=== PATIENT | female | born 1945 | race Caucasian/White ===

== ENCOUNTER 2016-08-23 07:40 | Inpatient (IN) | payer MEDICARE ==
[~2016-08-23] VITALS: Ht 160 cm; Wt 114.2 kg
[2016-08-23] VITALS (26 sets, daily range): BP systolic 115–163; BP diastolic 58–87; PULSE 52–87; RESP 16–20; TEMP 97.9–98.5; O2SAT 86–100
[~2016-08-23 07:40] MED LIST: ADVA100A INH; ALBU0.08 NEB; ALBUAER3 INH; ASPI81TA81 PO; CIME200T PO; COZA50TA PO; GLIP5TAB8 PO; HYDR10TA23 PO; METF500T PO; METO10TA PO; METO5TAB3 PO; MONT10TA2 PO; OCUVTAB PO; POTA10TA8 PO; PRAV20TA PO; TIMO0.5S30 EACH EYE; ULTR50TA5 PO; VENTAER INH; WHEEMIS3; ZOLP10TA3 PO
[2016-08-23] MEDS ORDERED: VANCOMYCIN INJ 1,000 MG in SODIUM CHLOR 0.9% 250 ML INJ 250 ML IV STA (07:55)
[2016-08-23] MEDS ORDERED: PIPERACIL-TAZO 4.5 GM PREMIX 100 ML IV STA (07:55)
[2016-08-23 08:12] LABS: BLOOD GAS BASE EXCESS 4.6 mmol/L (-2-2); BLOOD GAS CARBOXYHEMOGLOBIN 4.8 % (0-4); BLOOD GAS HCO3 32 mmol/L (22-26); BLOOD GAS O2 HGB SATURATION 84 % (90-100); BLOOD GAS OXYGEN CONTENT 18.2 Vol % (12.0-20.0); BLOOD GAS PCO2 79 mmHg (38-42); BLOOD GAS PO2 68 mmHG (61-120); BLOOD GAS TOTAL HGB 15.5 G/DL (12.0-16.0); TEMP CORR TO 98.6
--- NOTE | 2016-08-23 08:12 | PD ---
HPI Chief Complaint: Fall Time Seen by Provider: 07:55 Travel History International Travel<30 days: No Contact w/Intl Traveler<30days: No Traveled to known affect area: No History of Present Illness HPI 71-year-old female who is morbidly obese and multiple comorbidities had gone to the bathroom this morning to do a "sink bath". However when she turned she lost her balance and fell on the floor on her bottom. She did not hit her head and she was quite sure about it. He did not lose consciousness. She was unable to get up from the floor and called 911. Patient has sores on both of her legs that she has been wrapping and taking care of them herself. She says that this has been there for past 2 years. Her primary care initially know about it but now she is taking care of them. She seems to be breathing heavily. She is a smoker and does not require oxygen at home as per her. Her oxygen saturation on 2 L of oxygen via nasal cannula was 93%. She is complaining of some neck and lower back pain which is also her chronic pain. [facility] Past Medical History Narrative Medical List of her past medical history as reviewed from the nursing note. Hx Anticoagulant Therapy: Yes Arthritis: Yes Asthma: Yes Autoimmune Disease: No Blood Disorders: No Anxiety: No Depression: No Heart Rhythm Problems: No Cancer: Yes (SKIN LOWER LEG) Cardiovascular Problems: Yes (stints) High Cholesterol: Yes Chemotherapy: No Chest Pain: No Congestive Heart Failure: No COPD: Yes Cerebrovascular Accident: No Diabetes: Yes Endocrine: Yes Gastrointestinal Disorders: Yes (spastic bowel) GERD: No Genitourinary: No Headaches: Yes Hiatal Hernia: No Hypertension: Yes Immune Disorder: No Kidney Stones: No Musculoskeletal: Yes (ankles knees back) Neurologic: No Psychiatric: No Reproductive: No Respiratory: Yes Migraines: No Radiation Therapy: No Renal Failure: No Seizures: No Sickle Cell Disease: No Sleep Apnea: No Thyroid Disease: No Ulcer: No ?: Not Menopausal: Yes Tubal Ligation: Yes Past Surgical History Abdominal Surgery: No AICD: No Arteriovenous Shunt: No Body Medical Devices: 2 CARDIAC STENTS Cardiac Surgery: Yes (CARDIAC STENTS X 2) Ear Surgery: No Endocrine Surgery: No Eye Surgery: Yes (IMPLANTS) Genitourinary Surgery: No Gynecologic Surgery: Yes (tubes tied) Insulin Pump: No Joint Replacement: No Oral Surgery: No Pacemaker: No Thoracic Surgery: No Other Surgery: Yes (VALVE SURGERY IN LEFT LEG,) Social History Alcohol Use: No Tobacco Use: Yes Substance Use: No Allergies-Medications (Allergen,Severity, Reaction): Coded Allergies: Mushroom (Verified Allergy, Severe, Throat swelling, rash , 07/23/16) Rash all over Zoloft (Verified Adverse Reaction, Intermediate, Dizziness, 07/23/16) Comments List of her allergies reviewed from the nursing note. Reported Meds & Prescriptions Reported Meds & Active Scripts Active Zolpidem (Zolpidem Tartrate) 10 Mg Tab 10 Mg PO HS PRN Aspir-81 (Aspirin) 81 Mg Tabdr 1 Tab PO DAILY Singulair (Montelukast Sodium) 10 Mg Tab 10 Mg PO HS Ultram (Tramadol HCl) 50 Mg Tab 50 Mg PO Q8H PRN Potassium Chloride CR (Potassium Chloride) 10 Meq Tab 20 Meq PO DAILY Metolazone 5 Mg Tab 5 Mg PO DAILY Metoclopramide (Metoclopramide HCl) 10 Mg Tab 10 Mg PO TIDAC Take 30 minutes prior to meals three times a day Metformin (Metformin HCl) 500 Mg Tab 500 Mg PO BIDPC With meals Advair Diskus Inh (Fluticasone-Salmeterol Inh) 100-50 Mcg/Blist Aer 1 Puff INH BID Rinse mouth after use. Proair Hfa 8.5 GM Inh (Albuterol Sulfate) 90 Mcg/Act Aer 2 Puff INH Q6H PRN 108 mcg/actuation Wheelchair (Device) 1 Mis Mis 1 Ea .ROUTE DIRECTED Albuterol Neb (Albuterol Sulfate) 2.5 Mg/3 Ml Neb 2.5 Mg NEB Q4HR NEB While awake Reported Ocuvite (Multiple Vitamins W/ Minerals) 1 Tab 1 Tab PO DAILY Timolol Opth Drops 0.5 % Soln 1 Drop EACH EYE BID Cimetidine 200 Mg Tab 200 Mg PO DAILY Cozaar (Losartan Potassium) 50 Mg Tab 50 Mg PO DAILY Glipizide 5 Mg Tab 5 Mg PO DAILY Take 30 minutes before a meal Hydralazine (Hydralazine HCl) 10 Mg Tab 10 Mg PO BID Take with a meal Pravachol (Pravastatin) 20 Mg Tab 20 Mg PO DAILY Ultram (Tramadol HCl) 50 Mg Tab 50 Mg PO Q4H PRN Ventolin Hfa 18 GM Inh (Albuterol Sulfate) 90 Mcg/Act Aer 1 Puff INH Q4H PRN Narrative Medication List of her home medications reviewed from the nursing note. Review of Systems Except as stated in HPI: all other systems reviewed are Neg Physical Exam Narrative GENERAL: Lethargic, somnolent but answers questions appropriately, morbidly obese, moderate distress, respiratory distress SKIN: Warm and dry. Multiple spider hemangioma. Bilateral lower extremity erythema and warmth. There is some blistering of both anterior aspect of the leg and some of the blisters or oozing HEAD: Atraumatic. Normocephalic. EYES: Pupils equal and round. No scleral icterus. No injection or drainage. ENT: No nasal bleeding or discharge. Mucous membranes pink and moist. NECK: Trachea midline. No JVD. CARDIOVASCULAR: Regular rate and rhythm. No murmur appreciated. RESPIRATORY: Accessory muscle use for respiration to do distress. Diminished air entry bilaterally GASTROINTESTINAL: Abdomen soft, non-tender, nondistended. Hepatic and splenic margins not palpable. MUSCULOSKELETAL: No obvious deformities. No clubbing. No cyanosis. 3+ pedal edema. NEUROLOGICAL: Somnolent, GCS of 14. No obvious cranial nerve deficits. Motor grossly within normal limits. Normal speech. PSYCHIATRIC: Appropriate mood and affect; insight and judgment normal. Data Data Last Documented VS Vital Signs Date Time Temp Pulse Resp B/P Pulse Ox O2 Delivery O2 Flow Rate FiO2 08/23/16 10:46 70 18 140/77 100 Ventilator 08/23/16 10:24 100 08/23/16 10:04 4 08/23/16 07:45 97.9 Orders Electrocardiogram (08/23/16 07:55) Complete Blood Count With Diff (08/23/16 07:55) Comprehensive Metabolic Panel (08/23/16 07:55) Prothrombin Time / Inr (Pt) (08/23/16 07:55) Lactic Acid Sepsis Protocol (08/23/16 07:55) Magnesium (Mg) (08/23/16 07:55) Troponin I (08/23/16 07:55) Urinalysis - C+S If Indicated (08/23/16 07:55) Blood Culture (08/23/16 07:55) Chest, Single Ap (08/23/16 07:55) Arterial Blood Gas (Abg) (08/23/16 07:55) Blood Glucose (08/23/16 07:55) Ecg Monitoring (08/23/16 07:55) Iv Access Insert/Monitor (08/23/16 07:55) Oximetry (08/23/16 07:55) Oxygen Administration (08/23/16 07:55) Piperacil-Tazo 4.5 Gm Premix (Zosyn 4.5 (08/23/16 07:55) Vancomycin Inj (Vancomycin Inj) (08/23/16 07:55) Resp Bipap / Cpap Non Invas Vt (08/23/16 ) Arterial Blood Gas (Abg) (08/23/16 ) Urine Culture (08/23/16 08:10) Furosemide Inj (Lasix Inj) (08/23/16 09:00) Urinary Catheter Insert/Apply (08/23/16 08:53) Albuterol-Ipratropium Neb (Duoneb Neb) (08/23/16 09:15) Propofol 1000 Mg/100 Ml Inj (Diprivan 10 (08/23/16 09:50) Lidocaine 2% Inj (Xylocaine 2% Inj) (08/23/16 09:51) Etomidate Inj (Amidate Inj) (08/23/16 09:51) Rocuronium Inj (Zemuron Inj) (08/23/16 09:51) Etomidate Inj (Amidate Inj) (08/23/16 10:00) Rocuronium Inj (Zemuron Inj) (08/23/16 10:00) Propofol 1000 Mg/100 Ml Inj (Diprivan 10 (08/23/16 10:00) ^ Infusion (08/23/16 09:52) RASS (08/23/16 09:52) Neurological Rass Scale DWAYNE.Q2H (08/23/16 09:52) Car-Gastric Tube Insert/Mon (08/23/16 09:52) Rocuronium Inj (Zemuron Inj) (08/23/16 09:53) Potassium, Serum (K) (08/23/16 12:54) Calcium Gluconate Inj (Calcium Gluconate (08/23/16 10:00) Insulin Human Regular Inj (Novolin R Inj (08/23/16 10:00) Dextrose 50% In [place] (Vial) Inj (D50w (Vi (08/23/16 10:00) Albuterol Concentrated Neb (Albuterol Co (08/23/16 10:00) Rocuronium Inj (Zemuron Inj) (08/23/16 10:00) Arterial Blood Gas (Abg) (08/23/16 10:40) Chest, Single Ap (08/23/16 ) Methylprednisolone So Succ Inj (Solumedr (08/23/16 10:15) Restraints Non-Violent DWAYNE.Q3H (08/23/16 10:16) Admit Order (Ed Use Only) (08/23/16 10:35) Troponin I (08/23/16 13:13) Labs Laboratory Tests Test 08/23/16 08/23/16 08/23/16 08/23/16 07:43 08:10 09:06 09:40 Prothrombin Time 11.5 SEC Prothromb Time International 1.0 RATIO Ratio White Blood Count 9.6 TH/MM3 Red Blood Count 5.32 MIL/MM3 Hemoglobin 15.2 GM/DL Hematocrit 46.6 % Mean Corpuscular Volume 87.6 FL Mean Corpuscular Hemoglobin 28.6 PG Mean Corpuscular Hemoglobin 32.7 % Concent Red Cell Distribution Width 15.6 % Platelet Count 293 TH/MM3 Mean Platelet Volume 6.8 FL Neutrophils (%) (Auto) 79.9 % Lymphocytes (%) (Auto) 8.3 % Monocytes (%) (Auto) 10.5 % Eosinophils (%) (Auto) 0.8 % Basophils (%) (Auto) 0.5 % Neutrophils # (Auto) 7.6 TH/MM3 Lymphocytes # (Auto) 0.8 TH/MM3 Monocytes # (Auto) 1.0 TH/MM3 Eosinophils # (Auto) 0.1 TH/MM3 Basophils # (Auto) 0.0 TH/MM3 CBC Comment DIFF FINAL Differential Comment Blood Gas Puncture Site LT RADIAL LT RADIAL Blood Gas Patient Temperature 98.6 98.6 Blood Gas HCO3 32 mmol/L 32 mmol/L Blood Gas Base Excess 4.6 mmol/L 4.0 mmol/L Blood Gas Oxygen Saturation 84 % 91 % Arterial Blood pH 7.23 7.20 Arterial Blood Partial 79 mmHg 83 mmHg Pressure CO2 Arterial Blood Partial 68 mmHG 104 mmHG Pressure O2 Arterial Blood Oxygen Content 18.2 Vol % 19.5 Vol % Arterial Blood 4.8 % 4.4 % Carboxyhemoglobin Arterial Blood Methemoglobin 2.0 % 1.9 % Blood Gas Hemoglobin 15.5 G/DL 15.3 G/DL Oxygen Delivery Device NASAL CANNULA BIPAP Blood Gas Liter Flow 3 L/M Urine Color DARK-YELLOW Urine Turbidity HAZY Urine pH 5.5 [address] [place] 1.024 Urine Protein 100 mg/dL Urine Glucose (UA) NEG mg/dL Urine Ketones NEG mg/dL Urine Occult Blood TRACE Urine Nitrite NEG Urine Bilirubin NEG Urine Urobilinogen 4.0 MG/DL Urine Leukocyte Esterase LARGE Urine RBC 12 /hpf Urine WBC 63 /hpf Urine WBC Clumps MANY Urine Squamous Epithelial 3 /hpf Cells Urine Renal Epithelial Cells <1 /hpf Urine Amorphous Sediment RARE Urine Bacteria OCC /hpf Urine Mucus FEW /lpf Microscopic Urinalysis Comment CATH-CULTURE IND Sodium Level 130 MEQ/L Potassium Level 5.6 MEQ/L Chloride Level 92 MEQ/L Carbon Dioxide Level 32.8 MEQ/L Anion Gap 5 MEQ/L Blood Urea Nitrogen 15 MG/DL Creatinine 1.16 MG/DL Estimat Glomerular Filtration 46 ML/MIN Rate Random Glucose 123 MG/DL Lactic Acid Level 0.9 mmol/L Calcium Level 8.6 MG/DL Magnesium Level 2.1 MG/DL Total Bilirubin 0.8 MG/DL Aspartate Amino Transf 28 U/L (AST/SGOT) Alanine Aminotransferase 17 U/L (ALT/SGPT) Alkaline Phosphatase 85 U/L Troponin I 0.03 NG/ML Total Protein 7.6 GM/DL Albumin 3.1 GM/DL Blood Gas Ventilator Setting 16IPAP/8EPAP Blood Gas Inspired Oxygen 40 % MDM Medical Decision Making Medical Screen Exam Complete: Yes Emergency Medical Condition: Yes Medical Record Reviewed: Yes Interpretation(s) Twelve-lead EKG was reviewed by me. Normal sinus rhythm, right axis deviation, right bundle branch block, peaked T waves. Heart rate of 82 bpm. Differential Diagnosis Sepsis, DKA, electrolyte abnormalities, cellulitis Narrative Course 8:10 AM awaiting for the blood test results and the x-ray result. Rectal temperature was 97.9. I however have started the patient on antibiotic mainly Zosyn and vancomycin given her diabetes and poor skin condition. 8:56 AM blood gas that was done earlier was suggestive of respiratory acidosis. I've asked the respiratory therapist to put a BiPAP and repeat the blood gas and 40-45 minutes. Meanwhile some of the test results are back. CBC is within normal limits. Chest x-rays shows cardiomegaly and some pulmonary congestion. Patient has significant UTI. The antibiotic she has received initially should be okay for now to cover the UTI. Awaiting for the chemistry and the repeat blood gas. Patient will require to be admitted to the ICU. 10:13 AM the repeat blood gas continued to show worsened respiratory acidosis. I decided to intubate the patient. I spoke with her who understood. Patient tolerated the intubation well. She is hooked up to the ventilator at this time and awaiting for the repeat blood gas. Patient also had the chemistry come back which showed hyperkalemia. I have ordered IV calcium gluconate, insulin and dextrose and albuterol nebulizers. Awaiting for the facetor to call back. Critical Care Narrative Aggregate critical care time was 75 minutes. Time to perform other separately billable procedures was not included in the critical care time. My time did not include minutes spent treating any other patients simultaneously or on activities that did not directly contribute to the patient's treatment. The services I provided to this patient were to treat and/or prevent clinically significant deterioration that could result in: Respiratory failure, hyperkalemia, UTI I provided critical care services requiring my management, as noted below: Chart data review, documentation time, medication orders and management, vital sign assessments/reviewing monitor data, ordering and reviewing lab tests, ordering and interpreting/reviewing x-rays and diagnostic studies, care of the patient and discussion of the patient with the admitting physicians. Procedures Procedure Narrative After the risks and benefits were discussed the following procedure was performed: INTUBATION: The patient was put in optimal position for the procedure. Rapid sequence intubation was initiated by me using 20 milligrams of etomidate IV and 100 milligrams of rocuronium IV. The patient was intubated with a 7.5 cuffed endotracheal tube. Tube placement was confirmed by visualization of the tube and balloon passing through the cords, capnometry and subsequent chest x-ray. Breath sounds were equal and well aerated bilaterally postintubation. No breath sounds over stomach. Patient tolerated procedure well. EKG Prior to Arrival: No Diagnosis Primary Impression: CHF (congestive heart failure) Qualified Code: I50.9 - Congestive heart failure, unspecified congestive heart failure chronicity, unspecified congestive heart failure type Additional Impressions: Respiratory acidosis UTI (urinary tract infection) Qualified Code: N39.0 - Urinary tract infection without hematuria, site unspecified Fall Qualified Code: W19.XXXA - Fall, initial encounter Cellulitis Qualified Code: L03.119 - Cellulitis of lower extremity, unspecified laterality Respiratory failure Qualified Code: J96.01 - Acute respiratory failure with hypoxia Hyperkalemia Renal insufficiency Admitting Information Admitting Physician Requests: Admit Bronwyn Adams MD Aug 23, 2016 08:12
[2016-08-23 08:13] LABS: CRITICAL VALUE YES; DRAW SITE LT RADIAL; LITER FLOW 3 L/M; NUMBER OF ARTERIAL PUNCTURES 2; OXYGEN DEVICE NASAL CANNULA; STAT YES; ULNAR PULSE Y
[2016-08-23 08:29] LABS: AUTOMATED NEUTROPHIL # 7.6 TH/MM3 (1.8-7.7); BASOPHIL % 0.5 % (0.0-2.0); EOSINOPHIL # 0.1 TH/MM3 (0-0.4); EOSINOPHIL % 0.8 % (0.0-4.0); HEMATOCRIT 46.6 % (35.0-46.0); HEMO FLAGS DIFF FINAL; LYMPH % 8.3 % (9.0-44.0); LYMPHOCYTE # 0.8 TH/MM3 (1.0-4.8); MEAN CELL VOLUME 87.6 FL (80.0-100.0); MEAN CORPUSCULAR HEMOGLOBIN 28.6 PG (27.0-34.0); MEAN CORPUSCULAR HGB CONC 32.7 % (32.0-36.0); MONO % 10.5 % (0.0-8.0); NEUT % 79.9 % (16.0-70.0); PLATELET COUNT 293 TH/MM3 (150-450); RED BLOOD COUNT 5.32 MIL/MM3 (4.00-5.30); RED CELL DISTRIBUTION WIDTH 15.6 % (11.6-17.2); WHITE BLOOD COUNT 9.6 TH/MM3 (4.0-11.0)
[2016-08-23 08:32] LABS: PROTHROMBIN TIME - PATIENT 11.5 SEC (9.8-11.6)
--- NOTE | 2016-08-23 08:43 | RADRPT ---
EXAM DATE/TIME: 08/23/2016 08:05 [facility] COMPARISON: CHEST SINGLE AP, October 17, 2014, 0:17. INDICATIONS : Short of breath MEDICAL HISTORY : None. SURGICAL HISTORY : None. ENCOUNTER: Initial ACUITY: 1 day PAIN SCORE: Non-responsive. LOCATION: Bilateral chest FINDINGS: A single view of the chest demonstrates the lungs to be symmetrically aerated without evidence of mas s, infiltrate or effusion. The heart size is diffusely enlarged but not significantly changed compar ed to the prior study. There is some prominence of the pulmonary vasculature suggestive of pulmonary venous congestion. The bony structures are stable and intact. No significant changes.. CONCLUSION: 1. Pulmonary venous congestion. 2. Prominence stable cardiomegaly. Antony Corona MD on August 23, 2016 at 8:41 Board Certified Radiologist. This report was verified electronically.
[2016-08-23 08:48] LABS: BACTERIA, URINE OCC /hpf; BLOOD, URINE TRACE (NEG); GLUCOSE,URINE NEG (NEG); KETONE, URINE NEG (NEG); MUCUS URINE FEW /lpf (OCC); NITRITE,URINE NEG (NEG); PH, URINE 5.5 (5.0-8.5); RENAL EPITHELIAL CELLS <1 /hpf; SQUAMOUS EPITHELIAL CELL URINE 3 /hpf (0-5); URINE COLOR DARK-YELLOW (YELLW/STRAW)
[2016-08-23 08:49] LABS: COMMENT (UR) CATH-CULTURE IND; CULTURE IF INDICATED CATH CULTURE IND
[2016-08-23] MEDS ORDERED: FUROSEMIDE 40 MG/4 ML VIAL IV PUSH ONE (09:00)
[2016-08-23] MEDS: RESP: ALBUTEROL 2.5 MG/IPRATROPIUM 0.5 MG NEB (SCH) INH ×6 (09:20→23:55)
[2016-08-23 09:43] LABS: BLOOD GAS CARBOXYHEMOGLOBIN 4.4 % (0-4); BLOOD GAS HCO3 32 mmol/L (22-26); BLOOD GAS METHEMOGLOBIN 1.9 % (0-2); BLOOD GAS O2 HGB SATURATION 91 % (90-100); BLOOD GAS OXYGEN CONTENT 19.5 Vol % (12.0-20.0); BLOOD GAS PCO2 83 mmHg (38-42); BLOOD GAS PO2 104 mmHG (61-120); BLOOD GAS TOTAL HGB 15.3 G/DL (12.0-16.0); TEMP CORR TO 98.6
[2016-08-23 09:44] LABS: CRITICAL VALUE YES; DRAW SITE LT RADIAL; FIO2 40 %; NUMBER OF ARTERIAL PUNCTURES 2; OXYGEN DEVICE BIPAP; STAT YES; ULNAR PULSE Y; VENT SETTINGS 16IPAP/8EPAP
[2016-08-23 09:45] LABS: ANION GAP 5 MEQ/L (5-15); AST (GOT) 28 U/L (15-37); BICARBONATE 32.8 MEQ/L (21.0-32.0); BLOOD UREA NITROGEN 15 MG/DL (7-18); CHLORIDE 92 MEQ/L (98-107); GLOMERULAR FILTRATION RATE 46 ML/MIN (>89); MAGNESIUM 2.1 MG/DL (1.5-2.5); POTASSIUM 5.6 MEQ/L (3.5-5.1); SODIUM (NA) 130 MEQ/L (136-145)
[2016-08-23 09:46] LABS: ALT (GPT) 17 U/L (10-53)
[2016-08-23 09:50] LABS: ALKALINE PHOSPHATASE 85 U/L (45-117); TOTAL BILIRUBIN ADULT 0.8 MG/DL (0.2-1.0)
[2016-08-23] MEDS ORDERED: PROPOFOL 1000 MG/100 ML INJ 100 ML ONE (09:50)
[2016-08-23] MEDS ORDERED: ETOMIDATE 20 MG/10 ML VIAL ONE (09:51)
[2016-08-23] MEDS ORDERED: LIDOCAINE HCL 2% 100 MG/5 ML SYRINGE ONE (09:51)
[2016-08-23] MEDS ORDERED: ROCURONIUM INJ 50 MG/5 ML VIAL ONE ×2 (09:51→09:53)
[2016-08-23] MEDS ORDERED: ROCURONIUM INJ 100 MG/10 ML VIAL IV ONE (10:00)
[2016-08-23] MEDS ORDERED: PROPOFOL 1000 MG/100 ML INJ 100 ML IV SCH (10:00)
[2016-08-23] MEDS ORDERED: ETOMIDATE 20 MG/10 ML VIAL IV PUSH ONE (10:00)
[2016-08-23] MEDS ORDERED: ROCURONIUM INJ 50 MG/5 ML VIAL IV ONE (10:00)
[2016-08-23] MEDS ORDERED: CALCIUM GLUCONATE 10% 1 GM/10 ML VIAL SLOW IVP ONE ×2 (10:00→18:30)
[2016-08-23] MEDS ORDERED: RESP: ALBUTEROL CONC 2.5 MG/0.5 ML NEB INH ONE (10:00)
[2016-08-23] MEDS ORDERED: INSULIN HUMAN REGULAR 1,000 UNITS/10 ML VIAL IV PUSH ONE ×2 (10:00→18:30)
[2016-08-23] MEDS ORDERED: DEXTROSE 50% IN WATER 50 ML VIAL(D50) IV PUSH ONE ×2 (10:00→18:30)
[2016-08-23] MEDS ORDERED: methylPREDNISolone SOD SUCC 125 MG/2 ML VIAL IV PUSH ONE (10:15)
--- NOTE | 2016-08-23 10:44 | RADRPT ---
EXAM DATE/TIME: 08/23/2016 10:27 [facility] COMPARISON: CHEST SINGLE AP, August 23, 2016, 8:05. INDICATIONS : Post ET and OG tube placement MEDICAL HISTORY : None. SURGICAL HISTORY : None. ENCOUNTER: Initial ACUITY: 1 day PAIN SCORE: Non-responsive. LOCATION: Bilateral chest FINDINGS: There is an ET tube in place as well as an NG tube. The ET tube appears to be in good position. No pn eumothorax. The heart size remains diffusely enlarged but stable. No new focal pulmonary infiltrates are demonstrated. There is some pulmonary venous congestion which appears to be stable. The bony stru ctures are stable. CONCLUSION: 1. The ET tube and NG tube are in place. 2. No pneumothorax. 3. No significant change compared to the prior exam. Antony Corona MD on August 23, 2016 at 10:42 Board Certified Radiologist. This report was verified electronically.
--- NOTE | 2016-08-23 10:58 | HHI.HP ---
[facility] Service Critical Care Medicine Primary Care Physician No Primary Care Physician Admission Diagnosis respiratory failure, UTI hyperkalemia, cellulitis Diagnosis: (1) Respiratory failure Diagnosis: Principal (2) Respiratory acidosis Diagnosis: Principal (3) UTI (urinary tract infection) Diagnosis: Principal (4) Chronic venous hypertension with ulcer and inflammation Diagnosis: Principal (5) COPD exacerbation Diagnosis: Principal (6) Stented coronary artery Diagnosis: Secondary (7) Mixed hyperlipidemia Diagnosis: Secondary (8) Seasonal allergic rhinitis Diagnosis: Secondary (9) Bilateral lower leg cellulitis Diagnosis: Principal (10) DVT prophylaxis Diagnosis: Secondary (11) Benign essential hypertension Diagnosis: Secondary (12) Morbid obesity with BMI of 40.0-44.9, adult Diagnosis: Principal (13) Coronary arteriosclerosis Diagnosis: Secondary (14) JOSEPHINE (acute kidney injury) Diagnosis: Principal (15) Ulcer of left lower extremity, limited to breakdown of skin Diagnosis: Principal (16) ADHD (attention deficit hyperactivity disorder) Diagnosis: Secondary (17) PVD (peripheral vascular disease) Diagnosis: Principal (18) Chronic stasis dermatitis Diagnosis: Principal (19) Diabetes mellitus Diagnosis: Principal (20) Hyperkalemia Diagnosis: Principal Chief Complaint: Short of breath/currently orotracheally intubated Travel History International Travel<30 Days: No Contact w/Intl Traveler <30 Da: No Traveled to Known Affected Are: No Sepsis Criteria SIRS Criteria (2 or more): RR > 20 or PaCO2 < 32 Sepsis Criteria (SIRS+source): Infect source susp/known Criteria Outcome: Meets sepsis criteria History of Present Illness 71-year-old female. Date of admission 08/23/2016. Past medical history includes morbid obesity, allergic rhinitis, glaucoma, depression, coronary disease status post stent 2 in 2006, COPD, hypertension, dyslipidemia , gastroesophageal reflux disease, diabetes mellitus,, chronic low back pain, urinary incontinence, peripheral vascular disease, osteoporosis and chronic kidney disease stage III. According to , this morning she presented to do a "sink bath". However when she turned she lost her balance and fell on the floor on her bottom. She did not hit her head and she was quite sure about it. He stated that she did not lose consciousness. She was unable to get up from the floor and called 911. Patient has sores on both of her legs that she has been wrapping and taking care of them herself. S Originally, she presented to [place] [facility] on 2 L nasal cannula. She had increasing oxygen requirement requiring BiPAP. 40 mg Lasix IV was provided. Blood gas revealed a worsening respiratory acidosis and the patient was intubated after receiving 20 mg etomidate 100 mg rocuronium using 7.5 ET tube. Patient is currently awake and alert. Review of Systems ROS Limitations: Intubated Past Family Social History Allergies: Coded Allergies: Mushroom (Verified Allergy, Severe, Throat swelling, rash , 07/23/16) Rash all over Zoloft (Verified Adverse Reaction, Intermediate, Dizziness, 07/23/16) Past Medical History Allergic rhinitis Glaucoma/cataracts Depression Atherosclerotic vascular disease Hypertension Dyslipidemia History of atrial fibrillation Gastroesophageal reflux disease Chronic low back pain Urinary incontinence Chronic kidney disease stage III Morbid obesity Chronic venous stasis Chronic lower extremity cellulitis Monet cruris Past Surgical History Squamous cell carcinoma removal left leg History of bilateral venous stripping Coronary artery stent 2 Right hand nerve surgery unknown type Bilateral tubal ligation Bilateral cataract removal Reported Medications Singular 10 mg by mouth daily Cozaar 50mg by mouth daily Albuterol nebulizers as needed Metformin 1000 mg by mouth twice a day Timolol 0.5% 1 drop each eye twice a day Hydralazine 10 mg by mouth twice a day Pravachol 20 mg by mouth daily Glipizide 5 mg by mouth daily Metolazone 5 mg by mouth daily Ultram as needed Aspirin 81 mg by mouth daily Multivitamin 1 tablet by mouth daily Cimetidine 200 mg by mouth daily? Active Ordered Medications Reviewed in EMR Family History Father from MVA. Mother , history of lung/gastric cancer age 75. Social History No alcohol or IV drug use. One half pack per day Tobacco 50 years. Physical Exam Vital Signs Vital Signs Date Time Temp Pulse Resp B/P Pulse Ox O2 Delivery O2 Flow Rate FiO2 08/23/16 10:55 76 18 127/71 100 Ventilator 08/23/16 10:46 70 18 140/77 100 Ventilator 08/23/16 10:24 98 100 08/23/16 10:21 69 147/87 08/23/16 10:06 100 08/23/16 10:04 74 20 119/68 89 Nasal Cannula 4 08/23/16 10:01 72 18 115/77 89 Nasal Cannula 2 08/23/16 09:24 71 18 128/74 99 BiPAP 08/23/16 08:30 96 40 08/23/16 08:00 97 Nasal Cannula 2 08/23/16 08:00 97 Nasal Cannula 2 08/23/16 07:45 97.9 87 20 159/82 86 Physical Exam GENERAL: 71-year-old male, critically ill currently orotracheally intubated SKIN: Noted erythema or cellulitic changes in the bilateral shins lower extremities. Positive monet cruris bilaterally HEAD: Atraumatic. Normocephalic. EYES: Pupils equal and round about 3 mm bilaterally and reactive. No scleral icterus. No injection or drainage. ENT: No nasal bleeding or discharge. Mucous membranes pink and moist. Oropharynx without any erythema/orotracheally intubated NECK: Trachea midline. No JVD. No thyromegaly or lymphadenopathy CARDIOVASCULAR: Regular rate and rhythm. S1, S2. No S4. Without murmur RESPIRATORY: Diminished breath sounds throughout. Possible few crackles appreciated in the lower lobes posteriorly. GASTROINTESTINAL: Abdomen soft, non-tender, obese. Hypoactive bowel sounds are appreciated. MUSCULOSKELETAL: Extremities with cellulitic changes bilateral lower extremities. +1 edema. Excoriation noted NEUROLOGICAL: Currently arousable on the ventilator after paralytic has worn off. Moves all 4 extremity spontaneously. Positive gag. Laboratory Laboratory Tests Test 08/23/16 08/23/16 08/23/16 08/23/16 07:43 08:10 09:06 09:40 White Blood Count 9.6 Red Blood Count 5.32 Hemoglobin 15.2 Hematocrit 46.6 Mean Corpuscular Volume 87.6 Mean Corpuscular Hemoglobin 28.6 Mean Corpuscular Hemoglobin 32.7 Concent Red Cell Distribution Width 15.6 Platelet Count 293 Mean Platelet Volume 6.8 Neutrophils (%) (Auto) 79.9 Lymphocytes (%) (Auto) 8.3 Monocytes (%) (Auto) 10.5 Eosinophils (%) (Auto) 0.8 Basophils (%) (Auto) 0.5 Neutrophils # (Auto) 7.6 Lymphocytes # (Auto) 0.8 Monocytes # (Auto) 1.0 Eosinophils # (Auto) 0.1 Basophils # (Auto) 0.0 CBC Comment DIFF FINAL Differential Comment Prothrombin Time 11.5 Prothromb Time International 1.0 Ratio Urine Color DARK-YELLOW Urine Turbidity HAZY Urine pH 5.5 Urine Specific [place] 1.024 Urine Protein 100 Urine Glucose (UA) NEG Urine Ketones NEG Urine Occult Blood TRACE Urine Nitrite NEG Urine Bilirubin NEG Urine Urobilinogen 4.0 Urine Leukocyte Esterase LARGE Urine RBC 12 Urine WBC 63 Urine WBC Clumps MANY Urine Squamous Epithelial 3 Cells Urine Renal Epithelial Cells <1 Urine Amorphous Sediment RARE Urine Bacteria OCC Urine Mucus FEW Microscopic Urinalysis Comment CATH-CULTURE IND Blood Gas Puncture Site LT RADIAL LT RADIAL Blood Gas Patient Temperature 98.6 98.6 Blood Gas HCO3 32 32 Blood Gas Base Excess 4.6 4.0 Blood Gas Oxygen Saturation 84 91 Arterial Blood pH 7.23 7.20 Arterial Blood Partial 79 83 Pressure CO2 Arterial Blood Partial 68 104 Pressure O2 Arterial Blood Oxygen Content 18.2 19.5 Arterial Blood 4.8 4.4 Carboxyhemoglobin Arterial Blood Methemoglobin 2.0 1.9 Blood Gas Hemoglobin 15.5 15.3 Oxygen Delivery Device NASAL CANNULA BIPAP Blood Gas Liter Flow 3 Sodium Level 130 Potassium Level 5.6 Chloride Level 92 Carbon Dioxide Level 32.8 Anion Gap 5 Blood Urea Nitrogen 15 Creatinine 1.16 Estimat Glomerular Filtration 46 Rate Random Glucose 123 Lactic Acid Level 0.9 Calcium Level 8.6 Magnesium Level 2.1 Total Bilirubin 0.8 Aspartate Amino Transf 28 (AST/SGOT) Alanine Aminotransferase 17 (ALT/SGPT) Alkaline Phosphatase 85 Troponin I 0.03 Total Protein 7.6 Albumin 3.1 Blood Gas Ventilator Setting 16IPAP/8EPAP Blood Gas Inspired Oxygen 40 Date/Time Procedure Status Source Growth 08/23/16 08:10 Urine Culture Received Urine Clean Catch Pending 08/23/16 08:04 Aerobic Blood Culture Received Blood Peripheral Pending 08/23/16 08:04 Anaerobic Blood Culture Received Blood Peripheral Pending Result Diagram: 08/23/16 0743 08/23/16 0906 Imaging Last Impressions Chest X-Ray 08/23/16 0755 Signed Impressions: Service Date/Time: Tuesday, August 23, 2016 08:05 - CONCLUSION: 1. Pulmonary venous congestion. 2. Prominence stable cardiomegaly. Antony Corona MD Assessment and Plan Assessment and Plan Neuro/Psych: Glaucoma/cataracts Allergic rhinitis Depression Status post fall did not strike head ADHD CBT CV: Hypertension Dyslipidemia Coronary artery disease status post stent 2 Incomplete right bundle branch block PVD/chronic venous stasis Echocardiogram revealed EF 55%. No regional wall motion abnormality. Left atrium somewhat dilated Repeat echocardiogram ordered. EKG revealed normal sinus rhythm. Incomplete right bundle branch block. Troponin 0.03. Home medication Cozaar 50 mg by mouth daily held in light of acute kidney injury. Patient is on hydralazine 10 mg by mouth twice a day for hypertension at home. As needed labetalol, hydralazine and Nitropaste Currently on normal saline at 84 cc an hour. She is on Pravachol 20 mg by mouth daily dyslipidemia. Resume likely indicated Kidney aspirin 81 mg by mouth daily. Resp: Acute hypoxemic respiratory failure COPD Tobaccoism ACV 18/600/5/100 Ventilator bundle Bronchodilator therapy every 4 hours and as needed Pulmicort 0.5/2 1 inhalation twice a day Solu-Medrol 40 mg every 8 hours Chest x-ray revealed possible pulmonary edema. We'll check CT thorax artery going up stairs Patient is on Advair 100/50 one ventilation twice a day and as needed albuterol nebs at home. Continue single attempt milligrams by mouth daily Tobacco cessation will be encouraged GI: Gastroesophageal reflux disease Her tube feeding with Glucerna 1.5 goal 55 cc an hour Patient is on cimetidine 200 mg by mouth daily at home ?. Currently Protonix 40 mg by mouth daily Colace/as needed Senokot for bowel regimen : Abreu has been placed for accurate I's and O's in a critically ill patient Endo: Diabetes mellitus At home on metformin 1000 mg by mouth twice a day and glipizide 5 mg by mouth 3 times a day with meals. We'll hold. Place of slight scale insulin Accu-Cheks every 6 hours to maintain euglycemia. Moderate regimen Renal: Acute on chronic kidney injury stage III Patient is on metolazone 5 mg daily at home. This is been held Received 40 mg Lasix in ED. We'll follow up on BMP this afternoon Heme: CBC within normal limits. Recheck CBC/coags in a.m. monitor trends ID: Urine tract infection Bilateral lower extremity cellulitis Monet cruris Day 1 vancomycin/Zosyn/Zithromax Blood cultures 2, sputum, urine and influenza all ordered. Doppler ultrasound bilateral lower extremities MSK: Obesity Osteo arthritis Chronic low back pain PT evaluate and treat. On tramadol at home as needed. FEN: Hyponatremia Hyperkalemia Patient is on diuretics and supplement potassium at home. Received calcium gluconate, D50/insulin, bicarbonate 1. Recheck in 3 hours. Access - Utilize peripheral IV. Central line if indicated Prophylaxis - GI - Protonix - DVT - SCDs on hold secondary to cellulitis/Lovenox subcutaneous Critical Care: The total critical care time was 65 minutes. Time to perform other separately billable procedures was not included in the critical care time. Code Status Full code Discussed Condition With Dr. Adams/ED physician. AUTOMATION OPERATOR. Patient.. Plan discussed all questions answered. Problem Qualifiers (1) Respiratory failure: Qualified Code: J96.01 - Acute respiratory failure with hypoxia (2) UTI (urinary tract infection): Qualified Code: N39.0 - Urinary tract infection without hematuria, site unspecified (3) Chronic venous hypertension with ulcer and inflammation: Qualified Code: I87.333 - Chronic venous hypertension with ulcer and inflammation, bilateral (4) ADHD (attention deficit hyperactivity disorder): Qualified Code: F90.9 - Attention deficit hyperactivity disorder (ADHD), unspecified ADHD type (5) Chronic stasis dermatitis: Qualified Code: I83.10 - Chronic stasis dermatitis, unspecified laterality (6) Diabetes mellitus: Qualified Code: E11.8 - Type 2 diabetes mellitus with complication, without long-term current use of insulin Rc Molina MD Aug 23, 2016 10:58
[2016-08-23] MEDS ORDERED: MISCELLANEOUS NURSING INFORMATION XX SCH (11:00)
[2016-08-23] MEDS ORDERED: ACETAMINOPHEN 325 MG TAB PO PRN (11:00)
[2016-08-23] MEDS ORDERED: fentaNYL DRIP 250 ML IV SCH (11:00)
[2016-08-23] MEDS ORDERED: SENNOSIDES 8.6 MG TAB PO PRN (11:00)
[2016-08-23] MEDS ORDERED: CHLORHEXIDINE GLUCONATE 2 % 1 PACK (2 CLOTHS) TOP PRN (11:00)
[2016-08-23] MEDS ORDERED: ONDANSETRON HCL 4 MG/2 ML VIAL IV PRN (11:00)
[2016-08-23 11:03] LABS: BLOOD GAS BASE EXCESS 4.1 mmol/L (-2-2); BLOOD GAS CARBOXYHEMOGLOBIN 3.9 % (0-4); BLOOD GAS HCO3 29 mmol/L (22-26); BLOOD GAS METHEMOGLOBIN 1.8 % (0-2); BLOOD GAS O2 HGB SATURATION 94 % (90-100); BLOOD GAS PCO2 54 mmHg (38-42); BLOOD GAS PO2 403 mmHG (61-120); BLOOD GAS TOTAL HGB 15.1 G/DL (12.0-16.0); CRITICAL VALUE YES; DRAW SITE LT RADIAL; FIO2 100 %; NUMBER OF ARTERIAL PUNCTURES 3; OXYGEN DEVICE AC18/600/6PEEP; STAT YES; TEMP CORR TO 98.6; ULNAR PULSE Y
[2016-08-23] MEDS ORDERED: LABETALOL HCL 100 MG/20 ML VIAL IV PUSH PRN (11:15)
[2016-08-23] MEDS ORDERED: GLUCAGON 1 MG/ML VIAL OTHER PRN (11:15)
[2016-08-23] MEDS ORDERED: Vancomycin Consult Pharmacy 1 EA OTHER SCH (11:15)
[2016-08-23] MEDS ORDERED: NITROGLYCERIN 2% OINT 1 GM PACKET TOPICAL PRN (11:15)
[2016-08-23] MEDS ORDERED: DEXTROSE 50% IN WATER 50 ML VIAL(D50) IV PUSH PRN (11:15)
[2016-08-23] MEDS ORDERED: RESP: ALBUTEROL 2.5 MG/3 ML NEB (SCH) NEB ONE (11:15)
[2016-08-23] MEDS: RESP: ALBUTEROL 2.5 MG/3 ML NEB (SCH) INH ×2 (11:25→11:30)
[2016-08-23] MEDS ORDERED: MIDAZOLAM 100 MG/ML INJ 100 ML ONE (11:26)
[2016-08-23] MEDS: VANCOMYCIN 1,000 MG/NS 250 ML IV ONE ×4 (11:50→12:05)
[2016-08-23] MEDS: SODIUM CHLOR 0.9% 1000 ML INJ 1,000 ML IV SCH ×2 (11:51→17:45)
[2016-08-23] MEDS: INSULIN NovoLIN REGULAR SUPPLEMENTAL SCALE SQ SCH ×2 (12:00→18:00)
[2016-08-23] MEDS ORDERED: ENOXAPARIN SODIUM 40 MG/0.4 ML SYRINGE SQ SCH (12:00)
[2016-08-23] MEDS: ARTIFICIAL TEARS OPTH SOLN 15 ML BTL EACH EYE SCH ×2 (13:00→18:00)
[2016-08-23] MEDS: AZITHROMYCIN INJ 500 MG in SODIUM CHLOR 0.9% 250 ML INJ 250 ML IV SCH (13:13)
[2016-08-23 13:37] LABS: POTASSIUM 5.3 MEQ/L (3.5-5.1)
[2016-08-23] MEDS: NYSTATIN 100,000 U/GM PWD 15 GM BTL TOPICAL SCH ×2 (14:00→22:03)
--- NOTE | 2016-08-23 14:33 | RADRPT ---
EXAM DATE/TIME: 08/23/2016 13:58 [facility] COMPARISON: CHEST SINGLE AP, August 23, 2016, 10:27. RIBS BILAT(W PA CXR [id number]), October 22, 2014, 10:02. CHEST SINGLE AP, August 23, 2016, 8:05. INDICATIONS : Pulmonary edema. RADIATION DOSE: 9.59 CTDIvol (mGy) MEDICAL HISTORY : Cardiovascular disease. Hypertension. SURGICAL HISTORY : Hysterectomy. Mastectomy, bilateral. ENCOUNTER: Initial ACUITY: 1 day PAIN SCALE: Non-responsive LOCATION: Bilateral chest TECHNIQUE: Volumetric scanning of the chest was performed. Using automated exposure control and adjustment of t he mA and/or kV according to patient size, radiation dose was kept as low as reasonably achievable to obtain optimal diagnostic quality images. The lack of IV contrast limits the diagnosis for certain o rgan pathology. FINDINGS: LUNGS: There is a single pulmonary nodule versus nodular infiltrate in the left apex measuring 1.4 cm. There is some mild bibasilar atelectasis, right greater than left. Otherwise, the lung carpio are grossly clear bilaterally. There is some mild interstitial changes present. However, no overt pulmonary edema is demonstrated. PLEURAE: There is no pleural thickening or pleural effusion. MEDIASTINUM: Heart size is enlarged. There is some atherosclerotic changes in the aorta. There is some calcificati ons of the coronary arteries. No adenopathy is demonstrated. There is prominence of the pulmonary art eries bilaterally. AXILLAE: Within normal limits. No lymphadenopathy. MUSCULOSKELETAL: Within normal limits for patient age. Primary degenerative changes. MISCELLANEOUS: The visualized upper abdominal organs demonstrate no acute abnormality. CONCLUSION: 1. No evidence of overt pulmonary edema. 2. Bibasilar atelectasis, right greater than left. No evidence of pleural effusions. 3. Nonspecific 1.4 cm pulmonary nodule versus nodular infiltrate high in the left apex. This is not v isualized on the recent chest x-rays. When patient is stable, a PET/CT could be performed on an emerg ent outpatient basis to evaluate for focal hypermetabolic activity. 4. Prominent bilateral pulmonary arteries. Antony Corona MD on August 23, 2016 at 14:23 Board Certified Radiologist. This report was verified electronically.
--- NOTE | 2016-08-23 14:39 | RADRPT ---
EXAM DATE/TIME: 08/23/2016 13:14 [facility] COMPARISON: No previous studies available for comparison. INDICATIONS : Cellulitis. MEDICAL HISTORY : Hypercholesterolemia. Chronic obstructive pulmonary disease. Arthritis. HTN. Asthma. Dyspnea. Spastic bowel. Skin cancer. Anticoagulant therapy. SURGICAL HISTORY : Coronary artery stent.Tubal ligation. Hysterectomy.Eye prostesis. Colectomy. Mastectomy. ENCOUNTER: Initial ACUITY: 1 day PAIN SCORE: Non-responsive LOCATION: Bilateral leg. TECHNIQUE: Venous ultrasound of the left and right leg was performed from the inguinal ligament to the proximal calf. Real-time, color Doppler and spectral tracing, compression and augmentation techniques were us ed. FINDINGS: RIGHT LEG: There is normal compressibility of the deep venous system from the inguinal region to the proximal ca lf. No echogenic clot is seen in the lumen of the common femoral, femoral, popliteal, and posterior tibial veins. There is a normal response of the venous system to proximal and distal augmentation an d respiration. LEFT LEG: The left leg was somewhat limited since patient was unable to bend left knee to obtained visualizatio n of the popliteal and peroneal arteries. Also there are bandages from the ankle down. However, the d eep venous structures above the knee are patent with good flow. There is good compressibility. CONCLUSION: 1. No evidence of DVT of the right lower extremity. 2. Limited study of the left lower extremity. No DVT visualized from the knee up to the groin. Antony Corona MD on August 23, 2016 at 14:34 Board Certified Radiologist. This report was verified electronically.
[2016-08-23] MEDS: PROPOFOL 1000 MG/100 ML INJ 100 ML IV SCH ×2 (16:12→23:02)
[2016-08-23] MEDS: PIPERACIL-TAZO 4.5 GM PREMIX 100 ML IV SCH (17:47)
--- NOTE | 2016-08-23 18:05 | EKG ---
Date Performed: 08/23/2016 Time Performed: 08:02:47 PTAGE: 71 years EKG: Sinus rhythm INDETERMINATE AXIS INCOMPLETE RIGHT BUNDLE BRANCH BLOCK LEFT AXIS DEVIATION NONSPECIFIC ST ABNORMALI TY ABNORMAL ECG PREVIOUS TRACING : 10/17/2014 00.06 Compared to previous tracing, heart rate has increased. DOCTOR: Leandro Moody Interpretating Date/Time 08/23/2016 18:04:55
[2016-08-23] MEDS ORDERED: SODIUM POLYSTYRENE SULFONATE SUSP 15 GM/60 ML CUP TUBE ONE (18:30)
[2016-08-23] MEDS ORDERED: SODIUM BICARBONATE 8.4% SOLN 50 MEQ/50 ML VIAL SLOW IVP ONE (18:30)
[2016-08-23] MEDS: RESP: BUDESONIDE 0.5 MG/2 ML NEB NEB SCH (20:29)
[2016-08-23] MEDS: DOCUSATE SODIUM 100 MG CAP PO SCH (21:03)
[2016-08-23] MEDS: MONTELUKAST SODIUM 10 MG TAB PO SCH (21:03)
[2016-08-23] MEDS: SODIUM CHLORIDE 0.9% FLUSH 5 ML FLUSH IV FLUSH SCH (21:04)
[2016-08-23] MEDS: methylPREDNISolone SOD SUCC 40 MG/1 ML VIAL IV PUSH SCH (21:04)
[2016-08-23] MEDS: TIMOLOL MALEATE 0.5% OPHT SOLN 5 ML BTL EACH EYE SCH (22:03)
[2016-08-23] MEDS: CHLORHEXIDINE 0.12% (ORAL KIT) 15 ML CUP MT SCH (22:06)
[2016-08-23] MEDS ORDERED: SODIUM BICARBONATE 8.4% SOLN 50 MEQ/50 ML VIAL IVS ONE (22:45)
[2016-08-23] MEDS ORDERED: SODIUM CHLOR 0.9% 1000 ML INJ 1,000 ML IV ONE (22:45)
[2016-08-24] VITALS (14 sets, daily range): BP systolic 109–148; BP diastolic 55–82; PULSE 52–64; RESP 16; TEMP 98–98.4; O2SAT 92–98
[2016-08-24] MEDS: PIPERACIL-TAZO 4.5 GM PREMIX 100 ML IV SCH ×3 (01:02→16:31)
[2016-08-24 03:12] LABS: INTERNATIONAL NORMALIZED RATIO 1.1 RATIO
[2016-08-24 03:29] LABS: ALKALINE PHOSPHATASE 59 U/L (45-117); ALT (GPT) 14 U/L (10-53); ANION GAP 5 MEQ/L (5-15); AST (GOT) 18 U/L (15-37); BICARBONATE 33.6 MEQ/L (21.0-32.0); CHLORIDE 95 MEQ/L (98-107); CREATINE KINASE 119 U/L (26-192); GLOMERULAR FILTRATION RATE 61 ML/MIN (>89); MAGNESIUM 1.7 MG/DL (1.5-2.5); POTASSIUM 4.7 MEQ/L (3.5-5.1); SODIUM (NA) 134 MEQ/L (136-145); TOTAL BILIRUBIN ADULT 0.9 MG/DL (0.2-1.0)
[2016-08-24 03:32] LABS: BLOOD UREA NITROGEN 16 MG/DL (7-18)
[2016-08-24] MEDS: CHLORHEXIDINE GLUCONATE 2 % 1 PACK (2 CLOTHS) TOP SCH (04:00)
[2016-08-24] MEDS: RESP: ALBUTEROL 2.5 MG/IPRATROPIUM 0.5 MG NEB (SCH) INH ×6 (04:00→23:40)
--- NOTE | 2016-08-24 04:54 | RADRPT ---
EXAM DATE/TIME: 08/24/2016 03:37 [facility] COMPARISON: CHEST SINGLE AP, August 23, 2016, 10:27. INDICATIONS : Shortness of breath, possible pulmonary disease. MEDICAL HISTORY : None. SURGICAL HISTORY : None. ENCOUNTER: Subsequent ACUITY: 2 days PAIN SCORE: Non-responsive. LOCATION: Bilateral chest FINDINGS: Patchy consolidation developing throughout both lungs with decreased lung volumes in the interim. Tin y right pleural effusion suspected. I don't see a pneumothorax. Prominent central pulmonary vasculari ty again noted. Endotracheal tube tip is about 4 cm above the sapphire. CONCLUSION: Decreased volumes and mild patchy bilateral consolidation in the interim. Gurvinder Booker MD on August 24, 2016 at 4:49 Board Certified Radiologist. This report was verified electronically.
[2016-08-24] MEDS: PROPOFOL 1000 MG/100 ML INJ 100 ML IV SCH ×3 (05:21→20:33)
[2016-08-24] MEDS: MIDAZOLAM 100 MG/ML INJ 100 ML IV SCH ×2 (05:21→20:33)
[2016-08-24] MEDS: NYSTATIN 100,000 U/GM PWD 15 GM BTL TOPICAL SCH ×3 (05:22→20:44)
[2016-08-24] MEDS: INSULIN NovoLIN REGULAR SUPPLEMENTAL SCALE SQ SCH ×5 (05:24→23:08)
[2016-08-24 05:45] LABS: AUTOMATED NEUTROPHIL # 8.2 TH/MM3 (1.8-7.7); BASOPHIL % 0.1 % (0.0-2.0); HEMATOCRIT 45.1 % (35.0-46.0); HEMO FLAGS DIFF FINAL; LYMPH % 5.1 % (9.0-44.0); LYMPHOCYTE # 0.5 TH/MM3 (1.0-4.8); MEAN CELL VOLUME 87.2 FL (80.0-100.0); MEAN CORPUSCULAR HEMOGLOBIN 29.1 PG (27.0-34.0); MEAN CORPUSCULAR HGB CONC 33.4 % (32.0-36.0); MONO % 4.7 % (0.0-8.0); NEUT % 90.1 % (16.0-70.0); PLATELET COUNT 259 TH/MM3 (150-450); RED BLOOD COUNT 5.17 MIL/MM3 (4.00-5.30); RED CELL DISTRIBUTION WIDTH 15.3 % (11.6-17.2); WHITE BLOOD COUNT 9.1 TH/MM3 (4.0-11.0)
--- NOTE | 2016-08-24 08:08 | HHI.CCPN ---
Subjective Remarks/Hospital Course 71-year-old female. Date of admission 08/23/2016. Past medical history includes morbid obesity, allergic rhinitis, glaucoma, depression, coronary disease status post stent 2 in 2006, COPD, hypertension, dyslipidemia , gastroesophageal reflux disease, diabetes mellitus,, chronic low back pain, urinary incontinence, peripheral vascular disease, osteoporosis and chronic kidney disease stage III. According to , this morning she presented to do a "sink bath". However when she turned she lost her balance and fell on the floor on her bottom. She did not hit her head and she was quite sure about it. He stated that she did not lose consciousness. She was unable to get up from the floor and called 911. Patient has sores on both of her legs that she has been wrapping and taking care of them herself. S Originally, she presented to [facility] on 2 L nasal cannula. She had increasing oxygen requirement requiring BiPAP. 40 mg Lasix IV was provided. Blood gas revealed a worsening respiratory acidosis and the patient was intubated after receiving 20 mg etomidate 100 mg rocuronium using 7.5 ET tube. Patient is currently awake and alert. Subjective 08/24: Currently afebrile. Resting in bed sedated on Versed and propofol drips. Tolerating tube feeding. No bowel movement. Yesterday in ED on sedation with Diprivan only the patient was moving all 4 extremity spontaneously and vigorously. Objective Vital Signs Date Time Temp Pulse Resp B/P Pulse Ox O2 Delivery O2 Flow Rate FiO2 08/24/16 06:00 64 08/24/16 04:34 94 50 08/24/16 04:00 98.2 16 109/55 08/23/16 13:30 Ventilator 08/23/16 10:04 4 Intake and Output 08/23/16 08/23/16 08/24/16 08:00 16:00 00:00 Intake Total 616 ml 1001 ml Output Total 1150 ml 400 ml Balance -534 ml 601 ml Result Diagram: 08/24/16 0421 08/24/16 0240 Other Results Microbiology Date/Time Procedure Status Source Growth 08/23/16 08:10 Urine Culture Received Urine Clean Catch Pending 08/23/16 08:04 Aerobic Blood Culture Received Blood Peripheral Pending 08/23/16 08:04 Anaerobic Blood Culture Received Blood Peripheral Pending Imaging Last Impressions Chest X-Ray 08/24/16 0600 Signed Impressions: Service Date/Time: Wednesday, August 24, 2016 03:37 - CONCLUSION: Decreased volumes and mild patchy bilateral consolidation in the interim. Gurvinder Booker MD Lower Extremity Ultrasound 08/23/16 0000 Signed Impressions: Service Date/Time: Tuesday, August 23, 2016 13:14 - CONCLUSION: 1. No evidence of DVT of the right lower extremity. 2. Limited study of the left lower extremity. No DVT visualized from the knee up to the groin. Antony Corona MD Chest CT 08/23/16 0000 Signed Impressions: Service Date/Time: Tuesday, August 23, 2016 13:58 - CONCLUSION: 1. No evidence of overt pulmonary edema. 2. Bibasilar atelectasis, right greater than left. No evidence of pleural effusions. 3. Nonspecific 1.4 cm pulmonary nodule versus nodular infiltrate high in the left apex. This is not visualized on the recent chest x-rays. When patient is stable, a PET/CT could be performed on an emergent outpatient basis to evaluate for focal hypermetabolic activity. 4. Prominent bilateral pulmonary arteries. Antony Corona MD Objective Remarks GENERAL: 71-year-old male, critically ill currently orotracheally intubated SKIN: Noted erythema or cellulitic changes in the bilateral shins lower extremities. Positive monet cruris bilaterally HEAD: Atraumatic. Normocephalic. EYES: Pupils equal and round about 3 mm bilaterally and reactive. No scleral icterus. No injection or drainage. ENT: No nasal bleeding or discharge. Mucous membranes pink and moist. Oropharynx without any erythema/orotracheally intubated NECK: Trachea midline. No JVD. No thyromegaly or lymphadenopathy CARDIOVASCULAR: Regular rate and rhythm. S1, S2. No S4. Without murmur RESPIRATORY: Diminished breath sounds throughout. Possible few crackles appreciated in the lower lobes posteriorly. GASTROINTESTINAL: Abdomen soft, non-tender, obese. Hypoactive bowel sounds are appreciated. MUSCULOSKELETAL: Extremities with cellulitic changes bilateral lower extremities. +1 edema. Excoriation in inguinal regions noted NEUROLOGICAL: Currently arousable on the ventilator. Moves all 4 extremity spontaneously. Positive gag. Urinary Catheter: Yes Assessment to: Continue Abreu insert reason: Prolonged Immobilization Vascular Central Line Catheter: No Assessment to: Continue A/P Assessment and Plan Neuro/Psych: Glaucoma/cataracts Allergic rhinitis Depression Status post fall did not strike head ADHD CBT Patient is currently on propofol at 17 mcg/kg per minute/Versed 5 mg an hour for sedation while intubated Goal of RASS -2 Daily sedation vacation Continue timolol 0.5% 1 drop each eye twice a day CV: Hypertension Dyslipidemia Coronary artery disease status post stent 2 Incomplete right bundle branch block PVD/chronic venous stasis Echocardiogram revealed EF 55%. No regional wall motion abnormality. Left atrium somewhat dilated Repeat echocardiogram ordered. EKG revealed normal sinus rhythm. Incomplete right bundle branch block. Troponin 0.03. Home medication Cozaar 50 mg by mouth daily held in light of acute kidney injury. Patient is on hydralazine 10 mg by mouth twice a day for hypertension at home. As needed labetalol, hydralazine and Nitropaste Currently on normal saline at 84 cc an hour. She is on Pravachol 20 mg by mouth daily dyslipidemia. Resume likely as clinically indicated Continue aspirin 81 mg by mouth daily. Resp: Acute hypoxemic respiratory failure COPD Tobaccoism ACV 18/600/5/50 Ventilator bundle Bronchodilator therapy every 4 hours and as needed Pulmicort 0.5/2 1 inhalation twice a day Solu-Medrol 40 mg every [address] thorax revealed no overt pulmonary edema. Is a left apex nodule they'll need to be followed with a PET scan not a bursa is an outpatient. Enlarged pulmonary arteries noted. Patient is on Advair 100/50 one ventilation twice a day and as needed albuterol nebs at home. Continue Singulair 10 milligrams by mouth daily Tobacco cessation will be encouraged GI: Gastroesophageal reflux disease Her tube feeding with Glucerna 1.5 goal 55 cc an hour Patient is on cimetidine 200 mg by mouth daily at home ?. Currently Protonix 40 mg iv daily Colace/Senokot twice daily for bowel regimen : Abreu has been placed for accurate I's and O's in a critically ill patient Endo: Diabetes mellitus At home on metformin 1000 mg by mouth twice a day and glipizide 5 mg by mouth 3 times a day with meals. We'll hold. Place of sliding scale insulin Accu-Cheks every 6 hours to maintain euglycemia. Moderate regimen Renal: Acute on chronic kidney injury stage III Patient is on metolazone 5 mg daily at home. This is been held Received 40 mg Lasix in ED. Monitor urine output/eyes nose Heme: CBC within normal limits. Recheck CBC/coags in a.m. monitor trends ID: Urine tract infection Bilateral lower extremity cellulitis Monet cruris Day 2 vancomycin/Zosyn/Zithromax 08/23 - Blood cultures 2, sputum, urine and influenza all ordered. Doppler ultrasound bilateral lower extremities negative for DVT MSK: Obesity Osteo arthritis Chronic low back pain PT evaluate and treat. On tramadol at home as needed. FEN: Hyponatremia Hyperkalemia - resolved Patient is on diuretics and supplement potassium at home. Access - Utilize peripheral IV. Central line if indicated Prophylaxis - GI - Protonix - DVT - SCDs on hold secondary to cellulitis/Lovenox subcutaneous Critical Care: The total critical care time was 35 minutes. Time to perform other separately billable procedures was not included in the critical care time. Rc Molina MD Aug 24, 2016 08:08
[2016-08-24] MEDS: DOCUSATE SODIUM 100 MG CAP PO SCH ×2 (09:01→20:34)
[2016-08-24] MEDS: ASPIRIN 81 MG CHEW TAB CHEW SCH (09:01)
[2016-08-24] MEDS: PANTOPRAZOLE SODIUM 40 MG VIAL IV SCH (09:01)
[2016-08-24] MEDS: SODIUM CHLORIDE 0.9% FLUSH 5 ML FLUSH IV FLUSH SCH ×2 (09:01→20:34)
[2016-08-24] MEDS: methylPREDNISolone SOD SUCC 40 MG/1 ML VIAL IV PUSH SCH ×2 (09:01→20:33)
[2016-08-24] MEDS: ARTIFICIAL TEARS OPTH SOLN 15 ML BTL EACH EYE SCH ×3 (09:02→16:30)
[2016-08-24] MEDS: ENOXAPARIN SODIUM 40 MG/0.4 ML SYRINGE SQ SCH ×2 (09:02→20:33)
[2016-08-24] MEDS: TIMOLOL MALEATE 0.5% OPHT SOLN 5 ML BTL EACH EYE SCH ×2 (09:02→20:45)
[2016-08-24] MEDS: CHLORHEXIDINE 0.12% (ORAL KIT) 15 ML CUP MT SCH ×2 (09:03→20:00)
[2016-08-24] MEDS: RESP: BUDESONIDE 0.5 MG/2 ML NEB NEB SCH ×2 (09:37→19:57)
[2016-08-24] MEDS: SENNOSIDES 8.6 MG TAB PO SCH ×2 (11:00→20:34)
[2016-08-24] MEDS: AZITHROMYCIN INJ 500 MG in SODIUM CHLOR 0.9% 250 ML INJ 250 ML IV SCH (11:53)
[2016-08-24] MEDS: SODIUM CHLOR 0.9% 1000 ML INJ 1,000 ML IV SCH ×2 (11:57→20:33)
--- NOTE | 2016-08-24 14:54 | EC ---
Study Study Date:08/24/2016 STUDY CONCLUSIONS SUMMARY - Procedure narrative: Transthoracic echocardiography. Image quality was poor. The study was technically limited due to poor acoustic window availability. Scanning was performed from the parasternal, apical, and subcostal acoustic windows. - Left ventricle: The cavity size was normal. Wall thickness was normal. Systolic function was probably normal. The estimated ejection fraction was in the range of 55% to 60%. Wall motion was normal; there were no regional wall motion abnormalities. - Right atrium: The atrium was moderately dilated. If LV function is below 40, please consider prescribing an ACEI or ARB or document rationale for non-use. PROCEDURE DATA STUDY STATUS: Elective. Procedure: Transthoracic echocardiography. Image quality was poor. The study was technically limited due to poor acoustic window availability. Scanning was performed from the parasternal, apical, and subcostal acoustic windows. Study completion: The patient tolerated the procedure well. Transthoracic echocardiography. M-mode, complete 2D, complete spectral Doppler, and color Doppler. Patient status: Inpatient. CARDIAC ANATOMY LEFT VENTRICLE: The cavity size was normal. Wall thickness was normal. Systolic function was probably normal. The estimated ejection fraction was in the range of 55% to 60%. Wall motion was normal; there were no regional wall motion abnormalities. AORTIC VALVE: Trileaflet; normal thickness leaflets. Doppler: Transvalvular velocity was within the normal range. There was no stenosis. No regurgitation. AORTA: Aortic root: The aortic root was normal in size. MITRAL VALVE: Structurally normal valve. Doppler: Transvalvular velocity was within the normal range. There was no evidence for stenosis. No regurgitation. LEFT ATRIUM: The atrium was normal in size. RIGHT VENTRICLE: The cavity size was normal. Wall thickness was normal. PULMONIC VALVE: Doppler: Transvalvular velocity was within the normal range. There was no evidence for stenosis. No regurgitation. TRICUSPID VALVE: Structurally normal valve. Doppler: Transvalvular velocity was within the normal range. Trace regurgitation. PULMONARY ARTERY: The main pulmonary artery was normal-sized. Systolic pressure was within the normal range. RIGHT ATRIUM: The atrium was moderately dilated. PERICARDIUM: There was no pericardial effusion. SYSTEMIC VEINS: Inferior vena cava: The vessel was normal in size. Prepared and signed by Abilio Ackerman [id number]
[2016-08-24] MEDS: VANCOMYCIN INJ 1,750 MG in SODIUM CHLORID 0.9% 500 ML INJ 500 ML IV SCH (16:29)
[2016-08-24] MEDS: MONTELUKAST SODIUM 10 MG TAB PO SCH (20:34)
[2016-08-25] VITALS (18 sets, daily range): BP systolic 90–140; BP diastolic 46–82; PULSE 49–126; RESP 16; TEMP 97.5–98.5; O2SAT 95–99
[2016-08-25] MEDS: CHLORHEXIDINE GLUCONATE 2 % 1 PACK (2 CLOTHS) TOP SCH (01:38)
[2016-08-25] MEDS: PIPERACIL-TAZO 4.5 GM PREMIX 100 ML IV SCH ×3 (01:38→18:37)
[2016-08-25] MEDS: PROPOFOL 1000 MG/100 ML INJ 100 ML IV SCH ×2 (03:47→04:01)
[2016-08-25] MEDS: NYSTATIN 100,000 U/GM PWD 15 GM BTL TOPICAL SCH ×3 (03:48→19:33)
[2016-08-25] MEDS: RESP: ALBUTEROL 2.5 MG/IPRATROPIUM 0.5 MG NEB (SCH) INH ×6 (03:59→23:16)
[2016-08-25] MEDS: INSULIN NovoLIN REGULAR SUPPLEMENTAL SCALE SQ SCH ×3 (05:06→18:00)
--- NOTE | 2016-08-25 06:39 | RADRPT ---
EXAM DATE/TIME: 08/25/2016 05:19 [facility] COMPARISON: CHEST SINGLE AP, August 24, 2016, 3:37. INDICATIONS : Short of breath. MEDICAL HISTORY : Chronic obstructive pulmonary disease. Hypercholesterolemia. Arthritis. HTN. SURGICAL HISTORY : Coronary artery stent.Tubal ligation. Hysterectomy. Mastectomy. ENCOUNTER: Subsequent ACUITY: 3 days PAIN SCORE: Non-responsive. LOCATION: Bilateral chest FINDINGS: Perihilar and basilar predominant bilateral pulmonary consolidation not significantly changed. I don' t see a large effusion. No pneumothorax. Endotracheal tube tip is about 5 cm above the sapphire. There is a nasogastric tube coursing into the s tomach. CONCLUSION: No significant change. Gurvinder Booker MD on August 25, 2016 at 6:37 Board Certified Radiologist. This report was verified electronically.
[2016-08-25] MEDS: PANTOPRAZOLE SODIUM 40 MG VIAL IV SCH (08:41)
[2016-08-25] MEDS: ENOXAPARIN SODIUM 40 MG/0.4 ML SYRINGE SQ SCH ×2 (08:41→19:32)
[2016-08-25] MEDS: methylPREDNISolone SOD SUCC 40 MG/1 ML VIAL IV PUSH SCH ×2 (08:41→19:31)
[2016-08-25] MEDS: TIMOLOL MALEATE 0.5% OPHT SOLN 5 ML BTL EACH EYE SCH ×2 (08:42→19:32)
[2016-08-25] MEDS: ASPIRIN 81 MG CHEW TAB CHEW SCH (08:42)
[2016-08-25] MEDS: DOCUSATE SODIUM 100 MG CAP PO SCH ×2 (08:42→19:31)
[2016-08-25] MEDS: SODIUM CHLORIDE 0.9% FLUSH 5 ML FLUSH IV FLUSH SCH ×2 (08:42→19:31)
[2016-08-25] MEDS: ARTIFICIAL TEARS OPTH SOLN 15 ML BTL EACH EYE SCH ×3 (08:42→18:00)
[2016-08-25] MEDS: SENNOSIDES 8.6 MG TAB PO SCH ×2 (08:42→19:31)
[2016-08-25] MEDS: CHLORHEXIDINE 0.12% (ORAL KIT) 15 ML CUP MT SCH ×2 (08:43→19:33)
[2016-08-25 09:05] LABS: ALKALINE PHOSPHATASE 51 U/L (45-117); ALT (GPT) 16 U/L (10-53); ANION GAP 7 MEQ/L (5-15); AST (GOT) 36 U/L (15-37); BICARBONATE 30.8 MEQ/L (21.0-32.0); CHLORIDE 100 MEQ/L (98-107); GLOMERULAR FILTRATION RATE 56 ML/MIN (>89); MAGNESIUM 2.1 MG/DL (1.5-2.5); POTASSIUM 5.2 MEQ/L (3.5-5.1); SODIUM (NA) 138 MEQ/L (136-145); TOTAL BILIRUBIN ADULT 0.7 MG/DL (0.2-1.0)
[2016-08-25 09:07] LABS: BLOOD UREA NITROGEN 19 MG/DL (7-18)
[2016-08-25 09:32] LABS: AUTOMATED NEUTROPHIL # 11.4 TH/MM3 (1.8-7.7); BASOPHIL % 0.4 % (0.0-2.0); EOSINOPHIL % 0.3 % (0.0-4.0); HEMATOCRIT 44.9 % (35.0-46.0); LYMPH % 6.7 % (9.0-44.0); LYMPHOCYTE # 0.9 TH/MM3 (1.0-4.8); MEAN CELL VOLUME 86.6 FL (80.0-100.0); MEAN CORPUSCULAR HEMOGLOBIN 28.6 PG (27.0-34.0); MEAN CORPUSCULAR HGB CONC 33.1 % (32.0-36.0); MONO % 8.5 % (0.0-8.0); NEUT % 84.1 % (16.0-70.0); PLATELET COUNT 165 TH/MM3 (150-450); RED BLOOD COUNT 5.18 MIL/MM3 (4.00-5.30); RED CELL DISTRIBUTION WIDTH 15.6 % (11.6-17.2); WHITE BLOOD COUNT 13.6 TH/MM3 (4.0-11.0)
[2016-08-25] MEDS: RESP: BUDESONIDE 0.5 MG/2 ML NEB NEB SCH ×2 (09:35→20:12)
[2016-08-25 09:54] LABS: HEMO FLAGS AUTO DIFF
[2016-08-25 09:56] LABS: SCAN/DIFF AUTO DIFF CONFIRMED
[2016-08-25] MEDS: AZITHROMYCIN INJ 500 MG in SODIUM CHLOR 0.9% 250 ML INJ 250 ML IV SCH (13:00)
[2016-08-25] MEDS: VANCOMYCIN INJ 1,750 MG in SODIUM CHLORID 0.9% 500 ML INJ 500 ML IV SCH (13:00)
[2016-08-25] MEDS ORDERED: SODIUM POLYSTYRENE SULFONATE SUSP 15 GM/60 ML CUP OG ONE (14:00)
--- NOTE | 2016-08-25 14:09 | HHI.CCPN ---
Subjective Remarks/Hospital Course 71-year-old female. Date of admission 08/23/2016. Past medical history includes morbid obesity, allergic rhinitis, glaucoma, depression, coronary disease status post stent 2 in 2006, COPD, hypertension, dyslipidemia , gastroesophageal reflux disease, diabetes mellitus,, chronic low back pain, urinary incontinence, peripheral vascular disease, osteoporosis and chronic kidney disease stage III. According to , this morning she presented to do a "sink bath". However when she turned she lost her balance and fell on the floor on her bottom. She did not hit her head and she was quite sure about it. He stated that she did not lose consciousness. She was unable to get up from the floor and called 911. Patient has sores on both of her legs that she has been wrapping and taking care of them herself. S Originally, she presented to [facility] on 2 L nasal cannula. She had increasing oxygen requirement requiring BiPAP. 40 mg Lasix IV was provided. Blood gas revealed a worsening respiratory acidosis and the patient was intubated after receiving 20 mg etomidate 100 mg rocuronium using 7.5 ET tube. Patient is currently awake and alert. 08/24: Currently afebrile. Resting in bed sedated on Versed and propofol drips. Tolerating tube feeding. No bowel movement. Yesterday in ED on sedation with Diprivan only the patient was moving all 4 extremity spontaneously and vigorously. Subjective 08/25: Afebrile. Resting in bed on propofol and Versed drips. Tolerating tube feeding. No bowel movement. Objective Vital Signs Date Time Temp Pulse Resp B/P Pulse Ox O2 Delivery O2 Flow Rate FiO2 08/25/16 12:00 50 08/25/16 11:56 97 40 08/25/16 08:00 97.5 16 110/53 08/23/16 13:30 Ventilator 08/23/16 10:04 4 Intake and Output 08/24/16 08/24/16 08/25/16 08:00 16:00 00:00 Intake Total 1701 ml 855 ml Output Total 350 ml 650 ml Balance 1351 ml 205 ml Result Diagram: 08/25/16 0810 08/25/16 0810 Other Results Microbiology Date/Time Procedure Status Source Growth 08/23/16 08:10 Urine Culture - Final Complete Urine Clean Catch Klebsiella Pneumoniae 08/23/16 08:04 Aerobic Blood Culture - Preliminary Resulted Blood Peripheral NO GROWTH IN 2 DAYS 08/23/16 08:04 Anaerobic Blood Culture - Preliminary Resulted Blood Peripheral NO GROWTH IN 2 DAYS Imaging Last Impressions Chest X-Ray 08/25/16 0600 Signed Impressions: Service Date/Time: Thursday, August 25, 2016 05:19 - CONCLUSION: No significant change. Gurvinder Booker MD Lower Extremity Ultrasound 08/23/16 0000 Signed Impressions: Service Date/Time: Tuesday, August 23, 2016 13:14 - CONCLUSION: 1. No evidence of DVT of the right lower extremity. 2. Limited study of the left lower extremity. No DVT visualized from the knee up to the groin. Antony Corona MD Chest CT 08/23/16 0000 Signed Impressions: Service Date/Time: Tuesday, August 23, 2016 13:58 - CONCLUSION: 1. No evidence of overt pulmonary edema. 2. Bibasilar atelectasis, right greater than left. No evidence of pleural effusions. 3. Nonspecific 1.4 cm pulmonary nodule versus nodular infiltrate high in the left apex. This is not visualized on the recent chest x-rays. When patient is stable, a PET/CT could be performed on an emergent outpatient basis to evaluate for focal hypermetabolic activity. 4. Prominent bilateral pulmonary arteries. Antony Corona MD Objective Remarks GENERAL: 71-year-old female, critically ill currently orotracheally intubated SKIN: Noted erythema/cellulitic changes in the bilateral shins lower extremities. Positive monet cruris bilaterally HEAD: Atraumatic. Normocephalic. EYES: Pupils equal and round about 3 mm bilaterally and reactive. No scleral icterus. No injection or drainage. ENT: No nasal bleeding or discharge. Mucous membranes pink and moist. Oropharynx without any erythema/orotracheally intubated NECK: Trachea midline. No JVD. No thyromegaly or lymphadenopathy CARDIOVASCULAR: Regular rate and rhythm. S1, S2. No S4. Without murmur RESPIRATORY: Diminished breath sounds throughout. Possible few crackles appreciated in the lower lobes posteriorly. GASTROINTESTINAL: Abdomen soft, non-tender, obese. Hypoactive bowel sounds are appreciated. MUSCULOSKELETAL: Extremities with cellulitic changes bilateral lower extremities. Trace edema. Excoriation in inguinal regions noted NEUROLOGICAL: Currently arousable on the ventilator. Moves all 4 extremity spontaneously. Positive gag. A/P Assessment and Plan Neuro/Psych: Glaucoma/cataracts Allergic rhinitis Depression Status post fall did not strike head ADHD CBT Patient is currently on propofol at 17 mcg/kg per minute/Versed 5 mg an hour for sedation while intubated DC propofol/switch to fentanyl drip for analgesia due to bradycardia Goal of RASS -2 Daily sedation vacation Continue timolol 0.5% 1 drop each eye twice a day CV: Hypertension Dyslipidemia Coronary artery disease status post stent 2 Incomplete right bundle branch block PVD/chronic venous stasis Echocardiogram revealed EF 55%. No regional wall motion abnormality. Left atrium somewhat dilated Repeat echocardiogram revealed EF 55-60%. Right atrial enlargement. No regional wall motion abnormality. EKG revealed normal sinus rhythm. Incomplete right bundle branch block. Troponin 0.03. Home medication Cozaar 50 mg by mouth daily held in light of acute kidney injury. Patient is on hydralazine 10 mg by mouth twice a day for hypertension at home. As needed labetalol, hydralazine and Nitropaste Discontinue normal saline She is on Pravachol 20 mg by mouth daily dyslipidemia. Resume likely as clinically indicated Continue aspirin 81 mg by mouth daily. Resp: Acute hypoxemic respiratory failure COPD Tobaccoism ACV 18/600/5/40 Ventilator bundle Bronchodilator therapy every 4 hours and as needed Pulmicort 0.5/2 1 inhalation twice a day Solu-Medrol 40 mg every [address] thorax revealed no overt pulmonary edema. Is a left apex nodule they'll need to be followed with a PET scan not a bursa is an outpatient. Enlarged pulmonary arteries noted. Patient is on Advair 100/50 one ventilation twice a day and as needed albuterol nebs at home. Continue Singulair 10 milligrams by mouth daily Tobacco cessation will be encouraged GI: Gastroesophageal reflux disease Adjust her tube feeding with Glucerna 1.5 goal 50 cc an hour Patient is on cimetidine 200 mg by mouth daily at home ?. Currently Protonix 40 mg iv daily Colace/Senokot twice daily for bowel regimen. Added MiraLAX and mineral oil 1 today. Glycerin suppositories when necessary constipation : Abreu has been placed for accurate I's and O's in a critically ill patient Endo: Diabetes mellitus At home on metformin 1000 mg by mouth twice a day and glipizide 5 mg by mouth 3 times a day with meals. We'll hold. Place of sliding scale insulin Accu-Cheks every 6 hours to maintain euglycemia. Moderate regimen Renal: Acute on chronic kidney injury stage III Patient is on metolazone 5 mg daily at home. This is been held Received 40 mg Lasix in ED. Monitor urine output/eyes nose Heme: CBC within normal limits. Recheck CBC/coags in a.m. monitor trends ID: Urine tract infection - Klebsiella Bilateral lower extremity cellulitis Monet cruris Day 3 vancomycin/Zosyn/Zithromax 08/23 - Blood cultures 2, no growth 08/23 - urine - Klebsiella Doppler ultrasound bilateral lower extremities negative for DVT MSK: Obesity Osteo arthritis Chronic low back pain PT evaluate and treat. On tramadol at home as needed. FEN: Hyperkalemia Patient is on diuretics and supplement potassium at home. Received Kayexalate 15 g 1 today. Recheck BMP in a.m. Access - Utilize peripheral IV. Central line if indicated Prophylaxis - GI - Protonix - DVT - SCDs on hold secondary to cellulitis/Lovenox subcutaneous Critical Care: The total critical care time was 35 minutes. Time to perform other separately billable procedures was not included in the critical care time. Rc Molina MD Aug 25, 2016 14:09
[2016-08-25] MEDS ORDERED: GLYCERIN ADULT 2 GM SUPP RECTAL PRN (14:15)
[2016-08-25] MEDS ORDERED: MINERAL OIL LIQUID 30 ML CUP PO ONE (14:15)
[2016-08-25] MEDS ORDERED: POLYETHYLENE GLYCOL 17 GM PKG PO ONE (14:15)
[2016-08-25] MEDS: MONTELUKAST SODIUM 10 MG TAB PO SCH (19:31)
[2016-08-25] MEDS: MIDAZOLAM 100 MG/ML INJ 100 ML IV SCH (19:47)
[2016-08-26] VITALS (18 sets, daily range): BP systolic 88–136; BP diastolic 50–64; PULSE 51–94; RESP 16–19; TEMP 98–99.2; O2SAT 90–98
[2016-08-26] MEDS: PIPERACIL-TAZO 4.5 GM PREMIX 100 ML IV SCH ×3 (01:23→17:43)
[2016-08-26] MEDS: RESP: ALBUTEROL 2.5 MG/IPRATROPIUM 0.5 MG NEB (SCH) INH ×5 (04:00→21:53)
[2016-08-26] MEDS: CHLORHEXIDINE GLUCONATE 2 % 1 PACK (2 CLOTHS) TOP SCH (04:00)
[2016-08-26 05:45] LABS: BASOPHIL % 0.3 % (0.0-2.0); EOSINOPHIL % 0.1 % (0.0-4.0); HEMATOCRIT 44.8 % (35.0-46.0); HEMO FLAGS DIFF FINAL; LYMPH % 5.8 % (9.0-44.0); LYMPHOCYTE # 0.6 TH/MM3 (1.0-4.8); MEAN CELL VOLUME 88.2 FL (80.0-100.0); MEAN CORPUSCULAR HEMOGLOBIN 28.2 PG (27.0-34.0); MEAN CORPUSCULAR HGB CONC 31.9 % (32.0-36.0); MONO % 8.4 % (0.0-8.0); NEUT % 85.4 % (16.0-70.0); PLATELET COUNT 233 TH/MM3 (150-450); RED BLOOD COUNT 5.08 MIL/MM3 (4.00-5.30); RED CELL DISTRIBUTION WIDTH 15.5 % (11.6-17.2); WHITE BLOOD COUNT 9.4 TH/MM3 (4.0-11.0)
[2016-08-26] MEDS: NYSTATIN 100,000 U/GM PWD 15 GM BTL TOPICAL SCH ×3 (06:00→23:30)
[2016-08-26] MEDS: INSULIN NovoLIN REGULAR SUPPLEMENTAL SCALE SQ SCH ×5 (06:00→23:30)
[2016-08-26 06:14] LABS: BICARBONATE 27.1 MEQ/L (21.0-32.0); MAGNESIUM 2.1 MG/DL (1.5-2.5)
[2016-08-26 06:19] LABS: POTASSIUM 5.1 MEQ/L (3.5-5.1)
[2016-08-26] MEDS ORDERED: SODIUM POLYSTYRENE SULFONATE SUSP 15 GM/60 ML CUP PO ONE (07:15)
--- NOTE | 2016-08-26 07:23 | HHI.CCPN ---
Subjective Remarks/Hospital Course 71-year-old female. Date of admission 08/23/2016. Past medical history includes morbid obesity, allergic rhinitis, glaucoma, depression, coronary disease status post stent 2 in 2006, COPD, hypertension, dyslipidemia , gastroesophageal reflux disease, diabetes mellitus,, chronic low back pain, urinary incontinence, peripheral vascular disease, osteoporosis and chronic kidney disease stage III. According to , this morning she presented to do a "sink bath". However when she turned she lost her balance and fell on the floor on her bottom. She did not hit her head and she was quite sure about it. He stated that she did not lose consciousness. She was unable to get up from the floor and called 911. Patient has sores on both of her legs that she has been wrapping and taking care of them herself. S Originally, she presented to [facility] on 2 L nasal cannula. She had increasing oxygen requirement requiring BiPAP. 40 mg Lasix IV was provided. Blood gas revealed a worsening respiratory acidosis and the patient was intubated after receiving 20 mg etomidate 100 mg rocuronium using 7.5 ET tube. Patient is currently awake and alert. 08/24: Currently afebrile. Resting in bed sedated on Versed and propofol drips. Tolerating tube feeding. No bowel movement. Yesterday in ED on sedation with Diprivan only the patient was moving all 4 extremity spontaneously and vigorously. 08/25: Afebrile. Resting in bed on propofol and Versed drips. Tolerating tube feeding. No bowel movement. Subjective 08/26: Afebrile. Off Versed and fentanyl drips. Tolerating tube feeds. Awake and following commands. Will attempt extubated today. 3 bowel moments yesterday. Objective Vital Signs Date Time Temp Pulse Resp B/P Pulse Ox O2 Delivery O2 Flow Rate FiO2 08/26/16 06:00 71 08/26/16 04:00 98.0 16 106/56 97 08/26/16 03:59 40 08/23/16 13:30 Ventilator 08/23/16 10:04 4 Intake and Output 08/25/16 08/25/16 08/26/16 08:00 16:00 00:00 Intake Total 1065 ml 1726 ml 1683 ml Output Total 600 ml 800 ml 250 ml Balance 465 ml 926 ml 1433 ml Result Diagram: 08/26/16 0524 08/26/16 0524 Other Results Microbiology Date/Time Procedure Status Source Growth 08/23/16 08:10 Urine Culture - Final Complete Urine Clean Catch Klebsiella Pneumoniae 08/23/16 08:04 Aerobic Blood Culture - Preliminary Resulted Blood Peripheral NO GROWTH IN 2 DAYS 08/23/16 08:04 Anaerobic Blood Culture - Preliminary Resulted Blood Peripheral NO GROWTH IN 2 DAYS Imaging Last Impressions Chest X-Ray 08/25/16 0600 Signed Impressions: Service Date/Time: Thursday, August 25, 2016 05:19 - CONCLUSION: No significant change. Gurvinder Booker MD Lower Extremity Ultrasound 08/23/16 0000 Signed Impressions: Service Date/Time: Tuesday, August 23, 2016 13:14 - CONCLUSION: 1. No evidence of DVT of the right lower extremity. 2. Limited study of the left lower extremity. No DVT visualized from the knee up to the groin. Antony Corona MD Chest CT 08/23/16 0000 Signed Impressions: Service Date/Time: Tuesday, August 23, 2016 13:58 - CONCLUSION: 1. No evidence of overt pulmonary edema. 2. Bibasilar atelectasis, right greater than left. No evidence of pleural effusions. 3. Nonspecific 1.4 cm pulmonary nodule versus nodular infiltrate high in the left apex. This is not visualized on the recent chest x-rays. When patient is stable, a PET/CT could be performed on an emergent outpatient basis to evaluate for focal hypermetabolic activity. 4. Prominent bilateral pulmonary arteries. Antony Corona MD Objective Remarks GENERAL: 71-year-old female, critically ill currently orotracheally intubated SKIN: Noted erythema/cellulitic changes in the bilateral shins lower extremities. Positive monet cruris bilaterally HEAD: Atraumatic. Normocephalic. EYES: Pupils equal and round about 3 mm bilaterally and reactive. No scleral icterus. No injection or drainage. ENT: No nasal bleeding or discharge. Mucous membranes pink and moist. Oropharynx without any erythema/orotracheally intubated NECK: Trachea midline. No JVD. No thyromegaly or lymphadenopathy CARDIOVASCULAR: Bradycardic, RR. S1, S2. No S4. Without murmur RESPIRATORY: Diminished breath sounds throughout. Possible few crackles appreciated in the lower lobes posteriorly. GASTROINTESTINAL: Abdomen soft, non-tender, obese. Hypoactive bowel sounds are appreciated. MUSCULOSKELETAL: Extremities with cellulitic changes bilateral lower extremities. Trace edema. Excoriation in inguinal regions noted NEUROLOGICAL: Currently arousable on the ventilator. Moves all 4 extremity spontaneously. Follows commands. Positive gag. Urinary Catheter: Yes Assessment to: Continue Abreu insert reason: Prolonged Immobilization Vascular Central Line Catheter: No Assessment to: Continue A/P Assessment and Plan Neuro/Psych: Glaucoma/cataracts Allergic rhinitis Depression Status post fall did not strike head ADHD CBT Patient is currently on fentanyl drip at 10 g per minute/Versed 5 mg an hour for sedation while intubated DC propofol/switch to fentanyl drip for analgesia due to bradycardia Currently off Versed and fentanyl drips on sedation vacation Goal of RASS -2 Daily sedation vacation Continue timolol 0.5% 1 drop each eye twice a day CV: Hypertension Dyslipidemia Coronary artery disease status post stent 2 Incomplete right bundle branch block PVD/chronic venous stasis Echocardiogram revealed EF 55%. No regional wall motion abnormality. Left atrium somewhat dilated Repeat echocardiogram revealed EF 55-60%. Right atrial enlargement. No regional wall motion abnormality. EKG revealed normal sinus rhythm. Incomplete right bundle branch block. Troponin 0.03. Home medication Cozaar 50 mg by mouth daily held in light of acute kidney injury. Patient is on hydralazine 10 mg by mouth twice a day for hypertension at home. As needed labetalol, hydralazine and Nitropaste Discontinued normal saline 08/25 She is on Pravachol 20 mg by mouth daily dyslipidemia. Resume likely as clinically indicated Continue aspirin 81 mg by mouth daily. Resp: Acute hypoxemic respiratory failure COPD Tobaccoism ACV 18/600/5/40 Ventilator bundle Bronchodilator therapy every 4 hours and as needed Pulmicort 0.5/2 1 inhalation twice a day Solu-Medrol 40 mg every [address] thorax revealed no overt pulmonary edema. There is a left apex nodule that will need to be followed with a PET scan not a bursa is an outpatient. Enlarged pulmonary arteries noted. Patient is on Advair 100/50 one ventilation twice a day and as needed albuterol nebs at home. Continue Singulair 10 milligrams by mouth daily Tobacco cessation will be encouraged GI: Gastroesophageal reflux disease Adjust her tube feeding with Glucerna 1.5 goal 50 cc an hour Patient is on cimetidine 200 mg by mouth daily at home ?. Currently Protonix 40 mg iv daily Colace/Senokot twice daily and MiraLAX daily for bowel regimen. Glycerin suppositories when necessary constipation : Abreu has been placed for accurate I's and O's in a critically ill patient Endo: Diabetes mellitus At home on metformin 1000 mg by mouth twice a day and glipizide 5 mg by mouth 3 times a day with meals. We'll hold. Place of sliding scale insulin Accu-Cheks every 6 hours to maintain euglycemia. Moderate regimen Renal: Acute on chronic kidney injury stage III Patient is on metolazone 5 mg daily at home. This is been held Received 40 mg Lasix in ED. Monitor urine output//I's and O's Heme: CBC within normal limits. Recheck CBC/coags in a.m. monitor trends ID: Urine tract infection - Klebsiella Bilateral lower extremity cellulitis Monet cruris Day 4 vancomycin/Zosyn Received 3 days of Zithromax 08/23 - Blood cultures 2, no growth 08/23 - urine - Klebsiella Doppler ultrasound bilateral lower extremities negative for DVT MSK: Obesity Osteo arthritis Chronic low back pain PT evaluate and treat. On tramadol at home as needed. FEN: Hyperkalemia Patient is on diuretics and supplement potassium at home. Received Kayexalate 15 g 1 today. Recheck BMP in a.m. Access - Utilize peripheral IV. Central line if indicated Prophylaxis - GI - Protonix - DVT - SCDs on hold secondary to cellulitis/Lovenox subcutaneous Critical Care: The total critical care time was 35 minutes. Time to perform other separately billable procedures was not included in the critical care time. Rc Molina MD Aug 26, 2016 07:23
[2016-08-26] MEDS: ENOXAPARIN SODIUM 40 MG/0.4 ML SYRINGE SQ SCH ×2 (08:01→20:36)
[2016-08-26] MEDS: ASPIRIN 81 MG CHEW TAB CHEW SCH (08:01)
[2016-08-26] MEDS: methylPREDNISolone SOD SUCC 40 MG/1 ML VIAL IV PUSH SCH ×2 (08:01→20:36)
[2016-08-26] MEDS: CHLORHEXIDINE 0.12% (ORAL KIT) 15 ML CUP MT SCH ×2 (08:02→20:37)
[2016-08-26] MEDS: TIMOLOL MALEATE 0.5% OPHT SOLN 5 ML BTL EACH EYE SCH ×2 (08:02→20:37)
[2016-08-26] MEDS: PANTOPRAZOLE SODIUM 40 MG VIAL IV SCH (08:02)
[2016-08-26] MEDS: DOCUSATE SODIUM 100 MG CAP PO SCH ×2 (08:02→20:37)
[2016-08-26] MEDS: ARTIFICIAL TEARS OPTH SOLN 15 ML BTL EACH EYE SCH ×3 (08:02→17:44)
[2016-08-26] MEDS: POLYETHYLENE GLYCOL 17 GM PKG PO SCH (08:02)
[2016-08-26] MEDS: SENNOSIDES 8.6 MG TAB PO SCH ×2 (08:03→20:36)
[2016-08-26] MEDS: SODIUM CHLORIDE 0.9% FLUSH 5 ML FLUSH IV FLUSH SCH ×2 (08:14→20:37)
[2016-08-26] MEDS: RESP: BUDESONIDE 0.5 MG/2 ML NEB NEB SCH ×2 (08:39→21:53)
[2016-08-26] MEDS ORDERED: PHARMACY ORDERED LAB XX ONE (11:45)
[2016-08-26] MEDS: VANCOMYCIN INJ 1,750 MG in SODIUM CHLORID 0.9% 500 ML INJ 500 ML IV SCH (14:39)
[2016-08-26] MEDS: MONTELUKAST SODIUM 10 MG TAB PO SCH (20:38)
[2016-08-27] VITALS (20 sets, daily range): BP systolic 96–130; BP diastolic 56–60; PULSE 52–66; RESP 12–24; TEMP 97.7–98.6; O2SAT 89–96
[2016-08-27] MEDS: PIPERACIL-TAZO 4.5 GM PREMIX 100 ML IV SCH ×3 (00:33→17:03)
[2016-08-27] MEDS: RESP: ALBUTEROL 2.5 MG/IPRATROPIUM 0.5 MG NEB (SCH) INH ×4 (01:00→11:11)
[2016-08-27] MEDS: CHLORHEXIDINE GLUCONATE 2 % 1 PACK (2 CLOTHS) TOP SCH (04:00)
[2016-08-27] MEDS: INSULIN NovoLIN REGULAR SUPPLEMENTAL SCALE SQ SCH ×4 (05:14→23:18)
[2016-08-27] MEDS: NYSTATIN 100,000 U/GM PWD 15 GM BTL TOPICAL SCH ×3 (05:15→22:26)
--- NOTE | 2016-08-27 05:40 | RADRPT ---
EXAM DATE/TIME: 08/27/2016 03:42 [facility] COMPARISON: CHEST SINGLE AP, August 25, 2016, 5:19. INDICATIONS : Shortness of breath, possible pulmonary disease. MEDICAL HISTORY : Chronic obstructive pulmonary disease. Hypercholesterolemia. Hypertension. SURGICAL HISTORY : Coronary artery stent. Tubal ligation. ENCOUNTER: Subsequent ACUITY: 4 - 6 days PAIN SCORE: Non-responsive. LOCATION: Bilateral chest FINDINGS: Right greater than left basilar consolidation and small effusions noted, worsening. No pneumothorax s een. Mild cardiomegaly stable. Endotracheal tube tip about 3 cm above the sapphire. There is a nasogastric tube coursing into the stom ach. CONCLUSION: Worsening right greater than left basilar consolidation and small effusions. Gurvinder Booker MD on August 27, 2016 at 5:38 Board Certified Radiologist. This report was verified electronically.
[2016-08-27 06:12] LABS: AUTOMATED NEUTROPHIL # 7.3 TH/MM3 (1.8-7.7); BASOPHIL % 0.1 % (0.0-2.0); EOSINOPHIL % 0.1 % (0.0-4.0); HEMATOCRIT 42.1 % (35.0-46.0); HEMO FLAGS DIFF FINAL; LYMPH % 7.3 % (9.0-44.0); LYMPHOCYTE # 0.7 TH/MM3 (1.0-4.8); MEAN CELL VOLUME 88.5 FL (80.0-100.0); MEAN CORPUSCULAR HEMOGLOBIN 28.8 PG (27.0-34.0); MEAN CORPUSCULAR HGB CONC 32.6 % (32.0-36.0); MONO % 11.1 % (0.0-8.0); NEUT % 81.4 % (16.0-70.0); PLATELET COUNT 221 TH/MM3 (150-450); RED BLOOD COUNT 4.75 MIL/MM3 (4.00-5.30); RED CELL DISTRIBUTION WIDTH 15.6 % (11.6-17.2)
[2016-08-27 06:43] LABS: ALKALINE PHOSPHATASE 53 U/L (45-117); ALT (GPT) 27 U/L (10-53); ANION GAP 7 MEQ/L (5-15); AST (GOT) 34 U/L (15-37); BICARBONATE 31.3 MEQ/L (21.0-32.0); BLOOD UREA NITROGEN 25 MG/DL (7-18); CHLORIDE 101 MEQ/L (98-107); CREATINE KINASE 299 U/L (26-192); GLOMERULAR FILTRATION RATE 65 ML/MIN (>89); MAGNESIUM 2.2 MG/DL (1.5-2.5); POTASSIUM 4.6 MEQ/L (3.5-5.1); SODIUM (NA) 139 MEQ/L (136-145); TOTAL BILIRUBIN ADULT 0.6 MG/DL (0.2-1.0)
[2016-08-27 07:00] LABS: CKMB 1.5 NG/ML (0.5-3.6)
[2016-08-27] MEDS: RESP: BUDESONIDE 0.5 MG/2 ML NEB NEB SCH ×2 (07:53→20:12)
[2016-08-27] MEDS: PANTOPRAZOLE SODIUM 40 MG VIAL IV SCH (09:14)
[2016-08-27] MEDS: methylPREDNISolone SOD SUCC 40 MG/1 ML VIAL IV PUSH SCH ×2 (09:14→20:00)
[2016-08-27] MEDS: SENNOSIDES 8.6 MG TAB PO SCH ×2 (09:15→20:01)
[2016-08-27] MEDS: POLYETHYLENE GLYCOL 17 GM PKG PO SCH (09:15)
[2016-08-27] MEDS: SODIUM CHLORIDE 0.9% FLUSH 5 ML FLUSH IV FLUSH SCH ×2 (09:15→20:00)
[2016-08-27] MEDS: DOCUSATE SODIUM 100 MG CAP PO SCH ×2 (09:15→20:01)
[2016-08-27] MEDS: ASPIRIN 81 MG CHEW TAB CHEW SCH (09:15)
[2016-08-27] MEDS: ENOXAPARIN SODIUM 40 MG/0.4 ML SYRINGE SQ SCH ×2 (09:15→20:01)
[2016-08-27] MEDS: TIMOLOL MALEATE 0.5% OPHT SOLN 5 ML BTL EACH EYE SCH ×2 (09:17→20:00)
[2016-08-27] MEDS: ARTIFICIAL TEARS OPTH SOLN 15 ML BTL EACH EYE SCH ×3 (09:17→17:03)
[2016-08-27] MEDS: CHLORHEXIDINE 0.12% (ORAL KIT) 15 ML CUP MT SCH ×2 (09:18→20:00)
--- NOTE | 2016-08-27 10:19 | HHI.CCPN ---
Subjective Remarks/Hospital Course 71-year-old female. Date of admission 08/23/2016. Past medical history includes morbid obesity, allergic rhinitis, glaucoma, depression, coronary disease status post stent 2 in 2006, COPD, hypertension, dyslipidemia , gastroesophageal reflux disease, diabetes mellitus,, chronic low back pain, urinary incontinence, peripheral vascular disease, osteoporosis and chronic kidney disease stage III. According to , this morning she presented to do a "sink bath". However when she turned she lost her balance and fell on the floor on her bottom. She did not hit her head and she was quite sure about it. He stated that she did not lose consciousness. She was unable to get up from the floor and called 911. Patient has sores on both of her legs that she has been wrapping and taking care of them herself. S Originally, she presented to [facility] on 2 L nasal cannula. She had increasing oxygen requirement requiring BiPAP. 40 mg Lasix IV was provided. Blood gas revealed a worsening respiratory acidosis and the patient was intubated after receiving 20 mg etomidate 100 mg rocuronium using 7.5 ET tube. Patient is currently awake and alert. 08/24: Currently afebrile. Resting in bed sedated on Versed and propofol drips. Tolerating tube feeding. No bowel movement. Yesterday in ED on sedation with Diprivan only the patient was moving all 4 extremity spontaneously and vigorously. 08/25: Afebrile. Resting in bed on propofol and Versed drips. Tolerating tube feeding. No bowel movement. 08/26: Afebrile. Off Versed and fentanyl drips. Tolerating tube feeds. Awake and following commands. Will attempt extubated today. 3 bowel moments yesterday. 08/27: Awake and alert, orally intubated on mechanical ventilation. Daily C Pap trials to decide extubation. Objective Vital Signs Date Time Temp Pulse Resp B/P Pulse Ox O2 Delivery O2 Flow Rate FiO2 08/27/16 08:00 61 08/27/16 08:00 98.3 12 130/58 91 08/27/16 08:00 40 08/23/16 13:30 Ventilator 08/23/16 10:04 4 Intake and Output 08/26/16 08/26/16 08/27/16 08:00 16:00 00:00 Intake Total 711 ml 735 ml 1024 ml Output Total 340.0 ml 475 ml 375 ml Balance 371.0 ml 260 ml 649 ml Result Diagram: 08/27/16 0541 08/27/16 0541 Imaging Last Impressions Chest X-Ray 08/25/16 0600 Signed Impressions: Service Date/Time: Thursday, August 25, 2016 05:19 - CONCLUSION: No significant change. Gurvinder Booker MD Lower Extremity Ultrasound 08/23/16 0000 Signed Impressions: Service Date/Time: Tuesday, August 23, 2016 13:14 - CONCLUSION: 1. No evidence of DVT of the right lower extremity. 2. Limited study of the left lower extremity. No DVT visualized from the knee up to the groin. Antony Corona MD Chest CT 08/23/16 0000 Signed Impressions: Service Date/Time: Tuesday, August 23, 2016 13:58 - CONCLUSION: 1. No evidence of overt pulmonary edema. 2. Bibasilar atelectasis, right greater than left. No evidence of pleural effusions. 3. Nonspecific 1.4 cm pulmonary nodule versus nodular infiltrate high in the left apex. This is not visualized on the recent chest x-rays. When patient is stable, a PET/CT could be performed on an emergent outpatient basis to evaluate for focal hypermetabolic activity. 4. Prominent bilateral pulmonary arteries. Antony Corona MD Objective Remarks GENERAL: 71-year-old female, orotracheally intubated SKIN: Noted erythema/cellulitic changes in the bilateral shins lower extremities. Positive monet cruris bilaterally HEAD: Atraumatic. Normocephalic. EYES: Pupils equal and round about 3 mm bilaterally and reactive. No scleral icterus. No injection or drainage. ENT: No nasal bleeding or discharge. Mucous membranes pink and moist. Oropharynx without any erythema/orotracheally intubated NECK: Trachea midline. No JVD. No thyromegaly or lymphadenopathy CARDIOVASCULAR: Bradycardic, RR. S1, S2. No S4. Without murmur RESPIRATORY: Diminished breath sounds throughout. Possible few crackles appreciated in the lower lobes posteriorly. GASTROINTESTINAL: Abdomen soft, non-tender, obese. Hypoactive bowel sounds are appreciated. MUSCULOSKELETAL: Extremities with cellulitic changes bilateral lower extremities. Trace edema. Excoriation in inguinal regions noted NEUROLOGICAL: Currently arousable on the ventilator. Moves all 4 extremity spontaneously. Follows commands. Positive gag. A/P Assessment and Plan Neuro/Psych: Glaucoma/cataracts Allergic rhinitis Depression Status post fall did not strike head ADHD CBT Currently off Versed and fentanyl drips on sedation vacation Goal of RASS -2 Daily sedation vacation Continue timolol 0.5% 1 drop each eye twice a day CV: Hypertension Dyslipidemia Coronary artery disease status post stent 2 Incomplete right bundle branch block PVD/chronic venous stasis Echocardiogram revealed EF 55%. No regional wall motion abnormality. Left atrium somewhat dilated Repeat echocardiogram revealed EF 55-60%. Right atrial enlargement. No regional wall motion abnormality. EKG revealed normal sinus rhythm. Incomplete right bundle branch block. Troponin 0.03. Home medication Cozaar 50 mg by mouth daily held in light of acute kidney injury. Patient is on hydralazine 10 mg by mouth twice a day for hypertension at home. As needed labetalol, hydralazine and Nitropaste Discontinued normal saline 08/25 She is on Pravachol 20 mg by mouth daily dyslipidemia. Resume likely as clinically indicated Continue aspirin 81 mg by mouth daily. Resp: Acute hypoxemic respiratory failure COPD Tobaccoism ACV 18/600/5/40 Ventilator bundle. If she tolerates CPAP trial today will extubate. Bronchodilator therapy every 4 hours and as needed Pulmicort 0.5/2 1 inhalation twice a day Solu-Medrol 40 mg every [address] thorax revealed no overt pulmonary edema. There is a left apex nodule that will need to be followed with a PET scan not a bursa is an outpatient. Enlarged pulmonary arteries noted. Patient is on Advair 100/50 one ventilation twice a day and as needed albuterol nebs at home. Continue Singulair 10 milligrams by mouth daily Tobacco cessation will be encouraged GI: Gastroesophageal reflux disease Adjust her tube feeding with Glucerna 1.5 goal 50 cc an hour Patient is on cimetidine 200 mg by mouth daily at home ?. Currently Protonix 40 mg iv daily Colace/Senokot twice daily and MiraLAX daily for bowel regimen. Glycerin suppositories when necessary constipation : Abreu has been placed for accurate I's and O's in a critically ill patient Endo: Diabetes mellitus At home on metformin 1000 mg by mouth twice a day and glipizide 5 mg by mouth 3 times a day with meals. We'll hold. Place of sliding scale insulin Accu-Cheks every 6 hours to maintain euglycemia. Moderate regimen Renal: Acute on chronic kidney injury stage III Patient is on metolazone 5 mg daily at home. This is been held Received 40 mg Lasix in ED. Monitor urine output//I's and O's Heme: CBC within normal limits. Recheck CBC/coags in a.m. monitor trends ID: Urine tract infection - Klebsiella Bilateral lower extremity cellulitis Monet cruris Day 4 vancomycin/Zosyn Received 3 days of Zithromax 08/23 - Blood cultures 2, no growth 08/23 - urine - Klebsiella Doppler ultrasound bilateral lower extremities negative for DVT MSK: Obesity Osteo arthritis Chronic low back pain PT evaluate and treat. On tramadol at home as needed. FEN: Hyperkalemia Patient is on diuretics and supplement potassium at home. Received Kayexalate 15 g 1 on 08/26. Access - Utilize peripheral IV. Central line if indicated Prophylaxis - GI - Protonix - DVT - SCDs on hold secondary to cellulitis/Lovenox subcutaneous Critical Care: The total critical care time was 35 minutes. Time to perform other separately billable procedures was not included in the critical care time. Theron Alvarez MD Aug 27, 2016 10:18
[2016-08-27] MEDS: VANCOMYCIN INJ 1,750 MG in SODIUM CHLORID 0.9% 500 ML INJ 500 ML IV SCH (12:44)
[2016-08-27] MEDS: MONTELUKAST SODIUM 10 MG TAB PO SCH (20:01)
[2016-08-27] MEDS: RESP: ALBUTEROL 2.5 MG/IPRATROPIUM 0.5 MG NEB (SCH) NEB ×2 (20:12→23:24)
[2016-08-28] VITALS (16 sets, daily range): BP systolic 99–133; BP diastolic 54–73; PULSE 57–67; RESP 17–25; TEMP 98–99.3; O2SAT 89–96
[2016-08-28] MEDS: PIPERACIL-TAZO 4.5 GM PREMIX 100 ML IV SCH ×3 (01:19→17:55)
[2016-08-28] MEDS: CHLORHEXIDINE GLUCONATE 2 % 1 PACK (2 CLOTHS) TOP SCH (03:13)
[2016-08-28] MEDS: RESP: ALBUTEROL 2.5 MG/IPRATROPIUM 0.5 MG NEB (SCH) NEB ×5 (03:40→20:56)
[2016-08-28] MEDS: INSULIN NovoLIN REGULAR SUPPLEMENTAL SCALE SQ SCH ×3 (05:08→17:55)
[2016-08-28] MEDS: NYSTATIN 100,000 U/GM PWD 15 GM BTL TOPICAL SCH ×3 (05:14→20:28)
[2016-08-28] MEDS: RESP: BUDESONIDE 0.5 MG/2 ML NEB NEB SCH ×2 (07:54→20:57)
[2016-08-28] MEDS: CHLORHEXIDINE 0.12% (ORAL KIT) 15 ML CUP MT SCH ×2 (08:00→20:00)
[2016-08-28] MEDS: SENNOSIDES 8.6 MG TAB PO SCH ×2 (08:05→20:27)
[2016-08-28] MEDS: PANTOPRAZOLE SODIUM 40 MG VIAL IV SCH (08:05)
[2016-08-28] MEDS: ASPIRIN 81 MG CHEW TAB CHEW SCH (08:05)
[2016-08-28] MEDS: POLYETHYLENE GLYCOL 17 GM PKG PO SCH (08:05)
[2016-08-28] MEDS: DOCUSATE SODIUM 100 MG CAP PO SCH ×2 (08:06→20:27)
[2016-08-28] MEDS: ENOXAPARIN SODIUM 40 MG/0.4 ML SYRINGE SQ SCH ×2 (08:06→20:28)
[2016-08-28] MEDS: ARTIFICIAL TEARS OPTH SOLN 15 ML BTL EACH EYE SCH ×3 (08:06→17:55)
[2016-08-28] MEDS: SODIUM CHLORIDE 0.9% FLUSH 5 ML FLUSH IV FLUSH SCH ×2 (08:06→20:27)
[2016-08-28] MEDS: methylPREDNISolone SOD SUCC 40 MG/1 ML VIAL IV PUSH SCH ×2 (08:06→20:28)
[2016-08-28] MEDS: TIMOLOL MALEATE 0.5% OPHT SOLN 5 ML BTL EACH EYE SCH ×2 (08:07→20:26)
--- NOTE | 2016-08-28 11:54 | HHI.CCPN ---
Subjective Remarks/Hospital Course 71-year-old female. Date of admission 08/23/2016. Past medical history includes morbid obesity, allergic rhinitis, glaucoma, depression, coronary disease status post stent 2 in 2006, COPD, hypertension, dyslipidemia , gastroesophageal reflux disease, diabetes mellitus,, chronic low back pain, urinary incontinence, peripheral vascular disease, osteoporosis and chronic kidney disease stage III. According to , this morning she presented to do a "sink bath". However when she turned she lost her balance and fell on the floor on her bottom. She did not hit her head and she was quite sure about it. He stated that she did not lose consciousness. She was unable to get up from the floor and called 911. Patient has sores on both of her legs that she has been wrapping and taking care of them herself. S Originally, she presented to [facility] on 2 L nasal cannula. She had increasing oxygen requirement requiring BiPAP. 40 mg Lasix IV was provided. Blood gas revealed a worsening respiratory acidosis and the patient was intubated after receiving 20 mg etomidate 100 mg rocuronium using 7.5 ET tube. Patient is currently awake and alert. 08/24: Currently afebrile. Resting in bed sedated on Versed and propofol drips. Tolerating tube feeding. No bowel movement. Yesterday in ED on sedation with Diprivan only the patient was moving all 4 extremity spontaneously and vigorously. 08/25: Afebrile. Resting in bed on propofol and Versed drips. Tolerating tube feeding. No bowel movement. 08/26: Afebrile. Off Versed and fentanyl drips. Tolerating tube feeds. Awake and following commands. Will attempt extubated today. 3 bowel moments yesterday. 2: Awake and alert, orally intubated on mechanical ventilation. Daily C Pap trials to decide extubation. 08/28: Awake alert and oriented 3. Extubated yesterday. On 6 L nasal cannula today. Refuses BiPAP at night after one hour of keeping it on. Resting in bed comfortably currently not in any acute distress Objective Vital Signs Date Time Temp Pulse Resp B/P Pulse Ox O2 Delivery O2 Flow Rate FiO2 08/28/16 08:00 98.8 60 17 133/62 91 08/28/16 07:55 Nasal Cannula 6.00 08/27/16 23:24 40 Intake and Output 08/27/16 08/27/16 08/28/16 08:00 16:00 00:00 Intake Total 583 ml 823 ml 240 ml Output Total 960.0 ml 875 ml 525 ml Balance -377.0 ml -52 ml -285 ml Result Diagram: 08/27/16 0541 08/27/16 0541 Imaging Last Impressions Chest X-Ray 08/25/16 0600 Signed Impressions: Service Date/Time: Thursday, August 25, 2016 05:19 - CONCLUSION: No significant change. Gurvinder Booker MD Lower Extremity Ultrasound 08/23/16 0000 Signed Impressions: Service Date/Time: Tuesday, August 23, 2016 13:14 - CONCLUSION: 1. No evidence of DVT of the right lower extremity. 2. Limited study of the left lower extremity. No DVT visualized from the knee up to the groin. Antony Corona MD Chest CT 08/23/16 0000 Signed Impressions: Service Date/Time: Tuesday, August 23, 2016 13:58 - CONCLUSION: 1. No evidence of overt pulmonary edema. 2. Bibasilar atelectasis, right greater than left. No evidence of pleural effusions. 3. Nonspecific 1.4 cm pulmonary nodule versus nodular infiltrate high in the left apex. This is not visualized on the recent chest x-rays. When patient is stable, a PET/CT could be performed on an emergent outpatient basis to evaluate for focal hypermetabolic activity. 4. Prominent bilateral pulmonary arteries. Antony Corona MD Objective Remarks GENERAL: 71-year-old female, laying in bed not in any acute distress SKIN: Noted erythema/cellulitic changes in the bilateral shins lower extremities. Positive monet cruris bilaterally HEAD: Atraumatic. Normocephalic. EYES: Pupils equal and round about 3 mm bilaterally and reactive. No scleral icterus. No injection or drainage. ENT: No nasal bleeding or discharge. Mucous membranes pink and moist. Oropharynx without any erythema NECK: Trachea midline. No JVD. No thyromegaly or lymphadenopathy CARDIOVASCULAR: S1, S2 regular. No S4. Without murmur RESPIRATORY: Diminished breath sounds throughout. Possible few crackles appreciated in the lower lobes posteriorly. GASTROINTESTINAL: Abdomen soft, non-tender, obese. Hypoactive bowel sounds are appreciated. MUSCULOSKELETAL: Extremities with cellulitic changes bilateral lower extremities. Trace edema. Excoriation in inguinal regions noted NEUROLOGICAL: Awake alert oriented 3, grossly nonfocal A/P Assessment and Plan Neuro/Psych: Glaucoma/cataracts Allergic rhinitis Depression Status post fall did not strike head ADHD CBT Off all sedation. Follow neuro status Continue timolol 0.5% 1 drop each eye twice a day CV: Hypertension Dyslipidemia Coronary artery disease status post stent 2 Incomplete right bundle branch block PVD/chronic venous stasis Echocardiogram revealed EF 55%. No regional wall motion abnormality. Left atrium somewhat dilated Repeat echocardiogram revealed EF 55-60%. Right atrial enlargement. No regional wall motion abnormality. EKG revealed normal sinus rhythm. Incomplete right bundle branch block. Troponin 0.03. Home medication Cozaar 50 mg by mouth daily held in light of acute kidney injury. Patient is on hydralazine 10 mg by mouth twice a day for hypertension at home. As needed labetalol, hydralazine and Nitropaste Discontinued normal saline 08/25 She is on Pravachol 20 mg by mouth daily dyslipidemia. Resume likely as clinically indicated Continue aspirin 81 mg by mouth daily. Resp: Acute hypoxemic respiratory failure COPD Tobaccoism Extubated on 08/27, on 6 L nasal cannula. Ordered BiPAP when necessary however patient took it off after wearing it for 1 hour last night Bronchodilator therapy every 4 hours and as needed Pulmicort 0.5/2 1 inhalation twice a day Solu-Medrol 40 mg every [address] thorax revealed no overt pulmonary edema. There is a left apex nodule that will need to be followed with a PET scan not a bursa is an outpatient. Enlarged pulmonary arteries noted. Patient is on Advair 100/50 one ventilation twice a day and as needed albuterol nebs at home. Continue Singulair 10 milligrams by mouth daily Tobacco cessation will be encouraged. Consult pulmonary for advanced COPD/COPD exacerbation with respiratory failure. GI: Gastroesophageal reflux disease Advance by mouth diet Patient is on cimetidine 200 mg by mouth daily at home ?. Currently Protonix 40 mg iv daily Colace/Senokot twice daily and MiraLAX daily for bowel regimen. Glycerin suppositories when necessary constipation : Abreu has been placed for accurate I's and O's in a critically ill patient Endo: Diabetes mellitus At home on metformin 1000 mg by mouth twice a day and glipizide 5 mg by mouth 3 times a day with meals. We'll hold. Place of sliding scale insulin Accu-Cheks every 6 hours to maintain euglycemia. Moderate regimen Renal: Acute on chronic kidney injury stage III Patient is on metolazone 5 mg daily at home. Resume on 08/28 Received 40 mg Lasix in ED. Monitor urine output//I's and O's Heme: CBC within normal limits. Recheck CBC/coags in a.m. monitor trends ID: Urine tract infection - Klebsiella Bilateral lower extremity cellulitis Monet cruris Day 5 vancomycin/Zosyn. Stop vancomycin on 08/28. Remains on Zosyn Received 3 days of Zithromax 08/23 - Blood cultures 2, no growth 08/23 - urine - Klebsiella Doppler ultrasound bilateral lower extremities negative for DVT MSK: Obesity Osteo arthritis Chronic low back pain PT evaluate and treat. On tramadol at home as needed. FEN: Hyperkalemia Patient is on diuretics and supplement potassium at home. Resume metolazone 5 mg daily by mouth Received Kayexalate 15 g 1 on 08/26. Access - Utilize peripheral IV. Central line if indicated Prophylaxis - GI - Protonix - DVT - SCDs on hold secondary to cellulitis/Lovenox subcutaneous We'll consult and transfer to hospitalist service for further medical management. Consult pulmonary for advanced COPD/respiratory failure. Patient will be transferred out of ICU later today depending on O2 requirement. Theron Alvarez MD Aug 28, 2016 11:54
[2016-08-28] MEDS: METOLAZONE 5 MG TAB PO SCH (12:14)
--- NOTE | 2016-08-28 20:01 | MB ---
cc: MAYLIN TAI MD DATE OF CONSULTATION: 08/28/2016. REASON FOR CONSULTATION: Pulmonary management. REQUESTING PHYSICIAN: Dr. Zachary Alvarez. HISTORY OF PRESENT ILLNESS: Ms. Coley is a pleasant 71-year-old obese white female with history of COPD with multiple admissions to the hospital. She came to the hospital after a fall in the tub. The patient did not lose any consciousness. She was unable to get up. She was brought to the hospital and initially she was started on BiPAP. She had worsening of the respiratory acidosis and she was intubated. She was extubated today. She is on six liters nasal cannula. She refuses to use BiPAP. Her lab evaluation reveals White blood cell count of 9000, hemoglobin 13.7, hematocrit 42.1, MCH 88, platelet count of 221,000. Her sodium was 139, potassium 4.6, chloride 101, carbon dioxide 31, BUN 25, creatinine 0.86. Blood gas on 100% on 08/23 was pH 7.35, pc02 of 54, p02 of 403. Her chest x-ray shows basilar consolidation and small pleural effusion. PAST MEDICAL HISTORY: Her past medical history is significant for: 1. History of COPD. 2. Coronary artery disease status post stent placement. 3. Morbid obesity. 4. Chronic cellulitis of the legs. 5. Diabetes mellitus. 6. ADHD. MEDICATIONS: She is currently takin. Aspirin 81 milligrams a day. 2. Metolazone 5 milligrams a day. 3. Zolpidem 10 milligrams a day. 4. Albuterol and Atrovent nebulizer treatments. 5. Protonix 40 milligrams a day. 6. Aspirin 81 milligrams. 7. Lovenox 40 milligrams twice a day. 8. Singulair 10 milligrams a day. 9. Solu-Medrol 40 milligrams q. 12 hours. 10. Budesonide and Pulmicort nebulizer treatments. 11. Zosyn IV. ALLERGIES: SHE IS ALLERGIC TO: 1. MUSHROOMS. 2. ZOLOFT. SOCIAL HISTORY: She has a history of smoking. No alcohol use. She is . She lives with her . She has five children. REVIEW OF SYSTEMS: She walks only short distances. She has morbid obesity. Chronic cellulitis in the legs. She has symptoms suggestive of sleep apnea. PHYSICAL EXAMINATION: GENERAL: A moderately obese female. Mild short of breath. She is on six liters nasal cannula. VITAL SIGNS: Blood pressure 125/73, heart rate 66, respirations 20, temperature 99. HEAD, EYES, EARS, NOSE, THROAT: Pupils are equal and reactive. Oral mucosa and nasal mucosa are normal. NECK: The neck is supple. JVP not raised. CHEST: Air entry equal bilaterally. She has a few basal rales. CARDIOVASCULAR: S1 and S2 normal. ABDOMEN: Abdomen benign, obese, nontender. EXTREMITIES: She has edema of the legs and chronic cellulitis changes. IMPRESSION: 1. Respiratory failure status post extubation. 2. COPD. 3. Morbid obesity. 4. Likely sleep apnea and obesity hypoventilation syndrome. 5. Basal lung infiltrate. 6. Diabetes mellitus. 7. Renal insufficiency. PLAN: 1. The patient has been extubated. 2. She is on nasal cannula. Will use C-PAP 12/5 at night and PRN as needed. 3. Continue aerosol treatments. 4. Antibiotics. 5. IV Solu-Medrol. 6. Monitor blood sugar. I discussed with the patient and advised her to be compliant with her BiPAP therapy. Further treatment will depend on the course in the hospital. Thank you, Dr. Alvarez, for this consult. MD SINAN Obrien/DICK /6:25 PM /7:47 PM
[2016-08-28] MEDS: MONTELUKAST SODIUM 10 MG TAB PO SCH (20:28)
[2016-08-28] MEDS ORDERED: MONTELUKAST SODIUM 10 MG TAB PO SCH (21:00)
[2016-08-28] MEDS: hydrALAZINE HCL 20 MG/ML VIAL IV PUSH PRN (23:57)
[2016-08-29] VITALS (36 sets, daily range): BP systolic 131–189; BP diastolic 76–103; PULSE 54–90; RESP 19–22; TEMP 98.3–99.3; O2SAT 91–96
[2016-08-29] MEDS ORDERED: RESP: ALBUTEROL 2.5 MG/IPRATROPIUM 0.5 MG NEB (SCH) NEB ONE (01:15)
[2016-08-29] MEDS: RESP: ALBUTEROL 2.5 MG/IPRATROPIUM 0.5 MG NEB (SCH) NEB ×7 (01:36→23:19)
[2016-08-29] MEDS: PIPERACIL-TAZO 4.5 GM PREMIX 100 ML IV SCH ×3 (01:57→17:57)
[2016-08-29] MEDS: CHLORHEXIDINE GLUCONATE 2 % 1 PACK (2 CLOTHS) TOP SCH (04:00)
[2016-08-29] MEDS: NYSTATIN 100,000 U/GM PWD 15 GM BTL TOPICAL SCH ×3 (05:21→20:56)
[2016-08-29] MEDS: INSULIN NovoLIN REGULAR SUPPLEMENTAL SCALE SQ SCH ×4 (05:24→18:00)
[2016-08-29] MEDS: CHLORHEXIDINE 0.12% (ORAL KIT) 15 ML CUP MT SCH ×2 (08:00→20:00)
[2016-08-29] MEDS: RESP: BUDESONIDE 0.5 MG/2 ML NEB NEB SCH ×2 (08:05→19:03)
[2016-08-29] MEDS: hydrALAZINE HCL 20 MG/ML VIAL IV PUSH PRN ×2 (08:48→10:58)
[2016-08-29] MEDS: PANTOPRAZOLE SODIUM 40 MG VIAL IV SCH (08:50)
[2016-08-29] MEDS: ENOXAPARIN SODIUM 40 MG/0.4 ML SYRINGE SQ SCH ×2 (08:50→20:57)
[2016-08-29] MEDS: methylPREDNISolone SOD SUCC 40 MG/1 ML VIAL IV PUSH SCH ×2 (08:50→21:00)
[2016-08-29] MEDS: DOCUSATE SODIUM 100 MG CAP PO SCH ×2 (08:51→20:59)
[2016-08-29] MEDS: MULTIVITAMIN-OPHTHALMIC 1 TAB PO SCH (08:51)
[2016-08-29] MEDS: SENNOSIDES 8.6 MG TAB PO SCH ×2 (08:51→20:58)
[2016-08-29] MEDS: ARTIFICIAL TEARS OPTH SOLN 15 ML BTL EACH EYE SCH ×3 (08:51→18:06)
[2016-08-29] MEDS: METOLAZONE 5 MG TAB PO SCH (08:51)
[2016-08-29] MEDS: TIMOLOL MALEATE 0.5% OPHT SOLN 5 ML BTL EACH EYE SCH ×2 (08:51→21:00)
[2016-08-29] MEDS: POLYETHYLENE GLYCOL 17 GM PKG PO SCH (08:52)
[2016-08-29] MEDS: ASPIRIN 81 MG CHEW TAB CHEW SCH (08:52)
[2016-08-29] MEDS: SODIUM CHLORIDE 0.9% FLUSH 5 ML FLUSH IV FLUSH PRN ×2 (08:52→10:58)
[2016-08-29] MEDS: SODIUM CHLORIDE 0.9% FLUSH 5 ML FLUSH IV FLUSH SCH (08:52)
[2016-08-29] MEDS: ASPIRIN EC 81 MG TABEC PO SCH (08:53)
[2016-08-29] MEDS ORDERED: PHARMACY ORDERED LAB XX ONE (11:45)
[2016-08-29] MEDS: LOSARTAN 50 MG TAB PO SCH (11:57)
--- NOTE | 2016-08-29 15:10 | HHI.PR ---
Subjective Remarks patient is awake and alert on BiPAP 35% Objective Vitals Vital Signs Date Time Temp Pulse Resp B/P Pulse Ox O2 Delivery O2 Flow Rate FiO2 08/29/16 14:33 91 35 08/29/16 12:00 98.3 66 19 149/85 93 08/29/16 10:55 93 35 08/29/16 10:50 181/82 08/29/16 09:15 93 Venturi Mask 6.00 08/29/16 09:15 93 Venturi Mask 6.00 50 08/29/16 08:06 94 35 08/29/16 08:00 98.7 60 19 178/87 95 08/29/16 07:00 95 Bi-Pap 35 08/29/16 06:00 58 08/29/16 05:42 96 35 08/29/16 05:00 60 08/29/16 04:14 99.3 90 144/76 93 08/29/16 04:00 62 08/29/16 03:00 64 08/29/16 02:00 70 08/29/16 01:40 96 Partial Rebreather 08/29/16 01:00 74 08/29/16 00:16 68 08/29/16 00:00 Venturi Mask 6.00 08/29/16 00:00 66 08/29/16 00:00 99.2 62 189/103 93 08/28/16 22:00 57 08/28/16 20:56 91 Nasal Cannula 6.00 08/28/16 20:00 98.7 61 20 119/71 92 08/28/16 20:00 61 08/28/16 18:00 64 08/28/16 16:00 99.3 63 23 130/66 90 08/28/16 16:00 63 I/O 08/28/16 08/28/16 08/28/16 08/29/16 08/29/16 08/29/16 07:00 15:00 23:00 07:00 15:00 23:00 Intake Total 473 ml 660 ml 663 ml 480 ml Output Total 950 ml 750 ml 1075 ml 1900 ml 800 ml Balance -477 ml -90 ml -412 ml -1420 ml -800 ml Intake Oral 240 ml 480 ml 480 ml 480 ml IV Total 233 ml 180 ml 183 ml Output Urine Total 750 ml 650 ml 1075 ml 1900 ml 800 ml Stool Total 200 ml 100 ml Result Diagram: 08/27/16 0541 08/27/16 0541 Imaging Last Impressions Chest X-Ray 08/27/16 0600 Signed Impressions: Service Date/Time: August 03:42 - CONCLUSION: Worsening right greater than left basilar consolidation and small effusions. Gurvinder Booker MD Lower Extremity Ultrasound 08/23/16 0000 Signed Impressions: Service Date/Time: Tuesday, August 23, 2016 13:14 - CONCLUSION: 1. No evidence of DVT of the right lower extremity. 2. Limited study of the left lower extremity. No DVT visualized from the knee up to the groin. Antony Corona MD Chest CT 08/23/16 0000 Signed Impressions: Service Date/Time: Tuesday, August 23, 2016 13:58 - CONCLUSION: 1. No evidence of overt pulmonary edema. 2. Bibasilar atelectasis, right greater than left. No evidence of pleural effusions. 3. Nonspecific 1.4 cm pulmonary nodule versus nodular infiltrate high in the left apex. This is not visualized on the recent chest x-rays. When patient is stable, a PET/CT could be performed on an emergent outpatient basis to evaluate for focal hypermetabolic activity. 4. Prominent bilateral pulmonary arteries. Antony Corona MD Objective Remarks awake and alert bilateral breath sounds equal, no wheezes or rales regular rhythm abdomen soft, nontender extremities - with erythema, neuro exam- non focal Urinary Catheter: Yes Assessment to: Continue Abreu insert reason: Prolonged Immobilization A/P Problem List: (1) Respiratory failure ICD Code: J96.90 Status: Acute (2) Respiratory acidosis ICD Code: E87.2 Status: Acute (3) UTI (urinary tract infection) ICD Code: N39.0 Status: Acute (4) Chronic venous hypertension with ulcer and inflammation ICD Code: I87.339 Status: Acute (5) COPD exacerbation ICD Code: J44.1 Status: Acute (6) Stented coronary artery Status: Chronic (7) Mixed hyperlipidemia ICD Code: 272.2 Status: Chronic (8) Seasonal allergic rhinitis ICD Code: 477.9 Status: Chronic (9) Bilateral lower leg cellulitis ICD Code: L03.115 Status: Acute (10) DVT prophylaxis ICD Code: V58.61 Status: Acute (11) Benign essential hypertension ICD Code: 401.1 Status: Chronic (12) Morbid obesity with BMI of 40.0-44.9, adult ICD Code: E66.01 Status: Chronic (13) Coronary arteriosclerosis ICD Code: 414.00 Status: Chronic (14) JOSEPHINE (acute kidney injury) ICD Code: N17.9 Status: Acute (15) Ulcer of left lower extremity, limited to breakdown of skin ICD Code: L97.921 Status: Acute (16) ADHD (attention deficit hyperactivity disorder) ICD Code: F90.9 Status: Acute (17) PVD (peripheral vascular disease) ICD Code: I73.9 Status: Chronic (18) Chronic stasis dermatitis ICD Code: I83.10 Status: Acute (19) Diabetes mellitus ICD Code: E11.9 Status: Chronic (20) Hyperkalemia ICD Code: E87.5 Status: Acute Assessment and Plan Neuro/Psych: Glaucoma/cataracts Allergic rhinitis Depression Status post fall did not strike head ADHD CBT Off all sedation. Follow neuro status Continue timolol 0.5% 1 drop each eye twice a day CV: Hypertension Dyslipidemia Coronary artery disease status post stent 2 Incomplete right bundle branch block PVD/chronic venous stasis Echocardiogram revealed EF 55%. No regional wall motion abnormality. Left atrium somewhat dilated Repeat echocardiogram revealed EF 55-60%. Right atrial enlargement. No regional wall motion abnormality. EKG revealed normal sinus rhythm. Incomplete right bundle branch block. Troponin 0.03. Home medication Cozaar 50 mg by mouth daily held in light of acute kidney injury. Patient is on hydralazine 10 mg by mouth twice a day for hypertension at home. As needed labetalol, hydralazine and Nitropaste She is on Pravachol 20 mg by mouth daily dyslipidemia. Resume likely as clinically indicated Continue aspirin 81 mg by mouth daily. Resp: Acute hypoxemic respiratory failure COPD Tobaccoism Extubated on 08/27, on 6 L nasal cannula. BiPAP 35% fi02 Bronchodilator therapy every 4 hours and as needed Pulmicort 0.5/2 1 inhalation twice a day Solu-Medrol 40 mg every 8 hours- decrease q 12 CT thorax revealed no overt pulmonary edema. There is a left apex nodule that will need to be followed with a PET scan not a bursa is an outpatient. Enlarged pulmonary arteries noted. Patient is on Advair 100/50 one ventilation twice a day and as needed albuterol nebs at home. Continue Singulair 10 milligrams by mouth daily Tobacco cessation will be encouraged. Dr. Anabel potter GI: Gastroesophageal reflux disease Advance by mouth diet Patient is on cimetidine 200 mg by mouth daily at home ?. Currently Protonix 40 mg iv daily Colace/Senokot twice daily and MiraLAX daily for bowel regimen. Glycerin suppositories when necessary constipation : Abreu has been placed for accurate I's and O's in a critically ill patient- continue Endo: Diabetes mellitus At home on metformin 1000 mg by mouth twice a day and glipizide 5 mg by mouth 3 times a day with meals. We'll hold. Place of sliding scale insulin Accu-Cheks every 6 hours to maintain euglycemia. Moderate regimen Renal: Acute on chronic kidney injury stage III Patient is on metolazone 5 mg daily at home. Resume on 08/28 Received 40 mg Lasix in ED. Monitor urine output//I's and O's Heme: CBC within normal limits. Recheck CBC/coags in a.m. monitor trends ID: Urine tract infection - Klebsiella Bilateral lower extremity cellulitis Jaki cruris DC vancomycin on 08/28. Remains on Zosyn Received 3 days of Zithromax 08/23 - Blood cultures 2, no growth 08/23 - urine - Klebsiella Doppler ultrasound bilateral lower extremities negative for DVT MSK: Obesity Osteo arthritis Chronic low back pain PT evaluate and treat. On tramadol at home as needed. FEN: Hyperkalemia Patient is on diuretics and supplement potassium at home. Resume metolazone 5 mg daily by mouth Received Kayexalate 15 g 1 on 08/26. Access - Utilize peripheral IV. Central line if indicated Prophylaxis - GI - Protonix - DVT - SCDs on hold secondary to cellulitis/Lovenox subcutaneous d/w staff to assit her with her meals Problem Qualifiers (1) Respiratory failure: Qualified Code: J96.01 - Acute respiratory failure with hypoxia (2) UTI (urinary tract infection): Qualified Code: N39.0 - Urinary tract infection without hematuria, site unspecified (3) Chronic venous hypertension with ulcer and inflammation: Qualified Code: I87.333 - Chronic venous hypertension with ulcer and inflammation, bilateral (4) ADHD (attention deficit hyperactivity disorder): Qualified Code: F90.9 - Attention deficit hyperactivity disorder (ADHD), unspecified ADHD type (5) Chronic stasis dermatitis: Qualified Code: I83.10 - Chronic stasis dermatitis, unspecified laterality (6) Diabetes mellitus: Qualified Code: E11.8 - Type 2 diabetes mellitus with complication, without long-term current use of insulin Kim Silvestre MD Aug 29, 2016 15:10 Kim Silvestre MD Aug 29, 2016 15:10
--- NOTE | 2016-08-29 17:28 | HHI.PR ---
Subjective Remarks 71 YOWF with RF, s/p extybation On VM Uses CPAP off and on , feels better with CPAP No CP Objective Vital Signs Vital Signs Date Time Temp Pulse Resp B/P Pulse Ox O2 Delivery O2 Flow Rate FiO2 08/29/16 17:13 65 08/29/16 16:00 64 08/29/16 15:33 92 Venturi Mask 6.00 50 08/29/16 15:00 61 08/29/16 14:33 91 35 08/29/16 14:00 60 08/29/16 13:00 60 08/29/16 12:00 62 08/29/16 12:00 98.3 66 19 149/85 93 08/29/16 11:00 62 08/29/16 10:55 93 35 08/29/16 10:50 181/82 08/29/16 10:00 64 08/29/16 09:15 93 Venturi Mask 6.00 08/29/16 09:15 93 Venturi Mask 6.00 50 08/29/16 09:00 60 08/29/16 08:06 94 35 08/29/16 08:00 98.7 60 19 178/87 95 08/29/16 08:00 54 08/29/16 07:00 55 08/29/16 07:00 95 Bi-Pap 35 08/29/16 06:00 58 08/29/16 05:42 96 35 08/29/16 05:00 60 08/29/16 04:14 99.3 90 144/76 93 08/29/16 04:00 62 08/29/16 03:00 64 08/29/16 02:00 70 08/29/16 01:40 96 Partial Rebreather 08/29/16 01:00 74 08/29/16 00:16 68 08/29/16 00:00 Venturi Mask 6.00 08/29/16 00:00 66 08/29/16 00:00 99.2 62 189/103 93 08/28/16 22:00 57 08/28/16 20:56 91 Nasal Cannula 6.00 08/28/16 20:00 98.7 61 20 119/71 92 08/28/16 20:00 61 08/28/16 18:00 64 I/O 08/28/16 08/28/16 08/28/16 08/29/16/4/17 2/4/17 07:00 15:00 23:00 07:00 15:00 23:00 Intake Total 473 ml 660 ml 663 ml 480 ml Output Total 950 ml 750 ml 1075 ml 1900 ml 800 ml 600 ml Balance -477 ml -90 ml -412 ml -1420 ml -800 ml -600 ml Intake Oral 240 ml 480 ml 480 ml 480 ml IV Total 233 ml 180 ml 183 ml Output Urine Total 750 ml 650 ml 1075 ml 1900 ml 800 ml 600 ml Stool Total 200 ml 100 ml Result Diagram: 08/27/1654008/27/16540 Objective Remarks GENERAL: WBWN, obese WF, mild sob SKIN: Warm and dry. HEAD: Normocephalic. EYES: No scleral icterus. No injection or drainage. NECK: Supple, trachea midline. No JVD or lymphadenopathy. CARDIOVASCULAR: Regular rate and rhythm without murmurs, gallops, or rubs. RESPIRATORY: Breath sounds equal bilaterally. No accessory muscle use. GASTROINTESTINAL: Abdomen soft, non-tender, nondistended. MUSCULOSKELETAL: No cyanosis, ++ edema. BACK: Nontender without obvious deformity. No CVA tenderness. A/P Assessment and Plan Resp insuff, s/p extubation COPD exac LYDIA Morbid obesity DM HTN PLAN: CPAP at night and PRN Supplement 02 to keep sat >88% Aerosol nebs IV Solumedrol Monitor Jose David Mccoy MD Aug 29, 2016 17:28
[2016-08-29] MEDS: MONTELUKAST SODIUM 10 MG TAB PO SCH (21:00)
[2016-08-30] VITALS (30 sets, daily range): BP systolic 101–165; BP diastolic 71–81; PULSE 58–68; RESP 18–20; TEMP 97.2–99.4; O2SAT 92–98
[2016-08-30] MEDS: PIPERACIL-TAZO 4.5 GM PREMIX 100 ML IV SCH ×3 (01:00→17:46)
[2016-08-30] MEDS: ZOLPIDEM TARTRATE 10 MG TAB PO PRN (02:30)
[2016-08-30] MEDS: RESP: ALBUTEROL 2.5 MG/IPRATROPIUM 0.5 MG NEB (SCH) NEB ×6 (03:25→23:49)
[2016-08-30] MEDS: CHLORHEXIDINE GLUCONATE 2 % 1 PACK (2 CLOTHS) TOP SCH (04:00)
[2016-08-30] MEDS: INSULIN NovoLIN REGULAR SUPPLEMENTAL SCALE SQ SCH ×4 (06:00→18:00)
[2016-08-30] MEDS: CHLORHEXIDINE 0.12% (ORAL KIT) 15 ML CUP MT SCH ×2 (08:00→20:00)
[2016-08-30] MEDS: SENNOSIDES 8.6 MG TAB PO SCH (09:00)
[2016-08-30] MEDS: ASPIRIN EC 81 MG TABEC PO SCH (09:00)
[2016-08-30] MEDS: DOCUSATE SODIUM 100 MG CAP PO SCH (09:00)
[2016-08-30] MEDS: POLYETHYLENE GLYCOL 17 GM PKG PO SCH (09:00)
[2016-08-30] MEDS: methylPREDNISolone SOD SUCC 40 MG/1 ML VIAL IV PUSH SCH (09:35)
[2016-08-30] MEDS: PANTOPRAZOLE SODIUM 40 MG VIAL IV SCH (09:36)
[2016-08-30] MEDS: ENOXAPARIN SODIUM 40 MG/0.4 ML SYRINGE SQ SCH ×2 (09:36→20:53)
[2016-08-30] MEDS: METOLAZONE 5 MG TAB PO SCH (09:37)
[2016-08-30] MEDS: ASPIRIN 81 MG CHEW TAB CHEW SCH (09:37)
[2016-08-30] MEDS: MULTIVITAMIN-OPHTHALMIC 1 TAB PO SCH (09:37)
[2016-08-30] MEDS: LOSARTAN 50 MG TAB PO SCH (09:37)
[2016-08-30] MEDS: SODIUM CHLORIDE 0.9% FLUSH 5 ML FLUSH IV FLUSH PRN (09:42)
[2016-08-30] MEDS: ARTIFICIAL TEARS OPTH SOLN 15 ML BTL EACH EYE SCH ×3 (09:42→17:46)
[2016-08-30] MEDS: SODIUM CHLORIDE 0.9% FLUSH 5 ML FLUSH IV FLUSH SCH ×2 (09:42→20:53)
[2016-08-30] MEDS: TIMOLOL MALEATE 0.5% OPHT SOLN 5 ML BTL EACH EYE SCH ×2 (09:43→20:54)
[2016-08-30] MEDS: RESP: BUDESONIDE 0.5 MG/2 ML NEB NEB SCH ×2 (12:34→19:04)
[2016-08-30] MEDS: NYSTATIN 100,000 U/GM PWD 15 GM BTL TOPICAL SCH ×2 (12:39→21:42)
--- NOTE | 2016-08-30 13:35 | HHI.PR ---
Subjective Remarks awake and alert no complain of pain or shortness of breath- j- but not very active no nausea or vomiting ? sedenatary lifestyle- does not even try to move when I examine here Objective Vitals Vital Signs Date Time Temp Pulse Resp B/P Pulse Ox O2 Delivery O2 Flow Rate FiO2 08/30/16 12:15 97.9 60 165/80 96 08/30/16 09:45 93 Venturi Mask 6.00 50 08/30/16 09:45 93 08/30/16 08:00 98.2 64 156/81 98 08/30/16 07:00 59 08/30/16 07:00 95 Venturi Mask 6.00 08/30/16 06:00 62 08/30/16 05:00 62 08/30/16 04:00 64 08/30/16 04:00 98.8 66 18 156/71 92 08/30/16 03:26 94 Venturi Mask 50 08/30/16 03:00 68 08/30/16 02:00 68 08/30/16 01:00 68 08/30/16 00:00 99.4 65 18 101/74 93 08/30/16 00:00 66 08/29/16 23:39 96 40 08/29/16 23:24 94 Venturi Mask 50 08/29/16 23:00 64 08/29/16 22:00 62 08/29/16 21:00 60 08/29/16 20:00 99.0 61 22 131/79 94 08/29/16 20:00 66 08/29/16 20:00 96 Venturi Mask 50 08/29/16 18:20 62 08/29/16 17:13 65 08/29/16 16:15 98.4 63 152/79 93 08/29/16 16:00 64 08/29/16 15:33 92 Venturi Mask 6.00 50 08/29/16 15:00 61 08/29/16 14:33 91 35 08/29/16 14:00 60 I/O 08/29/16 08/29/16 08/29/16 08/30/16 08/30/16 08/30/16 07:00 15:00 23:00 07:00 15:00 23:00 Intake Total 480 ml 410 ml 480 ml Output Total 1900 ml 800 ml 1300 ml 1400 ml Balance -1420 ml -800 ml -890 ml -920 ml Intake Oral 480 ml 360 ml 480 ml IV Total 50 ml Output Urine Total 1900 ml 800 ml 1200 ml 1400 ml Stool Total 100 ml Result Diagram: 08/27/16 0541 08/27/16 0541 Imaging Last Impressions Chest X-Ray 08/27/16 0600 Signed Impressions: Service Date/Time: August 03:42 - CONCLUSION: Worsening right greater than left basilar consolidation and small effusions. Gurvinder Booker MD Lower Extremity Ultrasound 08/23/16 0000 Signed Impressions: Service Date/Time: Tuesday, August 23, 2016 13:14 - CONCLUSION: 1. No evidence of DVT of the right lower extremity. 2. Limited study of the left lower extremity. No DVT visualized from the knee up to the groin. Antony Corona MD Chest CT 08/23/16 0000 Signed Impressions: Service Date/Time: Tuesday, August 23, 2016 13:58 - CONCLUSION: 1. No evidence of overt pulmonary edema. 2. Bibasilar atelectasis, right greater than left. No evidence of pleural effusions. 3. Nonspecific 1.4 cm pulmonary nodule versus nodular infiltrate high in the left apex. This is not visualized on the recent chest x-rays. When patient is stable, a PET/CT could be performed on an emergent outpatient basis to evaluate for focal hypermetabolic activity. 4. Prominent bilateral pulmonary arteries. Antony Corona MD Objective Remarks awake and alert bilateral breath sounds equal, no wheezes or rales regular rhythm abdomen soft, nontender extremities - with erythema, no pedal edema UE mild swelling - good pulses neuro exam- non focal A/P Problem List: (1) Respiratory failure ICD Code: J96.90 Status: Acute (2) Respiratory acidosis ICD Code: E87.2 Status: Acute (3) UTI (urinary tract infection) ICD Code: N39.0 Status: Acute (4) Chronic venous hypertension with ulcer and inflammation ICD Code: I87.339 Status: Acute (5) COPD exacerbation ICD Code: J44.1 Status: Acute (6) Stented coronary artery Status: Chronic (7) Mixed hyperlipidemia ICD Code: 272.2 Status: Chronic (8) Seasonal allergic rhinitis ICD Code: 477.9 Status: Chronic (9) Bilateral lower leg cellulitis ICD Code: L03.115 Status: Acute (10) DVT prophylaxis ICD Code: V58.61 Status: Acute (11) Benign essential hypertension ICD Code: 401.1 Status: Chronic (12) Morbid obesity with BMI of 40.0-44.9, adult ICD Code: E66.01 Status: Chronic (13) Coronary arteriosclerosis ICD Code: 414.00 Status: Chronic (14) JOSEPHINE (acute kidney injury) ICD Code: N17.9 Status: Acute (15) Ulcer of left lower extremity, limited to breakdown of skin ICD Code: L97.921 Status: Acute (16) ADHD (attention deficit hyperactivity disorder) ICD Code: F90.9 Status: Acute (17) PVD (peripheral vascular disease) ICD Code: I73.9 Status: Chronic (18) Chronic stasis dermatitis ICD Code: I83.10 Status: Acute (19) Diabetes mellitus ICD Code: E11.9 Status: Chronic (20) Hyperkalemia ICD Code: E87.5 Status: Acute Assessment and Plan Neuro/Psych: Glaucoma/cataracts Allergic rhinitis Depression Status post fall did not strike head ADHD CBT Off all sedation. Follow neuro status Continue timolol 0.5% 1 drop each eye twice a day CV: Hypertension Dyslipidemia Coronary artery disease status post stent 2 Incomplete right bundle branch block PVD/chronic venous stasis Echocardiogram revealed EF 55%. No regional wall motion abnormality. Left atrium somewhat dilated Repeat echocardiogram revealed EF 55-60%. Right atrial enlargement. No regional wall motion abnormality. EKG revealed normal sinus rhythm. Incomplete right bundle branch block. Troponin 0.03. Home medication Cozaar 50 mg by mouth daily held in light of acute kidney injury. Patient is on hydralazine 10 mg by mouth twice a day for hypertension at home. As needed labetalol, hydralazine and Nitropaste She is on Pravachol 20 mg by mouth daily dyslipidemia. Resume likely as clinically indicated Continue aspirin 81 mg by mouth daily. Resp: Acute hypoxemic respiratory failure COPD Tobaccoism Extubated on 08/27, on 6 L nasal cannula. BiPAP 35% fi02 Bronchodilator therapy every 4 hours and as needed Pulmicort 0.5/2 1 inhalation twice a day Solu-Medrol 40 mg every 8 hours- decreased q 12- 08/29- continue to monitor CT thorax revealed no overt pulmonary edema. There is a left apex nodule that will need to be followed with a PET scan not a bursa is an outpatient. Enlarged pulmonary arteries noted. Patient is on Advair 100/50 one ventilation twice a day and as needed albuterol nebs at home. Continue Singulair 10 milligrams by mouth daily Tobacco cessation will be encouraged. Dr. Anabel potter GI: Gastroesophageal reflux disease Advance by mouth diet Patient is on cimetidine 200 mg by mouth daily at home ?. Currently Protonix 40 mg iv daily Colace/Senokot twice daily and MiraLAX daily for bowel regimen. Glycerin suppositories when necessary constipation : keep rodriguez- not much active Endo: Diabetes mellitus At home on metformin 1000 mg by mouth twice a day and glipizide 5 mg by mouth 3 times a day with meals. We'll hold. Place of sliding scale insulin Accu-Cheks every 6 hours to maintain euglycemia. Moderate regimen Renal: Acute on chronic kidney injury stage III Patient is on metolazone 5 mg daily at home. Resume on 08/28 Received 40 mg Lasix in ED. Monitor urine output//I's and O's Heme: CBC within normal limits. Recheck CBC/coags in a.m. monitor trends ID: Urine tract infection - Klebsiella Bilateral lower extremity cellulitis Jaki cruris DC vancomycin on 08/28. Remains on Zosyn Received 3 days of Zithromax 08/23 - Blood cultures 2, no growth 08/23 - urine - Klebsiella Doppler ultrasound bilateral lower extremities negative for DVT MSK: Obesity Osteo arthritis Chronic low back pain PT evaluate and treat. On tramadol at home as needed. FEN: Hyperkalemia Patient is on diuretics and supplement potassium at home. Resume metolazone 5 mg daily by mouth Received Kayexalate 15 g 1 on 08/26. Access - Utilize peripheral IV. Central line if indicated Prophylaxis - GI - Protonix - DVT - SCDs on hold secondary to cellulitis/Lovenox subcutaneous d/w staff to assist her with her meals Encourage to be more active Problem Qualifiers (1) Respiratory failure: Qualified Code: J96.01 - Acute respiratory failure with hypoxia (2) UTI (urinary tract infection): Qualified Code: N39.0 - Urinary tract infection without hematuria, site unspecified (3) Chronic venous hypertension with ulcer and inflammation: Qualified Code: I87.333 - Chronic venous hypertension with ulcer and inflammation, bilateral (4) ADHD (attention deficit hyperactivity disorder): Qualified Code: F90.9 - Attention deficit hyperactivity disorder (ADHD), unspecified ADHD type (5) Chronic stasis dermatitis: Qualified Code: I83.10 - Chronic stasis dermatitis, unspecified laterality (6) Diabetes mellitus: Qualified Code: E11.8 - Type 2 diabetes mellitus with complication, without long-term current use of insulin iKm Silvestre MD Aug 30, 2016 13:35 Kim Silvestre MD Aug 30, 2016 13:35
--- NOTE | 2016-08-30 16:06 | HHI.PR ---
Subjective Remarks 71 YOWF with RF, s/p extybation Uses CPAP off and on , feels better with CPAP No CP Weaned to NC No fever or chills Objective Vital Signs Vital Signs Date Time Temp Pulse Resp B/P Pulse Ox O2 Delivery O2 Flow Rate FiO2 08/30/16 15:07 92 Nasal Cannula 6.00 08/30/16 14:00 66 08/30/16 13:00 64 08/30/16 12:15 97.9 60 165/80 96 08/30/16 12:00 60 08/30/16 11:00 60 08/30/16 10:00 62 08/30/16 09:45 93 Venturi Mask 6.00 50 08/30/16 09:45 93 08/30/16 09:00 62 08/30/16 08:00 58 08/30/16 08:00 98.2 64 156/81 98 08/30/16 07:00 59 08/30/16 07:00 95 Venturi Mask 6.00 08/30/16 06:00 62 08/30/16 05:00 62 08/30/16 04:00 64 08/30/16 04:00 98.8 66 18 156/71 92 08/30/16 03:26 94 Venturi Mask 50 08/30/16 03:00 68 08/30/16 02:00 68 08/30/16 01:00 68 08/30/16 00:00 99.4 65 18 101/74 93 08/30/16 00:00 66 08/29/16 23:39 96 40 08/29/16 23:24 94 Venturi Mask 50 08/29/16 23:00 64 08/29/16 22:00 62 08/29/16 21:00 60 08/29/16 20:00 99.0 61 22 131/79 94 08/29/16 20:00 66 08/29/16 20:00 96 Venturi Mask 50 08/29/16 18:20 62 08/29/16 17:13 65 08/29/16 16:15 98.4 63 152/79 93 I/O 08/29/16 08/29/16 08/29/16 08/30/16 08/30/16 08/30/16 07:00 15:00 23:00 07:00 15:00 23:00 Intake Total 480 ml 410 ml 480 ml 240 ml Output Total 1900 ml 800 ml 1300 ml 1400 ml 900 ml Balance -1420 ml -800 ml -890 ml -920 ml -660 ml Intake Oral 480 ml 360 ml 480 ml 240 ml IV Total 50 ml Output Urine Total 1900 ml 800 ml 1200 ml 1400 ml 900 ml Stool Total 100 ml Result Diagram: 08/27/1654008/27/16 0541 Objective Remarks GENERAL: WBWN, obese WF, mild sob SKIN: Warm and dry. HEAD: Normocephalic. EYES: No scleral icterus. No injection or drainage. NECK: Supple, trachea midline. No JVD or lymphadenopathy. CARDIOVASCULAR: Regular rate and rhythm without murmurs, gallops, or rubs. RESPIRATORY: Breath sounds equal bilaterally. No accessory muscle use. GASTROINTESTINAL: Abdomen soft, non-tender, nondistended. MUSCULOSKELETAL: No cyanosis, ++ edema. BACK: Nontender without obvious deformity. No CVA tenderness. A/P Assessment and Plan Resp insuff, s/p extubation COPD exac LYDIA Morbid obesity DM HTN PLAN: CPAP at night and PRN Supplement 02 to keep sat >88% Aerosol nebs Monitor BS DC Solumedrol PO Pred Jose David Little MD Aug 30, 2016 16:06
[2016-08-30] MEDS: predniSONE 10 MG TAB PO SCH (17:46)
[2016-08-30] MEDS: MONTELUKAST SODIUM 10 MG TAB PO SCH (20:52)
[2016-08-31] VITALS (27 sets, daily range): BP systolic 141–177; BP diastolic 74–97; PULSE 53–68; RESP 16–20; TEMP 97–98; O2SAT 84–94
[2016-08-31] MEDS: PIPERACIL-TAZO 4.5 GM PREMIX 100 ML IV SCH ×3 (01:00→18:09)
[2016-08-31] MEDS: RESP: ALBUTEROL 2.5 MG/IPRATROPIUM 0.5 MG NEB (SCH) NEB ×5 (03:13→19:30)
[2016-08-31] MEDS: CHLORHEXIDINE GLUCONATE 2 % 1 PACK (2 CLOTHS) TOP SCH (04:00)
[2016-08-31] MEDS: traMADol HCL 50 MG TAB PO PRN ×4 (04:09→22:00)
[2016-08-31] MEDS: INSULIN NovoLIN REGULAR SUPPLEMENTAL SCALE SQ SCH ×4 (06:00→18:09)
[2016-08-31] MEDS: NYSTATIN 100,000 U/GM PWD 15 GM BTL TOPICAL SCH ×3 (06:00→22:00)
[2016-08-31] MEDS: CHLORHEXIDINE 0.12% (ORAL KIT) 15 ML CUP MT SCH ×2 (08:00→20:00)
[2016-08-31] MEDS: RESP: BUDESONIDE 0.5 MG/2 ML NEB NEB SCH ×2 (08:01→19:30)
[2016-08-31] MEDS: predniSONE 10 MG TAB PO SCH ×3 (09:24→18:08)
[2016-08-31] MEDS: LOSARTAN 50 MG TAB PO SCH (09:24)
[2016-08-31] MEDS: ASPIRIN 81 MG CHEW TAB CHEW SCH (09:24)
[2016-08-31] MEDS: MULTIVITAMIN-OPHTHALMIC 1 TAB PO SCH (09:24)
[2016-08-31] MEDS: METOLAZONE 5 MG TAB PO SCH (09:24)
[2016-08-31] MEDS: ARTIFICIAL TEARS OPTH SOLN 15 ML BTL EACH EYE SCH ×3 (09:25→18:10)
[2016-08-31] MEDS: ASPIRIN EC 81 MG TABEC PO SCH (09:25)
[2016-08-31] MEDS: TIMOLOL MALEATE 0.5% OPHT SOLN 5 ML BTL EACH EYE SCH ×2 (09:25→20:31)
[2016-08-31] MEDS: ENOXAPARIN SODIUM 40 MG/0.4 ML SYRINGE SQ SCH ×2 (09:26→20:30)
[2016-08-31] MEDS: PANTOPRAZOLE SODIUM 40 MG VIAL IV SCH (09:26)
[2016-08-31] MEDS: SODIUM CHLORIDE 0.9% FLUSH 5 ML FLUSH IV FLUSH SCH ×2 (09:26→20:31)
--- NOTE | 2016-08-31 18:57 | HHI.PR ---
Subjective Remarks 71 YOWF with RF, s/p extybation Uses CPAP off and on , No CP Weaned to NC No fever or chills No new complaint Objective Vital Signs Vital Signs Date Time Temp Pulse Resp B/P Pulse Ox O2 Delivery O2 Flow Rate FiO2 08/31/16 18:00 66 08/31/16 17:00 63 08/31/16 16:00 58 08/31/16 15:00 97.0 55 18 171/94 92 08/31/16 15:00 59 08/31/16 14:00 58 08/31/16 13:00 58 08/31/16 12:00 54 08/31/16 11:37 84 Nasal Cannula 5.00 08/31/16 11:00 97.1 53 16 141/74 92 08/31/16 11:00 53 08/31/16 10:00 60 08/31/16 09:04 93 Nasal Cannula 6.00 08/31/16 09:00 60 08/31/16 08:00 60 08/31/16 07:00 94 Nasal Cannula 6.00 08/31/16 07:00 53 08/31/16 07:00 97.2 57 16 162/97 94 08/31/16 06:00 58 08/31/16 05:00 58 08/31/16 04:00 97.9 59 18 151/82 93 08/31/16 04:00 57 08/31/16 03:00 58 08/31/16 02:00 58 08/31/16 01:00 58 08/31/16 00:00 98.0 61 20 177/93 94 08/31/16 00:00 93 Nasal Cannula 6.00 08/31/16 00:00 61 08/30/16 23:52 95 Nasal Cannula 6.00 08/30/16 23:00 58 08/30/16 22:00 58 08/30/16 21:00 62 08/30/16 20:00 60 08/30/16 20:00 97.9 61 20 138/75 94 08/30/16 19:00 62 I/O 08/30/16 08/30/16 08/30/16 08/31/16 08/31/16 08/31/16 07:00 15:00 23:00 07:00 15:00 23:00 Intake Total 480 ml 240 ml 650 ml 480 ml 840 ml Output Total 1400 ml 900 ml 900 ml 3025 ml 1800 ml Balance -920 ml -660 ml -250 ml -2545 ml -960 ml Intake Oral 480 ml 240 ml 600 ml 480 ml 840 ml IV Total 50 ml Output Urine Total 1400 ml 900 ml 600 ml 2950 ml 1700 ml Stool Total 300 ml 75 ml 100 ml Result Diagram: 08/27/1654008/27/16540 Objective Remarks GENERAL: WBWN, obese WF, mild sob SKIN: Warm and dry. HEAD: Normocephalic. EYES: No scleral icterus. No injection or drainage. NECK: Supple, trachea midline. No JVD or lymphadenopathy. CARDIOVASCULAR: Regular rate and rhythm without murmurs, gallops, or rubs. RESPIRATORY: Breath sounds equal bilaterally. No accessory muscle use. GASTROINTESTINAL: Abdomen soft, non-tender, nondistended. MUSCULOSKELETAL: No cyanosis, ++ edema. BACK: Nontender without obvious deformity. No CVA tenderness. A/P Assessment and Plan Resp insuff, s/p extubation COPD exac LYDIA Morbid obesity DM HTN PLAN: CPAP at night and PRN Supplement 02 to keep sat >88% Aerosol nebs Monitor BS PO Pred Jose David Little MD Aug 31, 2016 18:57
--- NOTE | 2016-08-31 18:59 | HHI.PR ---
Subjective Remarks we had a little breakthrough today she did more today and cooperated with rolling over side to sides which is more that she does she stretched up her hands to try to help us life her up Objective Vitals Vital Signs Date Time Temp Pulse Resp B/P Pulse Ox O2 Delivery O2 Flow Rate FiO2 08/31/16 18:00 66 08/31/16 17:00 63 08/31/16 16:00 58 08/31/16 15:00 97.0 55 18 171/94 92 08/31/16 15:00 59 08/31/16 14:00 58 08/31/16 13:00 58 08/31/16 12:00 54 08/31/16 11:37 84 Nasal Cannula 5.00 08/31/16 11:00 97.1 53 16 141/74 92 08/31/16 11:00 53 08/31/16 10:00 60 08/31/16 09:04 93 Nasal Cannula 6.00 08/31/16 09:00 60 08/31/16 08:00 60 08/31/16 07:00 94 Nasal Cannula 6.00 08/31/16 07:00 53 08/31/16 07:00 97.2 57 16 162/97 94 08/31/16 06:00 58 08/31/16 05:00 58 08/31/16 04:00 97.9 59 18 151/82 93 08/31/16 04:00 57 08/31/16 03:00 58 08/31/16 02:00 58 08/31/16 01:00 58 08/31/16 00:00 98.0 61 20 177/93 94 08/31/16 00:00 93 Nasal Cannula 6.00 08/31/16 00:00 61 08/30/16 23:52 95 Nasal Cannula 6.00 08/30/16 23:00 58 08/30/16 22:00 58 08/30/16 21:00 62 08/30/16 20:00 60 08/30/16 20:00 97.9 61 20 138/75 94 08/30/16 19:00 62 I/O 08/30/16 08/30/16 08/30/16 08/31/16 08/31/16 08/31/16 07:00 15:00 23:00 07:00 15:00 23:00 Intake Total 480 ml 240 ml 650 ml 480 ml 840 ml Output Total 1400 ml 900 ml 900 ml 3025 ml 1800 ml Balance -920 ml -660 ml -250 ml -2545 ml -960 ml Intake Oral 480 ml 240 ml 600 ml 480 ml 840 ml IV Total 50 ml Output Urine Total 1400 ml 900 ml 600 ml 2950 ml 1700 ml Stool Total 300 ml 75 ml 100 ml Result Diagram: 08/27/16 0541 08/27/16 0541 Imaging Last Impressions Chest X-Ray 08/27/16 0600 Signed Impressions: Service Date/Time: August 03:42 - CONCLUSION: Worsening right greater than left basilar consolidation and small effusions. Gurvinder Booker MD Lower Extremity Ultrasound 08/23/16 0000 Signed Impressions: Service Date/Time: Tuesday, August 23, 2016 13:14 - CONCLUSION: 1. No evidence of DVT of the right lower extremity. 2. Limited study of the left lower extremity. No DVT visualized from the knee up to the groin. Antony Corona MD Chest CT 08/23/16 0000 Signed Impressions: Service Date/Time: Tuesday, August 23, 2016 13:58 - CONCLUSION: 1. No evidence of overt pulmonary edema. 2. Bibasilar atelectasis, right greater than left. No evidence of pleural effusions. 3. Nonspecific 1.4 cm pulmonary nodule versus nodular infiltrate high in the left apex. This is not visualized on the recent chest x-rays. When patient is stable, a PET/CT could be performed on an emergent outpatient basis to evaluate for focal hypermetabolic activity. 4. Prominent bilateral pulmonary arteries. Antony Corona MD Objective Remarks awake and alert bilateral breath sounds equal, no wheezes or rales regular rhythm abdomen soft, nontender extremities - with erythema, no pedal edema UE mild swelling - good pulses neuro exam- non focal Urinary Catheter: Yes Assessment to: Continue Rodriguez insert reason: Prolonged Immobilization Date of Insertion: Aug 23, 2016 A/P Problem List: (1) Respiratory failure ICD Code: J96.90 Status: Acute (2) Respiratory acidosis ICD Code: E87.2 Status: Acute (3) UTI (urinary tract infection) ICD Code: N39.0 Status: Acute (4) Chronic venous hypertension with ulcer and inflammation ICD Code: I87.339 Status: Acute (5) COPD exacerbation ICD Code: J44.1 Status: Acute (6) Stented coronary artery Status: Chronic (7) Mixed hyperlipidemia ICD Code: 272.2 Status: Chronic (8) Seasonal allergic rhinitis ICD Code: 477.9 Status: Chronic (9) Bilateral lower leg cellulitis ICD Code: L03.115 Status: Acute (10) DVT prophylaxis ICD Code: V58.61 Status: Acute (11) Benign essential hypertension ICD Code: 401.1 Status: Chronic (12) Morbid obesity with BMI of 40.0-44.9, adult ICD Code: E66.01 Status: Chronic (13) Coronary arteriosclerosis ICD Code: 414.00 Status: Chronic (14) JOSEPHINE (acute kidney injury) ICD Code: N17.9 Status: Acute (15) Ulcer of left lower extremity, limited to breakdown of skin ICD Code: L97.921 Status: Acute (16) ADHD (attention deficit hyperactivity disorder) ICD Code: F90.9 Status: Acute (17) PVD (peripheral vascular disease) ICD Code: I73.9 Status: Chronic (18) Chronic stasis dermatitis ICD Code: I83.10 Status: Acute (19) Diabetes mellitus ICD Code: E11.9 Status: Chronic (20) Hyperkalemia ICD Code: E87.5 Status: Acute Assessment and Plan Neuro/Psych: Glaucoma/cataracts Allergic rhinitis Depression Status post fall did not strike head ADHD CBT Continue timolol 0.5% 1 drop each eye twice a day Hypertension Dyslipidemia Coronary artery disease status post stent 2 Incomplete right bundle branch block PVD/chronic venous stasis Echocardiogram revealed EF 55%. No regional wall motion abnormality. Left atrium somewhat dilated Repeat echocardiogram revealed EF 55-60%. Right atrial enlargement. No regional wall motion abnormality. EKG revealed normal sinus rhythm. Incomplete right bundle branch block. Troponin 0.03. Home medication Cozaar 50 mg by mouth daily held in light of acute kidney injury. Patient is on hydralazine 10 mg by mouth twice a day for hypertension at home. As needed labetalol, hydralazine and Nitropaste She is on Pravachol 20 mg by mouth daily dyslipidemia. Resume likely as clinically indicated Continue aspirin 81 mg by mouth daily. S/P Acute hypoxemic respiratory failure- now on NC COPD Tobaccoism Extubated on 2/2, on 6 L nasal cannula. BiPAP 35% fi02 Bronchodilator therapy every 4 hours and as needed Pulmicort 0.5/2 1 inhalation twice a day CT thorax revealed no overt pulmonary edema. There is a left apex nodule that will need to be followed with a PET scan not a bursa is an outpatient. Enlarged pulmonary arteries noted. Patient is on Advair 100/50 one ventilation twice a day and as needed albuterol nebs at home. Continue Singulair 10 milligrams by mouth daily Tobacco cessation will be encouraged. Dr. Little ff- steroid changed to po Prednisone 10 mg tid 08/30 Gastroesophageal reflux disease regular diet Currently Protonix 40 mg iv daily Colace/Senokot twice daily and MiraLAX daily for bowel regimen. Glycerin suppositories when necessary constipation : keep rodriguez- not much active Diabetes mellitus At home on metformin 1000 mg by mouth twice a day and glipizide 5 mg by mouth 3 times a day with meals. We'll hold. Place of sliding scale insulin Accu-Cheks every 6 hours to maintain euglycemia. adjust regimen Acute on chronic kidney injury stage III Patient is on metolazone 5 mg daily at home. Resumed on 08/28 Received 40 mg Lasix in ED. Monitor urine output//I's and O's Heme: CBC within normal limits. Recheck CBC/coags in a.m. monitor trends ID: Urine tract infection - Klebsiella Bilateral lower extremity cellulitis Jaki cruris DC vancomycin on 08/28. Continue on Zosyn Received 3 days of Zithromax 08/23 - Blood cultures 2, no growth 08/23 - urine - Klebsiella Doppler ultrasound bilateral lower extremities negative for DVT MSK: Obesity Osteo arthritis Chronic low back pain PT evaluate and treat. On tramadol at home as needed. FEN: Hyperkalemia Patient is on diuretics and supplement potassium at home. Resume metolazone 5 mg daily by mouth Received Kayexalate 15 g 1 on 08/26. Access - Utilize peripheral IV. Central line if indicated Prophylaxis - GI - Protonix - DVT - SCDs on hold secondary to cellulitis/Lovenox subcutaneous d/w staff to assist her with her meals Encourage to be more active d/w daughter and at bedside Problem Qualifiers (1) Respiratory failure: Qualified Code: J96.01 - Acute respiratory failure with hypoxia (2) UTI (urinary tract infection): Qualified Code: N39.0 - Urinary tract infection without hematuria, site unspecified (3) Chronic venous hypertension with ulcer and inflammation: Qualified Code: I87.333 - Chronic venous hypertension with ulcer and inflammation, bilateral (4) ADHD (attention deficit hyperactivity disorder): Qualified Code: F90.9 - Attention deficit hyperactivity disorder (ADHD), unspecified ADHD type (5) Chronic stasis dermatitis: Qualified Code: I83.10 - Chronic stasis dermatitis, unspecified laterality (6) Diabetes mellitus: Qualified Code: E11.8 - Type 2 diabetes mellitus with complication, without long-term current use of insulin Kim Silvestre MD Aug 31, 2016 18:59 (4) ADHD (attention deficit hyperactivity disorder): Qualified Code: F90.9 - Attention deficit hyperactivity disorder (ADHD), unspecified ADHD type (5) Chronic stasis dermatitis: Qualified Code: I83.10 - Chronic stasis dermatitis, unspecified laterality (6) Diabetes mellitus: Qualified Code: E11.8 - Type 2 diabetes mellitus with complication, without long-term current use of insulin Kim Silvestre MD Aug 31, 2016 18:59
[2016-08-31] MEDS: MONTELUKAST SODIUM 10 MG TAB PO SCH (20:30)
[2016-08-31] MEDS: ZOLPIDEM TARTRATE 10 MG TAB PO PRN (21:59)
[2016-09-01] VITALS (26 sets, daily range): BP systolic 143–177; BP diastolic 75–90; PULSE 50–63; RESP 17–20; TEMP 96.9–98.2; O2SAT 93–94
[2016-09-01] MEDS: PIPERACIL-TAZO 4.5 GM PREMIX 100 ML IV SCH ×3 (02:00→17:23)
[2016-09-01] MEDS: CHLORHEXIDINE GLUCONATE 2 % 1 PACK (2 CLOTHS) TOP SCH (04:00)
[2016-09-01] MEDS: INSULIN NovoLIN REGULAR SUPPLEMENTAL SCALE SQ SCH ×5 (05:53→22:32)
[2016-09-01] MEDS: traMADol HCL 50 MG TAB PO PRN (05:54)
[2016-09-01] MEDS: NYSTATIN 100,000 U/GM PWD 15 GM BTL TOPICAL SCH ×3 (05:57→21:04)
[2016-09-01] MEDS: RESP: BUDESONIDE 0.5 MG/2 ML NEB NEB SCH ×2 (07:19→21:09)
[2016-09-01] MEDS: CHLORHEXIDINE 0.12% (ORAL KIT) 15 ML CUP MT SCH ×2 (08:00→20:00)
[2016-09-01] MEDS: ASPIRIN 81 MG CHEW TAB CHEW SCH (09:00)
[2016-09-01] MEDS: METOLAZONE 5 MG TAB PO SCH (09:06)
[2016-09-01] MEDS: LOSARTAN 50 MG TAB PO SCH (09:06)
[2016-09-01] MEDS: ASPIRIN EC 81 MG TABEC PO SCH (09:06)
[2016-09-01] MEDS: ENOXAPARIN SODIUM 40 MG/0.4 ML SYRINGE SQ SCH ×3 (09:08→21:00)
[2016-09-01] MEDS: SODIUM CHLORIDE 0.9% FLUSH 5 ML FLUSH IV FLUSH SCH ×2 (09:12→20:53)
[2016-09-01] MEDS: ARTIFICIAL TEARS OPTH SOLN 15 ML BTL EACH EYE SCH ×3 (10:03→17:23)
[2016-09-01] MEDS: predniSONE 10 MG TAB PO SCH ×3 (10:03→17:23)
[2016-09-01] MEDS: PANTOPRAZOLE SODIUM 40 MG VIAL IV SCH (10:03)
[2016-09-01] MEDS: TIMOLOL MALEATE 0.5% OPHT SOLN 5 ML BTL EACH EYE SCH ×2 (10:03→20:53)
[2016-09-01] MEDS: MULTIVITAMIN-OPHTHALMIC 1 TAB PO SCH (10:03)
--- NOTE | 2016-09-01 19:59 | HHI.PR ---
Subjective Remarks 71 YOWF with RF, s/p extybation, No CP Weaned to NC No fever or chills No new complaint Did't require CPAP last night Objective Vital Signs Vital Signs Date Time Temp Pulse Resp B/P Pulse Ox O2 Delivery O2 Flow Rate FiO2 09/01/16 18:00 55 09/01/16 17:00 55 09/01/16 16:00 57 09/01/16 15:00 97.6 50 20 165/89 93 09/01/16 15:00 57 09/01/16 14:00 57 09/01/16 13:00 53 09/01/16 12:00 55 09/01/16 11:00 60 09/01/16 11:00 96.9 59 18 143/75 93 09/01/16 11:00 59 09/01/16 10:00 55 09/01/16 10:00 57 09/01/16 09:00 60 09/01/16 09:00 62 09/01/16 08:00 61 09/01/16 07:28 94 Nasal Cannula 5.00 09/01/16 07:00 97.0 58 17 166/88 94 09/01/16 07:00 63 09/01/16 07:00 94 Nasal Cannula 5.00 09/01/16 07:00 58 09/01/16 06:00 59 09/01/16 05:00 51 09/01/16 04:00 50 09/01/16 03:00 52 09/01/16 02:00 59 09/01/16 01:00 56 09/01/16 00:00 98.2 55 18 152/87 94 09/01/16 00:00 56 08/31/16 23:00 56 08/31/16 22:00 60 08/31/16 21:25 89 Nasal Cannula 6.00 08/31/16 21:00 68 08/31/16 20:00 62 08/31/16 20:00 98.0 62 18 145/75 89 I/O 08/31/16 08/31/16 08/31/16 09/01/16 09/01/16 09/01/16 07:00 15:00 23:00 07:00 15:00 23:00 Intake Total 480 ml 840 ml 240 ml 720 ml Output Total 3025 ml 1800 ml 2050 ml 2325 ml Balance -2545 ml -960 ml -1810 ml -1605 ml Intake Oral 480 ml 840 ml 240 ml 720 ml Output Urine Total 2950 ml 1700 ml 2000 ml 2275 ml Stool Total 75 ml 100 ml 50 ml 50 ml Objective Remarks GENERAL: WBWN, obese WF, mild sob SKIN: Warm and dry. HEAD: Normocephalic. EYES: No scleral icterus. No injection or drainage. NECK: Supple, trachea midline. No JVD or lymphadenopathy. CARDIOVASCULAR: Regular rate and rhythm without murmurs, gallops, or rubs. RESPIRATORY: Breath sounds equal bilaterally. No accessory muscle use. GASTROINTESTINAL: Abdomen soft, non-tender, nondistended. MUSCULOSKELETAL: No cyanosis, ++ edema. BACK: Nontender without obvious deformity. No CVA tenderness. A/P Assessment and Plan Resp insuff, s/p extubation COPD exac LYDIA Morbid obesity DM HTN PLAN: Aerosol nebs Monitor BS PO Pred Wean 02 to keep sat >90% Jose David Little MD Sep 01, 2016 19:58
[2016-09-01] MEDS: MONTELUKAST SODIUM 10 MG TAB PO SCH (20:52)
--- NOTE | 2016-09-01 23:52 | HHI.PR ---
Subjective Remarks pt seen around 11 am. says she feels alright. nurses report she was able to sit up in bed today. Objective Vital Signs Date Time Temp Pulse Resp B/P Pulse Ox O2 Delivery O2 Flow Rate FiO2 09/01/16 21:48 94 Nasal Cannula 6.00 09/01/16 21:09 94 Nasal Cannula 5.00 09/01/16 20:00 97.9 54 18 177/90 94 09/01/16 18:00 55 09/01/16 17:00 55 09/01/16 16:00 57 09/01/16 15:00 97.6 50 20 165/89 93 09/01/16 15:00 57 09/01/16 14:00 57 09/01/16 13:00 53 09/01/16 12:00 55 09/01/16 11:00 60 09/01/16 11:00 96.9 59 18 143/75 93 09/01/16 11:00 59 09/01/16 10:00 55 09/01/16 10:00 57 09/01/16 09:00 60 09/01/16 09:00 62 09/01/16 08:00 61 09/01/16 07:28 94 Nasal Cannula 5.00 09/01/16 07:00 97.0 58 17 166/88 94 09/01/16 07:00 63 09/01/16 07:00 94 Nasal Cannula 5.00 09/01/16 07:00 58 09/01/16 06:00 59 09/01/16 05:00 51 09/01/16 04:00 50 09/01/16 03:00 52 09/01/16 02:00 59 09/01/16 01:00 56 09/01/16 00:00 98.2 55 18 152/87 94 09/01/16 00:00 56 I/O 08/31/16 08/31/16 08/31/16 09/01/16 09/01/16 09/01/16 07:00 15:00 23:00 07:00 15:00 23:00 Intake Total 480 ml 840 ml 240 ml 720 ml Output Total 3025 ml 1800 ml 2050 ml 2325 ml Balance -2545 ml -960 ml -1810 ml -1605 ml Intake Oral 480 ml 840 ml 240 ml 720 ml Output Urine Total 2950 ml 1700 ml 2000 ml 2275 ml Stool Total 75 ml 100 ml 50 ml 50 ml Objective Remarks GENERAL: lyinf in bed . aaox3 SKIN: Warm and dry. HEAD: Normocephalic. EYES: No scleral icterus. No injection or drainage. NECK: Supple, trachea midline. No JVD. CARDIOVASCULAR: Regular rate and rhythm without murmurs, gallops, or rubs. RESPIRATORY: Breath sounds equal bilaterally. No accessory muscle use. GASTROINTESTINAL: Abdomen soft, non-tender, nondistended. MUSCULOSKELETAL: No cyanosis, or edema. BACK: Nontender without obvious deformity. No CVA tenderness. A/P Assessment and Plan 09/01/16. Patient seen and examined. Overall stable. Follow-up labs ordered Glaucoma/cataracts Allergic rhinitis Depression Status post fall did not strike head ADHD CBT Continue timolol 0.5% 1 drop each eye twice a day Hypertension Dyslipidemia Coronary artery disease status post stent 2 Incomplete right bundle branch block PVD/chronic venous stasis Echocardiogram revealed EF 55%. No regional wall motion abnormality. Left atrium somewhat dilated Repeat echocardiogram revealed EF 55-60%. Right atrial enlargement. No regional wall motion abnormality. EKG revealed normal sinus rhythm. Incomplete right bundle branch block. Troponin 0.03. Home medication Cozaar 50 mg by mouth daily held in light of acute kidney injury. Patient is on hydralazine 10 mg by mouth twice a day for hypertension at home. As needed labetalol, hydralazine and Nitropaste She is on Pravachol 20 mg by mouth daily dyslipidemia. Resume likely as clinically indicated Continue aspirin 81 mg by mouth daily. S/P Acute hypoxemic respiratory failure- now on NC COPD Tobaccoism Extubated on 08/27, on 6 L nasal cannula. BiPAP 35% fi02 Bronchodilator therapy every 4 hours and as needed Pulmicort 0.5/2 1 inhalation twice a day CT thorax revealed no overt pulmonary edema. There is a left apex nodule that will need to be followed with a PET scan not a bursa is an outpatient. Enlarged pulmonary arteries noted. Patient is on Advair 100/50 one ventilation twice a day and as needed albuterol nebs at home. Continue Singulair 10 milligrams by mouth daily Tobacco cessation will be encouraged. Dr. Little ff- steroid changed to po Prednisone 10 mg tid 2/5 Gastroesophageal reflux disease regular diet Currently Protonix 40 mg iv daily Colace/Senokot twice daily and MiraLAX daily for bowel regimen. Glycerin suppositories when necessary constipation : keep rodriguez- not much active Diabetes mellitus At home on metformin 1000 mg by mouth twice a day and glipizide 5 mg by mouth 3 times a day with meals. We'll hold. Place of sliding scale insulin Accu-Cheks every 6 hours to maintain euglycemia. adjust regimen Acute on chronic kidney injury stage III Patient is on metolazone 5 mg daily at home. Resumed on 08/28 Received 40 mg Lasix in ED. Monitor urine output//I's and O's Heme: CBC within normal limits. Recheck CBC/coags in a.m. monitor trends ID: Urine tract infection - Klebsiella Bilateral lower extremity cellulitis Jaki cruris DC vancomycin on 08/28. Continue on Zosyn Received 3 days of Zithromax 08/23 - Blood cultures 2, no growth 08/23 - urine - Klebsiella Doppler ultrasound bilateral lower extremities negative for DVT MSK: Obesity Osteo arthritis Chronic low back pain PT evaluate and treat. On tramadol at home as needed. FEN: Hyperkalemia Patient is on diuretics and supplement potassium at home. Resume metolazone 5 mg daily by mouth Received Kayexalate 15 g 1 on 08/26. Access - Utilize peripheral IV. Central line if indicated Prophylaxis - GI - Protonix - DVT - SCDs on hold secondary to cellulitis/Lovenox subcutaneous Discharge Planning can go to intpt rehab when more functional. appreciate PT assist. Morgan Choudhary MD Sep 01, 2016 23:52
[2016-09-02] VITALS (25 sets, daily range): BP systolic 108–147; BP diastolic 60–81; PULSE 51–68; RESP 14–18; TEMP 97–98.7; O2SAT 91–95
[2016-09-02] MEDS: CHLORHEXIDINE GLUCONATE 2 % 1 PACK (2 CLOTHS) TOP SCH (00:47)
[2016-09-02] MEDS: PIPERACIL-TAZO 4.5 GM PREMIX 100 ML IV SCH ×3 (00:47→16:46)
[2016-09-02] MEDS: traMADol HCL 50 MG TAB PO PRN ×2 (03:48→11:31)
[2016-09-02] MEDS: NYSTATIN 100,000 U/GM PWD 15 GM BTL TOPICAL SCH ×3 (06:00→21:16)
[2016-09-02] MEDS: INSULIN NovoLIN REGULAR SUPPLEMENTAL SCALE SQ SCH ×3 (06:00→17:12)
[2016-09-02 07:26] LABS: AUTOMATED NEUTROPHIL # 7.1 TH/MM3 (1.8-7.7); BASOPHIL % 0.4 % (0.0-2.0); EOSINOPHIL # 0.1 TH/MM3 (0-0.4); HEMATOCRIT 47.5 % (35.0-46.0); HEMO FLAGS DIFF FINAL; LYMPH % 12.9 % (9.0-44.0); LYMPHOCYTE # 1.3 TH/MM3 (1.0-4.8); MEAN CELL VOLUME 86.7 FL (80.0-100.0); MEAN CORPUSCULAR HEMOGLOBIN 28.7 PG (27.0-34.0); MEAN CORPUSCULAR HGB CONC 33.1 % (32.0-36.0); MONO % 13.9 % (0.0-8.0); NEUT % 71.8 % (16.0-70.0); PLATELET COUNT 242 TH/MM3 (150-450); RED BLOOD COUNT 5.48 MIL/MM3 (4.00-5.30); RED CELL DISTRIBUTION WIDTH 14.7 % (11.6-17.2); WHITE BLOOD COUNT 9.8 TH/MM3 (4.0-11.0)
[2016-09-02 07:41] LABS: BICARBONATE 38.8 MEQ/L (21.0-32.0); POTASSIUM 3.7 MEQ/L (3.5-5.1)
[2016-09-02] MEDS: RESP: BUDESONIDE 0.5 MG/2 ML NEB NEB SCH ×2 (08:00→19:05)
[2016-09-02] MEDS: CHLORHEXIDINE 0.12% (ORAL KIT) 15 ML CUP MT SCH ×2 (08:00→20:00)
[2016-09-02] MEDS: ASPIRIN 81 MG CHEW TAB CHEW SCH (09:00)
[2016-09-02] MEDS: TIMOLOL MALEATE 0.5% OPHT SOLN 5 ML BTL EACH EYE SCH ×2 (09:21→21:00)
[2016-09-02] MEDS: ARTIFICIAL TEARS OPTH SOLN 15 ML BTL EACH EYE SCH ×3 (09:21→16:46)
[2016-09-02] MEDS: PANTOPRAZOLE SODIUM 40 MG VIAL IV SCH (09:22)
[2016-09-02] MEDS: LOSARTAN 50 MG TAB PO SCH (09:25)
[2016-09-02] MEDS: MULTIVITAMIN-OPHTHALMIC 1 TAB PO SCH (09:26)
[2016-09-02] MEDS: predniSONE 10 MG TAB PO SCH ×3 (09:26→16:46)
[2016-09-02] MEDS: METOLAZONE 5 MG TAB PO SCH (09:27)
[2016-09-02] MEDS: ENOXAPARIN SODIUM 40 MG/0.4 ML SYRINGE SQ SCH ×2 (09:29→21:16)
[2016-09-02] MEDS: SODIUM CHLORIDE 0.9% FLUSH 5 ML FLUSH IV FLUSH SCH ×2 (09:29→21:17)
[2016-09-02] MEDS: ASPIRIN EC 81 MG TABEC PO SCH (11:31)
--- NOTE | 2016-09-02 16:24 | HHI.PR ---
Subjective Remarks 71 YOWF with RF, s/p extybation, No CP Weaned to NC No fever or chills No new complaint Sat on the side of bed 02 decreaed to 3LNC Objective Vital Signs Vital Signs Date Time Temp Pulse Resp B/P Pulse Ox O2 Delivery O2 Flow Rate FiO2 09/02/16 16:00 60 09/02/16 15:08 98.1 54 18 137/75 91 09/02/16 15:00 60 09/02/16 14:00 54 09/02/16 13:00 68 09/02/16 12:00 57 09/02/16 12:00 53 09/02/16 11:36 92 Nasal Cannula 3.00 Humidified 09/02/16 11:00 98.7 51 14 108/60 92 09/02/16 11:00 51 09/02/16 11:00 52 09/02/16 10:00 58 09/02/16 09:00 58 09/02/16 08:30 95 Nasal Cannula 3.00 09/02/16 08:00 52 09/02/16 08:00 97.0 52 16 143/81 94 09/02/16 07:30 94 Nasal Cannula 6.00 Humidified 09/02/16 07:00 55 09/02/16 06:00 57 09/02/16 05:00 57 09/02/16 04:00 56 09/02/16 04:00 98.2 55 18 145/79 94 09/02/16 03:00 56 09/02/16 02:00 58 09/02/16 01:00 56 09/02/16 00:00 62 09/02/16 00:00 98.0 53 18 138/75 94 09/01/16 23:00 56 09/01/16 22:00 56 09/01/16 21:48 94 Nasal Cannula 6.00 09/01/16 21:09 94 Nasal Cannula 5.00 09/01/16 21:00 54 09/01/16 20:00 97.9 54 18 177/90 94 09/01/16 20:00 56 09/01/16 19:00 54 09/01/16 18:00 55 09/01/16 17:00 55 I/O 09/01/16 09/01/16 09/01/16 09/02/16 09/02/16 09/02/16 07:00 15:00 23:00 07:00 15:00 23:00 Intake Total 240 ml 720 ml 240 ml Output Total 2050 ml 2325 ml 1500 ml Balance -1810 ml -1605 ml -1260 ml Intake Oral 240 ml 720 ml 240 ml Output Urine Total 2000 ml 2275 ml 1500 ml Stool Total 50 ml 50 ml 0 ml Result Diagram: 09/02/1663809/02/16638 Objective Remarks GENERAL: WBWN, obese WF, mild sob SKIN: Warm and dry. HEAD: Normocephalic. EYES: No scleral icterus. No injection or drainage. NECK: Supple, trachea midline. No JVD or lymphadenopathy. CARDIOVASCULAR: Regular rate and rhythm without murmurs, gallops, or rubs. RESPIRATORY: Breath sounds equal bilaterally. No accessory muscle use. GASTROINTESTINAL: Abdomen soft, non-tender, nondistended. MUSCULOSKELETAL: No cyanosis, ++ edema. BACK: Nontender without obvious deformity. No CVA tenderness. A/P Assessment and Plan Resp insuff, s/p extubation COPD exac LYDIA Morbid obesity DM HTN PLAN: Aerosol nebs Monitor BS PO Pred Wean 02 to keep sat >90% DW pt and family at BS. Jose David Little MD Sep 02, 2016 16:24
[2016-09-02] MEDS: MONTELUKAST SODIUM 10 MG TAB PO SCH (21:16)
[2016-09-02] MEDS: ZOLPIDEM TARTRATE 10 MG TAB PO PRN (21:16)
--- NOTE | 2016-09-02 23:46 | HHI.PR ---
Subjective Remarks pt seen around 10 AM. Patient says she is feeling well. Denies any chest pain or shortness of breath. Says she feels like walking. Continues to work with physical therapy Objective Vital Signs Date Time Temp Pulse Resp B/P Pulse Ox O2 Delivery O2 Flow Rate FiO2 09/02/16 19:05 91 Nasal Cannula 4.00 09/02/16 18:00 57 09/02/16 17:00 53 09/02/16 16:00 60 09/02/16 15:08 98.1 54 18 137/75 91 09/02/16 15:00 60 09/02/16 14:00 54 09/02/16 13:00 68 09/02/16 12:00 57 09/02/16 12:00 53 09/02/16 11:36 92 Nasal Cannula 3.00 Humidified 09/02/16 11:00 98.7 51 14 108/60 92 09/02/16 11:00 51 09/02/16 11:00 52 09/02/16 10:00 58 09/02/16 09:00 58 09/02/16 08:30 95 Nasal Cannula 3.00 09/02/16 08:00 52 09/02/16 08:00 97.0 52 16 143/81 94 09/02/16 07:30 94 Nasal Cannula 6.00 Humidified 09/02/16 07:00 55 09/02/16 06:00 57 09/02/16 05:00 57 09/02/16 04:00 56 09/02/16 04:00 98.2 55 18 145/79 94 09/02/16 03:00 56 09/02/16 02:00 58 09/02/16 01:00 56 09/02/16 00:00 62 09/02/16 00:00 98.0 53 18 138/75 94 I/O 09/01/16 09/01/16 09/01/16 09/02/16 09/02/16 09/02/16 07:00 15:00 23:00 07:00 15:00 23:00 Intake Total 240 ml 720 ml 240 ml 910 ml Output Total 2050 ml 2325 ml 1500 ml 1200 ml Balance -1810 ml -1605 ml -1260 ml -290 ml Intake Oral 240 ml 720 ml 240 ml 710 ml IV Total 200 ml Output Urine Total 2000 ml 2275 ml 1500 ml 1200 ml Stool Total 50 ml 50 ml 0 ml Result Diagram: 09/02/1663809/02/16638 Objective Remarks GENERAL: lyinf in bed . ejce0lerv unchanged. SKIN: Warm and dry. HEAD: Normocephalic. EYES: No scleral icterus. No injection or drainage. NECK: Supple, trachea midline. No JVD. CARDIOVASCULAR: Regular rate and rhythm without murmurs, gallops, or rubs. RESPIRATORY: Breath sounds equal bilaterally. No accessory muscle use. GASTROINTESTINAL: Abdomen soft, non-tender, nondistended. MUSCULOSKELETAL: No cyanosis, or edema. BACK: Nontender without obvious deformity. No CVA tenderness. A/P Assessment and Plan Glaucoma/cataracts Allergic rhinitis Depression Status post fall did not strike head ADHD CBT Continue timolol 0.5% 1 drop each eye twice a day Hypertension Dyslipidemia Coronary artery disease status post stent 2 Incomplete right bundle branch block PVD/chronic venous stasis Echocardiogram revealed EF 55%. No regional wall motion abnormality. Left atrium somewhat dilated Repeat echocardiogram revealed EF 55-60%. Right atrial enlargement. No regional wall motion abnormality. EKG revealed normal sinus rhythm. Incomplete right bundle branch block. Troponin 0.03. Home medication Cozaar 50 mg by mouth daily held in light of acute kidney injury. Patient is on hydralazine 10 mg by mouth twice a day for hypertension at home. As needed labetalol, hydralazine and Nitropaste She is on Pravachol 20 mg by mouth daily dyslipidemia. Resume likely as clinically indicated Continue aspirin 81 mg by mouth daily. S/P Acute hypoxemic respiratory failure- now on [place] COPD Tobaccoism Extubated on 08/27, on 6 L nasal cannula. BiPAP 35% fi02 Bronchodilator therapy every 4 hours and as needed Pulmicort 0.5/2 1 inhalation twice a day CT thorax revealed no overt pulmonary edema. There is a left apex nodule that will need to be followed with a PET scan not a bursa is an outpatient. Enlarged pulmonary arteries noted. Patient is on Advair 100/50 one ventilation twice a day and as needed albuterol nebs at home. Continue Singulair 10 milligrams by mouth daily Tobacco cessation will be encouraged. Dr. Little ff- steroid changed to po Prednisone 10 mg tid 08/30 Gastroesophageal reflux disease regular diet Currently Protonix 40 mg iv daily Colace/Senokot twice daily and MiraLAX daily for bowel regimen. Glycerin suppositories when necessary constipation : keep rodriguez- not much active Diabetes mellitus At home on metformin 1000 mg by mouth twice a day and glipizide 5 mg by mouth 3 times a day with meals. We'll hold. Place of sliding scale insulin Accu-Cheks every 6 hours to maintain euglycemia. adjust regimen Acute on chronic kidney injury stage III Patient is on metolazone 5 mg daily at home. Resumed on 08/28 Received 40 mg Lasix in ED. Monitor urine output//I's and O's Heme: CBC within normal limits. Recheck CBC/coags in a.m. monitor trends ID: Urine tract infection - Klebsiella Bilateral lower extremity cellulitis Jaki cruris DC vancomycin on 08/28. Continue on Zosyn Received 3 days of Zithromax 08/23 - Blood cultures 2, no growth 08/23 - urine - Klebsiella Doppler ultrasound bilateral lower extremities negative for DVT MSK: Obesity Osteo arthritis Chronic low back pain PT evaluate and treat. On tramadol at home as needed. FEN: Hyperkalemia Patient is on diuretics and supplement potassium at home. Resume metolazone 5 mg daily by mouth Received Kayexalate 15 g 1 on 08/26. Access - Utilize peripheral IV. Central line if indicated Prophylaxis - GI - Protonix - DVT - SCDs on hold secondary to cellulitis/Lovenox subcutaneous Discharge Planning can go to intpt rehab when more functional. appreciate PT assist. Morgan Choudhary MD Sep 02, 2016 23:46
[2016-09-03] VITALS (29 sets, daily range): BP systolic 108–135; BP diastolic 60–88; PULSE 51–64; RESP 16–22; TEMP 97.6–98.6; O2SAT 90–96
[2016-09-03] MEDS: PIPERACIL-TAZO 4.5 GM PREMIX 100 ML IV SCH ×3 (01:00→17:33)
[2016-09-03] MEDS: CHLORHEXIDINE GLUCONATE 2 % 1 PACK (2 CLOTHS) TOP SCH (04:00)
[2016-09-03] MEDS: INSULIN NovoLIN REGULAR SUPPLEMENTAL SCALE SQ SCH ×5 (05:14→23:54)
[2016-09-03] MEDS: NYSTATIN 100,000 U/GM PWD 15 GM BTL TOPICAL SCH ×3 (05:14→21:20)
[2016-09-03 06:23] LABS: AUTOMATED NEUTROPHIL # 9.3 TH/MM3 (1.8-7.7); BASOPHIL # 0.1 TH/MM3 (0-0.2); BASOPHIL % 0.7 % (0.0-2.0); EOSINOPHIL # 0.1 TH/MM3 (0-0.4); EOSINOPHIL % 0.5 % (0.0-4.0); HEMATOCRIT 46.8 % (35.0-46.0); HEMO FLAGS DIFF FINAL; LYMPH % 10.1 % (9.0-44.0); LYMPHOCYTE # 1.2 TH/MM3 (1.0-4.8); MEAN CELL VOLUME 87.1 FL (80.0-100.0); MEAN CORPUSCULAR HEMOGLOBIN 28.7 PG (27.0-34.0); MEAN CORPUSCULAR HGB CONC 32.9 % (32.0-36.0); MONO % 11.1 % (0.0-8.0); NEUT % 77.6 % (16.0-70.0); PLATELET COUNT 244 TH/MM3 (150-450); RED BLOOD COUNT 5.37 MIL/MM3 (4.00-5.30); RED CELL DISTRIBUTION WIDTH 14.9 % (11.6-17.2)
[2016-09-03 06:54] LABS: BICARBONATE 36.7 MEQ/L (21.0-32.0); POTASSIUM 3.8 MEQ/L (3.5-5.1)
[2016-09-03] MEDS: RESP: BUDESONIDE 0.5 MG/2 ML NEB NEB SCH ×2 (08:22→19:38)
[2016-09-03] MEDS: RESP: ALBUTEROL 2.5 MG/IPRATROPIUM 0.5 MG NEB (PRN) INH ×2 (08:22→19:38)
[2016-09-03] MEDS: ENOXAPARIN SODIUM 40 MG/0.4 ML SYRINGE SQ SCH ×2 (09:31→21:20)
[2016-09-03] MEDS: ASPIRIN EC 81 MG TABEC PO SCH (09:32)
[2016-09-03] MEDS: ASPIRIN 81 MG CHEW TAB CHEW SCH (09:32)
[2016-09-03] MEDS: PANTOPRAZOLE SODIUM 40 MG VIAL IV SCH (09:32)
[2016-09-03] MEDS: LOSARTAN 50 MG TAB PO SCH (09:33)
[2016-09-03] MEDS: predniSONE 10 MG TAB PO SCH ×3 (09:33→17:33)
[2016-09-03] MEDS: MULTIVITAMIN-OPHTHALMIC 1 TAB PO SCH (09:33)
[2016-09-03] MEDS: METOLAZONE 5 MG TAB PO SCH (09:33)
[2016-09-03] MEDS: SODIUM CHLORIDE 0.9% FLUSH 5 ML FLUSH IV FLUSH SCH ×2 (09:33→21:19)
[2016-09-03] MEDS: TIMOLOL MALEATE 0.5% OPHT SOLN 5 ML BTL EACH EYE SCH ×2 (09:34→21:20)
[2016-09-03] MEDS: ARTIFICIAL TEARS OPTH SOLN 15 ML BTL EACH EYE SCH ×3 (09:34→17:33)
[2016-09-03] MEDS: CHLORHEXIDINE 0.12% (ORAL KIT) 15 ML CUP MT SCH (10:55)
--- NOTE | 2016-09-03 18:10 | HHI.PR ---
Subjective Remarks 71 YOWF with RF, s/p extybation, No CP Weaned to NC No fever or chills 02 decreaed to 3LNC Yp in chair Dignishield out Objective Vital Signs Vital Signs Date Time Temp Pulse Resp B/P Pulse Ox O2 Delivery O2 Flow Rate FiO2 09/03/16 17:06 59 09/03/16 16:00 60 09/03/16 15:05 98.0 62 20 108/67 93 09/03/16 15:00 61 09/03/16 14:00 60 09/03/16 13:04 59 09/03/16 12:00 58 09/03/16 11:48 97.6 54 20 108/60 96 09/03/16 11:04 57 09/03/16 10:00 56 09/03/16 09:00 56 09/03/16 08:23 90 Nasal Cannula 4.00 09/03/16 08:20 93 Nasal Cannula 4.00 09/03/16 08:20 98.1 60 22 117/71 93 09/03/16 08:00 58 09/03/16 07:00 60 09/03/16 05:00 56 09/03/16 04:00 55 09/03/16 03:00 98.4 52 16 117/88 94 09/03/16 03:00 52 09/03/16 02:00 57 09/03/16 01:00 51 09/03/16 00:00 57 09/02/16 23:00 54 09/02/16 23:00 98.2 54 18 147/81 93 09/02/16 20:00 58 09/02/16 19:05 91 Nasal Cannula 4.00 09/02/16 19:00 92 Nasal Cannula 3.50 Humidified 09/02/16 19:00 59 09/02/16 19:00 98.3 57 17 119/72 92 I/O 09/02/16 09/02/16 09/02/16 09/03/16 09/03/16 09/03/16 07:00 15:00 23:00 07:00 15:00 23:00 Intake Total 240 ml 910 ml 840 ml 680 ml Output Total 1500 ml 1200 ml 1175 ml 450 ml Balance -1260 ml -290 ml -335 ml 230 ml Intake Oral 240 ml 710 ml 720 ml 480 ml IV Total 200 ml 120 ml 200 ml Output Urine Total 1500 ml 1200 ml 1175 ml 450 ml Stool Total 0 ml 0 ml # Bowel Movements 3 Result Diagram: 09/03/16 0610 09/03/16 0610 Objective Remarks GENERAL: WBWN, obese WF, mild sob SKIN: Warm and dry. HEAD: Normocephalic. EYES: No scleral icterus. No injection or drainage. NECK: Supple, trachea midline. No JVD or lymphadenopathy. CARDIOVASCULAR: Regular rate and rhythm without murmurs, gallops, or rubs. RESPIRATORY: Breath sounds equal bilaterally. No accessory muscle use. GASTROINTESTINAL: Abdomen soft, non-tender, nondistended. MUSCULOSKELETAL: No cyanosis, ++ edema. BACK: Nontender without obvious deformity. No CVA tenderness. A/P Assessment and Plan Resp insuff, s/p extubation COPD exac LYDIA Morbid obesity DM HTN PLAN: Aerosol nebs Monitor BS PO Pred Wean 02 to keep sat >90% DW pt and family at BS. Jose David Little MD Sep 03, 2016 18:10
[2016-09-03] MEDS: MONTELUKAST SODIUM 10 MG TAB PO SCH (21:19)
--- NOTE | 2016-09-03 23:39 | HHI.PR ---
Subjective Remarks patient seen today around 11:30 AM. Says she is feeling well. Denies any chest pain or shortness of breath Objective Vital Signs Date Time Temp Pulse Resp B/P Pulse Ox O2 Delivery O2 Flow Rate FiO2 09/03/16 23:00 56 09/03/16 22:00 58 09/03/16 21:00 60 09/03/16 20:00 60 09/03/16 20:00 94 Nasal Cannula 4.00 09/03/16 20:00 97.7 60 18 108/67 94 09/03/16 19:38 92 Nasal Cannula 5.00 09/03/16 19:00 64 09/03/16 18:00 60 09/03/16 17:06 59 09/03/16 16:00 60 09/03/16 15:05 98.0 62 20 108/67 93 09/03/16 15:00 61 09/03/16 14:00 60 09/03/16 13:04 59 09/03/16 12:00 58 09/03/16 11:48 97.6 54 20 108/60 96 09/03/16 11:04 57 09/03/16 10:00 56 09/03/16 09:00 56 09/03/16 08:23 90 Nasal Cannula 4.00 09/03/16 08:20 93 Nasal Cannula 4.00 09/03/16 08:20 98.1 60 22 117/71 93 09/03/16 08:00 58 09/03/16 07:00 60 09/03/16 05:00 56 09/03/16 04:00 55 09/03/16 03:00 98.4 52 16 117/88 94 09/03/16 03:00 52 09/03/16 02:00 57 09/03/16 01:00 51 09/03/16 00:00 57 I/O 09/02/16 09/02/16 09/02/16 09/03/16 09/03/16 09/03/16 07:00 15:00 23:00 07:00 15:00 23:00 Intake Total 240 ml 910 ml 840 ml 680 ml Output Total 1500 ml 1200 ml 1175 ml 450 ml Balance -1260 ml -290 ml -335 ml 230 ml Intake Oral 240 ml 710 ml 720 ml 480 ml IV Total 200 ml 120 ml 200 ml Output Urine Total 1500 ml 1200 ml 1175 ml 450 ml Stool Total 0 ml 0 ml # Bowel Movements 3 Result Diagram: 09/03/16 0610 09/03/16 0610 Objective Remarks GENERAL: lying in bed . aaox3 exam again unchanged. SKIN: Warm and dry. HEAD: Normocephalic. EYES: No scleral icterus. No injection or drainage. NECK: Supple, trachea midline. No JVD. CARDIOVASCULAR: Regular rate and rhythm without murmurs, gallops, or rubs. RESPIRATORY: Breath sounds equal bilaterally. No accessory muscle use. GASTROINTESTINAL: Abdomen soft, non-tender, nondistended. MUSCULOSKELETAL: No cyanosis, or edema. BACK: Nontender without obvious deformity. No CVA tenderness. A/P Assessment and Plan = 09/03/16 Patient was able to pivot, supporting her weight during physical therapy evaluation. Mild leukocyte elevation, possibly secondary to stress from rehabilitation. Mild. Monitor for signs of infection Glaucoma/cataracts Allergic rhinitis Depression Status post fall did not strike head ADHD CBT Continue timolol 0.5% 1 drop each eye twice a day Hypertension Dyslipidemia Coronary artery disease status post stent 2 Incomplete right bundle branch block PVD/chronic venous stasis Echocardiogram revealed EF 55%. No regional wall motion abnormality. Left atrium somewhat dilated Repeat echocardiogram revealed EF 55-60%. Right atrial enlargement. No regional wall motion abnormality. EKG revealed normal sinus rhythm. Incomplete right bundle branch block. Troponin 0.03. Home medication Cozaar 50 mg by mouth daily held in light of acute kidney injury. Patient is on hydralazine 10 mg by mouth twice a day for hypertension at home. As needed labetalol, hydralazine and Nitropaste She is on Pravachol 20 mg by mouth daily dyslipidemia. Resume likely as clinically indicated Continue aspirin 81 mg by mouth daily. S/P Acute hypoxemic respiratory failure- now on NC COPD Tobaccoism Extubated on 08/27, on 6 L nasal cannula. BiPAP 35% fi02 Bronchodilator therapy every 4 hours and as needed Pulmicort 0.5/2 1 inhalation twice a day CT thorax revealed no overt pulmonary edema. There is a left apex nodule that will need to be followed with a PET scan not a bursa is an outpatient. Enlarged pulmonary arteries noted. Patient is on Advair 100/50 one ventilation twice a day and as needed albuterol nebs at home. Continue Singulair 10 milligrams by mouth daily Tobacco cessation will be encouraged. Dr. Little ff- steroid changed to po Prednisone 10 mg tid 08/30 Gastroesophageal reflux disease regular diet Currently Protonix 40 mg iv daily Colace/Senokot twice daily and MiraLAX daily for bowel regimen. Glycerin suppositories when necessary constipation : keep rodriguez- not much active Diabetes mellitus At home on metformin 1000 mg by mouth twice a day and glipizide 5 mg by mouth 3 times a day with meals. We'll hold. Place of sliding scale insulin Accu-Cheks every 6 hours to maintain euglycemia. adjust regimen Acute on chronic kidney injury stage III Patient is on metolazone 5 mg daily at home. Resumed on 08/28 Received 40 mg Lasix in ED. Monitor urine output//I's and O's Heme: CBC within normal limits. Recheck CBC/coags in a.m. monitor trends ID: Urine tract infection - Klebsiella Bilateral lower extremity cellulitis Jaki cruris DC vancomycin on 08/28. Continue on Zosyn Received 3 days of Zithromax 08/23 - Blood cultures 2, no growth 08/23 - urine - Klebsiella Doppler ultrasound bilateral lower extremities negative for DVT MSK: Obesity Osteo arthritis Chronic low back pain PT evaluate and treat. On tramadol at home as needed. FEN: Hyperkalemia Patient is on diuretics and supplement potassium at home. Resume metolazone 5 mg daily by mouth Received Kayexalate 15 g 1 on 08/26. Access - Utilize peripheral IV. Central line if indicated Prophylaxis - GI - Protonix - DVT - SCDs on hold secondary to cellulitis/Lovenox subcutaneous Discharge Planning 09/03. Reviewed physical therapy assessment. Appears patient was able to pivot on her feet. Likely can be discharged to rehabilitation within the next couple days. Appreciate case management assistance. Morgan Choudhary MD Sep 03, 2016 23:39
[2016-09-03] MEDS: traMADol HCL 50 MG TAB PO PRN (23:54)
[2016-09-03] MEDS: ZOLPIDEM TARTRATE 10 MG TAB PO PRN (23:54)
[2016-09-04] VITALS (27 sets, daily range): BP systolic 102–138; BP diastolic 57–81; PULSE 49–66; RESP 16–18; TEMP 97.8–98.5; O2SAT 92–100
[2016-09-04] MEDS: PIPERACIL-TAZO 4.5 GM PREMIX 100 ML IV SCH ×3 (00:42→16:27)
[2016-09-04] MEDS: CHLORHEXIDINE GLUCONATE 2 % 1 PACK (2 CLOTHS) TOP SCH (04:00)
[2016-09-04] MEDS: NYSTATIN 100,000 U/GM PWD 15 GM BTL TOPICAL SCH ×3 (06:00→20:48)
[2016-09-04] MEDS: INSULIN NovoLIN REGULAR SUPPLEMENTAL SCALE SQ SCH ×3 (06:00→17:56)
[2016-09-04 07:21] LABS: BICARBONATE 35.7 MEQ/L (21.0-32.0); POTASSIUM 3.9 MEQ/L (3.5-5.1)
[2016-09-04 07:24] LABS: AUTOMATED NEUTROPHIL # 12.5 TH/MM3 (1.8-7.7); BASOPHIL % 0.1 % (0.0-2.0); EOSINOPHIL % 0.2 % (0.0-4.0); HEMATOCRIT 47.6 % (35.0-46.0); HEMO FLAGS DIFF FINAL; LYMPH % 6.8 % (9.0-44.0); MEAN CELL VOLUME 87.4 FL (80.0-100.0); MEAN CORPUSCULAR HEMOGLOBIN 28.5 PG (27.0-34.0); MEAN CORPUSCULAR HGB CONC 32.6 % (32.0-36.0); MONO % 9.1 % (0.0-8.0); NEUT % 83.8 % (16.0-70.0); PLATELET COUNT 233 TH/MM3 (150-450); RED BLOOD COUNT 5.44 MIL/MM3 (4.00-5.30); RED CELL DISTRIBUTION WIDTH 15.1 % (11.6-17.2)
[2016-09-04] MEDS: RESP: ALBUTEROL 2.5 MG/IPRATROPIUM 0.5 MG NEB (PRN) INH (07:39)
[2016-09-04] MEDS: RESP: BUDESONIDE 0.5 MG/2 ML NEB NEB SCH ×2 (07:39→20:03)
[2016-09-04] MEDS: CHLORHEXIDINE 0.12% (ORAL KIT) 15 ML CUP MT SCH ×2 (08:14→20:00)
[2016-09-04] MEDS: ASPIRIN 81 MG CHEW TAB CHEW SCH (09:58)
[2016-09-04] MEDS: predniSONE 10 MG TAB PO SCH ×3 (09:58→17:56)
[2016-09-04] MEDS: ENOXAPARIN SODIUM 40 MG/0.4 ML SYRINGE SQ SCH ×2 (09:58→20:48)
[2016-09-04] MEDS: MULTIVITAMIN-OPHTHALMIC 1 TAB PO SCH (09:58)
[2016-09-04] MEDS: LOSARTAN 50 MG TAB PO SCH (09:58)
[2016-09-04] MEDS: ASPIRIN EC 81 MG TABEC PO SCH (09:58)
[2016-09-04] MEDS: PANTOPRAZOLE SODIUM 40 MG VIAL IV SCH (09:58)
[2016-09-04] MEDS: METOLAZONE 5 MG TAB PO SCH (09:58)
[2016-09-04] MEDS: ARTIFICIAL TEARS OPTH SOLN 15 ML BTL EACH EYE SCH ×3 (09:59→17:56)
[2016-09-04] MEDS: TIMOLOL MALEATE 0.5% OPHT SOLN 5 ML BTL EACH EYE SCH ×2 (10:00→20:47)
[2016-09-04] MEDS: SODIUM CHLORIDE 0.9% FLUSH 5 ML FLUSH IV FLUSH SCH ×2 (10:02→20:48)
[2016-09-04] MEDS ORDERED: IPRASOL INH (12:12)
[2016-09-04] MEDS ORDERED: ULTR50TA5 PO (12:12)
[2016-09-04] MEDS ORDERED: PRED10 PO (12:12)
[2016-09-04] MEDS ORDERED: NOVORP2 SQ (12:30)
--- NOTE | 2016-09-04 13:42 | RADRPT ---
EXAM DATE/TIME: 09/04/2016 12:21 [facility] COMPARISON: CHEST SINGLE AP, August 27, 2016, 3:42. INDICATIONS : Shortness of breath. MEDICAL HISTORY : Chronic obstructive pulmonary disease. Hypercholesterolemia. Hypertension. SURGICAL HISTORY : Coronary artery stent. ENCOUNTER: Subsequent ACUITY: 2 weeks PAIN SCORE: 0/10 LOCATION: Bilateral chest FINDINGS: A single view of the chest demonstrates interval removal of the endotracheal and nasogastric tubes. P atient is rotated rightward there is persistent airspace disease and possible associated effusion on the right. However, this is improved when compared to the prior. Left lung is now mostly clear. Heart size is prominent without overt evidence of failure. Osseous structures are grossly intact. CONCLUSION: 1. Right basilar consolidation with associated effusion is actually improved when compared to the erinn or 2. Left lung is grossly clear. 3. Cardiomegaly. Randall Garner MD on September 04, 2016 at 13:38 Board Certified Radiologist. This report was verified electronically.
--- NOTE | 2016-09-04 17:51 | HHI.PR ---
Subjective Remarks 71 YOWF with RF, s/p extybation, No CP Weaned to NC No fever or chills 02 decreaed to 3LNC Feels little stronger Appetite good, does't like hospital food. Objective Vital Signs Vital Signs Date Time Temp Pulse Resp B/P Pulse Ox O2 Delivery O2 Flow Rate FiO2 09/04/16 16:02 58 09/04/16 15:45 97.8 56 18 121/69 93 09/04/16 15:00 55 09/04/16 14:00 52 09/04/16 13:00 56 09/04/16 12:00 62 09/04/16 11:30 97.9 60 18 116/81 96 09/04/16 11:00 55 09/04/16 10:00 60 09/04/16 09:00 58 09/04/16 08:20 96 Nasal Cannula 4.00 09/04/16 08:20 97.8 57 18 130/77 96 09/04/16 08:00 58 09/04/16 07:42 98 Nasal Cannula 5.00 09/04/16 07:00 55 09/04/16 06:00 53 09/04/16 05:00 52 09/04/16 04:00 49 09/04/16 03:30 98.5 52 16 138/79 100 09/04/16 03:00 51 09/04/16 02:00 54 09/04/16 01:00 50 09/04/16 00:00 56 09/03/16 23:30 98.6 56 18 135/83 94 09/03/16 23:00 56 09/03/16 22:00 58 09/03/16 21:00 60 09/03/16 20:00 60 09/03/16 20:00 94 Nasal Cannula 4.00 09/03/16 20:00 97.7 60 18 108/67 94 09/03/16 19:38 92 Nasal Cannula 5.00 09/03/16 19:00 64 09/03/16 18:00 60 I/O 09/03/16 09/03/16 09/03/16 09/04/16 09/04/16 09/04/16 07:00 15:00 23:00 07:00 15:00 23:00 Intake Total 840 ml 680 ml 340 ml Output Total 1175 ml 450 ml 625 ml Balance -335 ml 230 ml -285 ml Intake Oral 720 ml 480 ml 240 ml IV Total 120 ml 200 ml 100 ml Output Urine Total 1175 ml 450 ml 625 ml Stool Total 0 ml # Bowel Movements 3 1 Result Diagram: 09/04/1662409/04/16624 Objective Remarks GENERAL: WBWN, obese WF, mild sob SKIN: Warm and dry. HEAD: Normocephalic. EYES: No scleral icterus. No injection or drainage. NECK: Supple, trachea midline. No JVD or lymphadenopathy. CARDIOVASCULAR: Regular rate and rhythm without murmurs, gallops, or rubs. RESPIRATORY: Breath sounds equal bilaterally. No accessory muscle use. GASTROINTESTINAL: Abdomen soft, non-tender, nondistended. MUSCULOSKELETAL: No cyanosis, ++ edema. BACK: Nontender without obvious deformity. No CVA tenderness. A/P Assessment and Plan Resp insuff, s/p extubation COPD exac LYDIA Morbid obesity DM HTN PLAN: Aerosol nebs Monitor BS PO Pred Wean 02 to keep sat >90% DW pt and family at BS. Available prn over weekend. Jose David Little MD Sep 04, 2016 17:51
[2016-09-04] MEDS: MONTELUKAST SODIUM 10 MG TAB PO SCH (20:48)
[2016-09-04] MEDS: ZOLPIDEM TARTRATE 10 MG TAB PO PRN (20:59)
[2016-09-05] VITALS (24 sets, daily range): BP systolic 113–137; BP diastolic 48–77; PULSE 52–81; RESP 16–20; TEMP 97.4–98.3; O2SAT 93–98
[2016-09-05] MEDS: PIPERACIL-TAZO 4.5 GM PREMIX 100 ML IV SCH ×3 (00:44→17:37)
[2016-09-05] MEDS: INSULIN NovoLIN REGULAR SUPPLEMENTAL SCALE SQ SCH ×5 (00:44→23:15)
[2016-09-05] MEDS: CHLORHEXIDINE GLUCONATE 2 % 1 PACK (2 CLOTHS) TOP SCH (04:00)
[2016-09-05] MEDS: NYSTATIN 100,000 U/GM PWD 15 GM BTL TOPICAL SCH ×3 (06:03→21:13)
[2016-09-05] MEDS: RESP: BUDESONIDE 0.5 MG/2 ML NEB NEB SCH ×2 (07:49→20:30)
[2016-09-05] MEDS: ASPIRIN 81 MG CHEW TAB CHEW SCH (09:00)
[2016-09-05] MEDS: TIMOLOL MALEATE 0.5% OPHT SOLN 5 ML BTL EACH EYE SCH ×2 (09:00→21:11)
[2016-09-05] MEDS: PANTOPRAZOLE SODIUM 40 MG VIAL IV SCH (09:30)
[2016-09-05] MEDS: MULTIVITAMIN-OPHTHALMIC 1 TAB PO SCH (09:30)
[2016-09-05] MEDS: ASPIRIN EC 81 MG TABEC PO SCH (09:30)
[2016-09-05] MEDS: LOSARTAN 50 MG TAB PO SCH (09:30)
[2016-09-05] MEDS: predniSONE 10 MG TAB PO SCH ×3 (09:30→17:38)
[2016-09-05] MEDS: ENOXAPARIN SODIUM 40 MG/0.4 ML SYRINGE SQ SCH ×2 (09:30→21:12)
[2016-09-05] MEDS: METOLAZONE 5 MG TAB PO SCH (09:30)
[2016-09-05 09:31] LABS: AUTOMATED NEUTROPHIL # 9.1 TH/MM3 (1.8-7.7); BASOPHIL % 0.3 % (0.0-2.0); EOSINOPHIL # 0.1 TH/MM3 (0-0.4); HEMATOCRIT 44.6 % (35.0-46.0); HEMO FLAGS DIFF FINAL; LYMPH % 10.1 % (9.0-44.0); LYMPHOCYTE # 1.2 TH/MM3 (1.0-4.8); MEAN CELL VOLUME 86.9 FL (80.0-100.0); MEAN CORPUSCULAR HEMOGLOBIN 28.6 PG (27.0-34.0); MONO % 9.7 % (0.0-8.0); NEUT % 78.9 % (16.0-70.0); PLATELET COUNT 241 TH/MM3 (150-450); RED BLOOD COUNT 5.13 MIL/MM3 (4.00-5.30); WHITE BLOOD COUNT 11.6 TH/MM3 (4.0-11.0)
[2016-09-05] MEDS: ARTIFICIAL TEARS OPTH SOLN 15 ML BTL EACH EYE SCH ×3 (09:31→17:38)
[2016-09-05] MEDS: SODIUM CHLORIDE 0.9% FLUSH 5 ML FLUSH IV FLUSH SCH ×2 (09:31→21:12)
[2016-09-05 09:55] LABS: BICARBONATE 36.2 MEQ/L (21.0-32.0); POTASSIUM 3.7 MEQ/L (3.5-5.1)
[2016-09-05] MEDS: CHLORHEXIDINE 0.12% (ORAL KIT) 15 ML CUP MT SCH (20:00)
[2016-09-05] MEDS: MONTELUKAST SODIUM 10 MG TAB PO SCH (21:11)
[2016-09-05] MEDS: ZOLPIDEM TARTRATE 10 MG TAB PO PRN (23:06)
[2016-09-06] VITALS (27 sets, daily range): BP systolic 115–152; BP diastolic 70–85; PULSE 50–60; RESP 16–18; TEMP 97.6–98; O2SAT 92–97
[2016-09-06] MEDS: CHLORHEXIDINE GLUCONATE 2 % 1 PACK (2 CLOTHS) TOP SCH (00:53)
[2016-09-06] MEDS: PIPERACIL-TAZO 4.5 GM PREMIX 100 ML IV SCH ×3 (00:53→17:34)
[2016-09-06] MEDS: NYSTATIN 100,000 U/GM PWD 15 GM BTL TOPICAL SCH ×3 (05:31→21:16)
[2016-09-06] MEDS: INSULIN NovoLIN REGULAR SUPPLEMENTAL SCALE SQ SCH ×3 (05:31→17:35)
[2016-09-06] MEDS: CHLORHEXIDINE 0.12% (ORAL KIT) 15 ML CUP MT SCH ×2 (08:00→20:00)
[2016-09-06] MEDS: predniSONE 10 MG TAB PO SCH ×3 (08:52→17:34)
[2016-09-06] MEDS: PANTOPRAZOLE SODIUM 40 MG VIAL IV SCH (08:52)
[2016-09-06] MEDS: LOSARTAN 50 MG TAB PO SCH (08:52)
[2016-09-06] MEDS: MULTIVITAMIN-OPHTHALMIC 1 TAB PO SCH (08:52)
[2016-09-06] MEDS: ASPIRIN EC 81 MG TABEC PO SCH (08:52)
[2016-09-06] MEDS: METOLAZONE 5 MG TAB PO SCH (08:52)
[2016-09-06] MEDS: ARTIFICIAL TEARS OPTH SOLN 15 ML BTL EACH EYE SCH ×3 (08:53→17:36)
[2016-09-06] MEDS: ENOXAPARIN SODIUM 40 MG/0.4 ML SYRINGE SQ SCH ×2 (08:53→21:15)
[2016-09-06] MEDS: SODIUM CHLORIDE 0.9% FLUSH 5 ML FLUSH IV FLUSH SCH ×2 (08:53→21:00)
[2016-09-06] MEDS: ASPIRIN 81 MG CHEW TAB CHEW SCH (08:53)
[2016-09-06] MEDS: TIMOLOL MALEATE 0.5% OPHT SOLN 5 ML BTL EACH EYE SCH ×2 (08:54→21:00)
[2016-09-06] MEDS: RESP: BUDESONIDE 0.5 MG/2 ML NEB NEB SCH ×2 (09:11→22:02)
--- NOTE | 2016-09-06 18:24 | HHI.PR ---
Subjective Remarks Date of service 09/04/16. Patient seen the morning of 09/04/16. No acute changes. Patient says she feels well. Denies any chest pain or shortness of breath. Objective Vital Signs Date Time Temp Pulse Resp B/P Pulse Ox O2 Delivery O2 Flow Rate FiO2 09/06/16 16:48 54 09/06/16 15:00 97.8 54 18 151/85 94 09/06/16 15:00 54 09/06/16 14:07 53 09/06/16 13:00 50 09/06/16 12:00 53 09/06/16 12:00 97.6 50 18 149/85 94 09/06/16 10:00 51 09/06/16 09:14 97 Nasal Cannula 3.00 09/06/16 09:00 52 09/06/16 08:14 56 09/06/16 08:00 Nasal Cannula 2.00 09/06/16 08:00 97.7 53 16 115/77 94 09/06/16 07:00 53 09/06/16 06:00 50 09/06/16 05:00 50 09/06/16 04:56 60 18 122/70 93 09/06/16 04:00 56 09/06/16 03:00 53 09/06/16 02:00 50 09/06/16 01:00 52 09/06/16 00:07 52 18 135/72 94 09/06/16 00:00 56 09/05/16 23:00 52 09/05/16 22:16 94 Nasal Cannula 3.00 09/05/16 22:00 52 09/05/16 21:00 54 09/05/16 20:30 97 Nasal Cannula 3.00 09/05/16 20:00 54 09/05/16 20:00 98.3 80 18 125/62 93 09/05/16 19:00 56 I/O 09/05/16 09/05/16 09/05/16 09/06/16 09/06/16 09/06/16 07:00 15:00 23:00 07:00 15:00 23:00 Intake Total 280 ml 1100 ml 550 ml Output Total 1375 ml 1400 ml 1225 ml Balance -1095 ml -300 ml -675 ml Intake Oral 180 ml 900 ml 450 ml IV Total 100 ml 200 ml 100 ml Output Urine Total 1375 ml 1400 ml 1225 ml # Bowel Movements 0 0 Result Diagram: 09/05/1681909/05/16819 Objective Remarks GENERAL: lying in bed . Obese. Aaox3 exam unchanged. SKIN: Warm and dry. HEAD: Normocephalic. EYES: No scleral icterus. No injection or drainage. NECK: Supple, trachea midline. No JVD. CARDIOVASCULAR: Regular rate and rhythm without murmurs, gallops, or rubs. RESPIRATORY: Breath sounds equal bilaterally. No accessory muscle use. GASTROINTESTINAL: Abdomen soft, non-tender, nondistended. MUSCULOSKELETAL: No cyanosis, or edema. BACK: Nontender without obvious deformity. No CVA tenderness. A/P Assessment and Plan = 09/04/16 No acute changes. Patient doing well. Leukocytosis secondary to steroids. Discussed with case management. Patient should be ready to go to rehabilitation soon. [id number] signed. Case management assistance appreciated. //Hypertension //Dyslipidemia //Coronary artery disease status post stent 2 //Incomplete right bundle branch block //PVD/chronic venous stasis Echocardiogram revealed EF 55%. No regional wall motion abnormality. Left atrium somewhat dilated Repeat echocardiogram revealed EF 55-60%. Right atrial enlargement. No regional wall motion abnormality. EKG revealed normal sinus rhythm. Incomplete right bundle branch block. Troponin 0.03. Home medication Cozaar 50 mg by mouth daily held in light of acute kidney injury. Patient is on hydralazine 10 mg by mouth twice a day for hypertension at home. As needed labetalol, hydralazine and Nitropaste She is on Pravachol 20 mg by mouth daily dyslipidemia. Resume likely as clinically indicated Continue aspirin 81 mg by mouth daily. //S/P Acute hypoxemic respiratory failure- resolved. Now on NC //COPD exacerbation //Tobaccoism Extubated on 08/27, on 6 L nasal cannula. BiPAP 35% fi02 Bronchodilator therapy every 4 hours and as needed Pulmicort 0.5/2 1 inhalation twice a day CT thorax revealed no overt pulmonary edema. There is a left apex nodule that will need to be followed with a PET scan not a bursa is an outpatient. Enlarged pulmonary arteries noted. Patient is on Advair 100/50 one ventilation twice a day and as needed albuterol nebs at home. Continue Singulair 10 milligrams by mouth daily Tobacco cessation will be encouraged. Dr. Little ff- appreciate assistance -Continue steroid taper. Gastroesophageal reflux disease regular diet Currently Protonix 40 mg iv daily Colace/Senokot twice daily and MiraLAX daily for bowel regimen. Glycerin suppositories when necessary constipation //Diabetes mellitus Continue sliding scale, diabetic diet. On her glucose. //Acute on chronic kidney injury stage III resolved Patient is on metolazone 5 mg daily at home. Received 40 mg Lasix in ED. Monitor urine output//I's and O's ID: //Urine tract infection - Klebsiella. Resolved after treatment. Bilateral lower extremity venous stasis cellulitisimproving with elevation Jaki cruris DC vancomycin on 08/28. Continue on Zosyn Received 3 days of Zithromax 08/23 - Blood cultures 2, no growth 08/23 - urine - Klebsiella Doppler ultrasound bilateral lower extremities negative for DVT MSK: Obesity Osteo arthritis Chronic low back pain PT evaluate and treat. On tramadol at home as needed. //Hyperkalemia . resolved Patient is on diuretics and supplement potassium at home. -cont metolazone 5 mg daily by mouth Received Kayexalate 15 g 1 on 08/26. Stable conditions //Glaucoma/cataracts //Allergic rhinitis Depression Status post fall did not strike head ADHD CBT Continue timolol 0.5% 1 drop each eye twice a day Prophylaxis - GI - Protonix - DVT - SCDs on hold secondary to cellulitis/Lovenox subcutaneous Discharge Planning Patient should be ready to go to rehabilitation soon. [id number] signed. Case management assistance appreciated. Morgan Choudhary MD Sep 06, 2016 18:24
--- NOTE | 2016-09-06 18:26 | HHI.PR ---
Subjective Remarks Date of service 09/05/16. Patient seen the morning of 09/05/16. Patient again with no acute changes. Says she feels a little tired today, feels like she over did it. Again denies any chest pain or shortness of breath. Objective Vital Signs Date Time Temp Pulse Resp B/P Pulse Ox O2 Delivery O2 Flow Rate FiO2 09/06/16 16:48 54 09/06/16 15:00 97.8 54 18 151/85 94 09/06/16 15:00 54 09/06/16 14:07 53 09/06/16 13:00 50 09/06/16 12:00 53 09/06/16 12:00 97.6 50 18 149/85 94 09/06/16 10:00 51 09/06/16 09:14 97 Nasal Cannula 3.00 09/06/16 09:00 52 09/06/16 08:14 56 09/06/16 08:00 Nasal Cannula 2.00 09/06/16 08:00 97.7 53 16 115/77 94 09/06/16 07:00 53 09/06/16 06:00 50 09/06/16 05:00 50 09/06/16 04:56 60 18 122/70 93 09/06/16 04:00 56 09/06/16 03:00 53 09/06/16 02:00 50 09/06/16 01:00 52 09/06/16 00:07 52 18 135/72 94 09/06/16 00:00 56 09/05/16 23:00 52 09/05/16 22:16 94 Nasal Cannula 3.00 09/05/16 22:00 52 09/05/16 21:00 54 09/05/16 20:30 97 Nasal Cannula 3.00 09/05/16 20:00 54 09/05/16 20:00 98.3 80 18 125/62 93 09/05/16 19:00 56 I/O 09/05/16 09/05/16 09/05/16 09/06/16 09/06/16 09/06/16 07:00 15:00 23:00 07:00 15:00 23:00 Intake Total 280 ml 1100 ml 550 ml Output Total 1375 ml 1400 ml 1225 ml Balance -1095 ml -300 ml -675 ml Intake Oral 180 ml 900 ml 450 ml IV Total 100 ml 200 ml 100 ml Output Urine Total 1375 ml 1400 ml 1225 ml # Bowel Movements 0 0 Result Diagram: 09/05/1681909/05/16819 Objective Remarks GENERAL: lying in bed . Obese. Appears comfortable. Aaox3 . Unchanged exam. SKIN: Warm and dry. HEAD: Normocephalic. EYES: No scleral icterus. No injection or drainage. NECK: Supple, trachea midline. No JVD. CARDIOVASCULAR: Regular rate and rhythm without murmurs, gallops, or rubs. RESPIRATORY: Breath sounds equal bilaterally. No accessory muscle use. GASTROINTESTINAL: Abdomen soft, non-tender, nondistended. MUSCULOSKELETAL: No cyanosis, or edema. BACK: Nontender without obvious deformity. No CVA tenderness. A/P Assessment and Plan = 09/05/16 Again with no acute changes. Awaiting acceptance to SNF/rehabilitation. Appreciate case management assistance. Leukocytosis improving. Secondary to steroids. //Hypertension //Dyslipidemia //Coronary artery disease status post stent 2 //Incomplete right bundle branch block //PVD/chronic venous stasis Echocardiogram revealed EF 55%. No regional wall motion abnormality. Left atrium somewhat dilated Repeat echocardiogram revealed EF 55-60%. Right atrial enlargement. No regional wall motion abnormality. EKG revealed normal sinus rhythm. Incomplete right bundle branch block. Troponin 0.03. Home medication Cozaar 50 mg by mouth daily held in light of acute kidney injury. Patient is on hydralazine 10 mg by mouth twice a day for hypertension at home. As needed labetalol, hydralazine and Nitropaste She is on Pravachol 20 mg by mouth daily dyslipidemia. Resume likely as clinically indicated Continue aspirin 81 mg by mouth daily. //S/P Acute hypoxemic respiratory failure- resolved. Now on NC //COPD exacerbation //Tobaccoism Extubated on 08/27, on 6 L nasal cannula. BiPAP 35% fi02 Bronchodilator therapy every 4 hours and as needed Pulmicort 0.5/2 1 inhalation twice a day CT thorax revealed no overt pulmonary edema. There is a left apex nodule that will need to be followed with a PET scan not a bursa is an outpatient. Enlarged pulmonary arteries noted. Patient is on Advair 100/50 one ventilation twice a day and as needed albuterol nebs at home. Continue Singulair 10 milligrams by mouth daily Tobacco cessation will be encouraged. Dr. Anabel potter- appreciate assistance -Continue steroid taper. Gastroesophageal reflux disease regular diet Currently Protonix 40 mg iv daily Colace/Senokot twice daily and MiraLAX daily for bowel regimen. Glycerin suppositories when necessary constipation //Diabetes mellitus Continue sliding scale, diabetic diet. On her glucose. //Acute on chronic kidney injury stage III resolved Patient is on metolazone 5 mg daily at home. Received 40 mg Lasix in ED. Monitor urine output//I's and O's ID: //Urine tract infection - Klebsiella. Resolved after treatment. Bilateral lower extremity venous stasis cellulitisimproving with elevation Jaki cruris DC vancomycin on 08/28. Continue on Zosyn Received 3 days of Zithromax 08/23 - Blood cultures 2, no growth 08/23 - urine - Klebsiella Doppler ultrasound bilateral lower extremities negative for DVT MSK: Obesity Osteo arthritis Chronic low back pain PT evaluate and treat. On tramadol at home as needed. //Hyperkalemia . resolved Patient is on diuretics and supplement potassium at home. -cont metolazone 5 mg daily by mouth Received Kayexalate 15 g 1 on 08/26. Stable conditions //Glaucoma/cataracts //Allergic rhinitis Depression Status post fall did not strike head ADHD CBT Continue timolol 0.5% 1 drop each eye twice a day Prophylaxis - GI - Protonix - DVT - SCDs on hold secondary to cellulitis/Lovenox subcutaneous Discharge Planning Patient should be ready to go to rehabilitation soon. [id number] signed. Case management assistance appreciated. Morgan Choudhary MD Sep 06, 2016 18:26
--- NOTE | 2016-09-06 18:30 | HHI.PR ---
Subjective Remarks Date of service 09/06/16. Patient seen his afternoon. Vision says that she has had several loose bowel movements, is requesting medication for diarrhea. Denies any abdominal pain. Denies any chest pain or shortness of breath. No fevers. Objective Vital Signs Date Time Temp Pulse Resp B/P Pulse Ox O2 Delivery O2 Flow Rate FiO2 09/06/16 16:48 54 09/06/16 15:00 97.8 54 18 151/85 94 09/06/16 15:00 54 09/06/16 14:07 53 09/06/16 13:00 50 09/06/16 12:00 53 09/06/16 12:00 97.6 50 18 149/85 94 09/06/16 10:00 51 09/06/16 09:14 97 Nasal Cannula 3.00 09/06/16 09:00 52 09/06/16 08:14 56 09/06/16 08:00 Nasal Cannula 2.00 09/06/16 08:00 97.7 53 16 115/77 94 09/06/16 07:00 53 09/06/16 06:00 50 09/06/16 05:00 50 09/06/16 04:56 60 18 122/70 93 09/06/16 04:00 56 09/06/16 03:00 53 09/06/16 02:00 50 09/06/16 01:00 52 09/06/16 00:07 52 18 135/72 94 09/06/16 00:00 56 09/05/16 23:00 52 09/05/16 22:16 94 Nasal Cannula 3.00 09/05/16 22:00 52 09/05/16 21:00 54 09/05/16 20:30 97 Nasal Cannula 3.00 09/05/16 20:00 54 09/05/16 20:00 98.3 80 18 125/62 93 09/05/16 19:00 56 I/O 09/05/16 09/05/16 09/05/16 09/06/16 09/06/16 09/06/16 07:00 15:00 23:00 07:00 15:00 23:00 Intake Total 280 ml 1100 ml 550 ml Output Total 1375 ml 1400 ml 1225 ml Balance -1095 ml -300 ml -675 ml Intake Oral 180 ml 900 ml 450 ml IV Total 100 ml 200 ml 100 ml Output Urine Total 1375 ml 1400 ml 1225 ml # Bowel Movements 0 0 Result Diagram: 09/05/1620 09/05/1620 Imaging Last Impressions Chest X-Ray 09/04/16 0000 Signed Impressions: Service Date/Time: Sunday, September 04, 2016 12:21 - CONCLUSION: 1. Right basilar consolidation with associated effusion is actually improved when compared to the prior 2. Left lung is grossly clear. 3. Cardiomegaly. Randall Garner MD Lower Extremity Ultrasound 08/23/16 0000 Signed Impressions: Service Date/Time: Tuesday, August 23, 2016 13:14 - CONCLUSION: 1. No evidence of DVT of the right lower extremity. 2. Limited study of the left lower extremity. No DVT visualized from the knee up to the groin. Antony Corona MD Chest CT 08/23/16 0000 Signed Impressions: Service Date/Time: Tuesday, August 23, 2016 13:58 - CONCLUSION: 1. No evidence of overt pulmonary edema. 2. Bibasilar atelectasis, right greater than left. No evidence of pleural effusions. 3. Nonspecific 1.4 cm pulmonary nodule versus nodular infiltrate high in the left apex. This is not visualized on the recent chest x-rays. When patient is stable, a PET/CT could be performed on an emergent outpatient basis to evaluate for focal hypermetabolic activity. 4. Prominent bilateral pulmonary arteries. Antony Corona MD Objective Remarks GENERAL: lying in bed . Obese. Appears comfortable. Aaox3 . Exam again unchanged. SKIN: Warm and dry. HEAD: Normocephalic. EYES: No scleral icterus. No injection or drainage. NECK: Supple, trachea midline. No JVD. CARDIOVASCULAR: Regular rate and rhythm without murmurs, gallops, or rubs. RESPIRATORY: Breath sounds equal bilaterally. No accessory muscle use. GASTROINTESTINAL: Abdomen soft, non-tender, nondistended. Positive bowel sounds. No rebound or guarding. MUSCULOSKELETAL: No cyanosis, or edema. BACK: Nontender without obvious deformity. No CVA tenderness. A/P Assessment and Plan = 09/06/16 Several loose bowel movements. We'll order C. difficile PCR of stool. Discontinue Zosyn after 14 days of treatment Chest x-ray, ordered for monitoring, is improving //Hypertension //Dyslipidemia //Coronary artery disease status post stent 2 //Incomplete right bundle branch block //PVD/chronic venous stasis Echocardiogram revealed EF 55%. No regional wall motion abnormality. Left atrium somewhat dilated Repeat echocardiogram revealed EF 55-60%. Right atrial enlargement. No regional wall motion abnormality. EKG revealed normal sinus rhythm. Incomplete right bundle branch block. Troponin 0.03. Home medication Cozaar 50 mg by mouth daily held in light of acute kidney injury. Patient is on hydralazine 10 mg by mouth twice a day for hypertension at home. As needed labetalol, hydralazine and Nitropaste She is on Pravachol 20 mg by mouth daily dyslipidemia. Resume likely as clinically indicated Continue aspirin 81 mg by mouth daily. //S/P Acute hypoxemic respiratory failure- resolved. Now on NC //COPD exacerbation //Tobaccoism Extubated on 08/27, on 6 L nasal cannula. BiPAP 35% fi02 Bronchodilator therapy every 4 hours and as needed Pulmicort 0.5/2 1 inhalation twice a day CT thorax revealed no overt pulmonary edema. There is a left apex nodule that will need to be followed with a PET scan not a bursa is an outpatient. Enlarged pulmonary arteries noted. Patient is on Advair 100/50 one ventilation twice a day and as needed albuterol nebs at home. Continue Singulair 10 milligrams by mouth daily Tobacco cessation strongly advised -Chest x-ray improving. Dr. Little ff- appreciate assistance -Continue steroid taper. Gastroesophageal reflux disease regular diet Currently Protonix 40 mg iv daily Colace/Senokot twice daily and MiraLAX daily for bowel regimen. Glycerin suppositories when necessary constipation //Diabetes mellitus Continue sliding scale, diabetic diet. On her glucose. //Acute on chronic kidney injury stage III resolved Patient is on metolazone 5 mg daily at home. Received 40 mg Lasix in ED. Monitor urine output//I's and O's ID: //Urine tract infection - Klebsiella. Resolved after treatment. Bilateral lower extremity venous stasis cellulitisimproving with elevation Jaki cruris DC vancomycin on 08/28. Continue on Zosyn Received 3 days of Zithromax 08/23 - Blood cultures 2, no growth 08/23 - urine - Klebsiella Doppler ultrasound bilateral lower extremities negative for DVT MSK: Obesity Osteo arthritis Chronic low back pain PT evaluate and treat. On tramadol at home as needed. //Hyperkalemia . resolved Patient is on diuretics and supplement potassium at home. -cont metolazone 5 mg daily by mouth Received Kayexalate 15 g 1 on 08/26. //Loose bowel movements Patient concerned for infectious diarrhea. Requesting Imodium. Benign abdomen. We'll order C. difficile PCR. Stable conditions //Glaucoma/cataracts //Allergic rhinitis Depression Status post fall did not strike head ADHD CBT Continue timolol 0.5% 1 drop each eye twice a day Prophylaxis - GI - Protonix - DVT - SCDs on hold secondary to cellulitis/Lovenox subcutaneous Discharge Planning Patient should be ready to go to rehabilitation soon. [id number] signed. Case management assistance appreciated. Morgan Choudhary MD Sep 06, 2016 18:30
[2016-09-06] MEDS: MONTELUKAST SODIUM 10 MG TAB PO SCH (21:15)
[2016-09-07] VITALS (28 sets, daily range): BP systolic 109–166; BP diastolic 54–87; PULSE 50–60; RESP 18–20; TEMP 98–98.5; O2SAT 92–95
[2016-09-07] MEDS: ZOLPIDEM TARTRATE 10 MG TAB PO PRN (00:07)
[2016-09-07] MEDS: INSULIN NovoLIN REGULAR SUPPLEMENTAL SCALE SQ SCH ×4 (00:13→18:00)
[2016-09-07] MEDS: hydrALAZINE HCL 20 MG/ML VIAL IV PUSH PRN (00:20)
[2016-09-07] MEDS: CHLORHEXIDINE GLUCONATE 2 % 1 PACK (2 CLOTHS) TOP SCH (03:32)
[2016-09-07] MEDS: NYSTATIN 100,000 U/GM PWD 15 GM BTL TOPICAL SCH ×3 (05:32→20:40)
[2016-09-07] MEDS: RESP: BUDESONIDE 0.5 MG/2 ML NEB NEB SCH ×2 (07:40→20:46)
[2016-09-07] MEDS: RESP: ALBUTEROL 2.5 MG/IPRATROPIUM 0.5 MG NEB (PRN) INH (07:40)
[2016-09-07] MEDS: CHLORHEXIDINE 0.12% (ORAL KIT) 15 ML CUP MT SCH ×2 (08:00→20:00)
--- NOTE | 2016-09-07 08:54 | HHI.PR ---
Subjective Remarks The patient was eating breakfast in bed. She said that she had diarrhea yesterday but that has improved this morning. She said she was breathing comfortably. She said her legs were a lot less swollen. She was looking for a place to go to rehabilitation. She had no acute complaints at this time. Objective Vitals Vital Signs Date Time Temp Pulse Resp B/P Pulse Ox O2 Delivery O2 Flow Rate FiO2 09/07/16 07:41 95 Nasal Cannula 2.00 09/07/16 07:00 52 09/07/16 06:00 52 09/07/16 05:00 54 09/07/16 04:33 98.2 55 124/68 92 09/07/16 04:00 54 09/07/16 03:00 53 09/07/16 02:00 58 09/07/16 01:48 98.0 53 166/87 93 09/07/16 01:00 56 09/07/16 00:00 50 09/06/16 23:00 53 09/06/16 22:00 54 09/06/16 21:00 54 09/06/16 20:00 54 09/06/16 19:00 98.0 56 152/76 92 09/06/16 19:00 Nasal Cannula 2.00 09/06/16 19:00 55 09/06/16 18:10 54 09/06/16 17:00 55 09/06/16 16:48 54 09/06/16 15:00 97.8 54 18 151/85 94 09/06/16 15:00 54 09/06/16 14:07 53 09/06/16 13:00 50 09/06/16 12:00 53 09/06/16 12:00 97.6 50 18 149/85 94 09/06/16 10:00 51 09/06/16 09:14 97 Nasal Cannula 3.00 09/06/16 09:00 52 I/O 09/06/16 09/06/16 09/06/16 09/07/16 09/07/16 09/07/16 07:00 15:00 23:00 07:00 15:00 23:00 Intake Total 550 ml 1200 ml 150 ml Output Total 1225 ml 1300 ml 700 ml Balance -675 ml -100 ml -550 ml Intake Oral 450 ml 1000 ml 150 ml IV Total 100 ml 200 ml Output Urine Total 1225 ml 1300 ml 700 ml # Bowel Movements 0 2 1 Result Diagram: 09/05/1681909/05/16 0820 Imaging Last Impressions Chest X-Ray 09/04/16 0000 Signed Impressions: Service Date/Time: Sunday, September 04, 2016 12:21 - CONCLUSION: 1. Right basilar consolidation with associated effusion is actually improved when compared to the prior 2. Left lung is grossly clear. 3. Cardiomegaly. Randall Garner MD Lower Extremity Ultrasound 08/23/16 0000 Signed Impressions: Service Date/Time: Tuesday, August 23, 2016 13:14 - CONCLUSION: 1. No evidence of DVT of the right lower extremity. 2. Limited study of the left lower extremity. No DVT visualized from the knee up to the groin. Antony Corona MD Chest CT 08/23/16 0000 Signed Impressions: Service Date/Time: Tuesday, August 23, 2016 13:58 - CONCLUSION: 1. No evidence of overt pulmonary edema. 2. Bibasilar atelectasis, right greater than left. No evidence of pleural effusions. 3. Nonspecific 1.4 cm pulmonary nodule versus nodular infiltrate high in the left apex. This is not visualized on the recent chest x-rays. When patient is stable, a PET/CT could be performed on an emergent outpatient basis to evaluate for focal hypermetabolic activity. 4. Prominent bilateral pulmonary arteries. Antony Corona MD Objective Remarks GENERAL: Obese female. Appears comfortable. Aaox3 . SKIN: Warm and dry. Lower extremities with chronic changes of venous stasis. HEAD: Normocephalic. EYES: No scleral icterus. No injection or drainage. NECK: Supple, trachea midline. No JVD. CARDIOVASCULAR: Regular rate and rhythm, grade 2 systolic murmur appreciated. RESPIRATORY: Breath sounds equal bilaterally. No accessory muscle use. GASTROINTESTINAL: Abdomen soft, non-tender, nondistended. Positive bowel sounds. No rebound or guarding. MUSCULOSKELETAL: No cyanosis, or edema. BACK: Nontender without obvious deformity. No CVA tenderness. NEURO: No gross deficits. PSYCH: Mood and affect appropriate. Procedures Intubation/extubation. Medications and IVs Current Medications Medications (Trade) Dose Ordered Sig/Corinne Route Start Time Stop Time Status Last Admin (NS Flush) 2 ml UNSCH PRN IV FLUSH 08/23/16 11:00 08/30/16 09:42 (NS Flush) 2 ml BID IV FLUSH 08/23/16 21:00 09/06/16 21:00 (Tylenol) 650 mg Q6H PRN PO 08/23/16 11:00 08/29/16 03:29 (Tears Naturale Opth Soln) 1 drop TID EACH EYE 08/23/16 13:00 09/06/16 17:36 (Zofran Inj) 4 mg Q6H PRN IV 08/23/16 11:00 Miscellaneous Information 1 Q361D XX 08/23/16 11:00 (Chlorhexidine 2% Cloth) Taper DAILY@04 TOP 08/24/16 04:00 08/20/17 03:59 09/03/16 04:00 (Chlorhexidine 2% Cloth) 3 pack UNSCH PRN TOP 08/23/16 11:00 (Peridex 0.12% Liq) 15 ml BID@08,20 MT 08/23/16 20:00 09/02/16 20:00 (Timoptic 0.5% Opth Soln) 1 drop Q12HR EACH EYE 08/23/16 21:00 09/06/16 21:00 (Singulair) 10 mg HS PO 08/23/16 21:00 09/06/16 21:15 (Aspirin Chew) 81 mg DAILY CHEW 08/24/16 09:00 09/04/16 09:58 (Mycostatin Powder) 1 applic Q8HR TOPICAL 08/23/16 14:00 09/07/16 05:32 (D50w (Vial) Inj) 25 ml UNSCH PRN IV PUSH 08/23/16 11:15 (Glucagon Inj) 1 mg UNSCH PRN OTHER 08/23/16 11:15 (NovoLIN R SUPPLEMENTAL SCALE) 1 Q6HR SQ 08/23/16 12:00 09/07/16 00:13 (Apresoline Inj) 10 mg Q1HR PRN IV PUSH 08/23/16 11:15 09/07/16 00:20 (Trandate Inj) 10 mg Q1HR PRN IV PUSH 08/23/16 11:15 (Nitroglycerin 2% Oint) 2 inch Q6HR PRN TOPICAL 08/23/16 11:15 (Lovenox Inj) 40 mg BID SQ 08/24/16 09:00 09/06/16 21:15 (Ecotrin Ec) 81 mg DAILY PO 08/29/16 09:00 09/06/16 08:52 (Zaroxolyn) 5 mg DAILY PO 08/28/16 12:00 09/06/16 08:52 (Ocuvite) 1 tab DAILY PO 08/29/16 09:00 09/06/16 08:52 (Ambien) 10 mg HS PRN PO 08/28/16 12:00 09/07/16 00:07 (Cozaar) 50 mg DAILY PO 08/29/16 11:15 09/06/16 08:52 (Deltasone) 10 mg TID PO 08/30/16 18:00 09/06/16 17:34 (Ultram) 50 mg Q4H PRN PO 08/31/16 04:15 09/03/16 23:54 (Protonix) 40 mg DAILY PO 09/07/16 09:00 Date of Insertion: Aug 23, 2016 A/P Problem List: (1) Respiratory failure ICD Code: J96.90 Status: Acute (2) Respiratory acidosis ICD Code: E87.2 Status: Acute (3) UTI (urinary tract infection) ICD Code: N39.0 Status: Acute (4) Chronic venous hypertension with ulcer and inflammation ICD Code: I87.339 Status: Acute (5) COPD exacerbation ICD Code: J44.1 Status: Acute (6) Stented coronary artery Status: Chronic (7) Mixed hyperlipidemia ICD Code: 272.2 Status: Chronic (8) Seasonal allergic rhinitis ICD Code: 477.9 Status: Chronic (9) Bilateral lower leg cellulitis ICD Code: L03.115 Status: Acute (10) DVT prophylaxis ICD Code: V58.61 Status: Acute (11) Benign essential hypertension ICD Code: 401.1 Status: Chronic (12) Morbid obesity with BMI of 40.0-44.9, adult ICD Code: E66.01 Status: Chronic (13) Coronary arteriosclerosis ICD Code: 414.00 Status: Chronic (14) JOSEPHINE (acute kidney injury) ICD Code: N17.9 Status: Acute (15) Ulcer of left lower extremity, limited to breakdown of skin ICD Code: L97.921 Status: Acute (16) ADHD (attention deficit hyperactivity disorder) ICD Code: F90.9 Status: Acute (17) PVD (peripheral vascular disease) ICD Code: I73.9 Status: Chronic (18) Chronic stasis dermatitis ICD Code: I83.10 Status: Acute (19) Diabetes mellitus ICD Code: E11.9 Status: Chronic (20) Hyperkalemia ICD Code: E87.5 Status: Acute Assessment and Plan Acute hypoxemic respiratory failure Extubated on 08/27, on 6 L nasal cannula. BiPAP 35% fi02. CT thorax revealed no overt pulmonary edema. There is a left apex nodule that will need to be followed with a PET scan not a bursa is an outpatient. Enlarged pulmonary arteries noted. CXR improving. Appreciate pulmonary assistance. - Bronchodilator therapy every 4 hours and as needed. - Pulmicort 0.5/2 1 inhalation twice a day. - Patient is on Advair 100/50 one ventilation twice a day and as needed albuterol nebs at home. - Continue Singulair 10 milligrams by mouth daily. - Tobacco cessation strongly advised. - Continue steroid taper. Wean to BID 09/07. - S/p vancomycin and Zosyn. CAD/ PVD/ HTN Echocardiogram revealed EF 55%. No regional wall motion abnormality. Left atrium somewhat dilated. Repeat echocardiogram revealed EF 55-60%. Right atrial enlargement. No regional wall motion abnormality. EKG revealed normal sinus rhythm. Incomplete right bundle branch block. Troponin 0.03. - Home medication Cozaar 50 mg by mouth daily held in light of acute kidney injury. - Patient is on hydralazine 10 mg by mouth twice a day for hypertension at home. - As needed labetalol, hydralazine and Nitropaste - She is on Pravachol 20 mg by mouth daily dyslipidemia. Resume likely as clinically indicated - Continue aspirin 81 mg by mouth daily. Diabetes mellitus Glucose relatively well controlled. - Continue sliding scale, diabetic diet. - wean steroids. Acute on chronic kidney injury stage III Creatinine is stable. - Patient is on metolazone 5 mg daily at home. - Monitor urine output//I's and O's. Pneumonia/ Cellulitis/ Urine tract infection/ Jaki cruris CXR with improvement. Bilateral lower extremity venous stasis cellulitis improving with elevation. - s/p vancomycin and Zosyn. - oxygen and nebs as needed. Loose bowel movements Patient requesting Imodium. Benign abdomen. - We'll order C. difficile PCR. Prophylaxis - GI - Protonix - DVT - SCDs on hold secondary to cellulitis/Lovenox subcutaneous Discharge Planning Will need SNF in 1-2 days. Problem Qualifiers (1) Respiratory failure: Qualified Code: J96.01 - Acute respiratory failure with hypoxia (2) UTI (urinary tract infection): Qualified Code: N39.0 - Urinary tract infection without hematuria, site unspecified (3) Chronic venous hypertension with ulcer and inflammation: Qualified Code: I87.333 - Chronic venous hypertension with ulcer and inflammation, bilateral (4) ADHD (attention deficit hyperactivity disorder): Qualified Code: F90.9 - Attention deficit hyperactivity disorder (ADHD), unspecified ADHD type (5) Chronic stasis dermatitis: Qualified Code: I83.10 - Chronic stasis dermatitis, unspecified laterality (6) Diabetes mellitus: Qualified Code: E11.8 - Type 2 diabetes mellitus with complication, without long-term current use of insulin Kimo Skaggs DO Sep 07, 2016 08:54
[2016-09-07] MEDS: predniSONE 10 MG TAB PO SCH ×2 (09:00→20:40)
[2016-09-07] MEDS: ASPIRIN 81 MG CHEW TAB CHEW SCH (09:00)
[2016-09-07] MEDS: METOLAZONE 5 MG TAB PO SCH (10:14)
[2016-09-07] MEDS: ASPIRIN EC 81 MG TABEC PO SCH (10:14)
[2016-09-07] MEDS: SODIUM CHLORIDE 0.9% FLUSH 5 ML FLUSH IV FLUSH SCH ×2 (10:15→20:41)
[2016-09-07] MEDS: MULTIVITAMIN-OPHTHALMIC 1 TAB PO SCH (10:15)
[2016-09-07] MEDS: LOSARTAN 50 MG TAB PO SCH (10:15)
[2016-09-07] MEDS: PANTOPRAZOLE SOD 40 MG DELAYED RELEASE TAB PO SCH (10:15)
[2016-09-07] MEDS: ENOXAPARIN SODIUM 40 MG/0.4 ML SYRINGE SQ SCH ×2 (10:15→20:40)
[2016-09-07] MEDS: TIMOLOL MALEATE 0.5% OPHT SOLN 5 ML BTL EACH EYE SCH ×2 (10:17→20:40)
[2016-09-07] MEDS: ARTIFICIAL TEARS OPTH SOLN 15 ML BTL EACH EYE SCH ×3 (10:17→18:00)
[2016-09-07 13:06] LABS: C. DIFF EPI 027 PRESUMPTIVE NEGATIVE (NEGATIVE); C. DIFF TOXIN PCR NEGATIVE (NEGATIVE)
--- NOTE | 2016-09-07 20:26 | HHI.PR ---
Subjective Remarks 71 YOWF with RF, s/p extybation, No CP Weaned to NC No fever or chills 02 decreaed to 3LNC Feels little stronger Objective Vital Signs Vital Signs Date Time Temp Pulse Resp B/P Pulse Ox O2 Delivery O2 Flow Rate FiO2 09/07/16 18:00 54 09/07/16 17:00 52 09/07/16 16:00 50 09/07/16 15:00 52 09/07/16 15:00 98.1 52 20 122/70 93 09/07/16 14:00 52 09/07/16 13:00 52 09/07/16 12:00 58 09/07/16 11:00 51 09/07/16 10:00 60 09/07/16 09:00 56 09/07/16 08:00 55 09/07/16 08:00 93 Nasal Cannula 2.00 09/07/16 08:00 98.3 55 20 130/73 93 09/07/16 07:41 95 Nasal Cannula 2.00 09/07/16 07:00 52 09/07/16 06:00 52 09/07/16 05:00 54 09/07/16 04:33 98.2 55 124/68 92 09/07/16 04:00 54 09/07/16 03:00 53 09/07/16 02:00 58 09/07/16 01:48 98.0 53 166/87 93 09/07/16 01:00 56 09/07/16 00:00 50 09/06/16 23:00 53 09/06/16 22:00 54 09/06/16 21:00 54 I/O 09/06/16 09/06/16 09/06/16 09/07/16 09/07/16 09/07/16 07:00 15:00 23:00 07:00 15:00 23:00 Intake Total 550 ml 1200 ml 150 ml Output Total 1225 ml 1300 ml 700 ml Balance -675 ml -100 ml -550 ml Intake Oral 450 ml 1000 ml 150 ml IV Total 100 ml 200 ml Output Urine Total 1225 ml 1300 ml 700 ml # Bowel Movements 0 2 1 Result Diagram: 09/05/1681909/05/16819 Objective Remarks GENERAL: WBWN, obese WF, mild sob SKIN: Warm and dry. HEAD: Normocephalic. EYES: No scleral icterus. No injection or drainage. NECK: Supple, trachea midline. No JVD or lymphadenopathy. CARDIOVASCULAR: Regular rate and rhythm without murmurs, gallops, or rubs. RESPIRATORY: Breath sounds equal bilaterally. No accessory muscle use. GASTROINTESTINAL: Abdomen soft, non-tender, nondistended. MUSCULOSKELETAL: No cyanosis, ++ edema. BACK: Nontender without obvious deformity. No CVA tenderness. A/P Assessment and Plan Resp insuff, s/p extubation COPD exac LYDIA Morbid obesity DM HTN PLAN: Aerosol nebs Monitor BS PO Pred Wean 02 to keep sat >90% DW pt and family at BS. Jose David Little MD Sep 07, 2016 20:26
[2016-09-07] MEDS: MONTELUKAST SODIUM 10 MG TAB PO SCH (20:41)
[2016-09-08] VITALS (27 sets, daily range): BP systolic 106–149; BP diastolic 58–83; PULSE 49–98; RESP 14–26; TEMP 97.7–99.2; O2SAT 94–99
[2016-09-08] MEDS: INSULIN NovoLIN REGULAR SUPPLEMENTAL SCALE SQ SCH ×4 (00:18→18:00)
[2016-09-08] MEDS: ZOLPIDEM TARTRATE 10 MG TAB PO PRN ×2 (00:20→23:35)
[2016-09-08] MEDS: CHLORHEXIDINE GLUCONATE 2 % 1 PACK (2 CLOTHS) TOP SCH (04:00)
[2016-09-08] MEDS: NYSTATIN 100,000 U/GM PWD 15 GM BTL TOPICAL SCH ×3 (05:27→22:25)
[2016-09-08 05:55] LABS: MEAN CELL VOLUME 86.3 FL (80.0-100.0); MEAN CORPUSCULAR HEMOGLOBIN 28.6 PG (27.0-34.0); MEAN CORPUSCULAR HGB CONC 33.2 % (32.0-36.0); PLATELET COUNT 227 TH/MM3 (150-450); RED BLOOD COUNT 5.33 MIL/MM3 (4.00-5.30); RED CELL DISTRIBUTION WIDTH 15.4 % (11.6-17.2); REVIEW FLAG FINAL; WHITE BLOOD COUNT 9.7 TH/MM3 (4.0-11.0)
[2016-09-08 06:18] LABS: BICARBONATE 32.7 MEQ/L (21.0-32.0); MAGNESIUM 1.9 MG/DL (1.5-2.5); POTASSIUM 3.9 MEQ/L (3.5-5.1)
[2016-09-08] MEDS: RESP: BUDESONIDE 0.5 MG/2 ML NEB NEB SCH ×2 (07:28→19:04)
[2016-09-08] MEDS: CHLORHEXIDINE 0.12% (ORAL KIT) 15 ML CUP MT SCH ×2 (08:00→20:00)
[2016-09-08] MEDS: ASPIRIN 81 MG CHEW TAB CHEW SCH (09:00)
[2016-09-08] MEDS: MULTIVITAMIN-OPHTHALMIC 1 TAB PO SCH (09:24)
[2016-09-08] MEDS: PANTOPRAZOLE SOD 40 MG DELAYED RELEASE TAB PO SCH (09:24)
[2016-09-08] MEDS: ASPIRIN EC 81 MG TABEC PO SCH (09:24)
[2016-09-08] MEDS: METOLAZONE 5 MG TAB PO SCH (09:24)
[2016-09-08] MEDS: ENOXAPARIN SODIUM 40 MG/0.4 ML SYRINGE SQ SCH ×2 (09:24→22:24)
[2016-09-08] MEDS: predniSONE 10 MG TAB PO SCH ×2 (09:25→22:24)
[2016-09-08] MEDS: LOSARTAN 50 MG TAB PO SCH (09:25)
[2016-09-08] MEDS: SODIUM CHLORIDE 0.9% FLUSH 5 ML FLUSH IV FLUSH SCH ×2 (09:25→22:28)
[2016-09-08] MEDS: TIMOLOL MALEATE 0.5% OPHT SOLN 5 ML BTL EACH EYE SCH ×2 (09:26→22:24)
[2016-09-08] MEDS: ARTIFICIAL TEARS OPTH SOLN 15 ML BTL EACH EYE SCH ×3 (09:26→17:11)
--- NOTE | 2016-09-08 14:12 | HHI.PR ---
Subjective Remarks The patient was working with physical therapy. She said she felt well. She does not like the food here. Breathing comfortably. She would like to go to a rehabilitation facility that her primary care has privileges at. Discussed with case management. Objective Vitals Vital Signs Date Time Temp Pulse Resp B/P Pulse Ox O2 Delivery O2 Flow Rate FiO2 09/08/16 13:09 56 09/08/16 12:20 54 09/08/16 11:14 54 09/08/16 11:14 97.7 55 14 108/59 96 09/08/16 10:13 53 09/08/16 09:07 50 09/08/16 08:32 63 09/08/16 08:00 Nasal Cannula 2.00 09/08/16 08:00 98.3 53 20 106/63 95 09/08/16 07:51 53 09/08/16 07:40 98.3 54 17 106/63 99 09/08/16 07:29 50 09/08/16 06:00 54 09/08/16 05:00 56 09/08/16 04:00 56 09/08/16 03:44 98.3 58 111/63 94 09/08/16 03:00 58 09/08/16 02:00 54 09/08/16 01:00 58 09/08/16 00:00 56 09/07/16 23:00 58 09/07/16 23:00 98.5 56 119/62 93 09/07/16 22:00 54 09/07/16 21:00 56 09/07/16 20:46 93 Nasal Cannula 3.00 09/07/16 20:00 54 09/07/16 19:00 93 Nasal Cannula 2.00 09/07/16 19:00 58 18 109/54 93 09/07/16 19:00 56 09/07/16 18:00 54 09/07/16 17:00 52 09/07/16 16:00 50 09/07/16 15:00 52 09/07/16 15:00 98.1 52 20 122/70 93 I/O 09/07/16 09/07/16 09/07/16 09/08/16 09/08/16 09/08/16 07:00 15:00 23:00 07:00 15:00 23:00 Intake Total 150 ml 720 ml 240 ml Output Total 700 ml Balance -550 ml 720 ml 240 ml Intake Oral 150 ml 720 ml 240 ml Output Urine Total 700 ml # Voids 4 3 # Bowel Movements 1 5 Result Diagram: 09/08/16 0501 09/08/16 0501 Imaging Last Impressions Chest X-Ray 09/04/16 0000 Signed Impressions: Service Date/Time: Sunday, September 04, 2016 12:21 - CONCLUSION: 1. Right basilar consolidation with associated effusion is actually improved when compared to the prior 2. Left lung is grossly clear. 3. Cardiomegaly. Randall Garner MD Lower Extremity Ultrasound 08/23/16 0000 Signed Impressions: Service Date/Time: Tuesday, August 23, 2016 13:14 - CONCLUSION: 1. No evidence of DVT of the right lower extremity. 2. Limited study of the left lower extremity. No DVT visualized from the knee up to the groin. Antony Corona MD Chest CT 08/23/16 0000 Signed Impressions: Service Date/Time: Tuesday, August 23, 2016 13:58 - CONCLUSION: 1. No evidence of overt pulmonary edema. 2. Bibasilar atelectasis, right greater than left. No evidence of pleural effusions. 3. Nonspecific 1.4 cm pulmonary nodule versus nodular infiltrate high in the left apex. This is not visualized on the recent chest x-rays. When patient is stable, a PET/CT could be performed on an emergent outpatient basis to evaluate for focal hypermetabolic activity. 4. Prominent bilateral pulmonary arteries. Antony Corona MD Objective Remarks GENERAL: Obese female. Appears comfortable. Aaox3 . SKIN: Warm and dry. Lower extremities with chronic changes of venous stasis. HEAD: Normocephalic. EYES: No scleral icterus. No injection or drainage. NECK: Supple, trachea midline. No JVD. CARDIOVASCULAR: Regular rate and rhythm, grade 2 systolic murmur appreciated. RESPIRATORY: Breath sounds equal bilaterally. No accessory muscle use. GASTROINTESTINAL: Abdomen soft, non-tender, nondistended. Positive bowel sounds. No rebound or guarding. MUSCULOSKELETAL: No cyanosis, or edema. BACK: Nontender without obvious deformity. No CVA tenderness. NEURO: No gross deficits. PSYCH: Mood and affect appropriate. Procedures Intubation/extubation. Medications and IVs Current Medications Medications (Trade) Dose Ordered Sig/Corinne Route Start Time Stop Time Status Last Admin (NS Flush) 2 ml UNSCH PRN IV FLUSH 08/23/16 11:00 08/30/16 09:42 (NS Flush) 2 ml BID IV FLUSH 08/23/16 21:00 09/08/16 09:25 (Tylenol) 650 mg Q6H PRN PO 08/23/16 11:00 08/29/16 03:29 (Tears Naturale Opth Soln) 1 drop TID EACH EYE 08/23/16 13:00 09/08/16 13:32 (Zofran Inj) 4 mg Q6H PRN IV 08/23/16 11:00 Miscellaneous Information 1 Q361D XX 08/23/16 11:00 (Chlorhexidine 2% Cloth) Taper DAILY@04 TOP 08/24/16 04:00 08/20/17 03:59 09/03/16 04:00 (Chlorhexidine 2% Cloth) 3 pack UNSCH PRN TOP 08/23/16 11:00 (Peridex 0.12% Liq) 15 ml BID@08,20 MT 08/23/16 20:00 09/02/16 20:00 (Timoptic 0.5% Opth Soln) 1 drop Q12HR EACH EYE 08/23/16 21:00 09/08/16 09:26 (Singulair) 10 mg HS PO 08/23/16 21:00 09/07/16 20:41 (Aspirin Chew) 81 mg DAILY CHEW 08/24/16 09:00 09/04/16 09:58 (Mycostatin Powder) 1 applic Q8HR TOPICAL 08/23/16 14:00 09/08/16 13:32 (D50w (Vial) Inj) 25 ml UNSCH PRN IV PUSH 08/23/16 11:15 (Glucagon Inj) 1 mg UNSCH PRN OTHER 08/23/16 11:15 (NovoLIN R SUPPLEMENTAL SCALE) 1 Q6HR SQ 08/23/16 12:00 09/08/16 11:42 (Apresoline Inj) 10 mg Q1HR PRN IV PUSH 08/23/16 11:15 09/07/16 00:20 (Trandate Inj) 10 mg Q1HR PRN IV PUSH 08/23/16 11:15 (Nitroglycerin 2% Oint) 2 inch Q6HR PRN TOPICAL 08/23/16 11:15 (Lovenox Inj) 40 mg BID SQ 08/24/16 09:00 09/08/16 09:24 (Ecotrin Ec) 81 mg DAILY PO 08/29/16 09:00 09/08/16 09:24 (Zaroxolyn) 5 mg DAILY PO 08/28/16 12:00 09/08/16 09:24 (Ocuvite) 1 tab DAILY PO 08/29/16 09:00 09/08/16 09:24 (Ambien) 10 mg HS PRN PO 08/28/16 12:00 09/08/16 00:20 (Cozaar) 50 mg DAILY PO 08/29/16 11:15 09/08/16 09:25 (Ultram) 50 mg Q4H PRN PO 08/31/16 04:15 09/03/16 23:54 (Protonix) 40 mg DAILY PO 09/07/16 09:00 09/08/16 09:24 (Deltasone) 10 mg BID PO 09/07/16 21:00 09/08/16 09:25 Date of Insertion: Aug 23, 2016 A/P Problem List: (1) Respiratory failure ICD Code: J96.90 Status: Acute (2) Respiratory acidosis ICD Code: E87.2 Status: Acute (3) UTI (urinary tract infection) ICD Code: N39.0 Status: Acute (4) Chronic venous hypertension with ulcer and inflammation ICD Code: I87.339 Status: Acute (5) COPD exacerbation ICD Code: J44.1 Status: Acute (6) Stented coronary artery Status: Chronic (7) Mixed hyperlipidemia ICD Code: 272.2 Status: Chronic (8) Seasonal allergic rhinitis ICD Code: 477.9 Status: Chronic (9) Bilateral lower leg cellulitis ICD Code: L03.115 Status: Acute (10) DVT prophylaxis ICD Code: V58.61 Status: Acute (11) Benign essential hypertension ICD Code: 401.1 Status: Chronic (12) Morbid obesity with BMI of 40.0-44.9, adult ICD Code: E66.01 Status: Chronic (13) Coronary arteriosclerosis ICD Code: 414.00 Status: Chronic (14) JOSEPHINE (acute kidney injury) ICD Code: N17.9 Status: Acute (15) Ulcer of left lower extremity, limited to breakdown of skin ICD Code: L97.921 Status: Acute (16) ADHD (attention deficit hyperactivity disorder) ICD Code: F90.9 Status: Acute (17) PVD (peripheral vascular disease) ICD Code: I73.9 Status: Chronic (18) Chronic stasis dermatitis ICD Code: I83.10 Status: Acute (19) Diabetes mellitus ICD Code: E11.9 Status: Chronic (20) Hyperkalemia ICD Code: E87.5 Status: Acute Assessment and Plan Acute hypoxemic respiratory failure Extubated on 08/27, on 2 L nasal cannula 09/08. CT thorax revealed no overt pulmonary edema. There is a left apex nodule that will need to be followed with a PET scan as an outpatient. Enlarged pulmonary arteries noted. CXR improving. Appreciate pulmonary assistance. - Bronchodilator therapy every 4 hours and as needed. - Pulmicort 0.5/2 1 inhalation twice a day. - Patient is on Advair 100/50 one ventilation twice a day and as needed albuterol nebs at home. - Continue Singulair 10 milligrams by mouth daily. - Tobacco cessation strongly advised. - Continue steroid taper. Wean to BID 09/07. - S/p vancomycin and Zosyn. - PET scan as outpt for nodule. CAD/ PVD/ HTN Echocardiogram revealed EF 55%. No regional wall motion abnormality. Left atrium somewhat dilated. Repeat echocardiogram revealed EF 55-60%. Right atrial enlargement. No regional wall motion abnormality. EKG revealed normal sinus rhythm. Incomplete right bundle branch block. Troponin 0.03. - Home medication Cozaar 50 mg by mouth daily. - As needed labetalol, hydralazine and Nitropaste. - Continue aspirin 81 mg by mouth daily. Diabetes mellitus Glucose relatively well controlled 09/08. - Continue sliding scale, diabetic diet. - wean steroids. Acute on chronic kidney injury stage III Creatinine is stable. - Patient is on metolazone 5 mg daily. - Monitor urine output//I's and O's. Pneumonia/ Cellulitis/ Urine tract infection/ Jaki cruris CXR with improvement. Bilateral lower extremity venous stasis cellulitis improving with elevation. - s/p vancomycin and Zosyn. - oxygen and nebs as needed. - keep legs elevated. Prophylaxis - GI - Protonix - DVT - SCDs on hold secondary to cellulitis/Lovenox subcutaneous. Discharge Planning Discharge to SNF when bed available. Problem Qualifiers (1) Respiratory failure: Qualified Code: J96.01 - Acute respiratory failure with hypoxia (2) UTI (urinary tract infection): Qualified Code: N39.0 - Urinary tract infection without hematuria, site unspecified (3) Chronic venous hypertension with ulcer and inflammation: Qualified Code: I87.333 - Chronic venous hypertension with ulcer and inflammation, bilateral (4) ADHD (attention deficit hyperactivity disorder): Qualified Code: F90.9 - Attention deficit hyperactivity disorder (ADHD), unspecified ADHD type (5) Chronic stasis dermatitis: Qualified Code: I83.10 - Chronic stasis dermatitis, unspecified laterality (6) Diabetes mellitus: Qualified Code: E11.8 - Type 2 diabetes mellitus with complication, without long-term current use of insulin Kimo Skaggs DO Sep 08, 2016 14:11
--- NOTE | 2016-09-08 18:56 | HHI.PR ---
Subjective Remarks 71 YOWF with RF, s/p extybation, No CP No fever or chills 02 3LNC Feels little stronger Was out of bed for few hrs Objective Vital Signs Vital Signs Date Time Temp Pulse Resp B/P Pulse Ox O2 Delivery O2 Flow Rate FiO2 09/08/16 16:16 98.0 55 20 149/83 95 09/08/16 15:09 55 09/08/16 15:00 54 09/08/16 13:09 56 09/08/16 12:20 54 09/08/16 11:14 54 09/08/16 11:14 97.7 55 14 108/59 96 09/08/16 10:13 53 09/08/16 09:07 50 09/08/16 08:32 63 09/08/16 08:00 Nasal Cannula 2.00 09/08/16 08:00 98.3 53 20 106/63 95 09/08/16 07:51 53 09/08/16 07:40 98.3 54 17 106/63 99 09/08/16 07:29 50 09/08/16 06:00 54 09/08/16 05:00 56 09/08/16 04:00 56 09/08/16 03:44 98.3 58 111/63 94 09/08/16 03:00 58 09/08/16 02:00 54 09/08/16 01:00 58 09/08/16 00:00 56 09/07/16 23:00 58 09/07/16 23:00 98.5 56 119/62 93 09/07/16 22:00 54 09/07/16 21:00 56 09/07/16 20:46 93 Nasal Cannula 3.00 09/07/16 20:00 54 09/07/16 19:00 93 Nasal Cannula 2.00 09/07/16 19:00 58 18 109/54 93 09/07/16 19:00 56 I/O 09/07/16 09/07/16 09/07/16 09/08/16 09/08/16 09/08/16 07:00 15:00 23:00 07:00 15:00 23:00 Intake Total 150 ml 720 ml 240 ml Output Total 700 ml Balance -550 ml 720 ml 240 ml Intake Oral 150 ml 720 ml 240 ml Output Urine Total 700 ml # Voids 4 3 # Bowel Movements 1 5 Result Diagram: 09/08/16 0501 09/08/16 0501 Objective Remarks GENERAL: WBWN, obese WF, mild sob SKIN: Warm and dry. HEAD: Normocephalic. EYES: No scleral icterus. No injection or drainage. NECK: Supple, trachea midline. No JVD or lymphadenopathy. CARDIOVASCULAR: Regular rate and rhythm without murmurs, gallops, or rubs. RESPIRATORY: Breath sounds equal bilaterally. No accessory muscle use. GASTROINTESTINAL: Abdomen soft, non-tender, nondistended. MUSCULOSKELETAL: No cyanosis, ++ edema. BACK: Nontender without obvious deformity. No CVA tenderness. A/P Assessment and Plan Resp insuff, s/p extubation COPD exac LYDIA Morbid obesity DM HTN PLAN: Aerosol nebs Monitor BS PO Pred Wean 02 to keep sat >90% DW pt and family at BS. DC plans underway. Jose David Little MD Sep 08, 2016 18:56
[2016-09-08] MEDS: MONTELUKAST SODIUM 10 MG TAB PO SCH (22:24)
[2016-09-09] VITALS (17 sets, daily range): BP systolic 113–128; BP diastolic 58–75; PULSE 48–56; RESP 18–22; TEMP 97.8–98.7; O2SAT 93–98
[2016-09-09] MEDS: CHLORHEXIDINE GLUCONATE 2 % 1 PACK (2 CLOTHS) TOP SCH (00:12)
[2016-09-09] MEDS: NYSTATIN 100,000 U/GM PWD 15 GM BTL TOPICAL SCH ×2 (06:00→14:00)
[2016-09-09] MEDS: INSULIN NovoLIN REGULAR SUPPLEMENTAL SCALE SQ SCH ×3 (06:24→13:17)
[2016-09-09] MEDS: RESP: BUDESONIDE 0.5 MG/2 ML NEB NEB SCH (07:24)
[2016-09-09] MEDS: CHLORHEXIDINE 0.12% (ORAL KIT) 15 ML CUP MT SCH (08:00)
[2016-09-09] MEDS: ASPIRIN 81 MG CHEW TAB CHEW SCH (09:00)
[2016-09-09] MEDS ORDERED: PRED10 PO ×2 (09:39)
[2016-09-09] MEDS ORDERED: PANT40TA3 PO (09:39)
[2016-09-09] MEDS ORDERED: ZOLP10TA3 PO (09:39)
--- NOTE | 2016-09-09 09:42 | HHI.DCPOC ---
Discharge Care Plan Diagnosis: (1) Venous stasis dermatitis of both lower extremities (2) Diabetes mellitus (3) Obesity (4) COPD (chronic obstructive pulmonary disease) (5) Shortness of breath (6) Urinary incontinence (7) Respiratory failure Goals to Promote Your Health * To prevent worsening of your condition and complications * To maintain your health at the optimal level Directions to Meet Your Goals Take your medications as prescribed Follow your dietary instruction Follow activity as directed Keep your appointments as scheduled Take your immunizations and boosters as scheduled If your symptoms worsen call your PCP, if no PCP go to Urgent Care Center or Emergency Room Smoking is Dangerous to Your Health. Avoid second hand smoke Call the 24-hour hour crisis hotline for domestic abuse at Kimo Skaggs DO Sep 09, 2016 09:42
--- NOTE | 2016-09-09 09:51 | HHI.DS ---
Discharge Summary Admission Date Aug 23, 2016 at 10:50 Discharge Date: Sep 09, 2016 Admitting Diagnosis respiratory failure, UTI hyperkalemia, cellulitis (1) Respiratory failure ICD Code: J96.90 Diagnosis: Principal (2) Respiratory acidosis ICD Code: E87.2 (3) UTI (urinary tract infection) ICD Code: N39.0 (4) Chronic venous hypertension with ulcer and inflammation ICD Code: I87.339 (5) COPD exacerbation ICD Code: J44.1 (6) Stented coronary artery (7) Mixed hyperlipidemia ICD Code: 272.2 (8) Seasonal allergic rhinitis ICD Code: 477.9 (9) Bilateral lower leg cellulitis ICD Code: L03.115 (10) DVT prophylaxis ICD Code: V58.61 (11) Benign essential hypertension ICD Code: 401.1 (12) Morbid obesity with BMI of 40.0-44.9, adult ICD Code: E66.01 (13) Coronary arteriosclerosis ICD Code: 414.00 (14) JOSEPHINE (acute kidney injury) ICD Code: N17.9 (15) Ulcer of left lower extremity, limited to breakdown of skin ICD Code: L97.921 (16) ADHD (attention deficit hyperactivity disorder) ICD Code: F90.9 (17) PVD (peripheral vascular disease) ICD Code: I73.9 (18) Chronic stasis dermatitis ICD Code: I83.10 (19) Diabetes mellitus ICD Code: E11.9 (20) Hyperkalemia ICD Code: E87.5 Procedures Intubation/extubation. Brief History - From Admission 71-year-old female. Date of admission 08/23/2016. Past medical history includes morbid obesity, allergic rhinitis, glaucoma, depression, coronary disease status post stent 2 in 2006, COPD, hypertension, dyslipidemia , gastroesophageal reflux disease, diabetes mellitus,, chronic low back pain, urinary incontinence, peripheral vascular disease, osteoporosis and chronic kidney disease stage III. According to , this morning she presented to do a "sink bath". However when she turned she lost her balance and fell on the floor on her bottom. She did not hit her head and she was quite sure about it. He stated that she did not lose consciousness. She was unable to get up from the floor and called 911. Patient has sores on both of her legs that she has been wrapping and taking care of them herself. CBC/BMP: 09/08/16 0501 09/08/16 0501 Significant Findings Laboratory Tests Test 09/08/16 05:01 Red Blood Count 5.33 MIL/MM3 (4.00-5.30) Sodium Level 134 MEQ/L (136-145) Chloride Level 92 MEQ/L (98-107) Carbon Dioxide Level 32.7 MEQ/L (21.0-32.0) Blood Urea Nitrogen 36 MG/DL (7-18) Creatinine 1.14 MG/DL (0.50-1.00) Estimat Glomerular Filtration 47 ML/MIN (>89) Rate Random Glucose 180 MG/DL (74-106) Imaging Last Impressions Chest X-Ray 09/04/16 0000 Signed Impressions: Service Date/Time: Sunday, September 04, 2016 12:21 - CONCLUSION: 1. Right basilar consolidation with associated effusion is actually improved when compared to the prior 2. Left lung is grossly clear. 3. Cardiomegaly. Randall Garner MD Lower Extremity Ultrasound 08/23/16 0000 Signed Impressions: Service Date/Time: Tuesday, August 23, 2016 13:14 - CONCLUSION: 1. No evidence of DVT of the right lower extremity. 2. Limited study of the left lower extremity. No DVT visualized from the knee up to the groin. Antony Corona MD Chest CT 08/23/16 0000 Signed Impressions: Service Date/Time: Tuesday, August 23, 2016 13:58 - CONCLUSION: 1. No evidence of overt pulmonary edema. 2. Bibasilar atelectasis, right greater than left. No evidence of pleural effusions. 3. Nonspecific 1.4 cm pulmonary nodule versus nodular infiltrate high in the left apex. This is not visualized on the recent chest x-rays. When patient is stable, a PET/CT could be performed on an emergent outpatient basis to evaluate for focal hypermetabolic activity. 4. Prominent bilateral pulmonary arteries. Antony Corona MD PE at Discharge GENERAL: Obese female. Appears comfortable. Aaox3 . SKIN: Warm and dry. Lower extremities with chronic changes of venous stasis. HEAD: Normocephalic. EYES: No scleral icterus. No injection or drainage. NECK: Supple, trachea midline. No JVD. CARDIOVASCULAR: Regular rate and rhythm, grade 2 systolic murmur appreciated. RESPIRATORY: Breath sounds equal bilaterally. No accessory muscle use. GASTROINTESTINAL: Abdomen soft, non-tender, nondistended. Positive bowel sounds. No rebound or guarding. MUSCULOSKELETAL: No cyanosis, or edema. BACK: Nontender without obvious deformity. No CVA tenderness. NEURO: No gross deficits. PSYCH: Mood and affect appropriate. Pt update on day of discharge The patient was resting in bed comfortably. She said she was breathing well. She says she has been incontinent of urine. She had no other acute complaints. Discussed with case management. Hospital Course Acute hypoxemic respiratory failure Originally, she presented to [facility] on 2 L nasal cannula. She had increasing oxygen requirement requiring BiPAP. 40 mg Lasix IV was provided. Blood gas revealed a worsening respiratory acidosis and the patient was intubated after receiving 20 mg etomidate, 100 mg rocuronium, using 7.5 ET tube. She was sedated on Versed and propofol drips. She was tolerating tube feeding. She was extubated successfully on 08/27. CT thorax revealed no overt pulmonary edema; There is a left apex nodule; Enlarged pulmonary arteries noted. Pulmonology was consulted. CXR improving. She is s/p vancomycin and Zosyn. She received bronchodilator therapy every 4 hours and as needed. She was started on Pulmicort 0.5/2 1 inhalation twice a day. Tobacco cessation was strongly advised. She will continue a steroid taper. Wean to BID 09/07. A PET/CT scan was recommended by radiology for further work-up of nodule as an outpt. CAD/ PVD/ HTN Echocardiogram revealed EF 55%; No regional wall motion abnormality. Left atrium somewhat dilated. Repeat echocardiogram revealed EF 55-60%; Right atrial enlargement; No regional wall motion abnormality. EKG revealed normal sinus rhythm; Incomplete right bundle branch block. She will continue her cardiac regimen. ARB on hold in setting of renal insufficiency and non elevated blood pressure. Diabetes mellitus The pt will continue her home medications. She will be placed on an insulin sliding scale. Steroids will be weaned. Acute on chronic kidney injury stage III Creatinine has been stable. Patient will continue metolazone 5 mg daily which may be held if renal function deteriorates. ARB has been discontinued. BMP recommended in 3-5 days. Pneumonia/ Cellulitis/ Urine tract infection/ Jaki cruris CXR with improvement. S/p antibiotics. Bilateral lower extremity venous stasis cellulitis improving with elevation. She received oxygen and nebs as needed. She will keep her legs elevated. Pt Condition on Discharge: Stable Discharge Disposition: Discharge to SNF Discharge Time: > 30 minutes Discharge Instructions DIET: Follow Instructions for: Diabetic Diet Activities you can perform: Weight Bearing as Katherin Follow up Referrals: PCP Follow-up - 1 Week Pulmonology - 1 Week with Jose David Little MD New Orders: BASIC METABOLIC PROF - 3-5 Days New Medications: Prednisone (Prednisone) 10 Mg Tab 10 MG PO DAILY Start this dose regimen once the twice daily regimen is completed. Breathing #7 Ref 0 TAB Insulin Human Regular Inj (Novolin R Inj) 1,000 Unit/10 Ml Vial 1 INJECTION SQ Q6HR Blood Sugar Management Days 30 INJECTION Ipratropium-Albuterol Neb (Duoneb) 0.5-2.5 Mg/3 Ml Neb 1 AMPULE INH Q2HR NEB PRN WHEEZING Days 30 ML Pantoprazole (Pantoprazole) 40 Mg Tab 40 MG PO DAILY Stomach #30 TAB Prednisone (Prednisone) 10 Mg Tab 10 MG PO BID Breathing #14 TAB Continued Medications: Albuterol 18 GM Inh (Ventolin Hfa 18 GM Inh) 90 Mcg/Act Aer 1 PUFF INH Q4H PRN SHORTNESS OF BREATH #1 Ref [address] (Aspir-81) 81 Mg Tabdr 1 TAB PO DAILY #30 Cimetidine (Cimetidine) 200 Mg Tab 200 MG PO DAILY STOMACH ACIDITY Ref 0 TAB Fluticasone-Salmeterol Inh (Advair Diskus Inh) 100-50 Mcg/Blist Aer 1 PUFF INH BID Rinse mouth after use. Asthma Management #1 Ref 5 INHALER Glipizide (Glipizide) 5 Mg Tab 5 MG PO DAILY Take 30 minutes before a meal Blood Sugar Management #30 Ref 0 TAB Metformin (Metformin) 500 Mg Tab 500 MG PO BIDPC With meals Blood Sugar Management #180 Ref 0 TAB Metolazone (Metolazone) 5 Mg Tab 5 MG PO DAILY #30 Ref 1 TAB Montelukast (Singulair) 10 Mg Tab 10 MG PO HS #30 Ref 5 TAB Multiple Vitamins W/ Minerals (Ocuvite) 1 Tab 1 TAB PO DAILY Nutritional Supplement Ref 0 TAB Pravastatin (Pravachol) 20 Mg Tab 20 MG PO DAILY Cholesterol Management #60 Ref 0 TAB Timolol Opth Drops (Timolol Opth Drops) 0.5 % Soln 1 DROP EACH EYE BID Glaucoma #1 Ref 0 BOTTLE Tramadol (Ultram) 50 Mg Tab 50 MG PO Q4H PRN PAIN #20 Ref 0 TAB (This prescription has been renewed) Wheelchair (Wheelchair) 1 Mis Mis 1 EA .ROUTE DIRECTED #1 Ref 0 EA Zolpidem (Zolpidem) 10 Mg Tab 10 MG PO HS PRN INSOMNIA #7 Ref 0 TAB (This prescription has been renewed) Discontinued Medications: Albuterol 8.5 GM Inh (Proair Hfa 8.5 GM Inh) 90 Mcg/Act Aer 2 PUFF INH Q6H 108 mcg/actuation PRN SHORTNESS OF BREATH #1 Ref 5 INHALER Albuterol Neb (Albuterol Neb) 2.5 Mg/3 Ml Neb 2.5 MG NEB Q4HR NEB While awake Breathing Treatment #25 Ref 6 NEBULE Hydralazine (Hydralazine) 10 Mg Tab 10 MG PO BID Take with a meal Blood Pressure Management Ref 0 TAB Losartan (Cozaar) 50 Mg Tab 50 MG PO DAILY Blood Pressure Management #30 Ref 0 TAB Metoclopramide (Metoclopramide) 10 Mg Tab 10 MG PO TIDAC Take 30 minutes prior to meals three times a day #90 Ref 0 TAB Potassium Chloride ER (Potassium Chloride CR) 10 Meq Tab 20 MEQ PO DAILY #60 Ref 1 TAB Tramadol (Ultram) 50 Mg Tab 50 MG PO Q8H PRN PAIN #60 Ref 0 TAB Kimo Skaggs DO Sep 09, 2016 09:51
[2016-09-09] MEDS: LOSARTAN 50 MG TAB PO SCH (09:55)
[2016-09-09] MEDS: predniSONE 10 MG TAB PO SCH (09:55)
[2016-09-09] MEDS: ENOXAPARIN SODIUM 40 MG/0.4 ML SYRINGE SQ SCH (09:55)
[2016-09-09] MEDS: PANTOPRAZOLE SOD 40 MG DELAYED RELEASE TAB PO SCH (09:55)
[2016-09-09] MEDS: ASPIRIN EC 81 MG TABEC PO SCH (09:55)
[2016-09-09] MEDS: MULTIVITAMIN-OPHTHALMIC 1 TAB PO SCH (09:55)
[2016-09-09] MEDS: METOLAZONE 5 MG TAB PO SCH (09:56)
[2016-09-09] MEDS: ARTIFICIAL TEARS OPTH SOLN 15 ML BTL EACH EYE SCH ×2 (09:56→13:00)
[2016-09-09] MEDS: TIMOLOL MALEATE 0.5% OPHT SOLN 5 ML BTL EACH EYE SCH (09:56)
[2016-09-09] MEDS: SODIUM CHLORIDE 0.9% FLUSH 5 ML FLUSH IV FLUSH SCH (09:56)
== END 2016-09-09 14:51 | DRG 207 ==
LOC: NEPC 07:40 → NEDA 10:50 → HIMN 14:10 → HCIN 08-28 23:30
PROVIDERS: ADMIT Internal Medicine Critical Care Medicine; ATTEND Hospitalist
PROC: 0BH17EZ Insertion of Endotracheal Airway into Trachea, Via Natural or Artificial Opening (ICD-10-PCS; principal; 2016-08-23)
PROC: 5A1955Z Respiratory Ventilation, Greater than 96 Consecutive Hours (ICD-10-PCS; 2016-08-23)
PROC: 5A09357 Assistance with Respiratory Ventilation, Less than 24 Consecutive Hours, Continuous Positive Airway Pressure (ICD-10-PCS; 2016-08-23)
PROC: 5A09457 Assistance with Respiratory Ventilation, 24-96 Consecutive Hours, Continuous Positive Airway Pressure (ICD-10-PCS; 2016-08-27)
DX: J96.01 Acute respiratory failure with hypoxia (principal); N17.9 Acute kidney failure, unspecified; J18.9 Pneumonia, unspecified organism; E87.2 Acidosis; E11.22 Type 2 diabetes mellitus with diabetic chronic kidney disease; E11.51 Type 2 diabetes mellitus with diabetic peripheral angiopathy without gangrene; L03.115 Cellulitis of right lower limb; N18.3 Chronic kidney disease, stage 3 (moderate); E87.1 Hypo-osmolality and hyponatremia; E66.2 Morbid (severe) obesity with alveolar hypoventilation; L03.116 Cellulitis of left lower limb; J44.1 Chronic obstructive pulmonary disease with (acute) exacerbation; Z68.41 Body mass index [BMI] 40.0-44.9, adult; N39.0 Urinary tract infection, site not specified; I87.333 Chronic venous hypertension (idiopathic) with ulcer and inflammation of bilateral lower extremity; L97.821 Non-pressure chronic ulcer of other part of left lower leg limited to breakdown of skin; L97.811 Non-pressure chronic ulcer of other part of right lower leg limited to breakdown of skin; E87.5 Hyperkalemia; E78.2 Mixed hyperlipidemia; G47.33 Obstructive sleep apnea (adult) (pediatric); G89.29 Other chronic pain; I12.9 Hypertensive chronic kidney disease with stage 1 through stage 4 chronic kidney disease, or unspecified chronic kidney disease; I25.10 Atherosclerotic heart disease of native coronary artery without angina pectoris; F17.210 Nicotine dependence, cigarettes, uncomplicated; K21.9 Gastro-esophageal reflux disease without esophagitis; I87.8 Other specified disorders of veins; B96.1 Klebsiella pneumoniae [K. pneumoniae] as the cause of diseases classified elsewhere; I87.2 Venous insufficiency (chronic) (peripheral); K59.00 Constipation, unspecified; M19.90 Unspecified osteoarthritis, unspecified site; M54.5 Low back pain; J30.2 Other seasonal allergic rhinitis; F90.9 Attention-deficit hyperactivity disorder, unspecified type; H26.9 Unspecified cataract; H40.9 Unspecified glaucoma; I45.10 Unspecified right bundle-branch block; B35.6 Tinea cruris; M81.0 Age-related osteoporosis without current pathological fracture; F32.9 Major depressive disorder, single episode, unspecified; Z95.5 Presence of coronary angioplasty implant and graft; Z79.84 Long term (current) use of oral hypoglycemic drugs; Z88.8 Allergy status to other drugs, medicaments and biological substances
CPT/HCPCS: 31500; 36600; 51702; 71010; 71250; 76937; 80048; 80053; 80202; 81001; 82550; 82552; 82805; 82948; 83605; 83735; 84100; 84132; 84484; 85025; 85027; 85610; 85730; 87040; 87077; 87086; 87186; 87493; 87641; 93005; 93306; 93970; 94002; 94003; 94150; 94640; 94664; 96365; 96367; 96374; 96375; 99292; C9113; J0360; J0456; J0610; J1650; J1815; J1940; J2250; J2543; J2920; J2930; J3010; J3370; J7030; J7040; J7050; J7512; J7613; J7626

== ENCOUNTER 2017-02-17 06:24 | Day surgery (SDC) | payer MEDICARE ==
--- NOTE | 2017-02-11 09:34 | MH ---
cc: Ned NICHOLSON,GIACOMO Coon MD DATE OF ADMISSION: 02/17/2017 HISTORY OF PRESENT ILLNESS Ms. Coley is a 71-year-old white female who was identified in August to have a left upper lobe nodule. A follow-up CT scan January 06 reveals that it is increasing in size. She has smoked for at least [id number] and continues to smoke a half pack per day and a PET/CT is positive with no mediastinal uptake. This is probably malignant. The patient has several other co-morbidities including extreme obesity, diabetes and coronary disease with two stents placed about 12 years ago. I do not know if she had any reevaluation of that in the hospital in August but she says she has not seen a garbage person at least as an outpatient since the original stents were placed. She is fairly immobile. She is in a wheelchair. She has chronic edema in the lower extremities with chronic cellulitis. She is comfortable at rest. She has had a nonproductive cough. No purulent sputum or hemoptysis. She does have dyspnea on exertion but again she is very sedentary. She had a spirometry in December which revealed an FEV-1 of about 30%. She is on Advair. PAST MEDICAL HISTORY As noted above diabetic, extreme obesity, BMI about 40, two stents in her coronaries at 59 years of age. She has had no formal testing for LYDIA but during the hospitalization apparently desaturated at night. She said she would not tolerate any type of a mask. ALLERGIES REACTION TO CHANTIX. ALSO HAS ADVERSE REACTION TO ANY TYPE OF ANXIETY MEDICATION. MEDICATIONS 1. Advair. 2. ProAir. 3. Metolazone. 4. Furosemide. 5. Montelukast. 6. Metformin. 7. Aspirin. 8. Timolol eye drops. 9. Gabapentin. 10.Pravastatin. FAMILY HISTORY Father an accidental . Mother had metastatic cancer, either from the lung or the stomach. Brother of cirrhosis of the liver. Five children. One son with asthma. SOCIAL HISTORY , living with her of 41 years. Originally from [place] but has lived in this area for 30 years. No animal exposures and no alcohol use. Smoking as noted, roughly 10 per day now and trying to quit. REVIEW OF SYSTEMS Weight is high but very stable. History of glaucoma. Chronic edema with chronic lower extremity cellulitis. No abdominal complaints. No specific musculoskeletal complaints. On her PET scan it was noted that she had some uptake in the right sacroiliac region. She has no pain or discomfort there, although she does have some on the left. She was recently examined by Dr. Maldonado and no superficial soft tissue abnormalities were noted that could account for this uptake on PET scan. PHYSICAL EXAMINATION VITAL SIGNS: Blood pressure 138/80, pulse 60, temperature 98, respiratory rate 18. Sat 87% on arrival with exertion, 90% on room air at rest. HEENT: Sclera anicteric. Pharynx is clear. NECK: Neck veins are flat. No adenopathy in the neck or supraclavicular region. CHEST: Although diminished is clear without wheezes or rales. No congestion. HEART: Regular rhythm. No harsh murmur. ABDOMEN: Obese, soft, nontender. EXTREMITIES: Significant lower extremity edema both legs with chronic venous stasis changes and nodularity of the skin. No cyanosis or clubbing. IMAGING CT and PET/CT are reviewed with she and her . She has a left upper lobe nodular irregular density very suspicious for malignancy. Ms. Coley presents with a probable left upper lobe malignancy. I will discuss it with radiology. It is a peripheral lesion and would probably best be approached by percutaneous biopsy; however, if that is not possible will schedule her for a diagnostic bronchoscopy. We have reviewed both of these procedures, particularly bronchoscopy in simple terms so that she understands what it involves. She recognizes there are risks in biopsying the lung. We have reviewed those, in particular pneumothorax or bleeding and with bronchoscopy general anesthetic complications. Further diagnostic and/or therapeutic intervention will depend on the further testing. R. MD BOUCHRA Lynn/DOLORES /9:43 AM /9:33 AM
[~2017-02-17] VITALS: Ht 162.6 cm; Wt 111.4 kg
[2017-02-17] VITALS (8 sets, daily range): BP systolic 101–128; BP diastolic 44–68; PULSE 45–61; RESP 16–20; TEMP 97.3–97.8; O2SAT 89–97
[~2017-02-17 06:24] MED LIST changes: -ALBU0.08 NEB; -ALBUAER3 INH; -COZA50TA PO; -HYDR10TA23 PO; +IPRASOL INH; -METO10TA PO; +NOVORP2 SQ; +PANT40TA3 PO; -POTA10TA8 PO; +PRED10 PO
[2017-02-17] MEDS ORDERED: GABA300C5 PO (06:59)
[2017-02-17] MEDS ORDERED: ONDA1TAB16 PO (06:59)
[2017-02-17] MEDS ORDERED: FURO20TA PO (06:59)
[2017-02-17] MEDS ORDERED: ROZE8TAB8 PO (06:59)
[2017-02-17] MEDS ORDERED: SODIUM CHLOR 0.9% 1000 ML INJ 1,000 ML IV SCH (07:00)
[2017-02-17] MEDS ORDERED: fentaNYL CITRATE 250 MCG/5 ML AMP ONE (07:59)
[2017-02-17] MEDS ORDERED: MIDAZOLAM HCL 2 MG/2 ML VIAL ONE ×2 (07:59→08:01)
[2017-02-17] MEDS ORDERED: LIDOCAINE 1%/EPINEPHrine 1:100,000 SOLN 20 ML VIAL ONE (08:08)
--- NOTE | 2017-02-17 12:17 | RADRPT ---
EXAM DATE/TIME: 02/17/2017 11:26 [facility] COMPARISON: CT THORAX W/O CONTRAST, August 23, 2016, 13:58. CHEST SINGLE AP, September 04, 2016, 12:21. INDICATIONS : Evaluate for pneumothorax post lung biopsy MEDICAL HISTORY : Chronic obstructive pulmonary disease. Hypercholesterolemia. Hypertension. SURGICAL HISTORY : coronary artery stent ENCOUNTER: Initial ACUITY: 1 day PAIN SCORE: 0/10 LOCATION: Left chest FINDINGS: No significant pneumothorax status post left upper lobe mass biopsy. Biopsied mass in the left upper lobe is not well demonstrated on radiographs. Cardiomediastinal contours are stable. The remainder of the exam is unchanged. CONCLUSION: 1. No significant pneumothorax status post lung nodule biopsy. Conner Culp MD on February 17, 2017 at 12:13 Board Certified Radiologist. This report was verified electronically.
--- NOTE | 2017-02-17 15:06 | RADRPT ---
EXAM DATE/TIME: 02/17/2017 08:24 [facility] COMPARISON: No previous studies available for comparison. INDICATIONS : Left lung mass. SEDATION TIME: 40 minutes BIOPSY SITE: Left MEDICATION(S): 1.) 2.5 mg midazolam (Versed) IV 2.) 150 mcg fentanyl (Sublimaze) IV DEVICE(S): 1.) 20 gauge Temno core biopsy needle MEDICAL HISTORY : Cardiovascular disease. Hypertension. Diabetes mellitus type 2. SURGICAL HISTORY : Hysterectomy. ENCOUNTER: Initial ACUITY: 1 day PAIN SCORE: 0/10 LOCATION: Left chest A total of one core specimen(s) were obtained and sent to the laboratory for pathologic evaluation. PROCEDURE: 1. CT guided lung biopsy. 2. Conscious sedation with continuous EKG and oximetry monitoring. 3. EKG and oximetry remained stable throughout the procedure. Prior to the procedure informed consent was obtained. Any appropriate prior imaging studies were rev iewed. Using automated exposure control and adjustment of the mA and/or kV according to patient size, radiation dose was kept as low as reasonably achievable to obtain optimal diagnostic quality images. DICOM format image data is available electronically for review and comparison. The site was prepped in a sterile fashion. Full sterile technique was used, including cap, mask, geovany rile gloves and gown and a large sterile sheet. Hand hygiene and 2% chlorhexidine and/or betadine/al cohol prep was utilized per protocol for cutaneous antisepsis. The skin and subcutaneous tissues wer e infiltrated with local anesthetic solution. Under CT guidance multiple attempts were used to a an 18 gauge blunt needle into the periphery of the lesion in the left upper lobe. Access was very difficult because of the very narrow window 17 cm in . The needle in less than optimal position core was obtained. Using a bent 20 gauge needle 3 aspirates were obtained as well. Follow-up CT scan reveals no pneumothorax. Conscious sedation was performed with the prescribed dosages and duration as above in the presence of an independent trained radiology nurse to assist in the monitoring of the patient. EKG and oximetry remained stable throughout the procedure. The patient tolerated the procedure well and there were no complications. The patient was sent to Radiology Outpatient Unit in stable condition. CONCLUSION: Difficult biopsy that may be nondiagnostic. There is not a good percutaneous window evident. If this proves to be nondiagnostic reattempt can be made either in the decubitus or prone position. Both of the these may require intubation and general anesthesia because of the poor respir atory function and potential for desaturation in the prone or oblique lateral position. Regan Cazares MD FACR on February 17, 2017 at 15:01 Board Certified Radiologist. This report was verified electronically.
== END 2017-02-17 15:05 | disposition home or self-care (01) ==
LOC: HRAD 06:24 → HRIP 06:30 → HRAD 15:05
PROVIDERS: ATTEND Internal Medicine
DX: R91.8 Other nonspecific abnormal finding of lung field (principal); J44.9 Chronic obstructive pulmonary disease, unspecified; I25.10 Atherosclerotic heart disease of native coronary artery without angina pectoris; I10 Essential (primary) hypertension; E11.9 Type 2 diabetes mellitus without complications; E78.00 Pure hypercholesterolemia, unspecified; Z95.5 Presence of coronary angioplasty implant and graft; Z87.891 Personal history of nicotine dependence
CPT/HCPCS: 32405; 71010; 77012; 87015; 87070; 87102; 87116; 87205; 87206; 88305; 88333; J2250; J3010; J7030

== ENCOUNTER 2018-02-03 16:41 | Inpatient (IN) ==
--- NOTE | 2018-02-03 18:09 | ED ---
HPI General Chief complaint: Extremity Problem,Nontraumatic Stated complaint: Bilat Edema Time Seen by Provider: 02/03/18 18:03 Source: patient Mode of arrival: ambulatory Limitations: no limitations History of Present Illness HPI Narrative: 72-year-old female complains of lower extremity redness swelling and pain. Patient states that she has a history of peripheral vascular disease with chronic bilateral extremity swelling for the past 3-4 years. Patient states that the swelling redness and worse for the past 3 weeks. Patient states that she has clear fluid draining out from the lower extremity. Patient denies any fever chills. Patient denies any headache. Patient denies any chest pain or shortness of breath. Patient denies abdominal pain. Patient was seen by personal physician today Dr. Maldonado and referral to ED for evaluation and possible admission. Patient has history of hypertension, type 2 diabetes. MD Complaint: extremity pain and extremity swelling Onset (ago): week(s) Pain Consistency: constant Location: lower extremity Severity scale (1-10): 5 Quality: aching Radiation: none Relieving factors: nothing Exacerbating factors: nothing Related Data Allergies Allergy/AdvReac Type Severity Reaction Status Date / Time mushroom Allergy Severe Throat Verified 02/03/18 19:17 swelling, rash sertraline AdvReac Intermediate Dizziness Verified 02/03/18 19:17 Review of Systems Except as stated in HPI: all other systems reviewed are negative PMFSH History History Provided By: Patient Medical History Medical History ADHD (Acute) CHF (congestive heart failure) (Acute) Cellulitis (Acute) Dermatitis (Acute) Diabetes (Acute) HTN (hypertension) (Acute) Hx of radiation therapy (Acute) Lung nodule (Acute) Mass of left lung (Acute) Renal insufficiency (Acute) Squamous cell carcinoma (Acute) Venous stasis (Acute) Social History Social History Substance History: No History of Abuse Smoking Status: Current every day smoker Tobacco Type: Cigarettes How Often Do You Have a Drink Containing Alcohol: Never Recent Travel in [place] within the Last 8 Weeks: No Recent Out of Country Travel within the Last 8 Weeks: No Exam Narrative Exam Narrative: GENERAL: Well-nourished, well-developed patient. SKIN: Focused skin assessment warm/dry. HEAD: Normocephalic. EYES: No scleral icterus. No injection or drainage. NECK: Supple, trachea midline. No JVD or lymphadenopathy. CARDIOVASCULAR: Regular rate and rhythm without murmurs, gallops, or rubs. RESPIRATORY: Breath sounds equal bilaterally. No accessory muscle use. GASTROINTESTINAL: Abdomen soft, non-tender, nondistended. MUSCULOSKELETAL: No cyanosis, or edema. BACK: Nontender without obvious deformity. No CVA tenderness. Patient has +3 edema lower extremity with redness and macerated skin and clear yellow drainage in the lower extremity bilaterally. Involvement including bilateral feet and bilateral lower extremity up to the knee area. Course Initial Documented Vital Signs Temperature 97.8 F 02/03/18 16:57 Pulse Rate 60 02/03/18 16:57 Respiratory Rate 18 02/03/18 16:57 Blood Pressure 143/67 H 02/03/18 16:57 Pulse Oximetry 88 L 02/03/18 16:57 Last Documented Vital Signs Temperature 97.8 F 02/03/18 16:57 Pulse Rate 60 02/03/18 18:10 Respiratory Rate 18 02/03/18 18:10 Blood Pressure 130/61 02/03/18 18:10 Pulse Oximetry 96 02/03/18 18:10 Medical Decision Making [facility] Narrative Medical decision making narrative: 72-year-old female with bilateral lower extremity redness swelling oozing fluid and with pain. History of peripheral vascular disease and chronic dependent edema. Vancomycin 1 g IV given. Zosyn 3.375 g IV given. Normal saline solution 70 cc an hour. Differential Diagnosis Differential Diagnosis: Differential diagnosis including cellulitis, abscess, DVT. Lab Data Lab results reviewed: Yes I reviewed the patient's lab results. Result diagrams: 02/03/18 18:20 02/03/18 18:20 Lab Results 02/03/18 02/03/18 02/03/18 Range/Units 18:20 18:20 18:20 CBC w Diff Auto diff final WBC 11.5 H (4.0-11.0) th/mm3 RBC 4.63 (4.00-5.30) mil/mm3 Hgb 13.5 (11.6-15.3) gm/dL Hct 40.5 (35.0-46.0) % MCV 87.6 (80.0-100.0) fL MCH 29.3 (27.0-34.0) pg MCHC 33.4 (32.0-36.0) % RDW 13.2 (11.6-17.2) % Plt Count 319 (150-450) th/mm3 MPV 6.4 L (7.0-11.0) fL Neut % (Auto) 70.5 H (16.0-70.0) % Lymph % (Auto) 14.3 (9.0-44.0) % Ross % (Auto) 8.4 H (0.0-8.0) % Eos % (Auto) 3.8 (0.0-4.0) % Baso % (Auto) 3.0 H (0.0-2.0) % Neut # (Auto) 8.2 H (1.8-7.7) th/mm3 Lymph # (Auto) 1.6 (1.0-4.8) th/mm3 Ross # (Auto) 1.0 H (0.0-0.9) th/mm3 Eos # (Auto) 0.4 (0.0-0.4) th/mm3 Baso # (Auto) 0.3 H (0.0-0.2) th/mm3 WBC Differential . Differential Comment . Sodium 128 L (136-145) meq/L Potassium 4.1 (3.5-5.1) meq/L Chloride 88 L (98-107) meq/L Carbon Dioxide 34.9 H (21.0-32.0) meq/L Anion Gap 5 (5-15) meq/L BUN 18 (7-18) mg/dL Creatinine 1.10 H (0.50-1.00) mg/dL Estimated GFR 49 L (>89) mL/min Random Glucose 197 H (74-106) mg/dL Lactic Acid 1.5 (0.4-2.0) mmol/L Calcium 9.2 (8.5-10.1) mg/dL Total Bilirubin 0.5 (0.2-1.0) mg/dL AST 15 (15-37) U/L ALT 14 (10-53) U/L Alkaline Phosphatase 102 (45-117) U/L Total Protein 8.1 (6.4-8.2) g/dL Albumin 3.2 L (3.4-5.0) g/dL Discharge Plan Discharge Disposition Patient Disposition: 30 Still Patient Discharge Details Diagnosis: Cellulitis, Acute hyponatremia Physicians Team ED Provider: Chad Patel Primary Care Provider: Diya Maldonado Discharge Interventions Interventions: Vital Signs Last Done: 02/03/18 18:10 Status ED Status: With Doctor
[2018-02-03 18:30] LABS: Baso # (Auto) 0.3 th/mm3 (0.0-0.2); Eos # (Auto) 0.4 th/mm3 (0.0-0.4); Eos % (Auto) 3.8 % (0.0-4.0); Hematocrit 40.5 % (35.0-46.0); Hemoglobin 13.5 gm/dL (11.6-15.3); Lymph # (Auto) 1.6 th/mm3 (1.0-4.8); Lymph % (Auto) 14.3 % (9.0-44.0); Mean Corpuscular HGB Conc 33.4 % (32.0-36.0); Mean Corpuscular Hemoglobin 29.3 pg (27.0-34.0); Mean Corpuscular Volume 87.6 fL (80.0-100.0); Mean Platelet Volume 6.4 fL (7.0-11.0); Mono % (Auto) 8.4 % (0.0-8.0); Neut # (Auto) 8.2 th/mm3 (1.8-7.7); Neut % (Auto) 70.5 % (16.0-70.0); Platelet Count 319 th/mm3 (150-450); Red Blood Count 4.63 mil/mm3 (4.00-5.30); Red Cell Distribution Width 13.2 % (11.6-17.2); White Blood Count 11.5 th/mm3 (4.0-11.0)
[2018-02-03 18:44] LABS: Chloride 88 meq/L (98-107); Potassium 4.1 meq/L (3.5-5.1); Sodium 128 meq/L (136-145)
[2018-02-03 18:48] LABS: Albumin 3.2 g/dL (3.4-5.0); Anion Gap 5 meq/L (5-15); Blood Urea Nitrogen 18 mg/dL (7-18); Calcium 9.2 mg/dL (8.5-10.1); Carbon Dioxide 34.9 meq/L (21.0-32.0); Glucose,Random 197 mg/dL (74-106)
[2018-02-03 18:51] LABS: Alanine Aminotransferase 14 U/L (10-53); Aspartate Aminotransferase 15 U/L (15-37)
[2018-02-03 18:52] LABS: Glomerular Filtration Rate 49 mL/min (>89)
[2018-02-03 18:53] LABS: Total Protein 8.1 g/dL (6.4-8.2)
[2018-02-03 18:54] LABS: Alkaline Phosphatase 102 U/L (45-117)
[2018-02-03 19:12] LABS: Activated Partial Thrombo Time 20.5 sec (24.3-30.1)
[2018-02-03 19:37] LABS: Bilirubin,Urine Negative (Negative); Clarity,Urine Slightly Cloudy (Clear); Color,Urine Yellow (Yellw/Straw); Glucose,Urine (UA) Negative (Negative); Leukocyte Esterase,Urine Trace (Negative); Nitrite,Urine Positive (Negative); Specific Gravity,Urine 1.025 (1.002-1.035)
[2018-02-03 19:41] LABS: WBC,Urine 21-50 /hpf (0-5)
[2018-02-03 19:42] LABS: Bacteria,Urine Many /hpf
[2018-02-03] MEDS ORDERED: Vancomycin Consult Pharmacy 1 EACH OTHER SCH (19:49)
[2018-02-03] MEDS ORDERED: Acetaminophen 325 MG Tablet PO PRN (19:50)
[2018-02-03] MEDS ORDERED: Bisacodyl 10 MG Supp RECTAL PRN (19:50)
[2018-02-03] MEDS ORDERED: Morphine Inj 4 MG/ML Vial IV.PUSH PRN (19:55)
[2018-02-03] MEDS: Sod Chloride 0.9% Inj 1,000 ML IV.CONT SCH ×2 (20:22→21:32)
[2018-02-03] MEDS: Senna/Docusate Sodium 8.6/50 MG Tablet PO SCH (21:32)
[2018-02-04 06:11] LABS: Baso % (Auto) 0.4 % (0.0-2.0); Eos # (Auto) 0.3 th/mm3 (0.0-0.4); Eos % (Auto) 2.7 % (0.0-4.0); Hematocrit 40.2 % (35.0-46.0); Hemoglobin 13.7 gm/dL (11.6-15.3); Lymph # (Auto) 1.2 th/mm3 (1.0-4.8); Lymph % (Auto) 10.4 % (9.0-44.0); Mean Corpuscular HGB Conc 34.1 % (32.0-36.0); Mean Corpuscular Hemoglobin 29.3 pg (27.0-34.0); Mean Corpuscular Volume 85.9 fL (80.0-100.0); Mono # (Auto) 0.6 th/mm3 (0.0-0.9); Mono % (Auto) 5.7 % (0.0-8.0); Neut # (Auto) 9.2 th/mm3 (1.8-7.7); Neut % (Auto) 80.8 % (16.0-70.0); Platelet Count 334 th/mm3 (150-450); Red Blood Count 4.68 mil/mm3 (4.00-5.30); Red Cell Distribution Width 13.8 % (11.6-17.2); White Blood Count 11.3 th/mm3 (4.0-11.0)
[2018-02-04 06:21] LABS: Chloride 89 meq/L (98-107); Potassium 4.1 meq/L (3.5-5.1); Sodium 131 meq/L (136-145)
[2018-02-04 06:24] LABS: Calcium 8.9 mg/dL (8.5-10.1)
[2018-02-04 06:25] LABS: Albumin 3.2 g/dL (3.4-5.0); Anion Gap 10 meq/L (5-15); Blood Urea Nitrogen 19 mg/dL (7-18); Carbon Dioxide 31.6 meq/L (21.0-32.0); Glucose,Random 190 mg/dL (74-106)
[2018-02-04 06:28] LABS: Alanine Aminotransferase 11 U/L (10-53); Aspartate Aminotransferase 12 U/L (15-37); Glomerular Filtration Rate 55 mL/min (>89)
[2018-02-04 06:29] LABS: Total Protein 7.7 g/dL (6.4-8.2)
[2018-02-04 06:31] LABS: Alkaline Phosphatase 91 U/L (45-117)
--- NOTE | 2018-02-04 08:47 | P.DS ---
Date of admission: 02/03/18 20:12 Primary care physician: Diya Maldonado MD DS: Summary - Time Spent with Patient Total time spent providing and/or coordinating discharge services: - Quality: VTE Deep Vein Thrombosis/Pulmonary Embolism Present on Admission: No Exam Vital signs: Vital Signs 02/03/18 16:57 02/03/18 17:05 02/03/18 18:03 Temperature 97.8 F Pulse Rate 60 Respiratory Rate 18 Blood Pressure 143/67 H Pulse Oximetry 88 L 92 L 95 02/03/18 18:10 02/03/18 21:38 02/03/18 23:43 Temperature 97.5 F L Pulse Rate 60 66 64 Respiratory Rate 18 18 20 Blood Pressure 130/61 142/68 H 135/62 Pulse Oximetry 96 96 95 02/03/18 23:45 02/04/18 01:07 02/04/18 01:42 Temperature 97.1 F L Pulse Rate 67 Respiratory Rate 0 L 20 Blood Pressure 154/75 H Pulse Oximetry 95 97 Intake & Output 02/03/18 02/04/18 02/04/18 18:59 06:59 18:59 Intake Total 800 / 800 Output Total 30 / 30 Balance 770 / 770 Weight 162.5 kg Intake: Oral 800 / 800 Output: Urine 30 / 30 Other: # Voids 2 # Incontinent Voids 1 Results Labs on day of discharge: Labs from last 24 hours 02/04/18 02/04/18 02/03/18 05:35 05:35 19:30 CBC w Diff Auto diff final WBC 11.3 H RBC 4.68 Hgb 13.7 Hct 40.2 MCV 85.9 MCH 29.3 MCHC 34.1 RDW 13.8 Plt Count 334 MPV 7.0 Neut % (Auto) 80.8 H Lymph % (Auto) 10.4 [place] % (Auto) 5.7 Eos % (Auto) 2.7 Baso % (Auto) 0.4 Neut # (Auto) 9.2 H Lymph # (Auto) 1.2 [place] # (Auto) 0.6 Eos # (Auto) 0.3 Baso # (Auto) 0.0 WBC Differential . Differential Comment . PT INR APTT Sodium 131 L Potassium 4.1 Chloride 89 L Carbon Dioxide 31.6 Anion Gap 10 BUN 19 H Creatinine 1.00 Estimated GFR 55 L Random Glucose 190 H Lactic Acid Calcium 8.9 Total Bilirubin 0.9 AST 12 L ALT 11 Alkaline Phosphatase 91 Total Protein 7.7 Albumin 3.2 L Urine Color Yellow Urine Clarity Slightly cloudy Urine pH 6.0 Ur Specific [place] 1.025 Urine Protein 100 H Urine Glucose (UA) Negative Urine Ketones Negative Urine Occult Blood Negative Urine Nitrate Positive H Urine Bilirubin Negative Urine Urobilinogen 1.0 Ur Leukocyte Esterase Trace H Urine WBC 21-50 H Urine WBC Clumps Few H Ur Squamous Epith Cells 6-10 H Urine Bacteria Many H Micro UA Comment Culture indicated Urine Culture Comments Culture indicated 02/03/18 02/03/18 02/03/18 18:20 18:20 18:20 CBC w Diff WBC RBC Hgb Hct MCV MCH MCHC RDW Plt Count MPV Neut % (Auto) Lymph % (Auto) [place] % (Auto) Eos % (Auto) Baso % (Auto) Neut # (Auto) Lymph # (Auto) [place] # (Auto) Eos # (Auto) Baso # (Auto) WBC Differential Differential Comment PT 10.0 INR 1.0 APTT 20.5 L Sodium 128 L Potassium 4.1 Chloride 88 L Carbon Dioxide 34.9 H Anion Gap 5 BUN 18 Creatinine 1.10 H Estimated GFR 49 L Random Glucose 197 H Lactic Acid 1.5 Calcium 9.2 Total Bilirubin 0.5 AST 15 ALT 14 Alkaline Phosphatase 102 Total Protein 8.1 Albumin 3.2 L Urine Color Urine Clarity Urine pH Ur Specific [place] Urine Protein Urine Glucose (UA) Urine Ketones Urine Occult Blood Urine Nitrate Urine Bilirubin Urine Urobilinogen Ur Leukocyte Esterase Urine WBC Urine WBC Clumps Ur Squamous Epith Cells Urine Bacteria Micro UA Comment Urine Culture Comments 02/03/18 18:20 CBC w Diff Auto diff final WBC 11.5 H RBC 4.63 Hgb 13.5 Hct 40.5 MCV 87.6 MCH 29.3 MCHC 33.4 RDW 13.2 Plt Count 319 MPV 6.4 L Neut % (Auto) 70.5 H Lymph % (Auto) 14.3 [place] % (Auto) 8.4 H Eos % (Auto) 3.8 Baso % (Auto) 3.0 H Neut # (Auto) 8.2 H Lymph # (Auto) 1.6 [place] # (Auto) 1.0 H Eos # (Auto) 0.4 Baso # (Auto) 0.3 H WBC Differential . Differential Comment . PT INR APTT Sodium Potassium Chloride Carbon Dioxide Anion Gap BUN Creatinine Estimated GFR Random Glucose Lactic Acid Calcium Total Bilirubin AST ALT Alkaline Phosphatase Total Protein Albumin Urine Color Urine Clarity Urine pH Ur Specific [place] Urine Protein Urine Glucose (UA) Urine Ketones Urine Occult Blood Urine Nitrate Urine Bilirubin Urine Urobilinogen Ur Leukocyte Esterase Urine WBC Urine WBC Clumps Ur Squamous Epith Cells Urine Bacteria Micro UA Comment Urine Culture Comments Discharge Plan - Physicians Team Primary Care Provider: Diya Maldonado Attending Provider: Marline Paredes
--- NOTE | 2018-02-04 08:57 | P.HP ---
History of Present Illness Primary Care Physician: Diya Maldonado MD History of Present Illness: This is a pleasant 72-year-old female patient with a known medical history of diabetes, hypertension, CHF, COPD presented to the ED with complaints of worsening lower extremity swelling, pain and redness 3 weeks. Patient does admit to history of peripheral vascular disease and chronic bilateral extremity swelling for the past several years although over the past 3 weeks she is developed increasing redness and pain. She states that both bilateral extremities have been draining clear fluid. She denies any fevers, chills, cough, shortness of breath, headache, abdominal pain, nausea, vomiting, diarrhea or dysuria at home. She sees her PCP, Dr. Maldonado, who advised her to come to the ED for evaluation. Patient denies any recent antibiotic use. She has been undergoing radiation therapy for a lung nodule. Patient is on aware of oncologist name or even diagnosis. Patient presented with a mild elevation in white blood cell count, no fever. Was started on IV vancomycin as well as cefepime. Wound care nurse ordered to see patient today. Patient does not follow with the contact center agent, does admit to history of CHF and has recently had an echo within the last 6 months. BNP 64 on presentation. - Diagnosis (1) Cellulitis (2) Acute hyponatremia (3) Type 2 diabetes mellitus (4) CHF (congestive heart failure) (5) Hypoxia Inpatient Certification: I certify that the inpatient services were ordered in accordance with Medicare regulations governing the order. This includes certification that hospital inpatient services are reasonable and necessary and in the case of services not specified as inpatient-only under 42 CFR 419.22(n), that they are appropriately provided as inpatient services in accordance to with the 2-midnight benchmark under 43 CFR 412.3(e) Estimated Total Length of Stay (Days): 2 Plans for Post Hospital Care: Not yet determined Review of Systems All other systems reviewed negative except as stated in HPI [facility] - History History Provided By: Patient - Medical History Medical History: Medical History (Last Updated 02/03/18 @ 19:05 by Fely Pérez) ADHD CHF (congestive heart failure) Cellulitis Dermatitis Diabetes HTN (hypertension) Hx of radiation therapy Lung nodule Mass of left lung Renal insufficiency Squamous cell carcinoma Venous stasis - Surgical History Surgical History: Surgical History (Last Updated 07/13/18 @ 12:29 by Polly Dunne) H/O tubal ligation - Family History Family History: Family History (Last Updated 02/04/18 @ 12:29 by Polly Dunne) Other No significant family history - Tobacco History Second Hand Smoke Exposure: No Tobacco Use In Past 30 Days: Yes Smoking Status: Former smoker Tobacco Type: Cigarettes - Alcohol History How Often Do You Have a Drink Containing Alcohol: Never - Substance Use History Substance History: No History of Abuse - Travel History Recent Travel in the [place] Within the Last 8 Weeks: No Recent Travel Out of the Country Within the Last 8 Weeks: No - Immunization History Tetanus Immunization: >5 Years Hx Influenza Vaccine This Season: Yes Medications and Allergies Active Medications: Active Medications Acetaminophen (Tylenol) 650 mg PO Q4H PRN PRN Reason: Temp > 100.4 Al Hydroxide/Mg Hydroxide (Milk Of Magnesia Liq) 30 ml PO Q12H PRN PRN Reason: Mild Constipation Bisacodyl (Dulcolax Supp) 10 mg RECTAL DAILY PRN PRN Reason: SEVERE CONSITIPATION Sodium Chloride (Ns Inj) 1,000 mls @ 70 mls/hr IV.CONT .[id number] [facility] Last Admin: 02/03/18 20:22 Dose: Not Given Cefepime HCl 1,000 mg/ Sodium (Chloride) 100 mls @ 200 mls/hr IV.SIG Q12H [facility] Sodium Chloride (Ns Inj) 1,000 mls @ 100 mls/hr IV.CONT .Q10H [facility] Last Admin: 02/03/18 21:32 Dose: 100 mls/hr Pharmacy Profile Note (Vancomycin Consult Pharmacy) 0 mls @ 0 mls/hr OTHER UNSCH [facility] Vancomycin HCl 2,500 mg/ (Sodium Chloride) 525 mls @ 250 mls/hr IV.SIG Q24H [facility] Lactulose (Lactulose Liq) 30 ml PO DAILY PRN PRN Reason: SEVERE CONSITIPATION Metoclopramide HCl (Reglan Inj) 5 mg IV.PUSH Q6HR PRN; Protocol PRN Reason: NAUSEA OR VOMITING Miscellaneous Information ([facility] Ordered Lab Info) 0 each OTHER ONCE ONE Stop: 02/07/18 09:46 Morphine Sulfate (Morphine Inj) 2 mg IV.PUSH Q4H PRN PRN Reason: PAIN 6-10 Senna/Docusate Sodium (Valeria-Colace) 1 tab PO BID [facility] Last Admin: 02/03/18 21:32 Dose: Not Given Sennosides (Senokot) 17.2 mg PO Q12H PRN PRN Reason: Moderate Constipation Sodium Chloride (Ns Flush) 2 ml IV.FLUSH PRN PRN PRN Reason: FLUSH AFTER USING IV ACCESS Tramadol HCl (Ultram) 50 mg PO Q8H PRN PRN Reason: PAIN SCALE 1 TO 10 Allergies Allergy/AdvReac Type Severity Reaction Status Date / Time mushroom Allergy Severe Throat Verified 02/03/18 19:17 swelling, rash sertraline AdvReac Intermediate Dizziness Verified 02/03/18 19:17 Home Medications Medication Instructions Recorded Confirmed Type albuterol sulfate [ProAir HFA] See Label Instructions .ROUTE 02/03/18 02/03/18 History .COMPLEX fluticasone-salmeterol [Advair 1 puff INHALATION BID 02/03/18 02/03/18 History Diskus] furosemide 20 mg PO DAILY PRN 02/03/18 02/03/18 History metformin 500 mg PO BID 02/03/18 02/03/18 History metolazone 5 mg PO DAILY 02/03/18 02/03/18 History montelukast 10 mg PO DAILY 02/03/18 02/03/18 History pravastatin 20 mg PO DAILY 02/03/18 02/03/18 History timolol 1 drp OPHTHALMIC (EYE) DAILY 02/03/18 02/03/18 History tramadol 50 mg PO BID 02/03/18 02/03/18 History Exam Vital signs: Vital Signs 02/03/18 16:57 02/03/18 17:05 02/03/18 18:03 Temperature 97.8 F Pulse Rate 60 Respiratory Rate 18 Blood Pressure 143/67 H Pulse Oximetry 88 L 92 L 95 02/03/18 18:10 02/03/18 21:38 02/03/18 23:43 Temperature 97.5 F L Pulse Rate 60 66 64 Respiratory Rate 18 18 20 Blood Pressure 130/61 142/68 H 135/62 Pulse Oximetry 96 96 95 02/03/18 23:45 02/04/18 01:07 02/04/18 01:42 Temperature 97.1 F L Pulse Rate 67 Respiratory Rate 0 L 20 Blood Pressure 154/75 H Pulse Oximetry 95 97 Intake & Output 07/12/18 07/13/18 07/13/18 18:59 06:59 18:59 Intake Total 800 / 800 Output Total / 30 Balance 770 / 770 Weight 162.5 kg Intake: Oral 800 / 800 Output: Urine Other: # Voids 2 # Incontinent Voids 1 Narrative: GENERAL: Well-developed, well-nourished patient on 2 L nasal cannula. SKIN: Warm and dry. Bilateral lower extremities have large brown/yellow moist fibrin clustered cover 80% in bilateral gaiter area. Moderate weeping to bilateral extremities. Odor present. HEAD: Normocephalic. Atraumatic. EYES: Pupils equal and round. No scleral icterus. No injection or drainage. ENT: No nasal bleeding or discharge. Mucous membranes pink and moist. NECK: Supple. Trachea midline. CARDIOVASCULAR: Regular rate and rhythm. S1, S2 noted. No murmur appreciated. RESPIRATORY: No accessory muscle use. Diminished breath sounds secondary to body habitus. Breath sounds equal bilaterally. GASTROINTESTINAL: Abdomen soft, non-tender, nondistended. Normoactive bowel sounds x4. MUSCULOSKELETAL: No obvious deformities. NEUROLOGICAL: Awake and alert. No obvious cranial nerve deficits. Motor grossly within normal limits. 5/5 muscle strength in bilateral upper and lower extremities. Normal speech. PSYCHIATRIC: Appropriate mood and affect; insight and judgment normal. - Constitutional no acute distress - Routine HEENT Exam Head: Present: normocephalic Eye: Present: EOMI, PERRL ENT: Present: mucous membranes moist Results - Labs CBC & Chem 7: 02/04/18 05:35 02/04/18 05:35 Labs: Laboratory Results - last 24 hr 02/03/18 02/03/18 02/03/18 18:20 18:20 18:20 CBC w Diff Auto diff final WBC 11.5 H RBC 4.63 Hgb 13.5 Hct 40.5 MCV 87.6 MCH 29.3 MCHC 33.4 RDW 13.2 Plt Count 319 MPV 6.4 L Neut % (Auto) 70.5 H Lymph % (Auto) 14.3 [place] % (Auto) 8.4 H Eos % (Auto) 3.8 Baso % (Auto) 3.0 H Neut # (Auto) 8.2 H Lymph # (Auto) 1.6 [place] # (Auto) 1.0 H Eos # (Auto) 0.4 Baso # (Auto) 0.3 H WBC Differential . Differential Comment . PT 10.0 INR 1.0 APTT 20.5 L Sodium 128 L Potassium 4.1 Chloride 88 L Carbon Dioxide 34.9 H Anion Gap 5 BUN 18 Creatinine 1.10 H Estimated GFR 49 L Random Glucose 197 H Lactic Acid Calcium 9.2 Total Bilirubin 0.5 AST 15 ALT 14 Alkaline Phosphatase 102 Total Protein 8.1 Albumin 3.2 L Urine Color Urine Clarity Urine pH Ur Specific [place] Urine Protein Urine Glucose (UA) Urine Ketones Urine Occult Blood Urine Nitrate Urine Bilirubin Urine Urobilinogen Ur Leukocyte Esterase Urine WBC Urine WBC Clumps Ur Squamous Epith Cells Urine Bacteria Micro UA Comment Urine Culture Comments 02/03/18 02/03/18 02/04/18 18:20 19:30 05:35 CBC w Diff Auto diff final WBC 11.3 H RBC 4.68 Hgb 13.7 Hct 40.2 MCV 85.9 MCH 29.3 MCHC 34.1 RDW 13.8 Plt Count 334 MPV 7.0 Neut % (Auto) 80.8 H Lymph % (Auto) 10.4 [place] % (Auto) 5.7 Eos % (Auto) 2.7 Baso % (Auto) 0.4 Neut # (Auto) 9.2 H Lymph # (Auto) 1.2 [place] # (Auto) 0.6 Eos # (Auto) 0.3 Baso # (Auto) 0.0 WBC Differential . Differential Comment . PT INR APTT Sodium Potassium Chloride Carbon Dioxide Anion Gap BUN Creatinine Estimated GFR Random Glucose Lactic Acid 1.5 Calcium Total Bilirubin AST ALT Alkaline Phosphatase Total Protein Albumin Urine Color Yellow Urine Clarity Slightly cloudy Urine pH 6.0 Ur Specific [place] 1.025 Urine Protein 100 H Urine Glucose (UA) Negative Urine Ketones Negative Urine Occult Blood Negative Urine Nitrate Positive H Urine Bilirubin Negative Urine Urobilinogen 1.0 Ur Leukocyte Esterase Trace H Urine WBC 21-50 H Urine WBC Clumps Few H Ur Squamous Epith Cells 6-10 H Urine Bacteria Many H Micro UA Comment Culture indicated Urine Culture Comments Culture indicated 02/04/18 05:35 CBC w Diff WBC RBC Hgb Hct MCV MCH MCHC RDW Plt Count MPV Neut % (Auto) Lymph % (Auto) [place] % (Auto) Eos % (Auto) Baso % (Auto) Neut # (Auto) Lymph # (Auto) [place] # (Auto) Eos # (Auto) Baso # (Auto) WBC Differential Differential Comment PT INR APTT Sodium 131 L Potassium 4.1 Chloride 89 L Carbon Dioxide 31.6 Anion Gap 10 BUN 19 H Creatinine 1.00 Estimated GFR 55 L Random Glucose 190 H Lactic Acid Calcium 8.9 Total Bilirubin 0.9 AST 12 L ALT 11 Alkaline Phosphatase 91 Total Protein 7.7 Albumin 3.2 L Urine Color Urine Clarity Urine pH Ur Specific [place] Urine Protein Urine Glucose (UA) Urine Ketones Urine Occult Blood Urine Nitrate Urine Bilirubin Urine Urobilinogen Ur Leukocyte Esterase Urine WBC Urine WBC Clumps Ur Squamous Epith Cells Urine Bacteria Micro UA Comment Urine Culture Comments Caprini VTE Risk Assessment Caprini VTE Risk Assessment: Moderate/High Risk (score >= 2) VTE Mechanical Exception: Severe LE edema Caprini Risk Assessment Model: Point Value = 1 Point Value = 2 Point Value = 3 Point Value = 5 Age 41-60 Minor surgery BMI > 25 kg/m2 Swollen legs Varicose veins or History of unexplained or recurrent spontaneous Oral contraceptives or hormone replacement Sepsis (< 1 month) Serious lung disease, including pneumonia (< 1 month) Abnormal pulmonary function Acute myocardial infarction Congestive heart failure (< 1 month) History of inflammatory bowel disease Medical patient at bed rest Age 61-74 Arthroscopic surgery Major open surgery (> 45 min) Laparoscopic surgery (> 45 min) Malignancy Confined to bed (> 72 hours) Immobilizing plaster cast Central venous access Age >= 75 History of VTE Family history of VTE Factor V Leiden Prothrombin [id number] Lupus anticoagulant Anticardiolipin antibodies Elevated serum homocysteine Heparin-induced thrombocytopenia Other congenital or acquired thrombophilia Stroke (< 1 month) Elective arthroplasty Hip, pelvis, or leg fracture Acute spinal cord injury (< 1 month) Prophylaxis Regimen: Total Risk Factor Score Risk Level Prophylaxis Regimen 0-1 Low Early ambulation 2 Moderate Order ONE of the following: *Sequential Compression Device (SCD) *Heparin 5000 units SQ BID 3-4 Higher Order ONE of the following medications: *Heparin 5000 units SQ TID *Enoxaparin/Lovenox 40 mg SQ daily (WT < 150 kg, CrCl > 30 mL/min) *Enoxaparin/Lovenox 30 mg SQ daily (WT < 150 kg, CrCl > 10-29 mL/min) *Enoxaparin/Lovenox 30 mg SQ BID (WT < 150 kg, CrCl > 30 mL/min) AND/OR *Sequential Compression Device (SCD) 5 or more Highest Order ONE of the following medications: *Heparin 5000 units SQ TID (Preferred with Epidurals) *Enoxaparin/Lovenox 40 mg SQ daily (WT < 150 kg, CrCl > 30 mL/min) *Enoxaparin/Lovenox 30 mg SQ daily (WT < 150 kg, CrCl > 10-29 mL/min) *Enoxaparin/Lovenox 30 mg SQ BID (WT < 150 kg, CrCl > 30 mL/min) AND *Sequential Compression Device (SCD) Assessment and Plan - Assessment (1) Cellulitis Code(s): L03.90 - Cellulitis, unspecified Status: Acute Plan: Patient presented with bilateral lower extremity cellulitis. Wound care nurse evaluated bilateral lower extremities today. Will order for Dakin's solution and daily dressing changes. Patient was placed on vancomycin and cefepime IV. Wound culture and pending. Leukocytosis 11,000. Monitor for any fevers. Has been afebrile. Pain control with Ultram from home. Morphine IV available for breakthrough pain. (2) Acute hyponatremia Code(s): E87.1 - Hypo-osmolality and hyponatremia Status: Acute Plan: Sodium 128 on presentation, has improved to 131. Will continue to monitor BMP. Continue gentle hydration with IV fluids. Ensure hydration p.o. (3) Type 2 diabetes mellitus Code(s): E11.9 - Type 2 diabetes mellitus without complications Status: Acute Plan: Accu-Chek before meals at bedtime, sliding scale, cover as needed. (4) CHF (congestive heart failure) Code(s): I50.9 - Heart failure, unspecified Status: Acute Plan: Not in exacerbation. BNP 63. We will continue home Lasix. Monitor intake and output. (5) Hypoxia Code(s): R09.02 - Hypoxemia Status: Acute Plan: Patient with 88 saturations on room air upon presentation. Was placed on 2 L nasal cannula. Saturations now 98%. RT consulted to wean O2 as tolerated to keep sats above 92%. Will obtain chest x-ray. Unlikely to be in CHF exacerbation, BMP 63. Patient does have history of COPD, this does not appear to be in exacerbation at this time. We will continue home inhalers. Continue to monitor. - Plan DVT prophylaxis: SCDs. Heparin. Will arrange for home health care nursing for wound care dressing changes at home. Anticipate discharge tomorrow. (1) Cellulitis Qualifiers: Site of cellulitis: extremity Site of cellulitis of extremity: lower extremity Laterality: unspecified laterality Qualified Code(s): L03.119 - Cellulitis of unspecified part of limb
[2018-02-04] MEDS ORDERED: Dextrose 50% in Water 50 ML Vial IV.PUSH PRN (09:08)
[2018-02-04] MEDS: Senna/Docusate Sodium 8.6/50 MG Tablet PO SCH ×2 (09:49→21:51)
[2018-02-04] MEDS ORDERED: Furosemide 20 MG Tablet PO PRN (10:00)
--- NOTE | 2018-02-04 10:47 | P.PNWCN ---
Wound Care Nurse Consult Description: wound consult ordered by Tatiana MELO for bilateral lower extremities. Communicated with: Natividad RITCHIE, Tatiana MELO Recommendation: 1. Cleanse bilateral lower extremities with moistened gauze with Dakins 0.125% solution then pat dry 2. Apply Calazime to intact areas and cover with Opti lock large secure with stretch rolled gauze and christy bandage. 3. Encourage patient to elevate lower extremity as often as she can. 4.Change dressings every 3 days or as needed for exudate/dislodgement. 5.Follow up with out patient wound center or home health agency. Additional information: Patient was seen today by process description writer for wound management of bilateral lower extremities.Patient alert and oriented x4 sitting on edge of bed upon writers arrival.Photocomposition Keyboard Operator was able to visualize bilateral lower extremities.Patient noted to have bilateral lower extremity lymphoedema.Bilateral lower extremities have large brown/yellow moist fibrin clustered cover 80% of bilateral gaiter area.With open moderate weeping noted to bilateral lower extremities with odor present.Lower extremities are very tender to touch legs cleanse with normals saline and wound culture obtained and delivered to lab.Calazime applied to intact skin and weeping areas covered with OptiLock large secured with rolled gauze /christy bandage.patient tolerated wound care well encouraged patient to elevate lower extremities as often as possible.Photocomposition Keyboard Operator wound recommend patient getting established with home health care agency or out patient wound center. Wound/Pressure Injury - Wound bilat lower extemities Wound Assessment: Admission Wound Type: Lesion Is This a Chronic Wound: Yes Requested from Provider a Wound Care Consult: Yes (DR SUAREZ PT ADMIT DX CELLULITIS) Wound Bed Appearance: Edematous, Peeling Skin, Yellow Surrounding Tissue Appearance: Weeping Surrounding Tissue Temperature: Warm Drainage Description: Serous Drainage Amount: Copious Drainage Odor: Foul Odor Dressing Status: Dry & Intact, Changed Cleansing Solution: Dakins Topical: Calazime Primary Dressing: Absorbant Pad Cover Dressing: Gauze Roll/Wrap Wound Dressing Change Date: 02/04/18
[2018-02-04] MEDS: Vancomycin Inj 2,500 MG in Sodium Chlor 0.9% Inj 500 ML IV.SIG SCH (10:49)
[2018-02-04] MEDS: Sod Chloride 0.9% Inj 1,000 ML IV.CONT SCH ×2 (10:50→11:16)
[2018-02-04] MEDS: Timolol 0.25% Drops 5 ML Bottle EACH EYE SCH (11:15)
[2018-02-04] MEDS: Insulin NovoLOG Aspart Correctional Sugar Inj SQ SCH ×3 (12:36→21:54)
--- NOTE | 2018-02-04 12:39 | P.DCO ---
- Home Health Nursing Order: Medical education, Signs/symptoms of disease process, Diabetic education , CHF education, Medication education-adverse effect, Wound care and dressing changes Instructions: Wound care orders: 1. Cleanse bilateral lower extremities with moistened gauze with Dakins 0.125% solution then pat dry 2. Apply Calazime to intact areas and cover with Opti lock large secure with stretch rolled gauze and christy bandage. 3. Encourage patient to elevate lower extremity as often as she can. 4. Change dressings every 3 days or as needed for exudate/dislodgement. - Certification I have seen patient Lisset Coley on 02/04/18. My clinical findings support the need for the requested home health care services because: Deconditioned with increased weakness, Limited ability to care for self I certify that my clinical findings support that this patient is homebound because: Unsteady gait/balance
[2018-02-04] MEDS: Sodium Hypochlorite 0.125% Top Soln 500 ML Bottle TOPICAL SCH (13:12)
--- NOTE | 2018-02-04 13:16 | XR ---
EXAM DATE: 02/04/2018 1:10 PM EDT AGE/SEX: 72 years / Female INDICATIONS: Short of breath CLINICAL DATA: This is the patient's initial encounter. Patient reports that signs and symptoms have been present for 1 day and indicates a pain score of 4/10. MEDICAL/SURGICAL HISTORY: Congestive heart failure. Chronic obstructive pulmonary disease. Hy pertension. Left lung mass. Diabetes . Coronary artery stent. Lung biopsy COMPARISON: [facility] [place], CHEST EXPIRATION ONLY, 02/17/2017. . FINDINGS: Cardiomegaly with moderate interstitial changes. No effusion. Minimal left apical infiltrate. The por tion of the bony skeleton visualized is unremarkable. CONCLUSION: Moderate congestive failure with minimal left apical infiltrate. Good PA and lateral chest would be of benefit the patient clinically stable. Electronically signed by: Regan Cazares MD 02/04/2018 1:15 PM EDT
[2018-02-04 17:11] LABS: Hemoglobin A1c 9.1 % (4.3-6.0)
[2018-02-04] MEDS: Heparin - SQ 10,000 UNITS/ML Vial SQ SCH (21:50)
[2018-02-04] MEDS: Budesonide-Formoterol 80/4.5 MCG 6.9 GM Inhaler INH SCH (21:51)
[2018-02-05] MEDS: Sod Chloride 0.9% Inj 1,000 ML IV.CONT SCH (03:25)
[2018-02-05 07:57] LABS: Baso % (Auto) 0.4 % (0.0-2.0); Eos # (Auto) 0.4 th/mm3 (0.0-0.4); Eos % (Auto) 4.9 % (0.0-4.0); Hematocrit 38.8 % (35.0-46.0); Hemoglobin 12.9 gm/dL (11.6-15.3); Lymph # (Auto) 0.9 th/mm3 (1.0-4.8); Lymph % (Auto) 12.2 % (9.0-44.0); Mean Corpuscular HGB Conc 33.4 % (32.0-36.0); Mean Corpuscular Hemoglobin 29.2 pg (27.0-34.0); Mean Corpuscular Volume 87.4 fL (80.0-100.0); Mean Platelet Volume 6.5 fL (7.0-11.0); Mono # (Auto) 0.8 th/mm3 (0.0-0.9); Mono % (Auto) 10.1 % (0.0-8.0); Neut # (Auto) 5.4 th/mm3 (1.8-7.7); Neut % (Auto) 72.4 % (16.0-70.0); Platelet Count 298 th/mm3 (150-450); Red Blood Count 4.44 mil/mm3 (4.00-5.30); Red Cell Distribution Width 13.6 % (11.6-17.2); White Blood Count 7.5 th/mm3 (4.0-11.0)
[2018-02-05] MEDS: Timolol 0.25% Drops 5 ML Bottle EACH EYE SCH (08:01)
[2018-02-05] MEDS: Heparin - SQ 10,000 UNITS/ML Vial SQ SCH (08:02)
[2018-02-05] MEDS: Insulin NovoLOG Aspart Correctional Sugar Inj SQ SCH ×2 (08:03→12:00)
[2018-02-05] MEDS: Senna/Docusate Sodium 8.6/50 MG Tablet PO SCH ×2 (08:03→08:09)
[2018-02-05] MEDS: Budesonide-Formoterol 80/4.5 MCG 6.9 GM Inhaler INH SCH (08:04)
[2018-02-05] MEDS: Sodium Hypochlorite 0.125% Top Soln 500 ML Bottle TOPICAL SCH (08:05)
[2018-02-05 08:12] LABS: Potassium 3.7 meq/L (3.5-5.1)
[2018-02-05 08:15] LABS: Calcium 8.9 mg/dL (8.5-10.1); Carbon Dioxide 34.1 meq/L (21.0-32.0)
--- NOTE | 2018-02-05 08:59 | P.PNIM ---
Subjective Interval history: Follow-up bilateral lower extremity cellulitis, UTI and hypoxia. Patient seen and examined, sitting in chair comfortably no apparent distress. Denies any pain. information analyst changed bilateral lower extremity dressings today. Patient is afebrile. Leukocytosis improved with antibiotics. Patient did walk test, was 86% saturation sitting in chair. Home O2 ordered. Case management assisting. Will discharge home today. Denies any acute events. Physical Exam Vital signs: Vital Signs 02/04/18 12:00 02/04/18 14:47 02/04/18 16:00 Temperature 97.6 F 96.2 F L Pulse Rate 78 68 Respiratory Rate 18 18 Blood Pressure 119/76 129/62 Pulse Oximetry 95 94 L 96 02/04/18 20:00 02/04/18 23:00 02/05/18 00:00 Temperature 97 F L 97.1 F L Pulse Rate 70 70 Respiratory Rate 20 19 Blood Pressure 140/80 140/63 Pulse Oximetry 94 L 96 98 02/05/18 07:46 02/05/18 08:43 Temperature 97.6 F Pulse Rate 67 Respiratory Rate 20 Blood Pressure 122/66 Pulse Oximetry 92 L 93 L Intake & Output 02/04/18 02/05/18 02/05/18 18:59 06:59 18:59 Intake Total 2105 / 2105 2130 / 2130 Balance 2105 / 2105 2130 / 2130 Intake: IV 1625 / 1625 1650 / 1650 NS Inj 1,000 ML @ 50 mls/hr IV. 1000 / 1000 1000 / 1000 CONT .Q20H [facility] Rx#:[id number] Maxipime Inj 1,000 MG In NS Inj 100 / 100 100 / 100 100 ML @ 200 mls/hr IV.SIG Q12H [facility] Rx#:[id number] Vancomycin Inj 2,500 MG In NS 525 / 525 Inj 500 ML @ 250 mls/hr IV.SIG Q24H [facility] Rx#:[id number] Oral 480 / 480 480 / 480 Other: # Voids 3 # Urine Diapers 2 Date of Last Bowel Movement 02/03/18 # Bowel Movements 1 Narrative: GENERAL: Well-developed, well-nourished patient on 2 L nasal cannula. SKIN: Warm and dry. Bilateral lower extremities have large brown/yellow moist fibrin. Moderate weeping to bilateral extremities. Dressings in place clean dry and intact. HEAD: Normocephalic. Atraumatic. EYES: Pupils equal and round. No scleral icterus. No injection or drainage. ENT: No nasal bleeding or discharge. Mucous membranes pink and moist. NECK: Supple. Trachea midline. CARDIOVASCULAR: Regular rate and rhythm. S1, S2 noted. No murmur appreciated. RESPIRATORY: No accessory muscle use. Diminished breath sounds secondary to body habitus. Breath sounds equal bilaterally. GASTROINTESTINAL: Abdomen soft, non-tender, nondistended. Normoactive bowel sounds x4. MUSCULOSKELETAL: No obvious deformities. NEUROLOGICAL: Awake and alert. No obvious cranial nerve deficits. Motor grossly within normal limits. 5/5 muscle strength in bilateral upper and lower extremities. Normal speech. PSYCHIATRIC: Appropriate mood and affect; insight and judgment normal. Results - Labs CBC & Chem 7: 02/05/18 07:18 02/05/18 07:18 Laboratory Results - last 24 hr 02/03/18 02/04/18 02/04/18 19:30 05:35 05:35 CBC w Diff WBC RBC Hgb Hct MCV MCH MCHC RDW Plt Count MPV Neut % (Auto) Lymph % (Auto) [place] % (Auto) Eos % (Auto) Baso % (Auto) Neut # (Auto) Lymph # (Auto) [place] # (Auto) Eos # (Auto) Baso # (Auto) WBC Differential Differential Comment Sodium Potassium Chloride Carbon Dioxide Anion Gap BUN Creatinine Estimated GFR POC Glucose Random Glucose Hemoglobin A1c 9.1 H Calcium B-Natriuretic Peptide 63 Urine Color Yellow Urine Clarity Slightly cloudy Urine pH 6.0 Ur Specific [place] 1.025 Urine Protein 100 H Urine Glucose (UA) Negative Urine Ketones Negative Urine Occult Blood Negative Urine Nitrate Positive H Urine Bilirubin Negative Urine Urobilinogen 1.0 Ur Leukocyte Esterase Trace H Urine WBC 21-50 H Urine WBC Clumps Few H Ur Squamous Epith Cells 6-10 H Urine Bacteria Many H Micro UA Comment Culture indicated Urine Culture Comments Culture indicated 02/04/18 02/04/18 02/04/18 11:20 16:06 21:31 CBC w Diff WBC RBC Hgb Hct MCV MCH MCHC RDW Plt Count MPV Neut % (Auto) Lymph % (Auto) [place] % (Auto) Eos % (Auto) Baso % (Auto) Neut # (Auto) Lymph # (Auto) [place] # (Auto) Eos # (Auto) Baso # (Auto) WBC Differential Differential Comment Sodium Potassium Chloride Carbon Dioxide Anion Gap BUN Creatinine Estimated GFR POC Glucose 224 H 244 H 211 H Random Glucose Hemoglobin A1c Calcium B-Natriuretic Peptide Urine Color Urine Clarity Urine pH Ur Specific [place] Urine Protein Urine Glucose (UA) Urine Ketones Urine Occult Blood Urine Nitrate Urine Bilirubin Urine Urobilinogen Ur Leukocyte Esterase Urine WBC Urine WBC Clumps Ur Squamous Epith Cells Urine Bacteria Micro UA Comment Urine Culture Comments 02/05/18 02/05/18 02/05/18 07:18 07:18 07:34 CBC w Diff Auto diff final WBC 7.5 RBC 4.44 Hgb 12.9 Hct 38.8 MCV 87.4 MCH 29.2 MCHC 33.4 RDW 13.6 Plt Count 298 MPV 6.5 L Neut % (Auto) 72.4 H Lymph % (Auto) 12.2 [place] % (Auto) 10.1 H Eos % (Auto) 4.9 H Baso % (Auto) 0.4 Neut # (Auto) 5.4 Lymph # (Auto) 0.9 L [place] # (Auto) 0.8 Eos # (Auto) 0.4 Baso # (Auto) 0.0 WBC Differential . Differential Comment . Sodium 132 L Potassium 3.7 Chloride 91 L Carbon Dioxide 34.1 H Anion Gap 7 BUN 19 H Creatinine 0.96 Estimated GFR 57 L POC Glucose 188 H Random Glucose 176 H Hemoglobin A1c Calcium 8.9 B-Natriuretic Peptide Urine Color Urine Clarity Urine pH Ur Specific [place] Urine Protein Urine Glucose (UA) Urine Ketones Urine Occult Blood Urine Nitrate Urine Bilirubin Urine Urobilinogen Ur Leukocyte Esterase Urine WBC Urine WBC Clumps Ur Squamous Epith Cells Urine Bacteria Micro UA Comment Urine Culture Comments Microbiology 02/04/18 10:10 Abscess - Leg Gram Stain - Final 02/03/18 19:30 Clean Catch Urine Urine Culture - Preliminary gram negative rods 02/03/18 18:20 Blood - Peripheral Aerobic Blood Culture - Preliminary No growth in 1 day 02/03/18 18:20 Blood - Peripheral Anaerobic Blood Culture - Preliminary No growth in 1 day 02/03/18 18:20 Blood - Peripheral Aerobic Blood Culture - Preliminary No growth in 1 day 02/03/18 18:20 Blood - Peripheral Anaerobic Blood Culture - Preliminary No growth in 1 day - Imaging Impressions Chest X-Ray 02/04/18 12:35 CONCLUSION: Moderate congestive failure with minimal left apical infiltrate. Good PA and lateral chest would be of benefit the patient clinically stable. Assessment and Plan - Assessment (1) Cellulitis Code(s): L03.90 - Cellulitis, unspecified Status: Acute Plan: Patient presented with bilateral lower extremity cellulitis. Wound care nurse evaluated bilateral lower extremities today. Will order for Dakin's solution and daily dressing changes. Patient was placed on vancomycin and cefepime IV. Changed to p.o. antibiotics upon discharge. Leukocytosis 11,000. Improved. Monitor for any fevers. Has been afebrile. Pain control with Ultram from home. Home health care for wound changes. (2) Acute hyponatremia Code(s): E87.1 - Hypo-osmolality and hyponatremia Status: Acute Plan: Sodium 128 on presentation, has improved. (3) Type 2 diabetes mellitus Code(s): E11.9 - Type 2 diabetes mellitus without complications Status: Acute Plan: Accu-Chek before meals at bedtime, sliding scale, cover as needed. DC home to follow up PCP. Continue home meds. (4) CHF (congestive heart failure) Code(s): I50.9 - Heart failure, unspecified Status: Acute Plan: Not in exacerbation. BNP 63. Will continue home Lasix. (5) Hypoxia Code(s): R09.02 - Hypoxemia Status: Acute Plan: Patient with 88 saturations on room air upon presentation. Was placed on 2 L nasal cannula. Saturations now 98% on 2 L. Patient failed walk test today. Will arrange home O2. Chest x-ray ordered yesterday showing some congestive heart failure with minimal left apical infiltrate. Continued on Bactrim, this should cover cellulitis, UTI and possible pneumonia. Patient does have history of COPD, this does not appear to be in exacerbation at this time. Will continue home inhalers. - Plan DVT prophylaxis: SCDs. Heparin. Discharge Planning: DC home today on Bactrim. Home health care for nursing and wound care changes. (1) Cellulitis Qualifiers: Site of cellulitis: extremity Site of cellulitis of extremity: lower extremity Laterality: unspecified laterality Qualified Code(s): L03.119 - Cellulitis of unspecified part of limb
[2018-02-05] MEDS ORDERED: metOLazone 5 MG Tablet PO SCH (09:00)
[2018-02-05] MEDS ORDERED: Montelukast 10 MG Tablet PO SCH (09:00)
[2018-02-05] MEDS: Vancomycin Inj 2,500 MG in Sodium Chlor 0.9% Inj 500 ML IV.SIG SCH (09:13)
[2018-02-07] MEDS ORDERED: VANCOMYCIN TROUGH OTHER ONE (09:45)
== END 2018-02-05 13:07 | disposition home health service (06) ==
LOC: PHED 16:41 → PHEDA 16:41 → PH3 22:28
PROVIDERS: ADMIT Hospitalist; ATTEND Hospitalist

== ENCOUNTER 2018-02-25 15:27 | Inpatient (IN) ==
[2018-02-25] MEDS ORDERED: Piperacil/Tazo 4.5 GM Premix 4.5 GM/100 ML BAG IV.SIG STA (16:19)
[2018-02-25] MEDS ORDERED: Vancomycin Inj 1,000 MG in Sodium Chlor 0.9% Inj 250 ML IV.SIG STA (16:19)
[2018-02-25 16:59] LABS: Baso # (Auto) 0.1 th/mm3 (0.0-0.2); Baso % (Auto) 0.9 % (0.0-2.0); Eos # (Auto) 0.5 th/mm3 (0.0-0.4); Eos % (Auto) 4.8 % (0.0-4.0); Hematocrit 40.1 % (35.0-46.0); Hemoglobin 13.5 gm/dL (11.6-15.3); Lymph # (Auto) 1.2 th/mm3 (1.0-4.8); Lymph % (Auto) 11.8 % (9.0-44.0); Mean Corpuscular HGB Conc 33.7 % (32.0-36.0); Mean Corpuscular Hemoglobin 29.2 pg (27.0-34.0); Mean Corpuscular Volume 86.5 fL (80.0-100.0); Mean Platelet Volume 6.4 fL (7.0-11.0); Mono # (Auto) 1.2 th/mm3 (0.0-0.9); Mono % (Auto) 11.4 % (0.0-8.0); Neut # (Auto) 7.4 th/mm3 (1.8-7.7); Neut % (Auto) 71.1 % (16.0-70.0); Platelet Count 266 th/mm3 (150-450); Red Blood Count 4.63 mil/mm3 (4.00-5.30); Red Cell Distribution Width 14.8 % (11.6-17.2); White Blood Count 10.4 th/mm3 (4.0-11.0)
--- NOTE | 2018-02-25 16:59 | ED ---
HPI General Chief complaint: Skin/Abscess/Foreign Body Stated complaint: Wound Time Seen by Provider: 02/25/18 16:05 Source: patient Limitations: physical limitation History of Present Illness HPI narrative: Patient is a 72-year-old female presenting to the emergency department for evaluation of infected wound to her left lower leg. Patient has a home health nurse that evaluates her every 2-3 days, at today's evaluation the nurse noticed maggots on patient's left lower leg and subsequently sent patient to emergency department for evaluation. Patient reports mild pain in her lower extremities, she denies any fevers, chills, chest pain, shortness of breath. Patient reports urinary frequency. She is a diabetic and states her blood sugars been elevated. There were no maggots at the last dressing change. Related Data Home Medications Medication Instructions Recorded Confirmed albuterol sulfate [ProAir HFA] See Label Instructions .ROUTE 02/03/18 02/03/18 .COMPLEX fluticasone-salmeterol [Advair 1 puff INHALATION BID 02/03/18 02/03/18 Diskus] furosemide 20 mg PO DAILY PRN 02/03/18 02/03/18 metformin 500 mg PO BID 02/03/18 02/03/18 metolazone 5 mg PO DAILY 02/03/18 02/03/18 montelukast 10 mg PO DAILY 02/03/18 02/03/18 pravastatin 20 mg PO DAILY 02/03/18 02/03/18 timolol 1 drp OPHTHALMIC (EYE) DAILY 02/03/18 02/03/18 tramadol 50 mg PO BID 02/03/18 02/03/18 Allergies Allergy/AdvReac Type Severity Reaction Status Date / Time mushroom Allergy Severe Throat Verified 02/03/18 19:17 swelling, rash sertraline AdvReac Intermediate Dizziness Verified 02/03/18 19:17 Review of Systems Except as stated in HPI: all other systems reviewed are negative [facility] Medical History Medical History Mass of left lung (Acute) Venous stasis (Acute) HTN (hypertension) (Acute) Cellulitis (Acute) Dermatitis (Acute) ADHD (Acute) Hx of radiation therapy (Acute) Lung nodule (Acute) Squamous cell carcinoma (Acute) CHF (congestive heart failure) (Acute) Diabetes (Acute) Renal insufficiency (Acute) Surgical History Surgical History H/O tubal ligation (Acute) Family History Family History Other No significant family history Social History Social History Substance History: No History of Abuse Second Hand Smoke Exposure: No Smoking Status: Current every day smoker Tobacco Type: Cigarettes How Often Do You Have a Drink Containing Alcohol: Never Immunization History Tetanus Immunization: >5 Years Hx Influenza Vaccine This Season: Yes Exam Narrative Exam Narrative: GENERAL: Obese, well-developed, alert elderly female. Presenting in no acute distress. SKIN: Focused skin assessment warm/dry. Chronic appearing skin changes to bilateral lower extremities. Thickened skin. Live maggots noted to the left lower leg on the lateral aspect just proximal to the ankle. HEAD: Atraumatic. Normocephalic. EYES: Pupils equal and round. No scleral icterus. No injection or drainage. ENT: No nasal bleeding or discharge. Mucous membranes pink and moist. NECK: Trachea midline. No JVD. CARDIOVASCULAR: Regular rate and rhythm. No murmur appreciated. RESPIRATORY: No accessory muscle use. Scattered wheezes. Breath sounds equal bilaterally. GASTROINTESTINAL: Abdomen soft, non-tender, nondistended. Hepatic and splenic margins not palpable. MUSCULOSKELETAL: No obvious deformities. No clubbing. No cyanosis. 2+ peripheral edema. NEUROLOGICAL: Awake and alert. No obvious cranial nerve deficits. Motor grossly within normal limits. Normal speech. PSYCHIATRIC: Appropriate mood and affect; insight and judgment normal. Medical Decision Making [facility] Narrative Medical decision making narrative: Patient is a 72-year-old female with a history of chronic bilateral lower extremity ulcerations currently followed by home health presenting with maggots to her left lower extremity. Labs imaging ordered and pending. Patient's vital signs are stable. Chest x-ray shows pulmonary hypertension, her labs are reviewed. Sodium is 130, this is stable when compared to prior. X-ray of the left tibia and fibula show diffuse soft tissue swelling. Patient was started on antibiotics empirically. Discussed findings with my attending physician, patient was admitted to Dr. Marquis. Admit orders placed. Patient is resting comfortably. Differential Diagnosis Differential Diagnosis: Cellulitis versus abscess versus infestation versus metabolic abnormality versus other Lab Data Lab results reviewed: Yes I reviewed the patient's lab results. Result diagrams: 02/25/18 16:45 02/25/18 16:45 Lab Results 02/25/18 02/25/18 Range/Units 16:45 16:45 WBC 10.4 (4.0-11.0) th/mm3 RBC 4.63 (4.00-5.30) mil/mm3 Hgb 13.5 (11.6-15.3) gm/dL Hct 40.1 (35.0-46.0) % MCV 86.5 (80.0-100.0) fL MCH 29.2 (27.0-34.0) pg MCHC 33.7 (32.0-36.0) % RDW 14.8 (11.6-17.2) % Plt Count 266 (150-450) th/mm3 MPV 6.4 L (7.0-11.0) fL Neut % (Auto) 71.1 H (16.0-70.0) % Lymph % (Auto) 11.8 (9.0-44.0) % [place] % (Auto) 11.4 H (0.0-8.0) % Eos % (Auto) 4.8 H (0.0-4.0) % Baso % (Auto) 0.9 (0.0-2.0) % Neut # (Auto) 7.4 (1.8-7.7) th/mm3 Lymph # (Auto) 1.2 (1.0-4.8) th/mm3 [place] # (Auto) 1.2 H (0.0-0.9) th/mm3 Eos # (Auto) 0.5 H (0.0-0.4) th/mm3 Baso # (Auto) 0.1 (0.0-0.2) th/mm3 WBC Differential . Differential Comment Auto diff final Sodium 130 L (136-145) meq/L Potassium 3.4 L (3.5-5.1) meq/L Chloride 86 L (98-107) meq/L Carbon Dioxide 34.7 H (21.0-32.0) meq/L Anion Gap 9 (5-15) meq/L BUN 17 (7-18) mg/dL Creatinine 1.35 H (0.50-1.00) mg/dL Estimated GFR 39 L (>89) mL/min Random Glucose 261 H (74-106) mg/dL Calcium 8.8 (8.5-10.1) mg/dL Total Bilirubin 0.5 (0.2-1.0) mg/dL AST 11 L (15-37) U/L ALT 16 (10-53) U/L Alkaline Phosphatase 130 H (45-117) U/L Total Protein 8.1 (6.4-8.2) g/dL Albumin 3.3 L (3.4-5.0) g/dL Imaging Data Radiologist's impression: Chest X-Ray 02/25/18 16:19 CONCLUSION: Cardiomegaly with dilation of the central pulmonary vasculature suggesting pulmonary artery hypertension. Chronic appearing parenchymal interstitial changes similar to previous of 2017. Tibia/Fibula X-Ray 02/25/18 16:19 CONCLUSION: Tibia and fibula within normal limits. Discharge Plan Discharge Disposition Patient Disposition: 30 Still Patient Discharge Condition Condition: Stable Discharge Details Diagnosis: Wound infection, Infestation by maggots Physicians Team ED Provider: Polly Aguilar ED Midlevel Provider: Jaky Casas Primary Care Provider: Diya Maldonado Rxs /Orders / Referrals /Forms Prescriptions: No Action metolazone 5 mg Tablet 5 mg PO DAILY RF: 0 furosemide 20 mg Tablet 20 mg PO DAILY PRN (Reason: Edema) RF: 0 metformin 500 mg Tablet 500 mg PO BID RF: 0 tramadol 50 mg Tablet 50 mg PO BID RF: 0 timolol 0.25 % Drops 1 drp OPHTHALMIC (EYE) DAILY RF: 0 montelukast 10 mg Tablet 10 mg PO DAILY RF: 0 pravastatin 20 mg Tablet 20 mg PO DAILY RF: 0 fluticasone-salmeterol [Advair Diskus] 100-50 mcg/dose Blister With Device 1 puff INHALATION BID RF: 0 albuterol sulfate [ProAir HFA] 90 mcg/actuation Hfa Aerosol Inhaler See Label Instructions .ROUTE .COMPLEX RF: 0 Status ED Status: With Doctor
[2018-02-25 17:16] LABS: Alanine Aminotransferase 16 U/L (10-53); Albumin 3.3 g/dL (3.4-5.0); Anion Gap 9 meq/L (5-15); Aspartate Aminotransferase 11 U/L (15-37); Blood Urea Nitrogen 17 mg/dL (7-18); Calcium 8.8 mg/dL (8.5-10.1); Carbon Dioxide 34.7 meq/L (21.0-32.0); Chloride 86 meq/L (98-107); Glomerular Filtration Rate 39 mL/min (>89); Glucose,Random 261 mg/dL (74-106); Potassium 3.4 meq/L (3.5-5.1); Sodium 130 meq/L (136-145)
[2018-02-25 17:19] LABS: Alkaline Phosphatase 130 U/L (45-117); Total Protein 8.1 g/dL (6.4-8.2)
--- NOTE | 2018-02-25 17:51 | XR ---
EXAM DATE: 02/25/2018 5:48 PM EDT AGE/SEX: 72 years / Female INDICATIONS: Pain and abnormal skin. CLINICAL DATA: This is the patient's initial encounter. Patient reports that signs and symptoms have been present for 1 day and indicates a pain score of 4/10. MEDICAL/SURGICAL HISTORY: Congestive heart failure. Chronic obstructive pulmonary disease. Hyp ertension. Left lung mass. Diabetes. . Coronary artery stent. Lung biopsy. COMPARISON: No prior exams available for comparison. FINDINGS: 4 views left tibia and fibula. Bone alignment within normal limits. No evidence of fracture. Diffuse soft tissue swelling noted. No evidence focal bone erosion. No abnormal periosteal reaction. CONCLUSION: Tibia and fibula within normal limits. Electronically signed by: Neftali Wall MD 02/25/2018 5:50 PM EDT
--- NOTE | 2018-02-25 17:52 | XR ---
EXAM DATE: 02/25/2018 5:46 PM EDT AGE/SEX: 72 years / Female INDICATIONS: Shortness of breath. CLINICAL DATA: This is the patient's initial encounter. Patient reports that signs and symptoms have been present for 1 day and indicates a pain score of 0/10. MEDICAL/SURGICAL HISTORY: Chronic obstructive pulmonary disease. Congestive heart failure. Hyp ertension. Left lung mass. Diabetes. . Coronary artery stent. Lung biopsy. COMPARISON: [facility], CHEST 1V SINGLE AP, 02/04/2018. . FINDINGS: Within the pulmonary parenchyma that is similar to previous dated 02/04/2018. No pneumothorax is seen. No pleural effusion is identified. The visualized bony structures are grossly intact. CONCLUSION: Cardiomegaly with dilation of the central pulmonary vasculature suggesting pulmonary artery hypertens ion. Chronic appearing parenchymal interstitial changes similar to previous of 02/04/2018. Electronically signed by: London Cazares MD 02/25/2018 5:51 PM EDT
[2018-02-25] MEDS ORDERED: Dextrose 50% in Water 50 ML Vial IV.PUSH PRN (19:06)
[2018-02-25] MEDS ORDERED: Bisacodyl 10 MG Supp RECTAL PRN (19:09)
[2018-02-25] MEDS ORDERED: Acetaminophen 325 MG Tablet PO PRN (19:09)
[2018-02-25] MEDS ORDERED: Temazepam 15 MG Capsule PO PRN (19:09)
--- NOTE | 2018-02-25 19:12 | P.HPIM ---
History of Present Illness Primary Care Physician: Diya Maldonado MD History of Present Illness: This is a 72-year-old female with a PMH of HTN, DM, Bilateral LE Cellulitis and Venous Stasis who presented to the ER after pt noted to have maggots in LLE. Pt w/ recent admit 02/04/18 for LE Cellulitis, UTI and Hypoxia, was sent home w/ [facility], states she's had a [facility] RN visit every 2-3 days, today noted several maggots embedded in her LLE. Pt denies fever or chills. WBC normal. Creatinine 1.35, previously 0.96 on 02/05/2018. UA pending. Tib-fib X-ray with no acute findings. On exam in the ER, pt noted to have multiple live maggots crawling around on leg. S/p Vanc/Zosyn in ER. - Diagnosis (1) Cellulitis (2) Infestation by maggots (3) DM (diabetes mellitus) (4) JOSEPHINE (acute kidney injury) Review of Systems PAST FAMILY HISTORY: Reviewed. No h/o DM or CAD All other systems reviewed negative except as stated in HPI PMFSH - History History Provided By: Patient - Medical History Medical History: Medical History (Last Reviewed 02/25/18 @ 16:57 by LORIE Doyle) Mass of left lung (Acute) Venous stasis (Acute) HTN (hypertension) (Acute) Cellulitis (Acute) Dermatitis (Acute) ADHD (Acute) Hx of radiation therapy (Acute) Lung nodule (Acute) Squamous cell carcinoma (Acute) CHF (congestive heart failure) Diabetes Renal insufficiency - Surgical History Surgical History: Surgical History (Last Reviewed 02/25/18 @ 16:57 by LORIE Doyle) H/O tubal ligation (Acute) - Family History Family History: Family History (Last Reviewed 02/25/18 @ 20:20 by Laura Marquis MD) Other No significant family history - Tobacco History Second Hand Smoke Exposure: No Tobacco Use In Past 30 Days: No Smoking Status: Current every day smoker Tobacco Type: Cigarettes - Alcohol History How Often Do You Have a Drink Containing Alcohol: Never - Substance Use History Substance History: No History of Abuse - Immunization History Tetanus Immunization: >5 Years Hx Influenza Vaccine This Season: Yes Medications and Allergies Active Medications: Active Medications Sodium Chloride (Ns Flush) 2 ml IV.FLUSH PRN PRN PRN Reason: FLUSH AFTER USING IV ACCESS Allergies Allergy/AdvReac Type Severity Reaction Status Date / Time mushroom Allergy Severe Throat Verified 02/03/18 19:17 swelling, rash sertraline AdvReac Intermediate Dizziness Verified 02/03/18 19:17 Home Medications Medication Instructions Recorded Confirmed Type albuterol sulfate [ProAir HFA] See Label Instructions .ROUTE 02/03/18 02/03/18 History .COMPLEX fluticasone-salmeterol [Advair 1 puff INHALATION BID 02/03/18 02/03/18 History Diskus] furosemide 20 mg PO DAILY PRN 02/03/18 02/03/18 History metformin 500 mg PO BID 02/03/18 02/03/18 History metolazone 5 mg PO DAILY 02/03/18 02/03/18 History montelukast 10 mg PO DAILY 02/03/18 02/03/18 History pravastatin 20 mg PO DAILY 02/03/18 02/03/18 History timolol 1 drp OPHTHALMIC (EYE) DAILY 02/03/18 02/03/18 History tramadol 50 mg PO BID 02/03/18 02/03/18 History Exam Narrative: PE: GENERAL: Pleasant middle-aged white female in no acute distress. at bedside HEENT: PERRLA, EOMI. No scleral icterus or conjunctival pallor. No lid lag or facial droop. CARDIOVASCULAR: Regular rate and rhythm. No obvious murmurs to auscultation. No chest tenderness to palpation. RESPIRATORY: No obvious rhonchi or wheezing. Clear to auscultation. Breath sounds equal bilaterally. GASTROINTESTINAL: Abdomen soft, non-tender, nondistended. BS normal. MUSCULOSKELETAL: Extremities without clubbing, cyanosis, or edema. No obvious deformities. Bilateral lower extremities w/ edema, skin thickening, weeping NEUROLOGICAL: Awake, alert and oriented x4. No focal neurologic deficits. Moving both upper and lower extremities spontaneously. Results - Labs CBC & Chem 7: 02/25/18 16:45 02/25/18 16:45 Labs: Short CBC 02/25/18 Range/Units 16:45 WBC 10.4 (4.0-11.0) th/mm3 Hgb 13.5 (11.6-15.3) gm/dL Hct 40.1 (35.0-46.0) % Plt Count 266 (150-450) th/mm3 BMP 02/25/18 16:45 Sodium 130 L Potassium 3.4 L Chloride 86 L Carbon Dioxide 34.7 H BUN 17 Creatinine 1.35 H Calcium 8.8 Liver Function 02/25/18 Range/Units 16:45 Total Bilirubin 0.5 (0.2-1.0) mg/dL AST 11 L (15-37) U/L ALT 16 (10-53) U/L Alkaline Phosphatase 130 H (45-117) U/L Albumin 3.3 L (3.4-5.0) g/dL - Imaging Impressions Chest X-Ray 02/25/18 16:19 CONCLUSION: Cardiomegaly with dilation of the central pulmonary vasculature suggesting pulmonary artery hypertension. Chronic appearing parenchymal interstitial changes similar to previous of 2017. Tibia/Fibula X-Ray 02/25/18 16:19 CONCLUSION: Tibia and fibula within normal limits. Caprini VTE Risk Assessment Caprini VTE Risk Assessment: No/Low Risk (score <= 1) Caprini Risk Assessment Model: Point Value = 1 Point Value = 2 Point Value = 3 Point Value = 5 Age 41-60 Minor surgery BMI > 25 kg/m2 Swollen legs Varicose veins or History of unexplained or recurrent spontaneous Oral contraceptives or hormone replacement Sepsis (< 1 month) Serious lung disease, including pneumonia (< 1 month) Abnormal pulmonary function Acute myocardial infarction Congestive heart failure (< 1 month) History of inflammatory bowel disease Medical patient at bed rest Age 61-74 Arthroscopic surgery Major open surgery (> 45 min) Laparoscopic surgery (> 45 min) Malignancy Confined to bed (> 72 hours) Immobilizing plaster cast Central venous access Age >= 75 History of VTE Family history of VTE Factor V Leiden Prothrombin [id number] Lupus anticoagulant Anticardiolipin antibodies Elevated serum homocysteine Heparin-induced thrombocytopenia Other congenital or acquired thrombophilia Stroke (< 1 month) Elective arthroplasty Hip, pelvis, or leg fracture Acute spinal cord injury (< 1 month) Prophylaxis Regimen: Total Risk Factor Score Risk Level Prophylaxis Regimen 0-1 Low Early ambulation 2 Moderate Order ONE of the following: *Sequential Compression Device (SCD) *Heparin 5000 units SQ BID 3-4 Higher Order ONE of the following medications: *Heparin 5000 units SQ TID *Enoxaparin/Lovenox 40 mg SQ daily (WT < 150 kg, CrCl > 30 mL/min) *Enoxaparin/Lovenox 30 mg SQ daily (WT < 150 kg, CrCl > 10-29 mL/min) *Enoxaparin/Lovenox 30 mg SQ BID (WT < 150 kg, CrCl > 30 mL/min) AND/OR *Sequential Compression Device (SCD) 5 or more Highest Order ONE of the following medications: *Heparin 5000 units SQ TID (Preferred with Epidurals) *Enoxaparin/Lovenox 40 mg SQ daily (WT < 150 kg, CrCl > 30 mL/min) *Enoxaparin/Lovenox 30 mg SQ daily (WT < 150 kg, CrCl > 10-29 mL/min) *Enoxaparin/Lovenox 30 mg SQ BID (WT < 150 kg, CrCl > 30 mL/min) AND *Sequential Compression Device (SCD) Assessment and Plan - Assessment (1) Cellulitis Code(s): L03.90 - Cellulitis, unspecified Status: Acute (2) Infestation by maggots Code(s): B87.9 - Myiasis, unspecified Status: Acute (3) DM (diabetes mellitus) Code(s): E11.9 - Type 2 diabetes mellitus without complications Status: Acute (4) JOSEPHINE (acute kidney injury) Code(s): N17.9 - Acute kidney failure, unspecified Status: Acute - Plan A/P: 1. Cellulitis: Recurrent. Recent admit 02/04/18 for bilateral lower extremity cellulitis, +ongoing. S/p Vanc/Zosyn in ER, will continue w/ IV Abx. 2. Infestation by Maggots: [facility] RN noted maggots embedded in LLE, +multiple live maggots found on lateral LLE in ER, removed. Wound Care Consult for wound management. Continue w/ IV Abx as above. 3. DM: Sliding scale w/ Accu-Cheks 4. DVT Prophylaxis: Heparin sq 5. Social work for d/c planning as needed 6. Case discussed w/ ER physician at length, labs/records/imaging reviewed by me. (1) Cellulitis Qualifiers: Site of cellulitis: extremity Site of cellulitis of extremity: lower extremity Laterality: unspecified laterality Qualified Code(s): L03.119 - Cellulitis of unspecified part of limb
[2018-02-25] MEDS ORDERED: Vancomycin Consult Pharmacy 1 EACH OTHER SCH (20:00)
[2018-02-25] MEDS: Insulin NovoLOG Aspart Correctional Sugar Inj SQ SCH (20:58)
[2018-02-25] MEDS: Senna/Docusate Sodium 8.6/50 MG Tablet PO SCH (21:07)
[2018-02-25] MEDS ORDERED: Piperacil/Tazo 4.5 GM Premix 4.5 GM/100 ML BAG IV.SIG SCH (22:00)
[2018-02-25] MEDS: Piperacil/Tazo 3.375 GM Premix 50 ML IV.SIG SCH (23:36)
[2018-02-26] MEDS: Piperacil/Tazo 3.375 GM Premix 50 ML IV.SIG SCH ×4 (04:40→22:56)
[2018-02-26 09:29] LABS: Baso # (Auto) 0.1 th/mm3 (0.0-0.2); Baso % (Auto) 0.5 % (0.0-2.0); Eos # (Auto) 0.4 th/mm3 (0.0-0.4); Hematocrit 38.7 % (35.0-46.0); Hemoglobin 13.2 gm/dL (11.6-15.3); Lymph # (Auto) 1.2 th/mm3 (1.0-4.8); Lymph % (Auto) 11.8 % (9.0-44.0); Mean Corpuscular HGB Conc 34.2 % (32.0-36.0); Mean Corpuscular Hemoglobin 29.9 pg (27.0-34.0); Mean Corpuscular Volume 87.5 fL (80.0-100.0); Mean Platelet Volume 6.4 fL (7.0-11.0); Mono % (Auto) 9.9 % (0.0-8.0); Neut # (Auto) 7.5 th/mm3 (1.8-7.7); Neut % (Auto) 73.8 % (16.0-70.0); Platelet Count 250 th/mm3 (150-450); Red Blood Count 4.43 mil/mm3 (4.00-5.30); White Blood Count 10.2 th/mm3 (4.0-11.0)
[2018-02-26] MEDS: Senna/Docusate Sodium 8.6/50 MG Tablet PO SCH ×2 (09:30→21:35)
[2018-02-26] MEDS: Heparin - SQ 10,000 UNITS/ML Vial SQ SCH ×2 (09:30→21:35)
[2018-02-26] MEDS: Insulin NovoLOG Aspart Correctional Sugar Inj SQ SCH ×4 (09:31→21:35)
[2018-02-26 10:03] LABS: Anion Gap 11 meq/L (5-15); Aspartate Aminotransferase 14 U/L (15-37); Blood Urea Nitrogen 17 mg/dL (7-18); Carbon Dioxide 32.1 meq/L (21.0-32.0); Chloride 88 meq/L (98-107); Glomerular Filtration Rate 42 mL/min (>89); Glucose,Random 142 mg/dL (74-106); Potassium 3.6 meq/L (3.5-5.1); Sodium 131 meq/L (136-145)
[2018-02-26 10:04] LABS: Alanine Aminotransferase 15 U/L (10-53)
[2018-02-26 10:08] LABS: Alkaline Phosphatase 95 U/L (45-117); Total Protein 7.6 g/dL (6.4-8.2)
--- NOTE | 2018-02-26 11:38 | P.PN ---
Subjective Interval history: awake and alert up in chair states has home 02- but does not use it sent here to ER by home health care denies any burning onn urination "not today" Physical Exam Vital signs: Vital Signs 02/25/18 19:09 02/25/18 19:28 02/25/18 21:00 Temperature 98.0 F 98.6 F Pulse Rate 68 Respiratory Rate 20 Blood Pressure 116/84 Pulse Oximetry 96 92 L 02/26/18 00:00 02/26/18 04:00 02/26/18 08:00 Temperature 97.1 F L 98.4 F 97.8 F Pulse Rate 66 70 71 Respiratory Rate 18 20 22 Blood Pressure 114/66 144/76 H 118/58 L Pulse Oximetry 91 L 92 L 90 L Intake & Output 02/25/18 02/26/18 02/26/18 18:59 06:59 18:59 Intake Total 170 / 170 Output Total 100 / 100 Balance 70 / 70 Weight 111.5 kg Intake: IV 50 / 50 Zosyn 3.375 GM Premix 50 ML @ 50 / 50 100 mls/hr IV.SIG Q6H KARL Rx#: [id number] Oral 120 / 120 Output: Urine 100 / 100 Other: # Voids 4 Date of Last Bowel Movement 02/25/18 # Bowel Movements 1 Narrative: awake and alert, oriented x 3,no acute distress anicteric lungs- no rales, no wheezes regular rhythm abdomen- flabby soft, not tender bilateral groin area- with midl scaling erythema bilateral LE- erythema, venous stasis , with lichenified, thickened skin both LE- left more than right + edema motor- moves all extremities spontaenously Results - Labs CBC & Chem 7: 02/26/18 07:45 02/27/18 09:10 Laboratory Results - last 24 hr 02/25/18 02/25/18 02/25/18 16:38 16:45 16:45 WBC 10.4 RBC 4.63 Hgb 13.5 Hct 40.1 MCV 86.5 MCH 29.2 MCHC 33.7 RDW 14.8 Plt Count 266 MPV 6.4 L Neut % (Auto) 71.1 H Lymph % (Auto) 11.8 [place] % (Auto) 11.4 H Eos % (Auto) 4.8 H Baso % (Auto) 0.9 Neut # (Auto) 7.4 Lymph # (Auto) 1.2 Weakley # (Auto) 1.2 H Eos # (Auto) 0.5 H Baso # (Auto) 0.1 WBC Differential . Differential Comment Auto diff final Sodium 130 L Potassium 3.4 L Chloride 86 L Carbon Dioxide 34.7 H Anion Gap 9 BUN 17 Creatinine 1.35 H Estimated GFR 39 L POC Glucose Random Glucose 261 H Calcium 8.8 Total Bilirubin 0.5 AST 11 L ALT 16 Alkaline Phosphatase 130 H Total Protein 8.1 Albumin 3.3 L Ur Collection Type Cancelled Urine Color Cancelled Urine Clarity Cancelled Urine pH Cancelled Ur Specific Forest Cancelled Urine Protein Cancelled Urine Glucose (UA) Cancelled Urine Ketones Cancelled Urine Occult Blood Cancelled Urine Nitrate Cancelled Urine Bilirubin Cancelled Urine Ictotest Cancelled Urine Urobilinogen Cancelled Ur Leukocyte Esterase Cancelled Urine RBC Cancelled Urine WBC Cancelled Urine WBC Clumps Cancelled Ur Squamous Epith Cells Cancelled Ur Transition Epith Cell Cancelled Ur Renal Epithelial Cell Cancelled Calcium Carbonate Cryst Cancelled Calcium Oxalate Crystal Cancelled Leucine Crystals Cancelled Cystine Crystals Cancelled Uric Acid Crystals Cancelled Triple Phos Crystals Cancelled Cholesterol Crystals Cancelled Tyrosine Crystals Cancelled Amorphous Sediment Cancelled Urine Bacteria Cancelled Hyaline Casts Cancelled Granular Casts Cancelled Fine Granular Casts Cancelled Coarse Granular Casts Cancelled Waxy Casts Cancelled RBC Casts Cancelled WBC Casts Cancelled Urine Mucus Cancelled Urine Trichomonas Cancelled Urine Yeast Cancelled Ur Yeast w Hyphae Cancelled Urine Sperm Cancelled Ur Oval Fat Bodies Cancelled Micro UA Comment Cancelled Urine Culture Comments Cancelled Urine Collection Time Cancelled Urine Comment Cancelled 02/25/18 02/26/18 02/26/18 20:55 07:39 07:45 WBC 10.2 RBC 4.43 Hgb 13.2 Hct 38.7 MCV 87.5 MCH 29.9 MCHC 34.2 RDW 15.0 Plt Count 250 MPV 6.4 L Neut % (Auto) 73.8 H Lymph % (Auto) 11.8 Weak[place] % (Auto) 9.9 H Eos % (Auto) 4.0 Baso % (Auto) 0.5 Neut # (Auto) 7.5 Lymph # (Auto) 1.2 Weakley # (Auto) 1.0 H Eos # (Auto) 0.4 Baso # (Auto) 0.1 WBC Differential . Differential Comment Auto diff final Sodium Potassium Chloride Carbon Dioxide Anion Gap BUN Creatinine Estimated GFR POC Glucose 213 H 166 H Random Glucose Calcium Total Bilirubin AST ALT Alkaline Phosphatase Total Protein Albumin Ur Collection Type Urine Color Urine Clarity Urine pH Ur Specific Forest Urine Protein Urine Glucose (UA) Urine Ketones Urine Occult Blood Urine Nitrate Urine Bilirubin Urine Ictotest Urine Urobilinogen Ur Leukocyte Esterase Urine RBC Urine WBC Urine WBC Clumps Ur Squamous Epith Cells Ur Transition Epith Cell Ur Renal Epithelial Cell Calcium Carbonate Cryst Calcium Oxalate Crystal Leucine Crystals Cystine Crystals Uric Acid Crystals Triple Phos Crystals Cholesterol Crystals Tyrosine Crystals Amorphous Sediment Urine Bacteria Hyaline Casts Granular Casts Fine Granular Casts Coarse Granular Casts Waxy Casts RBC Casts WBC Casts Urine Mucus Urine Trichomonas Urine Yeast Ur Yeast w Hyphae Urine Sperm Ur Oval Fat Bodies Micro UA Comment Urine Culture Comments Urine Collection Time Urine Comment 02/26/18 07:45 WBC RBC Hgb Hct MCV MCH MCHC RDW Plt Count MPV Neut % (Auto) Lymph % (Auto) Weakley % (Auto) Eos % (Auto) Baso % (Auto) Neut # (Auto) Lymph # (Auto) Weakley # (Auto) Eos # (Auto) Baso # (Auto) WBC Differential Differential Comment Sodium 131 L Potassium 3.6 Chloride 88 L Carbon Dioxide 32.1 H Anion Gap 11 BUN 17 Creatinine 1.26 H Estimated GFR 42 L POC Glucose Random Glucose 142 H D Calcium 9.0 Total Bilirubin 0.8 AST 14 L ALT 15 Alkaline Phosphatase 95 Total Protein 7.6 Albumin 3.0 L Ur Collection Type Urine Color Urine Clarity Urine pH Ur Specific Forest Urine Protein Urine Glucose (UA) Urine Ketones Urine Occult Blood Urine Nitrate Urine Bilirubin Urine Ictotest Urine Urobilinogen Ur Leukocyte Esterase Urine RBC Urine WBC Urine WBC Clumps Ur Squamous Epith Cells Ur Transition Epith Cell Ur Renal Epithelial Cell Calcium Carbonate Cryst Calcium Oxalate Crystal Leucine Crystals Cystine Crystals Uric Acid Crystals Triple Phos Crystals Cholesterol Crystals Tyrosine Crystals Amorphous Sediment Urine Bacteria Hyaline Casts Granular Casts Fine Granular Casts Coarse Granular Casts Waxy Casts RBC Casts WBC Casts Urine Mucus Urine Trichomonas Urine Yeast Ur Yeast w Hyphae Urine Sperm Ur Oval Fat Bodies Micro UA Comment Urine Culture Comments Urine Collection Time Urine Comment - Imaging Impressions Chest X-Ray 02/25/18 16:19 CONCLUSION: Cardiomegaly with dilation of the central pulmonary vasculature suggesting pulmonary artery hypertension. Chronic appearing parenchymal interstitial changes similar to previous of 2017. Tibia/Fibula X-Ray 02/25/18 16:19 CONCLUSION: Tibia and fibula within normal limits. Assessment and Plan - Assessment (1) Cellulitis Code(s): L03.90 - Cellulitis, unspecified Status: Acute (2) Infestation by maggots Code(s): B87.9 - Myiasis, unspecified Status: Acute (3) DM (diabetes mellitus) Code(s): E11.9 - Type 2 diabetes mellitus without complications Status: Acute (4) JOSEPHINE (acute kidney injury) Code(s): N17.9 - Acute kidney failure, unspecified Status: Acute - Plan 72 years old female Recurrent bilateral Cellulitis Infestation by Maggots: [facility] RN noted maggots embedded in LLE, +multiple live maggots found on lateral LLE in ER, removed. Bilateral venous stasis Recent admit 02/04/18 for bilateral lower extremity cellulitis,- she was then discharged on Bactrim reviewed C and s that admission- grew Proteus and Pseudomonas- Proteus sensitive to Bactrim but not tested on Pseudomonas Continue on Vanc/Zosyn- initiated at ER Wound Care Consulted for wound management. Continue w/ IV Abx as above. 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 ? CHF history -last BNP 63 on - ff on gentle fluids COPD- in remission- 02 dependent- per aptient she was sent home with 02 last 2017 - but patient states not using it when at rest DVT Prophylaxis: Heparin sq Social work for d/c planning as needed (1) Cellulitis Qualifiers: Site of cellulitis: extremity Site of cellulitis of extremity: lower extremity Laterality: unspecified laterality Qualified Code(s): L03.119 - Cellulitis of unspecified part of limb
[2018-02-26] MEDS: Sod Chloride 0.9% Inj 1,000 ML IV.CONT SCH (12:04)
[2018-02-26] MEDS: Vancomycin Inj 1,400 MG in Sodium Chlor 0.9% Inj 500 ML IV.SIG SCH (12:35)
--- NOTE | 2018-02-26 16:51 | MB ---
cc: Kevin Reece MD DATE: 02/26/2018 REASON FOR CONSULTATION: Cellulitis of both legs, venous stasis, chronic venous insufficiency and wounds of both legs. HISTORY OF PRESENT ILLNESS: This 72-year-old female presents to the hospital with wounds of both legs around the ankle area and feet, left more than the right, with maggots crawling in the left wound. The patient apparently had a lot of repeated ulcers of both legs and hence the consultation. PAST MEDICAL HISTORY: Diabetes mellitus, hypertension, morbid obesity, COPD, hypoxia. The patient has bilateral severe chronic venous stasis and had ulcerations before, had Wound Care look at her at home. Also has medical history of a left lung nodule and squamous cell carcinoma. SOCIAL HISTORY: The patient smokes about a pack a day. PHYSICAL EXAMINATION: GENERAL: Reveals a 72-year-old female. HEENT: Normocephalic. No trauma to head. Pupils equal, reactive. Extraocular muscles intact. NECK: Bilateral carotid pulses. No bruits. CHEST: Bilateral breath sounds, decreased at both lung carpio, consistent with moderate COPD. HEART: Regular rate and rhythm on percussion. The patient clearly has cardiomegaly of the heart and a bovine heart with ictus cordis all the way in the left upper quadrant of the abdomen. ABDOMEN: Obese, soft. No rebound, no guarding. EXTREMITIES: The patient actually has palpable femoral pulses. She has dopplerable popliteal pulses and distally, I do not appreciate any pulses, although feet are warm. The patient has severe sequela of venous stasis and chronic venous insufficiency with liposclerosis, thickening of the skin, hemosiderosis and several ulcers of both legs, left more than the right. NEUROLOGIC: Grossly patient is intact. RECOMMENDATIONS: This patient at this point is not a surgical candidate for any procedure, her vascular supply inflow is not impaired and this is a sequela of venous stasis rather than anything else. Other than wound cleaning and taking care of the ulcers, this a medical condition, not a surgical condition. On the other hand, if the patient developed osteomyelitis of Charcot joint, then of course she would end up with an amputation, but I do not believe this will go that way. Thank you very much for your referral. MD GUILLERMINA Miller/ASHLEE , 03:34 PM , 03:42 PM
[2018-02-26 20:50] LABS: Bacteria,Urine Rare /hpf; Bilirubin,Urine Negative (Negative); Clarity,Urine Clear (Clear); Color,Urine Yellow (Yellw/Straw); Glucose,Urine (UA) Negative (Negative); Leukocyte Esterase,Urine Moderate (Negative); Nitrite,Urine Negative (Negative); Specific Gravity,Urine 1.014 (1.002-1.035); Squamous Epithelial Cell,Urine 2 /hpf (0-5)
[2018-02-27] MEDS: Sod Chloride 0.9% Inj 1,000 ML IV.CONT SCH (04:11)
[2018-02-27] MEDS: Piperacil/Tazo 3.375 GM Premix 50 ML IV.SIG SCH ×3 (04:27→17:51)
[2018-02-27] MEDS: Heparin - SQ 10,000 UNITS/ML Vial SQ SCH ×2 (09:41→21:24)
[2018-02-27] MEDS: Insulin NovoLOG Aspart Correctional Sugar Inj SQ SCH ×4 (09:41→21:40)
[2018-02-27] MEDS: Senna/Docusate Sodium 8.6/50 MG Tablet PO SCH ×2 (09:41→21:24)
[2018-02-27 09:55] LABS: Calcium 8.9 mg/dL (8.5-10.1); Carbon Dioxide 29.3 meq/L (21.0-32.0); Potassium 3.5 meq/L (3.5-5.1)
[2018-02-27 10:06] LABS: Thyroid Stimulating Hormone 2.27 uIU/mL (0.358-3.740)
--- NOTE | 2018-02-27 11:21 | P.PN ---
Subjective Interval history: up on chair no complains no voiding complains Physical Exam Vital signs: Vital Signs 02/26/18 12:00 02/26/18 16:00 02/26/18 19:02 Temperature 97.8 F 98.1 F Pulse Rate 68 72 68 Respiratory Rate 22 20 18 Blood Pressure 120/60 131/59 L Pulse Oximetry 90 L 91 L 02/26/18 20:00 02/26/18 20:02 02/27/18 00:00 Temperature 97.4 F L 97.4 F L Pulse Rate 66 64 60 Respiratory Rate 17 17 Blood Pressure 129/62 111/55 L Pulse Oximetry 97 90 L 02/27/18 00:03 02/27/18 03:57 02/27/18 04:00 Temperature 97.4 F L Pulse Rate 65 57 L 57 L Respiratory Rate 19 Blood Pressure 122/74 Pulse Oximetry 94 L 02/27/18 08:00 02/27/18 08:48 Temperature 97.9 F Pulse Rate 58 L 60 Respiratory Rate 22 16 Blood Pressure 148/70 H Pulse Oximetry 90 L 94 L Intake & Output 02/26/18 02/27/18 02/27/18 18:59 06:59 18:59 Intake Total 380 / 380 1504 / 1504 Output Total 1000 / 1000 Balance 380 / 380 504 / 504 Weight 111.9 kg Intake: IV 100 / 100 1504 / 1504 NS Inj 1,000 ML @ 70 mls/hr IV. 940 / 940 CONT .[id number] [facility] Rx#:[id number] Zosyn 3.375 GM Premix 50 ML @ 100 / 100 50 / 50 100 mls/hr IV.SIG Q6H [facility] Rx#: [id number] Vancomycin Inj 1,400 MG In NS 514 / 514 Inj 500 ML @ 250 mls/hr IV.SIG Q24H [facility] Rx#:[id number] Oral 280 / 280 Output: Urine 1000 / 1000 Other: # Voids 3 3 Date of Last Bowel Movement 02/26/18 02/26/18 # Bowel Movements 0 Narrative: awake and alert, oriented x 3,no acute distress anicteric lungs- no rales, no wheezes regular rhythm abdomen- flabby soft, not tender bilateral groin area- with midl scaling erythema bilateral LE- erythema, venous stasis , with lichenified, thickened skin both LE- left more than right + edema motor- moves all extremities spontaneously Results - Labs CBC & Chem 7: 02/26/18 07:45 02/27/18 09:10 Laboratory Results - last 24 hr 02/26/18 02/26/18 02/26/18 11:50 17:08 19:58 Sodium Potassium Chloride Carbon Dioxide Anion Gap BUN Creatinine Estimated GFR POC Glucose 171 H 184 H 183 H Random Glucose Calcium B-Natriuretic Peptide TSH Urine Color Urine Clarity Urine pH Ur Specific [place] Urine Protein Urine Glucose (UA) Urine Ketones Urine Occult Blood Urine Nitrate Urine Bilirubin Urine Urobilinogen Ur Leukocyte Esterase Urine RBC Urine WBC Ur Squamous Epith Cells Urine Bacteria Micro UA Comment Urine Culture Comments 02/26/18 02/27/18 02/27/18 20:20 06:57 09:10 Sodium 128 L Potassium 3.5 Chloride 89 L Carbon Dioxide 29.3 Anion Gap 10 BUN 16 Creatinine 1.07 H Estimated GFR 51 L POC Glucose 183 H Random Glucose 153 H Calcium 8.9 B-Natriuretic Peptide TSH 2.270 Urine Color Yellow Urine Clarity Clear Urine pH 6.0 Ur Specific [place] 1.014 Urine Protein 30 H Urine Glucose (UA) Negative Urine Ketones Negative Urine Occult Blood Small H Urine Nitrate Negative Urine Bilirubin Negative Urine Urobilinogen 2.0 H Ur Leukocyte Esterase Moderate H Urine RBC 1 Urine WBC 38 H Ur Squamous Epith Cells 2 Urine Bacteria Rare H Micro UA Comment Culture indicated Urine Culture Comments Culture indicated 02/27/18 09:10 Sodium Potassium Chloride Carbon Dioxide Anion Gap BUN Creatinine Estimated GFR POC Glucose Random Glucose Calcium B-Natriuretic Peptide 74 TSH Urine Color Urine Clarity Urine pH Ur Specific [place] Urine Protein Urine Glucose (UA) Urine Ketones Urine Occult Blood Urine Nitrate Urine Bilirubin Urine Urobilinogen Ur Leukocyte Esterase Urine RBC Urine WBC Ur Squamous Epith Cells Urine Bacteria Micro UA Comment Urine Culture Comments Assessment and Plan - Assessment (1) Cellulitis Code(s): L03.90 - Cellulitis, unspecified Status: Acute (2) Infestation by maggots Code(s): B87.9 - Myiasis, unspecified Status: Acute (3) DM (diabetes mellitus) Code(s): E11.9 - Type 2 diabetes mellitus without complications Status: Acute (4) JOSEPHINE (acute kidney injury) Code(s): N17.9 - Acute kidney failure, unspecified Status: Acute - Plan 72 years old female Recurrent bilateral Cellulitis Infestation by Maggots: [facility] RN noted maggots embedded in LLE, +multiple live maggots found on lateral LLE in ER, removed. Bilateral venous stasis Recent admit 02/04/18 for bilateral lower extremity cellulitis,- she was then discharged on Bactrim reviewed C and s that admission- grew Proteus and Pseudomonas- Proteus sensitive to Bactrim but not tested on Pseudomonas Continue on Vanc/Zosyn- Seen by Gen surgery for evaluation of debridement of skin/tissues - since Maggots thrive on tissue- no plans for procedures await wound care team recommendation History of E coli- UTI- last admission continue on zosyn recheck UA- C and s still pending DM: uncontrolled- BS 180s last A1C 02/04- 9.1 per patient on metformin as OP- will hold with JOSEPHINE- will not initiate with tendnedy for JOSEPHINE on Sliding scale w/ Accu-Cheks will need Insulin for better control- terminal makeup operator- patient adamantly refused to be on Insulin "No I will not take it" start on po oral hypoglycemics- Actos 15 mg daily JOSEPHINE- 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 decreased IVF rate on review was on furosemide and Metolazone as OP History of hypertension- ff BPs. ? CHF history- not in failure -last BNP 64 on COPD- in remission- 02 dependent- per aptient she was sent home with 02 last 2017 - but patient states not using it when at rest DVT Prophylaxis: Heparin sq Social work for d/c planning as needed (1) Cellulitis Qualifiers: Site of cellulitis: extremity Site of cellulitis of extremity: lower extremity Laterality: unspecified laterality Qualified Code(s): L03.119 - Cellulitis of unspecified part of limb
[2018-02-27] MEDS: Vancomycin Inj 1,400 MG in Sodium Chlor 0.9% Inj 500 ML IV.SIG SCH (12:55)
[2018-02-28] MEDS: Sod Chloride 0.9% Inj 1,000 ML IV.CONT SCH (07:02)
[2018-02-28] MEDS: Piperacil/Tazo 3.375 GM Premix 50 ML IV.SIG SCH ×5 (07:03→22:07)
[2018-02-28] MEDS: Heparin - SQ 10,000 UNITS/ML Vial SQ SCH ×2 (09:20→22:06)
[2018-02-28] MEDS: Senna/Docusate Sodium 8.6/50 MG Tablet PO SCH ×2 (09:20→22:06)
[2018-02-28] MEDS: Insulin NovoLOG Aspart Correctional Sugar Inj SQ SCH ×4 (09:20→22:06)
--- NOTE | 2018-02-28 10:07 | P.PN ---
Subjective Interval history: afebrile, no complains or pain Physical Exam Vital signs: Vital Signs 02/27/18 12:00 02/27/18 16:00 02/27/18 20:00 Temperature 97.9 F 97.5 F L 97.4 F L Pulse Rate 66 57 L 67 Respiratory Rate 22 20 18 Blood Pressure 154/72 H 149/70 H 133/65 Pulse Oximetry 90 L 91 L 90 L 02/27/18 23:26 02/28/18 00:00 02/28/18 03:58 Temperature 97.3 F L Pulse Rate 72 57 L 60 Respiratory Rate 18 Blood Pressure 132/66 Pulse Oximetry 97 02/28/18 04:00 Temperature 97.7 F Pulse Rate 60 Respiratory Rate 18 Blood Pressure 143/67 H Pulse Oximetry 90 L Intake & Output 02/27/18 02/28/18 02/28/18 18:59 06:59 18:59 Intake Total 1550 / 1550 514 / 514 Output Total 100 / 100 Balance 1550 / 1550 414 / 414 Weight 102.5 kg Intake: IV 990 / 990 514 / 514 NS Inj 1,000 ML @ 40 mls/hr IV. 940 / 940 CONT .Q24H [facility] Rx#:[id number] Zosyn 3.375 GM Premix 50 ML @ 50 / 50 100 mls/hr IV.SIG Q6H [facility] Rx#: [id number] Vancomycin Inj 1,400 MG In NS 514 / 514 Inj 500 ML @ 250 mls/hr IV.SIG Q24H [facility] Rx#:[id number] Oral 560 / 560 Output: Urine 100 / 100 Other: Post Void Residual 3 # Voids 5 Date of Last Bowel Movement 02/27/18 # Bowel Movements 3 Narrative: awake and alert, oriented x 3,no acute distress anicteric lungs- no rales, no wheezes regular rhythm abdomen- flabby soft, not tender bilateral groin area- with mild scaling erythema bilateral LE- + erythema, venous stasis , with lichenified, thickened skin both LE- left more than right + edema motor- moves all extremities spontaneously Results - Labs CBC & Chem 7: 02/26/18 07:45 02/27/18 09:10 Laboratory Results - last 24 hr 02/27/18 02/27/18 02/27/18 09:10 13:02 16:55 POC Glucose 160 H 180 H TSH 2.270 08/05/18 08/06/18 21:32 07:41 POC Glucose 221 H 198 H TSH Microbiology 02/26/18 20:20 Clean Catch Urine Urine Culture - Final <10,000 cfu/mL mixed beverly - no further workup Assessment and Plan - Assessment (1) Cellulitis Code(s): L03.90 - Cellulitis, unspecified Status: Acute (2) Infestation by maggots Code(s): B87.9 - Myiasis, unspecified Status: Acute (3) DM (diabetes mellitus) Code(s): E11.9 - Type 2 diabetes mellitus without complications Status: Acute (4) JOSEPHINE (acute kidney injury) Code(s): N17.9 - Acute kidney failure, unspecified Status: Acute - Plan 72 years old female Recurrent bilateral Cellulitis Infestation by Maggots: [facility] RN noted maggots embedded in LLE, +multiple live maggots found on lateral LLE in ER, removed. Bilateral venous stasis Recent admit 02/04/18 for bilateral lower extremity cellulitis,- she was then discharged on Bactrim reviewed C and s that admission- grew Proteus and Pseudomonas- Proteus sensitive to Bactrim but not tested on Pseudomonas Continue on Vanc/Zosyn- initiated at ER Wound Care Consulted for wound management. Continue w/ IV Abx as above. 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 ? 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
[2018-02-28] MEDS ORDERED: Pharmacy Ordered Lab Info OTHER ONE (11:45)
[2018-02-28] MEDS: Vancomycin Inj 1,400 MG in Sodium Chlor 0.9% Inj 500 ML IV.SIG SCH (12:23)
[2018-02-28 12:46] LABS: Calcium 9.2 mg/dL (8.5-10.1); Carbon Dioxide 35.8 meq/L (21.0-32.0); Potassium 3.5 meq/L (3.5-5.1)
[2018-02-28 12:48] LABS: Vancomycin,Trough 17.5 mcg/mL (5.0-10.0)
--- NOTE | 2018-02-28 19:15 | P.PNWCN ---
Wound Care Nurse Consult Description: Consult for wound management of LE per Dr Marquis Communicated with: Dr Silvestre Recommendation: *Please thoroughly cleanse and dry legs prior to applying Lac Hydrin to bilateral lower extremities BID. *Elevate bilateral lower extremities ~30 minutes 3-4 times per day. *Shaving cream therapy Q5D and PRN for softening of plaques on lower extremities from chronic venous dermatitis/insufficiency. Shaving cream therapy: 1. Apply shaving cream from below knees to ankles 2. Wrap legs with warmed moistened towels and leave in place for 5-10 min. 3. Remove towels and wipe away excess shaving cream. 4. Dry legs thoroughly. 5. Apply Lac Hydrin and leave open to air. Compression therapy is not recommended as patient does not ambulate more than a few feet. Additional information: Patient seen on for chronic venous insufficiency. No weeping open areas noted. Calazime was noted to dry skin and unable to be removed with Shaving cream therapy x2 which is recommended weekly. Patient is noted with hemosiderin staining, lipodermatosclerosis, and healing venous ulcers.
--- NOTE | 2018-02-28 20:22 | P.CONID ---
History of Present Illness Service: ID Consult date: 02/28/18 Requesting Physician: Kim Silvestre Reason for Consult: BLE cellulits Primary Care Provider: Diya Maldonado MD Family Provider: Diya Maldonado MD History of Present Illness: 72 yo F with morbid obesity chronic venostasis and COPD , still smoking presented wtih BLE edema redness and tenderness flared up for the last week or so While in the hostpital developped liquid diarrhea up to 6 BMs /day and some abdominal tenderness No fever, no leukocytosis On vancomycin IV for cellulits Review of Systems All other systems reviewed negative except as stated in HPI PMFSH - History History Provided By: Patient - Medical History Medical History: Medical History (Last Reviewed 02/28/18 @ 20:17 by Kavitha Sharma MD) Mass of left lung (Acute) Venous stasis (Acute) HTN (hypertension) (Acute) Cellulitis (Acute) Dermatitis (Acute) ADHD (Acute) Hx of radiation therapy (Acute) Lung nodule (Acute) Squamous cell carcinoma (Acute) CHF (congestive heart failure) Diabetes Renal insufficiency - Surgical History Surgical History: Surgical History (Last Reviewed 02/25/18 @ 16:57 by LORIE Doyle) H/O tubal ligation (Acute) - Family History Family History: Family History (Last Reviewed 02/28/18 @ 20:17 by Kavitha Sharma MD) Other No significant family history - Tobacco History Second Hand Smoke Exposure: No Tobacco Use In Past 30 Days: Yes Smoking Status: Current every day smoker (4-5 sig/d) Tobacco Type: Cigarettes - Alcohol History How Often Do You Have a Drink Containing Alcohol: Never - Substance Use History Substance History: No History of Abuse - Immunization History Tetanus Immunization: >5 Years Hx Influenza Vaccine This Season: Yes Medications and Allergies Active Medications: Active Medications Acetaminophen (Tylenol) 650 mg PO Q4H PRN PRN Reason: Temp > 100.4 Al Hydroxide/Mg Hydroxide (Milk Of Magnesia Liq) 30 ml PO Q12H PRN PRN Reason: Mild Constipation Albuterol (Duoneb Neb (Prn)) 1 ampul NEB Q6HR NEB PRN PRN Reason: wheezing/sob Last Admin: 02/28/18 14:12 Dose: 1 ampul Bisacodyl (Dulcolax Supp) 10 mg RECTAL DAILY PRN PRN Reason: SEVERE CONSITIPATION Dextrose (D50w Vial) 50 ml IV.PUSH UNSCH PRN PRN Reason: PER HYPOGLYCEMIA PROTOCOL Glucagon (Glucagon Inj) 1 mg OTHER PRN PRN PRN Reason: for Hypoglycemia Protocol Heparin Sodium (Porcine) (Heparin Inj) 5,000 units SQ Q12H [facility] Last Admin: 02/28/18 09:20 Dose: 5,000 units Pharmacy Profile Note (Vancomycin Consult Pharmacy) 0 mls @ 0 mls/hr OTHER UNSCH [facility] Piperacillin/Tazobactam/Dextrose (Zosyn 3.375 Gm Premix) 50 mls @ 100 mls/hr IV.SIG Q6H [facility] Last Admin: 02/28/18 17:22 Dose: 100 mls/hr Sodium Chloride (Ns Inj) 1,000 mls @ 40 mls/hr IV.CONT .Q24H [facility] Last Admin: 02/28/18 07:02 Dose: 70 mls/hr Vancomycin HCl 1,250 mg/ (Sodium Chloride) 262.5 mls @ 250 mls/hr IV.SIG Q24H [facility] Insulin Aspart (Novolog Insulin Correctional Sugar Inj) 0 unit SQ ACHS [facility]; Protocol Last Admin: 02/28/18 17:21 Dose: 1 unit Lactic Acid (Lac-Hydrin 12% Lotion) 1 applicatio TOPICAL BID [facility] Lactulose (Lactulose Liq) 30 ml PO DAILY PRN PRN Reason: SEVERE CONSITIPATION Miscellaneous Information ([facility] [place] [facility] Ordered Lab Info) 0 each OTHER ONCE ONE Stop: 03/04/18 11:46 Ondansetron HCl (Zofran Inj) 4 mg IV.PUSH Q6H PRN PRN Reason: NAUSEA OR VOMITING Pioglitazone HCl (Actos) 15 mg PO DAILYAC [facility] Last Admin: 02/28/18 11:29 Dose: 15 mg Senna/Docusate Sodium (Valeria-Colace) 1 tab PO BID [facility] Last Admin: 02/28/18 09:20 Dose: Not Given Sennosides (Senokot) 17.2 mg PO Q12H PRN PRN Reason: Moderate Constipation Sodium Chloride (Ns Flush) 2 ml IV.FLUSH PRN PRN PRN Reason: FLUSH AFTER USING IV ACCESS Temazepam (Restoril) 15 mg PO HS PRN PRN Reason: INSOMNIA Allergies Allergy/AdvReac Type Severity Reaction Status Date / Time mushroom Allergy Severe Throat Verified 02/03/18 19:17 swelling, rash sertraline AdvReac Intermediate Dizziness Verified 02/03/18 19:17 Home Medications Medication Instructions Recorded Confirmed Type albuterol sulfate [ProAir HFA] See Label Instructions .ROUTE 02/03/18 02/03/18 History .COMPLEX fluticasone-salmeterol [Advair 1 puff INHALATION BID 02/03/18 02/25/18 History Diskus] furosemide 20 mg PO DAILY PRN 02/03/18 02/25/18 History metformin 500 mg PO BID 02/03/18 02/25/18 History metolazone 5 mg PO DAILY 02/03/18 02/25/18 History montelukast 10 mg PO DAILY 02/03/18 02/25/18 History pravastatin 20 mg PO DAILY 02/03/18 02/25/18 History timolol 1 drp OPHTHALMIC (EYE) DAILY 02/03/18 02/25/18 History tramadol 50 mg PO BID 02/03/18 02/25/18 History Exam Vital signs: Vital Signs 02/27/18 23:26 02/28/18 00:00 02/28/18 03:58 Temperature 97.3 F L Pulse Rate 72 57 L 60 Respiratory Rate 18 Blood Pressure 132/66 Pulse Oximetry 97 02/28/18 04:00 02/28/18 08:00 02/28/18 10:19 Temperature 97.7 F 97.4 F L Pulse Rate 60 59 L Respiratory Rate 18 20 Blood Pressure 143/67 H 146/70 H Pulse Oximetry 90 L 92 L 92 L 02/28/18 12:00 02/28/18 14:15 02/28/18 16:00 Temperature 97.6 F 97.9 F Pulse Rate 62 78 65 Respiratory Rate 20 12 20 Blood Pressure 148/66 H 133/63 Pulse Oximetry 90 L 91 L 02/28/18 19:48 Temperature Pulse Rate Respiratory Rate Blood Pressure Pulse Oximetry 92 L Intake & Output 02/28/18 02/28/18 03/01/18 06:59 18:59 06:59 Intake Total 514 / 514 820 / 820 Output Total 100 / 100 Balance 414 / 414 820 / 820 Weight 102.5 kg Intake: IV 514 / 514 100 / 100 Zosyn 3.375 GM Premix 50 ML @ 100 / 100 100 mls/hr IV.SIG Q6H [facility] Rx#: [id number] Vancomycin Inj 1,400 MG In NS 514 / 514 Inj 500 ML @ 250 mls/hr IV.SIG Q24H [facility] Rx#:[id number] Oral 720 / 720 Output: Urine 100 / 100 Other: Post Void Residual 3 # Voids 2 Date of Last Bowel Movement 02/28/18 # Bowel Movements 1 - Constitutional no acute distress, morbidly obese - Routine HEENT Exam Head: Present: normocephalic, atraumatic Eye: Present: EOMI, PERRL ENT: Present: mucous membranes moist Comments: edentulous - Routine Neck Exam Present: supple, full ROM - Routine Respiratory Exam Present: decreased breath sounds, CTA bilaterally - Routine Cardiovascular Exam Present: RRR, S1, S2, murmur (3-4/6 holosystolic harsh on aorta) Comments: delayed refuill - Routine Abdominal Exam Present: soft, normoactive bowel sounds, tenderness (RLQ an LLQ w/o guading or rebound) Comments: morbidly obese no hepatomegaly/masses - Routine Extremities Exam Present: cyanosis, edema Comments: cool to cold digits BLE: stage 3 edema, chronic pigmentatis and stasis dermitits changexs pachydermia b/l + erythema b/l - Routine Neurological Exam Present: alert, oriented X3, CN II-XII intact, vision grossly intact, hearing grossly intact, normal speech - Routine Psychiatric Exam Present: normal affect, normal thought process, cooperative Results - Labs CBC & Chem 7: 02/26/18 07:45 02/28/18 12:00 Labs: Laboratory Results - last 24 hr 02/27/18 02/28/18 02/28/18 21:32 07:41 11:52 Sodium Potassium Chloride Carbon Dioxide Anion Gap BUN Creatinine Estimated GFR POC Glucose 221 H 198 H 164 H Random Glucose Calcium Vancomycin Trough 02/28/18 02/28/18 02/28/18 12:00 17:20 20:01 Sodium 132 L Potassium 3.5 Chloride 92 L Carbon Dioxide 35.8 H Anion Gap 4 L BUN 13 Creatinine 1.06 H Estimated GFR 51 L POC Glucose 187 H 242 H Random Glucose 163 H Calcium 9.2 Vancomycin Trough 17.5 H Assessment and Plan - Plan Morbid obesity Stasis demitis Diarrhea, r/o C.diff cont IV vancomycin - usually does not contribute to C.diff fu P C.diff toxin test chck lactic acid and CBC
[2018-02-28] MEDS: Lactic Acid (Ammonium Lactate) 12% Lotion 225 GM Bottle TOPICAL SCH (22:06)
[2018-03-01 03:13] LABS: Baso # (Auto) 0.1 th/mm3 (0.0-0.2); Baso % (Auto) 0.8 % (0.0-2.0); Eos # (Auto) 0.4 th/mm3 (0.0-0.4); Eos % (Auto) 6.2 % (0.0-4.0); Hematocrit 36.7 % (35.0-46.0); Hemoglobin 12.3 gm/dL (11.6-15.3); Lymph # (Auto) 0.9 th/mm3 (1.0-4.8); Lymph % (Auto) 13.3 % (9.0-44.0); Mean Corpuscular HGB Conc 33.4 % (32.0-36.0); Mean Corpuscular Hemoglobin 28.8 pg (27.0-34.0); Mean Corpuscular Volume 86.3 fL (80.0-100.0); Mean Platelet Volume 6.1 fL (7.0-11.0); Mono # (Auto) 0.7 th/mm3 (0.0-0.9); Mono % (Auto) 11.2 % (0.0-8.0); Neut # (Auto) 4.4 th/mm3 (1.8-7.7); Neut % (Auto) 68.5 % (16.0-70.0); Platelet Count 234 th/mm3 (150-450); Red Blood Count 4.25 mil/mm3 (4.00-5.30); Red Cell Distribution Width 15.1 % (11.6-17.2); White Blood Count 6.5 th/mm3 (4.0-11.0)
[2018-03-01] MEDS: Piperacil/Tazo 3.375 GM Premix 50 ML IV.SIG SCH ×3 (06:08→17:27)
[2018-03-01] MEDS: Heparin - SQ 10,000 UNITS/ML Vial SQ SCH ×2 (09:19→20:35)
[2018-03-01] MEDS: Senna/Docusate Sodium 8.6/50 MG Tablet PO SCH ×2 (09:20→20:34)
[2018-03-01] MEDS: Insulin NovoLOG Aspart Correctional Sugar Inj SQ SCH ×4 (09:27→20:54)
[2018-03-01] MEDS: Lactic Acid (Ammonium Lactate) 12% Lotion 225 GM Bottle TOPICAL SCH ×2 (12:00→20:36)
[2018-03-01] MEDS: Sod Chloride 0.9% Inj 1,000 ML IV.CONT SCH ×2 (12:20→20:33)
--- NOTE | 2018-03-01 12:31 | P.PN ---
Subjective Interval history: states some loose stools no other compalins afebrile Physical Exam Vital signs: Vital Signs 02/28/18 14:15 02/28/18 16:00 02/28/18 19:48 Temperature 97.9 F Pulse Rate 78 65 Respiratory Rate 12 20 Blood Pressure 133/63 Pulse Oximetry 91 L 92 L 02/28/18 20:00 03/01/18 00:00 03/01/18 04:00 Temperature 97.4 F L 97.3 F L 98.1 F Pulse Rate 66 60 61 Respiratory Rate 18 18 18 Blood Pressure 134/60 150/74 H 139/69 Pulse Oximetry 94 L 93 L 93 L 03/01/18 08:00 03/01/18 10:07 Temperature 97.9 F Pulse Rate 62 Respiratory Rate 20 Blood Pressure 138/81 Pulse Oximetry 90 L 93 L Intake & Output 02/28/18 03/01/18 03/01/18 18:59 06:59 18:59 Intake Total 870 / 870 1580 / 1580 Balance 870 / 870 1580 / 1580 Weight 112.4 kg Intake: IV 150 / 150 1100 / 1100 NS Inj 1,000 ML @ 40 mls/hr IV. 1000 / 1000 CONT .Q24H [facility] Rx#:[id number] Zosyn 3.375 GM Premix 50 ML @ 150 / 150 100 / 100 100 mls/hr IV.SIG Q6H [facility] Rx#: [id number] Oral 720 / 720 480 / 480 Other: # Voids 2 5 Date of Last Bowel Movement 02/28/18 02/28/18 # Bowel Movements 1 5 Narrative: awake and alert, oriented x 3,no acute distress anicteric lungs- no rales, no wheezes regular rhythm abdomen- flabby soft, not tender bilateral groin area- with mild scaling erythema bilateral LE- + erythema- seem better today, venous stasis , with lichenified, thickened skin both LE- + edema motor- moves all extremities spontaneously Results - Labs CBC & Chem 7: 03/01/18 02:46 02/28/18 12:00 Laboratory Results - last 24 hr 02/28/18 02/28/18 02/28/18 12:00 16:45 17:20 WBC RBC Hgb Hct MCV MCH MCHC RDW Plt Count MPV Neut % (Auto) Lymph % (Auto) [place] % (Auto) Eos % (Auto) Baso % (Auto) Neut # (Auto) Lymph # (Auto) [place] # (Auto) Eos # (Auto) Baso # (Auto) WBC Differential Differential Comment Sodium 132 L Potassium 3.5 Chloride 92 L Carbon Dioxide 35.8 H Anion Gap 4 L BUN 13 Creatinine 1.06 H Estimated GFR 51 L POC Glucose 187 H Random Glucose 163 H Lactic Acid Calcium 9.2 Stl C.difficile Tox PCR Negative St C. diff Tox Epid 027 Negative Vancomycin Trough 17.5 H 02/28/18 03/01/18 03/01/18 20:01 02:46 02:46 WBC 6.5 RBC 4.25 Hgb 12.3 Hct 36.7 MCV 86.3 MCH 28.8 MCHC 33.4 RDW 15.1 Plt Count 234 MPV 6.1 L Neut % (Auto) 68.5 Lymph % (Auto) 13.3 [place] % (Auto) 11.2 H Eos % (Auto) 6.2 H Baso % (Auto) 0.8 Neut # (Auto) 4.4 Lymph # (Auto) 0.9 L [place] # (Auto) 0.7 Eos # (Auto) 0.4 Baso # (Auto) 0.1 WBC Differential . Differential Comment Auto diff final Sodium Potassium Chloride Carbon Dioxide Anion Gap BUN Creatinine Estimated GFR POC Glucose 242 H Random Glucose Lactic Acid 1.0 Calcium Stl C.difficile Tox PCR St C. diff Tox Epid 027 Vancomycin Trough 03/01/18 03/01/18 09:19 12:22 WBC RBC Hgb Hct MCV MCH MCHC RDW Plt Count MPV Neut % (Auto) Lymph % (Auto) [place] % (Auto) Eos % (Auto) Baso % (Auto) Neut # (Auto) Lymph # (Auto) [place] # (Auto) Eos # (Auto) Baso # (Auto) WBC Differential Differential Comment Sodium Potassium Chloride Carbon Dioxide Anion Gap BUN Creatinine Estimated GFR POC Glucose 201 H 153 H Random Glucose Lactic Acid Calcium Stl C.difficile Tox PCR St C. diff Tox Epid 027 Vancomycin Trough Microbiology 02/26/18 20:20 Clean Catch Urine Urine Culture - Final <10,000 cfu/mL mixed beverly - no further workup Assessment and Plan - Assessment (1) Cellulitis Code(s): L03.90 - Cellulitis, unspecified Status: Acute (2) Infestation by maggots Code(s): B87.9 - Myiasis, unspecified Status: Acute (3) DM (diabetes mellitus) Code(s): E11.9 - Type 2 diabetes mellitus without complications Status: Acute (4) JOSEPHINE (acute kidney injury) Code(s): N17.9 - Acute kidney failure, unspecified Status: Acute - Plan 72 years old female Recurrent bilateral Cellulitis Infestation by Maggots: [facility] RN noted maggots embedded in LLE, +multiple live maggots found on lateral LLE in ER, removed. Bilateral venous stasis Recent admit 02/04/18 for bilateral lower extremity cellulitis,- she was then discharged on Bactrim reviewed C and s that admission- grew Proteus and Pseudomonas- Proteus sensitive to Bactrim but not tested on Pseudomonas Continue on Vanc/Zosyn- initiated at ER Wound Care Consulted for wound management. Continue w/ IV Abx as above. 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 ? CHF history -last BNP 64 on COPD- in remission- 02 dependent- per aptient she was sent home with 02 last 2017 - but patient states not using it when at rest Diarrhea- c diff negative start lactinex tid DVT Prophylaxis: Heparin sq Social work for d/c planning as needed PT eval Leg elevation (1) Cellulitis Qualifiers: Site of cellulitis: extremity Site of cellulitis of extremity: lower extremity Laterality: unspecified laterality Qualified Code(s): L03.119 - Cellulitis of unspecified part of limb
[2018-03-01] MEDS: Vancomycin Inj 1,250 MG in Sodium Chlor 0.9% Inj 250 ML IV.SIG SCH (14:15)
[2018-03-01] MEDS: Lactobacillus Acidophilus/L. Spores Tablet PO SCH ×2 (14:15→17:27)
[2018-03-02] MEDS: Piperacil/Tazo 3.375 GM Premix 50 ML IV.SIG SCH ×4 (05:00→17:06)
[2018-03-02] MEDS: Heparin - SQ 10,000 UNITS/ML Vial SQ SCH ×2 (09:18→20:41)
[2018-03-02] MEDS: Lactobacillus Acidophilus/L. Spores Tablet PO SCH ×3 (09:18→17:07)
[2018-03-02] MEDS: Senna/Docusate Sodium 8.6/50 MG Tablet PO SCH ×2 (09:19→20:41)
[2018-03-02] MEDS: Insulin NovoLOG Aspart Correctional Sugar Inj SQ SCH ×4 (09:19→20:41)
[2018-03-02] MEDS: Lactic Acid (Ammonium Lactate) 12% Lotion 225 GM Bottle TOPICAL SCH ×2 (09:19→20:42)
--- NOTE | 2018-03-02 11:48 | P.PN ---
Subjective Interval history: afebrile states still some loose stools no pain complains Physical Exam Vital signs: Vital Signs 03/01/18 12:00 03/01/18 15:34 03/01/18 16:00 Temperature 97.5 F L 97.6 F Pulse Rate 57 L 65 73 Respiratory Rate 20 12 20 Blood Pressure 152/71 H 141/68 H Pulse Oximetry 91 L 93 L 03/01/18 20:00 03/02/18 00:00 03/02/18 04:00 Temperature 97.8 F 97.3 F L 97.5 F L Pulse Rate 60 61 60 Respiratory Rate 20 20 18 Blood Pressure 137/79 146/69 H 154/73 H Pulse Oximetry 92 L 93 L 96 03/02/18 08:00 Temperature 97.9 F Pulse Rate 56 L Respiratory Rate 20 Blood Pressure 145/67 H Pulse Oximetry 93 L Intake & Output 03/01/18 03/02/18 03/02/18 18:59 06:59 18:59 Intake Total 792.5 / 792.5 680 / 680 Balance 792.5 / 792.5 680 / 680 Weight 113.2 kg Intake: IV 312.5 / 312.5 200 / 200 Zosyn 3.375 GM Premix 50 ML @ 50 / 50 200 / 200 100 mls/hr IV.SIG Q6H [facility] Rx#: [id number] Vancomycin Inj 1,250 MG In NS 262.5 / 262.5 Inj 250 ML @ 250 mls/hr IV.SIG Q24H [facility] Rx#:[id number] Oral 480 / 480 Oral Supplement 480 / 480 Other: # Voids 5 5 Date of Last Bowel Movement 03/01/18 03/02/18 03/02/18 # Bowel Movements 5 4 Narrative: awake and alert, oriented x 3,no acute distress anicteric lungs- no rales, no wheezes regular rhythm abdomen- flabby soft, not tender bilateral groin area- with mild scaling erythema bilateral LE- + erythema- s, venous stasis , with lichenified, thickened skin both LE- + edema motor- moves all extremities spontaneously Results - Labs CBC & Chem 7: 03/01/18 02:46 03/02/18 07:18 Laboratory Results - last 24 hr 03/01/18 03/01/18 03/01/18 12:22 17:26 20:37 Creatinine Estimated GFR POC Glucose 153 H 187 H 223 H 03/02/18 03/02/18 03/02/18 07:18 07:37 11:42 Creatinine 1.02 H Estimated GFR 53 L POC Glucose 154 H 168 H Assessment and Plan - Assessment (1) Cellulitis Code(s): L03.90 - Cellulitis, unspecified Status: Acute (2) Infestation by maggots Code(s): B87.9 - Myiasis, unspecified Status: Acute (3) DM (diabetes mellitus) Code(s): E11.9 - Type 2 diabetes mellitus without complications Status: Acute (4) JOSEPHINE (acute kidney injury) Code(s): N17.9 - Acute kidney failure, unspecified Status: Acute - Plan 72 years old female Recurrent bilateral Cellulitis Infestation by Maggots: [facility] RN noted maggots embedded in LLE, +multiple live maggots found on lateral LLE in ER, removed. Bilateral venous stasis Recent admit 02/04/18 for bilateral lower extremity cellulitis,- she was then discharged on Bactrim reviewed C and s that admission- grew Proteus and Pseudomonas- Proteus sensitive to Bactrim but not tested on Pseudomonas Continue on Vanc/Zosyn- Wound Care Consulted for wound management. Continue w/ IV Abx as above. seen by GS - no plans for procedure wound care team ff Infectious disease ff History of E coli- UTI- last admission continue on zosyn recheck UA- immature DM: uncontrolled last A1C 02/04- 9.1. 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 ? CHF history -last BNP 64 on COPD- in remission- 02 dependent- per aptient she was sent home with 02 last 2017 - but patient states not using it when at rest Diarrhea- c diff negative start lactinex tid monitor BMs DVT Prophylaxis: Heparin sq Social work for d/c planning as needed PT eval Leg elevation (1) Cellulitis Qualifiers: Site of cellulitis: extremity Site of cellulitis of extremity: lower extremity Laterality: unspecified laterality Qualified Code(s): L03.119 - Cellulitis of unspecified part of limb
[2018-03-02] MEDS: Vancomycin Inj 1,250 MG in Sodium Chlor 0.9% Inj 250 ML IV.SIG SCH (13:00)
[2018-03-02] MEDS: Sod Chloride 0.9% Inj 1,000 ML IV.CONT SCH (15:56)
--- NOTE | 2018-03-02 16:28 | P.DIET ---
Nutritional Evaluation Type of nutrition evaluation: initial Nutrition consult regarding: [place] [place] Assessment Assessment: Pt visited in her room w/ present. Provided pt w/ diet education regarding diabetic diet and she refused to review any info. Asked if pt had been educated before on her diet and her and her simultaneously said yes. I briefly reviewed pts 1800ADA meal pattern and carb counting and provided her w/ handouts regarding the s/s of hyper- and hypoglycemia. Pt still refused to go more in depth and said she would read the handouts later. Provided pt w/ [employer] coupons and my contact info. Encouraged pt or to call if they had any questions. Consult RD if needed.
[2018-03-03] MEDS: Piperacil/Tazo 3.375 GM Premix 50 ML IV.SIG SCH ×5 (00:24→23:22)
[2018-03-03] MEDS: Senna/Docusate Sodium 8.6/50 MG Tablet PO SCH ×2 (10:13→21:55)
[2018-03-03] MEDS: Insulin NovoLOG Aspart Correctional Sugar Inj SQ SCH ×4 (10:14→21:55)
[2018-03-03] MEDS: Lactobacillus Acidophilus/L. Spores Tablet PO SCH ×3 (10:15→17:56)
[2018-03-03] MEDS: Heparin - SQ 10,000 UNITS/ML Vial SQ SCH ×2 (10:15→21:54)
[2018-03-03] MEDS: Lactic Acid (Ammonium Lactate) 12% Lotion 225 GM Bottle TOPICAL SCH ×2 (10:16→21:55)
--- NOTE | 2018-03-03 12:19 | P.PN ---
Subjective Interval history: patient states loose stools improves= less ion amount no complains of pain afebrie Physical Exam Vital signs: Vital Signs 03/02/18 14:25 03/02/18 16:00 03/02/18 20:00 Temperature 97.6 F 97.6 F Pulse Rate 88 60 66 Respiratory Rate 14 20 17 Blood Pressure 179/76 H 167/86 H Pulse Oximetry 95 94 L 03/03/18 00:00 03/03/18 04:00 03/03/18 08:00 Temperature 98.0 F 97.9 F 97.3 F L Pulse Rate 61 69 58 L Respiratory Rate 20 20 18 Blood Pressure 133/87 161/73 H 160/71 H Pulse Oximetry 92 L 93 L 94 L 03/03/18 11:20 03/03/18 11:49 Temperature Pulse Rate 58 L 60 Respiratory Rate 18 Blood Pressure Pulse Oximetry Intake & Output 03/02/18 03/03/18 03/03/18 18:59 06:59 18:59 Intake Total 1082.5 / 1082.5 1460 / 1460 Balance 1082.5 / 1082.5 1460 / 1460 Weight 113 kg Intake: IV 362.5 / 362.5 1100 / 1100 NS Inj 1,000 ML @ 40 mls/hr IV. 1000 / 1000 CONT .Q24H [facility] Rx#:[id number] Zosyn 3.375 GM Premix 50 ML @ 100 / 100 100 / 100 100 mls/hr IV.SIG Q6H KAR[facility] Rx#: [id number] Vancomycin Inj 1,250 MG In NS 262.5 / 262.5 Inj 250 ML @ 250 mls/hr IV.SIG Q24H KARL Rx#:[id number] Oral 720 / 720 360 / 360 Other: # Voids 7 2 Date of Last Bowel Movement 03/02/18 03/03/18 03/03/18 # Bowel Movements 1 1 Narrative: awake and alert, oriented x 3,no acute distress anicteric lungs- no rales, no wheezes regular rhythm abdomen- flabby soft, not tender bilateral groin area- with mild scaling erythema bilateral LE- + erythema-improving gradually, venous stasis , with lichenified, thickened skin both LE- + edema motor- moves all extremities spontaneously Results - Labs CBC & Chem 7: 03/01/18 02:46 03/02/18 07:18 Laboratory Results - last 24 hr 03/02/18 03/02/18 03/03/18 16:21 20:37 08:54 POC Glucose 171 H 209 H 124 H 03/03/18 12:13 POC Glucose 139 H Assessment and Plan - Assessment (1) Cellulitis Code(s): L03.90 - Cellulitis, unspecified Status: Acute (2) Infestation by maggots Code(s): B87.9 - Myiasis, unspecified Status: Acute (3) DM (diabetes mellitus) Code(s): E11.9 - Type 2 diabetes mellitus without complications Status: Acute (4) JOSEPHINE (acute kidney injury) Code(s): N17.9 - Acute kidney failure, unspecified Status: Acute - Plan 72 years old female Recurrent bilateral Cellulitis Infestation by Maggots: [facility] RN noted maggots embedded in LLE, +multiple live maggots found on lateral LLE in ER, removed. Bilateral venous stasis Recent admit 02/04/18 for bilateral lower extremity cellulitis,- she was then discharged on Bactrim reviewed C and s that admission- grew Proteus and Pseudomonas- Proteus sensitive to Bactrim but not tested on Pseudomonas Continue on Vanc/Zosyn- Wound Care Consulted for wound management. Continue w/ IV Abx as above. seen by GS - no plans for procedure wound care team ff Infectious disease ff History of E coli- UTI- last admission continue on zosyn recheck UA- immature DM: uncontrolled- better readings last 24 hours last A1C 02/04- 9.1. 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 ? 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
[2018-03-03] MEDS: Vancomycin Inj 1,250 MG in Sodium Chlor 0.9% Inj 250 ML IV.SIG SCH (13:10)
[2018-03-03] MEDS: Sod Chloride 0.9% Inj 1,000 ML IV.CONT SCH ×2 (17:58→23:25)
[2018-03-04] MEDS: Piperacil/Tazo 3.375 GM Premix 50 ML IV.SIG SCH ×2 (04:46→11:15)
[2018-03-04] MEDS: Heparin - SQ 10,000 UNITS/ML Vial SQ SCH (09:25)
[2018-03-04] MEDS: Senna/Docusate Sodium 8.6/50 MG Tablet PO SCH (09:26)
[2018-03-04] MEDS: Lactobacillus Acidophilus/L. Spores Tablet PO SCH ×2 (09:26→13:14)
[2018-03-04] MEDS: Lactic Acid (Ammonium Lactate) 12% Lotion 225 GM Bottle TOPICAL SCH (09:26)
[2018-03-04] MEDS: Insulin NovoLOG Aspart Correctional Sugar Inj SQ SCH ×2 (09:26→13:13)
[2018-03-04] MEDS ORDERED: Pharmacy Ordered Lab Info OTHER ONE (11:45)
--- NOTE | 2018-03-04 11:57 | P.PN ---
Subjective Interval history: erythema improving patient feeling better wanting to go home Physical Exam Vital signs: Vital Signs 03/03/18 12:00 03/03/18 15:27 03/03/18 16:00 Temperature 97.2 F L 97.5 F L Pulse Rate 63 63 65 Respiratory Rate 18 18 Blood Pressure 148/69 H 168/72 H Pulse Oximetry 92 L 91 L 03/03/18 20:00 03/03/18 20:10 03/04/18 00:00 Temperature 97.6 F 97.7 F Pulse Rate 63 72 60 Respiratory Rate 18 18 Blood Pressure 147/67 H 132/62 Pulse Oximetry 91 L 94 L 03/04/18 00:08 03/04/18 04:00 03/04/18 04:02 Temperature 97.6 F Pulse Rate 55 L 61 63 Respiratory Rate 19 Blood Pressure 136/69 Pulse Oximetry 94 L 03/04/18 08:00 Temperature 97.3 F L Pulse Rate 53 L Respiratory Rate 18 Blood Pressure 146/64 H Pulse Oximetry 95 Intake & Output 03/03/18 03/04/18 03/04/18 18:59 06:59 18:59 Intake Total 1010 / 1010 1892.5 / 1892.5 Output Total 1200 / 1200 Balance -190 / -190 1892.5 / 1892.5 Weight 112.6 kg Intake: IV 50 / 50 1412.5 / 1412.5 NS Inj 1,000 ML @ 40 mls/hr IV. 1000 / 1000 CONT .Q24H KAR[facility] Rx#:[id number] Zosyn 3.375 GM Premix 50 ML @ 50 / 50 150 / 150 100 mls/hr IV.SIG Q6H [facility] Rx#: [id number] Vancomycin Inj 1,250 MG In NS 262.5 / 262.5 Inj 250 ML @ 250 mls/hr IV.SIG Q24H [facility] Rx#:[id number] Oral 960 / 960 480 / 480 Output: Urine 1200 / 1200 Other: # Voids 4 Date of Last Bowel Movement 03/03/18 03/03/18 # Bowel Movements 2 Narrative: awake and alert, oriented x 3,no acute distress anicteric lungs- no rales, no wheezes regular rhythm abdomen- flabby soft, not tender bilateral groin area- with mild scaling erythema bilateral LE- + erythema-improved , venous stasis , with lichenified, thickened skin both LE- + edema motor- moves all extremities spontaneously Results - Labs CBC & Chem 7: 03/01/18 02:46 03/04/18 05:23 Laboratory Results - last 24 hr 03/03/18 03/03/18 03/03/18 12:13 16:56 20:28 Creatinine Estimated GFR POC Glucose 139 H 156 H 154 H 03/04/18 03/04/18 05:23 08:07 Creatinine 1.02 H Estimated GFR 53 L POC Glucose 136 H Assessment and Plan - Assessment (1) Cellulitis Code(s): L03.90 - Cellulitis, unspecified Status: Acute (2) Infestation by maggots Code(s): B87.9 - Myiasis, unspecified Status: Acute (3) DM (diabetes mellitus) Code(s): E11.9 - Type 2 diabetes mellitus without complications Status: Acute (4) JOSEPHINE (acute kidney injury) Code(s): N17.9 - Acute kidney failure, unspecified Status: Acute - Plan 72 years old female Recurrent bilateral Cellulitis Infestation by Maggots: [facility] RN noted maggots embedded in LLE, +multiple live maggots found on lateral LLE in ER, removed. Bilateral venous stasis Recent admit 02/04/18 for bilateral lower extremity cellulitis,- she was then discharged on Bactrim reviewed C and s that admission- grew Proteus and Pseudomonas- Proteus sensitive to Bactrim but not tested on Pseudomonas Continue on Vanc/Zosyn- Wound Care Consulted for wound management. Continue w/ IV Abx as above. seen by GS - no plans for procedure wound care team ff Infectious disease ff- will d/w PO regimen History of E coli- UTI- last admission continue on zosyn recheck UA- immature DM: uncontrolled- better readings last 24 hours last A1C 02/04- 9.1. 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 ? 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 DC IV Vanco and zosyn OP ff up PCP (1) Cellulitis Qualifiers: Site of cellulitis: extremity Site of cellulitis of extremity: lower extremity Laterality: unspecified laterality Qualified Code(s): L03.119 - Cellulitis of unspecified part of limb
[2018-03-04] MEDS: Vancomycin Inj 1,250 MG in Sodium Chlor 0.9% Inj 250 ML IV.SIG SCH (13:14)
--- NOTE | 2018-03-04 14:18 | P.DS ---
Date of admission: 02/25/18 19:43 Primary care physician: Diya Maldonado MD Anticipated date of discharge: 03/04/18 Brief History from admission: This is a 72-year-old female with a PMH of HTN, DM, Bilateral LE Cellulitis and Venous Stasis who presented to the ER after pt noted to have maggots in LLE. Pt w/ recent admit 02/04/18 for LE Cellulitis, UTI and Hypoxia, was sent home w/ [facility], states she's had a [facility] RN visit every 2-3 days, today noted several maggots embedded in her LLE. Pt denies fever or chills. WBC normal. Creatinine 1.35, previously 0.96 on 02/05/2018. UA pending. Tib-fib X-ray with no acute findings. On exam in the ER, pt noted to have multiple live maggots crawling around on leg. S/p Vanc/Zosyn in ER. DS: Diagnosis - Discharge Diagnosis (1) Cellulitis Status: Acute (2) Infestation by maggots Status: Acute (3) DM (diabetes mellitus) Status: Acute (4) JOSEPHINE (acute kidney injury) Status: Acute DS: Medications - Discharge Medications Prescriptions: acidophilus-sporogenes [Acidophilus Ex Str (L. sporog)] 1 tab PO TID 7 Days #21 tab cephalexin 500 mg PO Q6HR 7 Days cap doxycycline hyclate 100 mg PO Q12HR #7 tab pioglitazone [Actos] 15 mg PO DAILYAC #30 tab DS: Summary Hospital Course: 72 years old female Recurrent bilateral Cellulitis Infestation by Maggots: [facility] RN noted maggots embedded in LLE, +multiple live maggots found on lateral LLE in ER, removed. Bilateral venous stasis Recent admit 02/04/18 for bilateral lower extremity cellulitis,- she was then discharged on Bactrim reviewed C and s that admission- grew Proteus and Pseudomonas- Proteus sensitive to Bactrim but not tested on Pseudomonas Continue on Vanc/Zosyn- Wound Care Consulted for wound management. Continue w/ IV Abx as above. seen by GS - no plans for procedure wound care team ff Infectious disease ff- will d/w PO regimen History of E coli- UTI- last admission continue on zosyn recheck UA- immature DM: uncontrolled- better readings last 24 hours last A1C 7/13- 9.1. 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 ? 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 DC IV Vanco and zosyn OP ff up PCP - Time Spent with Patient Total time spent providing and/or coordinating discharge services: Greater than 30 minutes Exam Vital signs: Vital Signs 03/03/18 15:27 03/03/18 16:00 03/03/18 20:00 Temperature 97.5 F L 97.6 F Pulse Rate 63 65 63 Respiratory Rate 18 18 Blood Pressure 168/72 H 147/67 H Pulse Oximetry 91 L 91 L 03/03/18 20:10 03/04/18 00:00 03/04/18 00:08 Temperature 97.7 F Pulse Rate 72 60 55 L Respiratory Rate 18 Blood Pressure 132/62 Pulse Oximetry 94 L 03/04/18 04:00 03/04/18 04:02 03/04/18 08:00 Temperature 97.6 F 97.3 F L Pulse Rate 61 63 53 L Respiratory Rate 19 18 Blood Pressure 136/69 146/64 H Pulse Oximetry 94 L 95 03/04/18 12:00 03/04/18 13:33 03/04/18 13:34 Temperature 97.2 F L Pulse Rate 55 L 54 L Respiratory Rate 17 20 Blood Pressure 130/79 Pulse Oximetry 92 L 97 Intake & Output 03/03/18 03/04/18 03/04/18 18:59 06:59 18:59 Intake Total 1010 / 1010 1892.5 / 1892.5 Output Total 1200 / 1200 Balance -190 / -190 1892.5 / 1892.5 Weight 112.6 kg Intake: IV 50 / 50 1412.5 / 1412.5 NS Inj 1,000 ML @ 40 mls/hr IV. 1000 / 1000 CONT .Q24H KARL Rx#:[id number] Zosyn 3.375 GM Premix 50 ML @ 50 / 50 150 / 150 100 mls/hr IV.SIG Q6H [facility] Rx#: [id number] Vancomycin Inj 1,250 MG In NS 262.5 / 262.5 Inj 250 ML @ 250 mls/hr IV.SIG Q24H [facility] Rx#:[id number] Oral 960 / 960 480 / 480 Output: Urine 1200 / 1200 Other: # Voids 4 Date of Last Bowel Movement 03/03/18 03/03/18 # Bowel Movements 2 Results Procedures completed during hospitalization: none Labs on day of discharge: Labs from last 24 hours 03/04/18 03/04/18 03/04/18 12:23 11:45 08:07 Creatinine Estimated GFR POC Glucose 129 H 136 H Vancomycin Trough 21.8 H 03/04/18 03/03/18 03/03/18 05:23 20:28 16:56 Creatinine 1.02 H Estimated GFR 53 L POC Glucose 154 H 156 H Vancomycin Trough - Impressions ITS Impressions Chest X-Ray 02/25/18 16:19 CONCLUSION: Cardiomegaly with dilation of the central pulmonary vasculature suggesting pulmonary artery hypertension. Chronic appearing parenchymal interstitial changes similar to previous of 2017. Tibia/Fibula X-Ray 02/25/18 16:19 CONCLUSION: Tibia and fibula within normal limits. Discharge Plan - Discharge Disposition Patient Disposition: 01 Discharge Home - Discharge Condition Condition: Stable - Discharge Order Discharge Orders: Discharge Order (Routine); Ordered 03/04/18 Ordered By: Kim Silvestre - Discharge Details Anticipated Discharge Date: 03/04/18 - Physicians Team Primary Care Provider: Diya Maldonado Attending Provider: Kim Silvestre Other Providers: Kevin Reece MD ; Kavitha Sharma MD
--- NOTE | 2018-03-04 14:49 | P.DCO ---
- Physical Therapy Order: Evaluate and treat, Improve ambulation - Home Health Nursing Order: Medical education, Signs/symptoms of disease process, Diabetic education , Wound care and dressing changes, Nursing assessment with vital signs - Television Announcer Order: To evaluate: Living conditions/environment, Support services - Certification I have seen patient Lisset Coley on 03/04/18. My clinical findings support the need for the requested home health care services because: Limited mobility due to disease progression, Deconditioned with increased weakness, Need for psychosocial assistance I certify that my clinical findings support that this patient is homebound because: Need for psychosocial assistance
== END 2018-03-04 16:48 | disposition home or self-care (01) ==
LOC: NEPE 15:27 → NEDA 15:27 → N04 20:36
PROVIDERS: ADMIT Internal Medicine; ATTEND Internal Medicine